=== PATIENT | male | born 1945 | race Caucasian/White ===

== ENCOUNTER → 2018-03-04 17:38 | Outpatient (REF) | payer MEDICARE, BC, SELFPAY ==
[2018-03-04 19:57] LABS: HCT 51.4 % (40.0-50.0); HGB 17.6 g/dL (13.5-17.5); Mean Corp. HGB Concentration 34.2 g/dL (32.0-36.0); Mean Corpuscular Hemoglobin 34.3 pg (27.0-33.0); Mean Corpuscular Volume 100.2 fL (80-95); Mean Platelet Volume 10.9 fL (8.0-11.0); Platelet Count 217 x1000/uL (130-400); RBC 5.13 m/cumm (4.50-6.00); RBC Distribution Width 12.8 % (11.8-14.1)
[2018-03-04 20:22] LABS: NT-proBNP 969 pg/mL
== END ==
LOC: NCHCN 17:38
PROVIDERS: PCP Family Medicine; Visit Provider Family Medicine
DX: R06.02 Shortness of breath (principal)
CPT/HCPCS: 85027; 83880

== ENCOUNTER → 2018-03-10 13:59 | Outpatient (CLI) | payer MEDICARE, BC, SELFPAY ==
--- NOTE | 2018-03-10 14:02 | DI.REPORT_ITS ---
SYMPTOMS/DIAGNOSIS: SHORTNESS OF BREATH, R06.02 PA AND LATERAL CHEST: Comparison is made with 2Jan14. The heart size is normal. There is minimal linear scarring posteriorly, unchanged. The lungs are otherwise clear. No infiltrate, effusion or pulmonary edema is seen. Degenerative changes and scoliosis are noted in the spine. IMPRESSION: No acute abnormality.
== END ==
PROVIDERS: PCP Family Medicine; Visit Provider Family Medicine
DX: R06.02 Shortness of breath (principal)
CPT/HCPCS: 71046

== ENCOUNTER → 2018-03-16 02:36 | Outpatient (CLI) | payer MEDICARE, BC, SELFPAY ==
--- NOTE | 2018-03-16 15:27 | MERGE_ITS ---
*[facility]* *[facility]* [address] [place] [address] Date of study: 03/16/2018 Transthoracic Echocardiography M-mode, complete 2D, complete spectral Doppler, and color Doppler *STUDY CONCLUSIONS* Summary: 1. Left ventricle: The cavity size was normal. Systolic function was normal. The estimated ejection fraction was 60-65%. Diastolic parameters were normal for age. There was no evidence of elevated ventricular filling pressure by Doppler parameters. 2. Aortic valve: There was moderate regurgitation. 3. Right ventricle: The cavity size was normal. Wall thickness was normal. Systolic function was normal. 4. Atrial septum: No defect or patent foramen ovale was identified. 5. Pulmonary arteries: Pulmonary systolic pressure was in the range of 25mm Hg to 35mm Hg. 6. Inferior vena cava: The vessel was normal in size. The respirophasic diameter changes were in the normal range (greater than or equal to 50%), consistent with normal central venous pressure. *PATIENT PRESENTATION* Height: 157.5cm ((62in) ) S/D Pressure: 135 / 82 Weight: 90.7kg ((199.6lb) ) BSA: 2.04m^2 Test start time: 02:20 PM. Test stop time: 03:20 PM. PERFORMING Unknown PERFORMING [facility] MANAGER BANK RT Annie (Tessy)([place]), [facility] ORDERING Christian Benavides REFERRING Christian Benavides *PROCEDURE DATA* Procedure information: The patient was identified by two identifiers. This study was interpreted by [facility]. Pertinent images and digital data are archived for permanent storage and are available for subsequent review. No prior study was available for comparison. Study status: Routine. Transthoracic echocardiography. M-mode, complete 2D, complete spectral Doppler, and color Doppler. A Transthoracic Echocardiogram was performed. Scanning was performed from the parasternal, apical, subcostal, and suprasternal notch acoustic windows. Images were obtained using an [id number] cardiac ultrasound machine. Image quality was adequate. Study completion: The patient tolerated the procedure well. History: PMH: SOB. RBBB, elevated recent BNP, negative CXR. *CARDIAC ANATOMY* Left ventricle: The cavity size was normal. Systolic function was normal. The estimated ejection fraction was 60-65%. The tissue Doppler parameters were abnormal. Diastolic parameters were normal for age. There was no evidence of elevated ventricular filling pressure by Doppler parameters. Aortic valve: Trileaflet. Doppler: There was no stenosis. There was moderate regurgitation. VTI ratio of LVOT to aortic valve: 0.74. Valve area (VTI): 2.6cm^2. Indexed valve area (VTI): 1.3cm^2/m^2. Peak velocity ratio of LVOT to aortic valve: 0.69. Valve area (Vmax): 2.4cm^2. Indexed valve area (Vmax): 1.2cm^2/m^2. Mean velocity ratio of LVOT to aortic valve: 0.6. Valve area (Vmean): 2.1cm^2. Indexed valve area (Vmean): 1cm^2/m^2. Mean gradient (S): 5mm Hg. Peak gradient (S): 9.7mm Hg. Aorta: Aortic root: The aortic root was normal in size. Mitral valve: Doppler: Valve area by pressure half-time: 3.5cm^2. Indexed valve area by pressure half-time: 1.7cm^2/m^2. Left atrium: The atrium was normal in size. Atrial septum: No defect or patent foramen ovale was identified. Right ventricle: The cavity size was normal. Wall thickness was normal. Systolic function was normal. Pulmonic valve: Doppler: There was no evidence for stenosis. There was mild regurgitation. Peak gradient (S): 4.8mm Hg. Tricuspid valve: Doppler: There was mild regurgitation. Pulmonary artery: Poorly visualized. Pulmonary systolic pressure was in the range of 25mm Hg to 35mm Hg. Right atrium: The atrium was normal in size. Pericardium: There was no pericardial effusion. Systemic veins: Inferior vena cava: Not well visualized. The vessel was normal in size. The respirophasic diameter changes were in the normal range (greater than or equal to 50%), consistent with normal central venous pressure. Baseline ECG: Normal sinus rhythm. Measurements Left ventricle Value Reference LV ID, ED, PLAX 4.3 cm 3.5 - 6.0 LV ID, ES, PLAX 3.2 cm 2.1 - 4.0 LV PW thickness, ED, PLAX 1.0 cm LV end-diastolic volume, 1-p A2C 70 ml LV ejection fraction, 1-p A2C 56 % LV end-diastolic volume, 1-p A4C 73 ml LV ejection fraction, 1-p A4C 55 % LV e', lateral 0.091 m/sec LV E/e', lateral 7 LV e', medial 0.056 m/sec LV E/e', medial 12 LV e', average 0.074 m/sec LV E/e', average 9 Ventricular septum Value Reference IVS thickness, ED, PLAX 1.0 cm LVOT Value Reference LVOT ID, A-P 2.1 cm LVOT area 3.5 cm^2 LVOT peak velocity, S 1.07 m/sec LVOT mean velocity, S 0.64 m/sec LVOT VTI, S 24.6 cm LVOT peak gradient, S 4.6 mm Hg LVOT mean gradient, S 2 mm Hg Stroke volume (SV), LVOT DP 85 ml Stroke index (SV/bsa), LVOT DP 42 ml/m^2 Aortic valve Value Reference Aortic valve peak velocity, S 1.6 m/sec Aortic valve mean velocity, S 1.06 m/sec Aortic valve VTI, S 33.4 cm Aortic mean gradient, S 5 mm Hg Aortic peak gradient, S 9.7 mm Hg VTI ratio, LVOT/AV 0.74 Aortic valve area, VTI 2.6 cm^2 Velocity ratio, peak, LVOT/AV 0.69 Aortic valve area, peak velocity 2.4 cm^2 Velocity ratio, mean, LVOT/AV 0.6 Aortic valve area, mean velocity 2.1 cm^2 Aortic valve area/bsa, mean velocity 1 cm^2/m^2 Aortic regurg deceleration 243 cm/s^2 Aortic regurg pressure half-time 593 ms Aorta Value Reference Aortic root ID, ED 3.2 cm Ascending aorta ID, A-P, S 2.7 cm RVOT Value Reference RVOT VTI, S 13.1 cm Left atrium Value Reference LA ID, A-P, ES 3.9 cm LA ID/bsa, A-P 1.9 cm/m^2 <=2.2 LA area, ES, A4C 22.8 cm^2 8.8 - 23.4 LA area, ES, A2C 20 cm^2 LA volume/bsa, ES, 1-p A4C 38 ml/m^2 LA volume, ES, 2-p 67 ml LA volume/bsa, ES, 2-p 33 ml/m^2 LA/aortic root ratio 1.22 Mitral valve Value Reference Mitral E-wave peak velocity 0.65 m/sec Mitral A-wave peak velocity 0.74 m/sec Mitral deceleration time 218 ms 150 - 230 Mitral pressure half-time 63 ms Mitral E/A ratio, peak 0.88 Mitral valve area, PHT, DP 3.5 cm^2 Pulmonary veins Value Reference Pulmonary vein peak velocity, S 0.74 m/sec Pulmonary vein peak velocity, D 0.44 m/sec Pulmonary vein velocity ratio, peak, 1.66 S/D Pulmonary vein A-wave reversal peak 0.5 m/sec velocity Pulmonary vein A-wave reversal 153 ms duration Tricuspid valve Value Reference Tricuspid regurg peak velocity 2.7 m/sec Tricuspid peak RV-RA gradient 28.7 mm Hg Right atrium Value Reference RA area, ES, A4C 19.1 cm^2 8.3 - 19.5 Pulmonic valve Value Reference Pulmonic peak gradient, S 4.8 mm Hg Legend: (L) and (H) maikel values outside specified reference range. I have personally reviewed the images and have reviewed and edited the reported findings. Electronically signed by Charles Dennison MD 03/16/2018 16:44
== END ==
PROVIDERS: PCP Family Medicine; Visit Provider Family Medicine
DX: R06.02 Shortness of breath (principal); I45.10 Unspecified right bundle-branch block; I35.1 Nonrheumatic aortic (valve) insufficiency; R79.89 Other specified abnormal findings of blood chemistry
CPT/HCPCS: 93306

== ENCOUNTER → 2018-03-16 03:51 | Outpatient (CLI) | payer MEDICARE, BC, SELFPAY ==
--- NOTE | 2018-03-16 15:30 | PFT_ITS ---
PULMONARY FUNCTION TEST REPORT DATE OF SERVICE - March 16, 2018 REQUESTING PROVIDER - Christian Benavides M.D. INTERPRETATION OF STUDY Spirometry shows no evidence of obstructive airways disease. No bronchodilator response testing was carried out. LUNG VOLUMES - Lung volumes show no evidence of restriction. DIFFUSION CAPACITY- Normal. AIRWAY RESISTANCE - Normal. IMPRESSION Overall normal pulmonary function study. Clinical correlation recommended. Sabrina Liang M.D. ABIGAIL/max T - 03/17/2018 HAND SIGNED COPY OF THIS NOTE IS SCANNED INTO THE EMR
== END ==
PROVIDERS: PCP Family Medicine; Visit Provider Family Medicine
DX: I35.1 Nonrheumatic aortic (valve) insufficiency (principal); R06.02 Shortness of breath; I45.10 Unspecified right bundle-branch block
CPT/HCPCS: 93306; 94010; 94060; 94150; 94726; 94729

== ENCOUNTER 2018-08-17 14:49 | Outpatient (REF) | payer MEDICARE, BC, SELFPAY ==
[2018-08-17 19:23] LABS: Absolute Basophil Count 0.06 k/cumm (0.0-0.2); Absolute Eosinophil Count 0.16 k/cumm (0.0-0.7); Absolute Lymphocyte Count 1.17 k/cumm (1.2-3.4); Absolute Monocyte Count 0.51 k/cumm (0.11-0.7); Absolute Neutrophil Count 3.03 k/cumm (1.2-6.7); Basophils % 1.2; Eosinophils % 3.2; HCT 47.3 % (40.0-50.0); Lymphocytes % 23.7; Mean Corp. HGB Concentration 33.8 g/dL (32.0-36.0); Mean Corpuscular Hemoglobin 33.8 pg (27.0-33.0); Mean Corpuscular Volume 99.8 fL (80-95); Mean Platelet Volume 11.1 fL (8.0-11.0); Monocytes % 10.3; Neutrophils % 61.6; Platelet Count 214 x1000/uL (130-400); RBC 4.74 m/cumm (4.50-6.00); RBC Distribution Width 12.5 % (11.8-14.1); White Blood Cell Count 4.93 k/cumm (4.4-10.8)
[2018-08-17 19:53] LABS: TSH (W/Ref FT4) 1.48 uIU/mL (0.358-3.74)
[2018-08-17 20:39] LABS: Vitamin B12 930 pg/mL (193-986)
== END 2018-08-17 15:09 ==
LOC: NCHCN 14:49
PROVIDERS: PCP Family Medicine; Visit Provider Family Medicine
DX: D75.1 Secondary polycythemia (principal); E89.0 Postprocedural hypothyroidism
CPT/HCPCS: 82607; 84443; 85025

== ENCOUNTER → 2018-08-18 09:39 | Outpatient (BNVA) | payer MEDICARE, BC, SELFPAY | PROVIDERS: PCP Family Medicine; Visit Provider Orthopaedic Surgery | DX: M17.11 Unilateral primary osteoarthritis, right knee (principal); M17.12 Unilateral primary osteoarthritis, left knee; M75.82 Other shoulder lesions, left shoulder | CPT/HCPCS: 20610; 99211; 99213; J1040; J7325 ==

== ENCOUNTER 2018-10-06 14:38 | Outpatient (REF) | payer MEDICARE, BC, SELFPAY ==
[2018-10-06 18:59] LABS: CREATININE 0.95 mg/dL (0.70-1.30)
== END 2018-10-06 14:58 ==
LOC: NCHCN 14:38
PROVIDERS: PCP Family Medicine; Visit Provider Family Medicine
DX: R31.0 Gross hematuria (principal)
CPT/HCPCS: 82565

== ENCOUNTER 2018-10-20 01:31 | Outpatient (CLI) | payer MEDICARE, BC, SELFPAY ==
[2018-10-20] MEDS: Omnipaque 350 MG/ML 100 ML BTL IJ (09:58)
--- NOTE | 2018-10-20 10:03 | DI.CT_ITS ---
SYMPTOM/DIAGNOSIS: GROSS HEMATURIA, , R31.[address]: The noncontrast enhanced examination reveals bilateral non obstructing renal calculi. Bilateral renal cysts are demonstrated. There is no evidence of hydronephrosis. There is no evidence of ureterolithiasis or ureterectasis. The bladder is minimally distended. There is bladder wall thickening which could be on the basis of cystitis or incomplete distension. Numerous calcifications are identified in an enlarged prostate. The visualized portions of the liver are unremarkable. The gallbladder is unremarkable. The pancreas and spleen are intact. The adrenals are unremarkable. There is no evidence of bowel obstruction. The appendix is normal. Note is made of a small fat containing umbilical hernia. There are atherosclerotic changes in the aorta without evidence of an aneurysm. Diffuse degenerative changes involving the lumbar spine are noted with narrowed vacuum discs at all levels. There is discogenic sclerosis and hypertrophic spurring throughout. SUMMARY: Bilateral non obstructing nephrolithiasis. There are multiple right renal cysts with no evidence of hydronephrosis. There is no evidence of ureterectasis or ureterolithiasis. Bladder wall thickening could be on the basis of non distension. Cystitis could not be excluded.
== END 2018-10-20 01:51 ==
PROVIDERS: PCP Family Medicine; Visit Provider Family Medicine
DX: R31.0 Gross hematuria (principal); N20.0 Calculus of kidney; N28.1 Cyst of kidney, acquired
CPT/HCPCS: 74178; 82565; J3490

== ENCOUNTER → 2018-10-22 13:52 | Outpatient (BNVA) | payer MEDICARE, BC, SELFPAY | PROVIDERS: PCP Family Medicine; Referring Provider Family Medicine; Visit Provider Nurse Practitioner Gerontology | DX: N40.1 Benign prostatic hyperplasia with lower urinary tract symptoms (principal); R31.0 Gross hematuria; R35.0 Frequency of micturition | CPT/HCPCS: 81003; 99204; 99215 ==

== ENCOUNTER → 2018-12-03 13:09 | Outpatient (BNVA) | payer MEDICARE, BC, SELFPAY | PROVIDERS: PCP Family Medicine; Visit Provider Nurse Practitioner Gerontology | DX: N40.1 Benign prostatic hyperplasia with lower urinary tract symptoms (principal); R35.0 Frequency of micturition | CPT/HCPCS: 51798; 99213 ==

== ENCOUNTER 2019-01-11 15:05 | Outpatient (REF) | payer MEDICARE, BC, SELFPAY ==
[2019-01-11 20:03] LABS: Bilirubin Negative (Negative); Blood Negative (Negative); Clarity Clear (Clear); Glucose Negative (Negative); Ketones Negative (Negative); Leukocyte Esterase Negative (Negative); Nitrite Negative (Negative); Specific Gravity 1.015 (1.005-1.025); Urobilinogen 0.2 EU/dL (Up TO 0.2)
== END 2019-01-11 15:25 ==
LOC: NCHCN 15:05
PROVIDERS: PCP Family Medicine; Visit Provider Family Medicine
DX: R31.0 Gross hematuria (principal); R30.9 Painful micturition, unspecified
CPT/HCPCS: 81003

== ENCOUNTER 2019-03-02 12:15 | Outpatient (REF) | payer MEDICARE, BC, SELFPAY ==
[2019-03-02 13:36] LABS: Ferritin 79 ng/mL (8-388); TSH (W/Ref FT4) 1.89 uIU/mL (0.36-3.74)
[2019-03-02 13:43] LABS: ESR 6 mm/hr (1-20)
== END 2019-03-02 12:35 ==
LOC: NCHCN 12:15
PROVIDERS: PCP Family Medicine; Visit Provider Family Medicine
DX: G25.81 Restless legs syndrome (principal); R42 Dizziness and giddiness; E89.0 Postprocedural hypothyroidism; R71.8 Other abnormality of red blood cells
CPT/HCPCS: 85652; 82728; 84443

== ENCOUNTER → 2019-03-04 14:03 | Outpatient (BNVA) | payer MEDICARE, BC, SELFPAY | PROVIDERS: PCP Family Medicine; Referring Provider Family Medicine; Visit Provider Orthopaedic Surgery | DX: M17.11 Unilateral primary osteoarthritis, right knee (principal); M17.12 Unilateral primary osteoarthritis, left knee; M75.82 Other shoulder lesions, left shoulder; G25.81 Restless legs syndrome | CPT/HCPCS: 20610; 99211; 99213; J1040; J7325 ==

== ENCOUNTER 2019-08-06 11:55 | Outpatient (CLI) | payer MEDICARE, BC, SELFPAY ==
--- NOTE | 2019-08-06 11:59 | DI.RAD_ITS ---
EXAM: XR CHEST 2V PA LATERAL INDICATION: COUGH, PALPITATIONS, R05, R00.2. COMPARISON: CHEST 2 VIEWS PA,LAT from 03/10/2018 TECHNIQUE: 2D digital imaging was performed. FINDINGS: The cardiac and mediastinal contours have a normal appearance. The lungs are suboptimally inflated but clear. No infiltrate or effusion is seen. Degenerative changes are noted in the spine. IMPRESSION: No acute abnormality.
== END 2019-08-06 12:15 ==
PROVIDERS: PCP Family Medicine; Visit Provider Nurse Practitioner Family
DX: R05 Cough (principal); R00.2 Palpitations
CPT/HCPCS: 71046

== ENCOUNTER 2019-08-06 12:05 | Outpatient (REF) | payer MEDICARE, BC, SELFPAY ==
[2019-08-06 18:54] LABS: HGB 15.9 g/dL (13.5-17.5); Mean Corp. HGB Concentration 33.1 g/dL (32.0-36.0); Mean Corpuscular Hemoglobin 33.1 pg (27.0-33.0); Mean Platelet Volume 10.8 fL (8.0-11.0); Platelet Count 270 x1000/uL (130-400); RBC Distribution Width 12.5 % (11.8-14.1); White Blood Cell Count 8.84 k/cumm (4.4-10.8)
[2019-08-06 19:19] LABS: NT-proBNP 160 pg/mL (<300)
== END 2019-08-06 12:25 ==
LOC: NCHCN 12:05
PROVIDERS: PCP Family Medicine; Visit Provider Nurse Practitioner Family
DX: R06.9 Unspecified abnormalities of breathing (principal); R05 Cough
CPT/HCPCS: 85027; 83880

== ENCOUNTER 2019-08-10 02:41 | Outpatient (CLI) | payer MEDICARE, BC, SELFPAY | END 2019-08-10 03:01 | PROVIDERS: PCP Family Medicine; Visit Provider Family Medicine | DX: R00.2 Palpitations (principal); I48.91 Unspecified atrial fibrillation | CPT/HCPCS: 93225 ==

== ENCOUNTER 2019-08-12 11:10 | Outpatient (CLI) | payer MEDICARE, BC, SELFPAY ==
--- NOTE | 2019-08-12 11:58 | W.HOLTRPT ---
Date of service: 08/12/19 Time of Service: 11:58 Holter Monitor Report Holter Monitor Note: There is a 48-hour Holter monitor ordered for indication of palpitations. ?The patient had one long episode of atrial fibrillation lasting 1 day 6 hours. Maximal heart rate was 229. ?The patient was in normal sinus rhythm for the remainder of the recording. ?The patient one episode of supraventricular tachycardia lasted 4 beats. ?The patient had 0 episodes of ventricular tachycardia and rare (less than 1%) single ventricular ectopic beats. ?Patient had no pauses greater than 3 seconds and no evidence of high degree heart block. ?Patient diary events were associated with both normal sinus rhythm as well as atrial fibrillation.
== END 2019-08-12 11:30 ==
PROVIDERS: PCP Family Medicine; Visit Provider Family Medicine
DX: R00.2 Palpitations (principal); I48.91 Unspecified atrial fibrillation
CPT/HCPCS: 93227; 93226

== ENCOUNTER 2019-08-16 16:30 | Outpatient (REF) | payer MEDICARE, BC, SELFPAY ==
[2019-08-16 19:27] LABS: Magnesium 2.1 mg/dL (1.8-2.4); TSH (W/Ref FT4) 1.99 uIU/mL (0.36-3.74)
== END 2019-08-16 16:50 ==
LOC: NCHCN 16:30
PROVIDERS: PCP Family Medicine; Visit Provider Family Medicine
DX: I48.0 Paroxysmal atrial fibrillation (principal); E89.0 Postprocedural hypothyroidism
CPT/HCPCS: 83735; 84443

== ENCOUNTER 2019-09-07 11:18 | Outpatient (REF) | payer MEDICARE, BC, SELFPAY ==
[2019-09-07 18:48] LABS: Anion Gap 6.6 mmol/L (3-11); BUN 14 mg/dL (7-18); CO2 30.4 mmol/L (21.0-32.0); CREATININE 0.96 mg/dL (0.70-1.30); Calcium 9.3 mg/dL (8.5-10.1); Chloride 105 mmol/L (98-107); Glucose 111 mg/dL (74-106); Potassium 4.6 mmol/L (3.5-5.1); Sodium 142 mmol/L (136-145)
== END 2019-09-07 11:38 ==
LOC: NCHCN 11:18
PROVIDERS: PCP Family Medicine; Visit Provider Family Medicine
DX: R06.02 Shortness of breath (principal); I48.0 Paroxysmal atrial fibrillation
CPT/HCPCS: 80048

== ENCOUNTER 2019-09-23 03:02 | Outpatient (CLI) | payer MEDICARE, BC, SELFPAY ==
--- NOTE | 2019-09-23 12:40 | PFT_ITS ---
PULMONARY FUNCTION TEST REPORT DATE OF SERVICE: September 23, 2019 REQUESTING PROVIDER: Christian Benavides M.D. Spirometry shows borderline mild obstructive airways disease; may represent normal variant; no significant bronchodilator response. Lung volumes show no evidence of restriction. Diffusion capacity normal. Airways resistance normal. IMPRESSION: Overall normal pulmonary function study; possible borderline mild obstruction, likely represents a normal variant. When this study was compared to previous one from 03/16/18, the patient has a total of 790 cc's decline in FVC. FEV1 has declined by 670 cc's. VJ/katyl D/
[2019-09-23] MEDS: Inhaler, Assist Device 1 EACH MC (15:52)
[2019-09-23] MEDS: Albuterol HFA 18 GM 200 PUFF INH IH (15:52)
== END 2019-09-23 03:22 ==
PROVIDERS: PCP Family Medicine; Visit Provider Family Medicine
DX: R06.2 Wheezing (principal); R05 Cough; J98.4 Other disorders of lung
CPT/HCPCS: 94060; 94726; 94729

== ENCOUNTER 2019-09-24 09:28 | Outpatient (CLI) | payer MEDICARE, BC, SELFPAY ==
--- NOTE | 2019-09-24 09:15 | DI.RAD_ITS ---
EXAM: XR SHOULDER RT COMPLETE 2+V INDICATION: right shoulder pain. COMPARISON: No exams were available for comparison TECHNIQUE: 2D digital imaging was performed. FINDINGS: There is mild spurring of the AC joint and tip of the acromion. There is spurring of the glenoid, gr eater and lesser tuberosities. Glenohumeral joint space is well maintained. The humeral head is nor anish position. IMPRESSION: Moderate degenerative changes of the glenohumeral joint. DATA REPOSITORY: RADIATION DOSE DELIVERED:
--- NOTE | 2019-09-24 09:25 | DI.RAD_ITS ---
EXAM: XR SHOULDER LT COMPLETE 2+V INDICATION: left shoulder pain. COMPARISON: XR SHOULDER RT COMPLETE 2+V from 09/24/2019 TECHNIQUE: 2D digital imaging was performed. FINDINGS: There is mild spurring at the AC joint and undersurface of the acromion. The humeral head is positio kavon beneath the acromion, consistent with a chronic rotator cuff tear. There are degenerative change s of the glenohumeral joint. There is some irregularity of the glenoid. There is also apparent flat tening of the humeral head which could be secondary to previous fracture. IMPRESSION: Degenerative changes and chronic rotator cuff tear. DATA REPOSITORY: RADIATION DOSE DELIVERED:
== END 2019-09-24 09:48 ==
PROVIDERS: PCP Family Medicine; Referring Provider Family Medicine; Visit Provider Student in an Organized Health Care Education/Training Program
DX: M25.511 Pain in right shoulder (principal); M25.512 Pain in left shoulder; M75.102 Unspecified rotator cuff tear or rupture of left shoulder, not specified as traumatic; M75.82 Other shoulder lesions, left shoulder; M12.812 Other specific arthropathies, not elsewhere classified, left shoulder; M75.81 Other shoulder lesions, right shoulder
CPT/HCPCS: 20610; 99213; 73030; J1040

== ENCOUNTER 2019-09-29 02:07 | Outpatient (CLI) | payer MEDICARE, BC, SELFPAY ==
--- NOTE | 2019-09-29 | DI.CT_ITS ---
EXAM: CT CHEST W CLINICAL HISTORY: SOB, R06.02, SUBACUTE DEVELOPING COUGH, WHEEZING TECHNIQUE: Imaging Protocol: Axial computed tomography images with coronal and sagittal reformatted images were created and reviewed CONTRAST MATERIAL: Intravenous: Omnipaque 350 Contrast volume:70 cc contrast route:IV - COMPARISON: No exams were available for comparison FINDINGS: Tracheobronchial tree: Patent where visualized. No bronchiectasis Mediastinum and Nely: No dominant adenopathy or fluid collection. Pulmonary parenchyma: No consolidation or dominant measurable mass. There is mild linear atelectasis or scarring at the lung bases. No interstitial changes or emphysematous changes are seen. Pleura: No effusion or pneumothorax. Heart: The heart is not dilated. Auop-ir-stujqcix coronary artery calcifications are seen. Aorta: Thoracic aorta non-dilated. Upper abdomen: Unremarkable. Lymph nodes: Within normal limits. Bones: Severe degenerative changes and scoliosis are seen in the thoracic spine. IMPRESSION: No acute abnormality. Mild basilar atelectasis versus scarring. DATA REPOSITORY: All CT scans at this facility are submitted to the National Radiology Data Registry (NRDR) Dose Index Registry (DIR) with the [employer] (ACR). RADIATION OPTIMIZATION: All CT scans at this facility use at least one of these dose optimization te chniques: automated exposure control; mA and/or kV adjustment per patient size (includes targeted exa ms where dose is matched to clinical indication); or iterative reconstruction.
[2019-09-29] MEDS: Normal Saline - Diluent 50 ML VIAL IV (08:33)
[2019-09-29] MEDS: Omnipaque 350 MG/ML 100 ML BTL IJ (08:33)
== END 2019-09-29 02:27 ==
PROVIDERS: PCP Family Medicine; Visit Provider Family Medicine
DX: R06.02 Shortness of breath (principal); R05 Cough; R06.2 Wheezing; J98.4 Other disorders of lung
CPT/HCPCS: 71260; J3490

== ENCOUNTER → 2019-11-24 11:43 | Outpatient (BNVA) | payer MEDICARE, BC, SELFPAY | PROVIDERS: PCP Family Medicine; Referring Provider Family Medicine; Visit Provider Student in an Organized Health Care Education/Training Program | DX: M25.511 Pain in right shoulder (principal); M25.512 Pain in left shoulder; M75.82 Other shoulder lesions, left shoulder; S46.011A Strain of muscle(s) and tendon(s) of the rotator cuff of right shoulder, initial encounter; W19.XXXA Unspecified fall, initial encounter | CPT/HCPCS: 99214 ==

== ENCOUNTER 2019-11-29 01:39 | Outpatient (CLI) | payer MEDICARE, BC, SELFPAY ==
--- NOTE | 2019-11-29 07:45 | DI.MRI_ITS ---
EXAM: MR UPPER JOINT RT WO CLINICAL HISTORY: R RTC TEAR, RT SHOULDER PAIN, M25.511. TECHNIQUE: Multiplanar multisequence MRI was performed. MRI examination of the right shoulder was p erformed according to the usual protocol. COMPARISON: No exams were available for comparison FINDINGS: Bones: There are prominent hypertrophic degenerative changes at the acromioclavicular joint with flui d in the joint space and mild signal changes in the adjoining bones. There is marked undersurface pr ominence of the hypertrophied bones at the AC joint, particularly the distal aspect of the clavicle. There is subchondral cyst formation of the greater tuberosity of the humerus. There is widening and flattening of the glenoid. The humerus is markedly subluxed superiorly with a massive rotator cuff tear. Labrum and articular cartilage: Labrum appears effaced particularly posteriorly and inferiorly. Lilliam cular cartilage of the glenoid appears thinned. Biceps tendon: Biceps tendon is very difficult to visualize and appears attenuated, probable partial- thickness tear. Tendon is displaced medially from the bicipital groove. Rotator cuff: There is a massive rotator cuff tear with full-thickness supraspinatus and infraspinatu s tendon tears retracted by at least 5 cm. Teres minor appears intact. Subscapularis tendon appears divided with a portion of the tendon subluxing under the inferior labrum. This appears to constitut e a full-thickness non-retracted ?window tear? of the subscapularis. There is little if any fatty replacement of the muscle bellies of the rotator cuff; however, I would note that muscle belly of the supraspinatus appears to be of decreased volume compared to its expecte d normal volume. IMPRESSION: Massive rotator cuff tear as described above. Associated degenerative changes with subluxation of hu meral head superiorly. Decreased volume of muscle belly of the supraspinatus. DATA REPOSITORY:
== END 2019-11-29 01:59 ==
PROVIDERS: PCP Family Medicine; Visit Provider Student in an Organized Health Care Education/Training Program
DX: M25.511 Pain in right shoulder (principal); S46.011A Strain of muscle(s) and tendon(s) of the rotator cuff of right shoulder, initial encounter; M25.411 Effusion, right shoulder; M19.011 Primary osteoarthritis, right shoulder; S43.391A Subluxation of other parts of right shoulder girdle, initial encounter
CPT/HCPCS: 73221

== ENCOUNTER 2019-12-15 15:53 | Outpatient (CLI) | payer MEDICARE, BC, SELFPAY ==
--- NOTE | 2019-12-15 14:15 | DI.RAD_ITS ---
EXAM: XR SHOULDER RT 1V CLINICAL HISTORY: right rotator cuff tear. TECHNIQUE: 2D digital imaging was performed. COMPARISON: CR XR SHOULDER LT COMPLETE 2+V from 09/24/2019 CR XR SHOULDER RT COMPLETE 2+V from 09/24/2019 FINDINGS: BONES: No acute fracture is present. No bony destructive lesion is seen. JOINTS: No dislocation present. The humeral head is high riding, consistent with a chronic rotator cu ff tear. There is spurring at the undersurface of the acromion. There is also spurring at the andrew n of the glenoid. There is calcification above the AC joint. SOFT TISSUE: Normal. IMPRESSION: Degenerative changes and chronic rotator cuff tear. DATA REPOSITORY: RADIATION DOSE DELIVERED:
== END 2019-12-15 16:13 ==
PROVIDERS: PCP Family Medicine; Referring Provider Family Medicine; Visit Provider Student in an Organized Health Care Education/Training Program
DX: M25.511 Pain in right shoulder (principal); M19.011 Primary osteoarthritis, right shoulder; S46.011D Strain of muscle(s) and tendon(s) of the rotator cuff of right shoulder, subsequent encounter; W19.XXXD Unspecified fall, subsequent encounter
CPT/HCPCS: 99214; 73020

== ENCOUNTER → 2019-12-22 12:46 | Outpatient (BNVA) | payer MEDICARE, BC, SELFPAY | PROVIDERS: PCP Family Medicine; Visit Provider Nurse Practitioner Gerontology | DX: N40.1 Benign prostatic hyperplasia with lower urinary tract symptoms (principal) | CPT/HCPCS: 81003; 99213 ==

== ENCOUNTER 2020-01-27 09:30 | Emergency (ER) | payer MEDICARE, BC, SELFPAY ==
[2020-01-27 09:38] VITALS: BP 153/88; PULSE 90; TEMP 36.4; O2SAT 97
--- NOTE | 2020-01-27 10:03 | W.ED.GENAD ---
Discharge Plan Disposition Patient Disposition: HOME Condition: Stable Discharge Details Chief Complaint: RashLesion Clinical Impression: Shingles Primary Care Provider: Christian Benavides ED Provider: Matthieu Jay Home Meds and New Rx's Prescriptions: New valacyclovir 1 gram tablet 1,000 mg PO DAILY Qty: 7 RF: 0 Continued levothyroxine 50 mcg capsule 50 mcg PO DAILY RF: 0 trazodone 100 mg tablet 100 mg PO QHS PRNRF: 0 pramipexole 0.125 mg tablet 0.125 mg PO QHS RF: 0 ibuprofen [Motrin IB] 200 mg tablet 200 mg PO TID RF: 0 tamsulosin [Flomax] 0.4 mg capsule 0.4 mg PO DAILY Qty: 90 RF: 3 pantoprazole 40 MG tablet,delayed release (DR/EC) 40 mg PO DAILY RF: 0 qgacnceprfi-ucqjqqdhk-dry C-Mn 1 EACH tablet 1 tab PO DAILY RF: 0 lorazepam 1 MG tablet 1 mg PO PRN PRN (Reason: Anxiety) RF: 0 acetaminophen 500 mg Tablet 500 mg PO QID PRNRF: 0 Discharge Instructions Instructions: Shingles (ED) Additional Instructions: Valacyclovir as directed. Please watch for new or worsening symptoms and return to the ER for any concerns. I do recommend reaching out to your primary care provider later today or tomorrow for prompt outpatient reevaluation. Medical Decision Making 74-year-old gentleman presents concerned for shingles. Developed a sharp intermittent discomfort to his back that felt rather superficial over the past week, developed a rash over the past 24 hours. Otherwise has no complaints. Patient reports history of shingles that feels similar. Examination is certainly consistent with a shingles-like rash in a dermatome fashion. No signs of cellulitis. I do believe that initiating antiviral therapy is reasonable. Patient is comfortable with this plan. Encouraged to return to the ER for new or worsening symptoms otherwise will reach out to his primary care provider tomorrow for prompt outpatient reevaluation Medical Records Medical records reviewed: Yes I reviewed the patient's medical records. HPI General Mode of arrival: ambulatory. Date/Time Provider Initiated Documentation: 01/27/20 09:32. Limitations to Documentation: no limitations. Information obtained by: patient. HPI Narrative: This is a 74-year-old gentleman with history of intermittent atrial fibrillation, GERD, hyperlipidemia, anxiety, chronic shortness of breath. He presents today reporting a sharp pain in the right side of his back that has been intermittent for approximately 1 week. Yesterday noticed a rash develop in the same spot. He does tell me he had shingles 1 time in the past and that this feels very similar. At this time he has no other concerns or complaints. He does report chronic shortness of breath that is at his baseline. Denies recent illness or trauma. Denies fever, headache, neck pain, chest pain, productive cough, abdominal pain, numbness, tingling, weakness. Related Data Home Medications Medication Instructions Recorded Confirmed [id number]-ikprtyfgk-bga C-Mn 1 tab PO DAILY 04/12/13 01/27/20 pantoprazole 40 mg PO DAILY 04/12/13 01/27/20 lorazepam 1 mg PO PRN PRN 02/14/14 01/27/20 levothyroxine 50 mcg capsule 50 mcg PO DAILY 10/22/18 01/27/20 pramipexole 0.125 mg tablet 0.125 mg PO QHS 10/22/18 01/27/20 trazodone 100 mg tablet 100 mg PO QHS PRN 10/22/18 01/27/20 tamsulosin 0.4 mg capsule 0.4 mg PO DAILY #90 cap 10/26/19 01/27/20 ibuprofen 200 mg tablet 200 mg PO TID tab 12/15/19 01/27/20 acetaminophen 500 mg PO QID PRN 01/27/20 01/27/20 valacyclovir 1,000 mg PO DAILY #7 tab 01/27/20 Previous Rx's Medication Instructions Recorded tamsulosin 0.4 mg capsule 0.4 mg PO DAILY #90 cap 10/26/19 valacyclovir 1,000 mg PO DAILY #7 tab 01/27/20 Allergies Allergy/AdvReac Type Severity Reaction Status Date / Time No Known Allergies Allergy Unverified 12/15/19 13:55 General Stated Complaint: RashLesion FLORA: 4 Review of Systems Constitutional Constitutional: Denies fever(s) and Denies headache(s) ENT Ears, Nose, Mouth, and Throat: Denies headache(s) Cardiovascular Cardiovascular: Denies chest pain and Reports dyspnea (Chronic) Respiratory Respiratory: Reports dyspnea (Chronic) Gastrointestinal Gastrointestinal: Denies abdominal pain, Denies nausea and Denies vomiting Musculoskeletal Musculoskeletal: Reports back pain, Denies numbness and Denies tingling Integumentary/Breasts Skin/Breast: Reports rash Neurologic Neurologic: Denies headache(s), Denies numbness and Denies tingling [facility] Medical History Allergic rhinitis (Acute) Atrial fibrillation (Chronic) BPH loc w urin obs/LUTS (Acute) Erectile dysfunction (Acute) GERD (gastroesophageal reflux disease) (Chronic) Hyperlipidemia (Acute) Left rotator cuff tear arthropathy (Chronic) Most recent injection: 09/24/2019 CRYSTAL (obstructive sleep apnea) (Chronic) Prediabetes (Acute) Right bundle branch block (Acute) Right rotator cuff tendonitis (Acute) Most recent injection: 09/24/2019 Social History Smoking/Tobacco Use Status: Former Tobacco Use Alcohol Intake: never Drug use: Never Current gender identity: male Do you feel safe at home: Yes Do you feel safe in your relationship?: Yes Exam Const General: cooperative, healthy appearing, comfortable and no acute distress Orientation: alert, awake and oriented x3 HENMT Head: normal to inspection, normocephalic and atraumatic Face and sinus: normal facial exam Mouth: moist mucous membranes Eyes Conjunctivae: conjunctivae normal Sclera: sclerae normal Neck Neck: normal visual inspection, full ROM, trachea midline, supple and nontender Chest Chest: normal inspection of the chest Resp Effort & Inspection: normal respiratory effort and able to speak in complete sentences Auscultation: diminished lung sounds bilaterally (Minimally, otherwise unremarkable) Cardio Rate: regular rate Rhythm: regular rhythm GI Inspection: normal to inspection Palpation: soft and nontender Back/Spine/Pelvis Back: no CVA tenderness and No back tenderness Other: In the T4 right thoracic posterior-lateral region there is a rash with a macular erythematous base with multiple intact vesicles. There is no spreading erythema or lymphangitic streaking. Minimally tender to palpation. Without warmth or active drainage. Certainly consistent with shingles Skin Lesions: no lesions Neuro General: patient alert, patient awake, patient oriented x3, moves all extremities and no focal motor deficits Gait: normal gait Sensory Exam: no sensory deficits noted Extrem General: normal to inspection, full ROM, capillary refill normal, no pedal edema and no calf tenderness Psych Appearance: grossly normal Mental Status: mental status grossly normal Course Vital Signs Vital signs: Vital Signs Temperature 36.4 C L 01/27/20 09:38 Pulse 90 01/27/20 09:38 Blood Pressure 153/88 H 01/27/20 09:38 Pulse Oximetry 97 01/27/20 09:38 Temperature 36.4 C L 01/27/20 09:38 Temperature Source Skin 01/27/20 09:38 Pulse 90 01/27/20 09:38 Respiratory Effort Non-Labored 01/27/20 09:43 Blood Pressure 153/88 H 01/27/20 09:38 Blood Pressure Position Sitting 01/27/20 09:38 Pulse Oximetry 97 01/27/20 09:38 Oxygen Delivery Method Room Air 01/27/20 09:38 Oxygen Flow Rate 0 01/27/20 09:38 Pain Level 0 01/27/20 09:38
== END 2020-01-27 10:17 | disposition home or self-care (01) ==
PROVIDERS: Emergency Provider Physician Assistant; PCP Family Medicine
DX: B02.9 Zoster without complications (principal)
CPT/HCPCS: 99283

== ENCOUNTER 2020-02-16 18:45 | Emergency (ER) | payer MEDICARE, BC, SELFPAY ==
--- NOTE | 2020-02-16 18:45 | RT.EKG_ITS ---
APPROVED REPORT Exam: Resting ECG Patient Location: E HR:85 bpm ECG Measurements Heart Rate 85 AXIS NJ 145 P 48 QRSd 149 QRS 68 QT 395 T 10 QTc 472 <Conclusion> Sinus rhythm...normal P axis, V-rate 60- 99 Right bundle branch block...QRSd>120, terminal axis(90,270) No WPW, No long QT, no brugada, HOCM, no STEMI. Non-diagnostic EKG
--- NOTE | 2020-02-16 18:49 | W.ED.GENAD ---
Discharge Plan Disposition Patient Disposition: HOME Condition: Fair Discharge Details Chief Complaint: Laceration Clinical Impression: Dehydration, Light headedness, Laceration of scalp, Creatinine elevation Primary Care Provider: Christian Benavides ED Provider: Padmini Basurto Home Meds and New Rx's Prescriptions: Continued levothyroxine 50 mcg capsule 50 mcg PO DAILY RF: 0 trazodone 100 mg tablet 25 mg PO QHS PRNRF: 0 pramipexole 0.125 mg tablet 0.125 mg PO QHS RF: 0 ibuprofen [Motrin IB] 200 mg tablet 200 mg PO TID RF: 0 tamsulosin [Flomax] 0.4 mg capsule 0.4 mg PO DAILY Qty: 90 RF: 3 pantoprazole 40 MG tablet,delayed release (DR/EC) 40 mg PO DAILY RF: 0 pfuapepwzli-[id number]-lln C-Mn 1 EACH tablet 1 tab PO DAILY RF: 0 lorazepam 1 MG tablet 1 mg PO DAILY PRN (Reason: Anxiety) RF: 0 acetaminophen 500 mg Tablet 500 mg PO QID PRNRF: 0 albuterol sulfate 90 mcg/actuation Hfa Aerosol Inhaler 2 puff INHALATION Q6H PRNRF: 0 Incruse Ellipta 62.5 mcg/actuation Blister With Device 1 inh INHALATION DAILY RF: 0 furosemide [Lasix] 20 mg Tablet 20 mg PO DAILY RF: 0 Discharge Instructions Instructions: Dehydration (ED), Contusion in Adults (ED) Additional Instructions: Encourage hydration. Tylenol as needed for your head contusion. Your sutures may come out in 1 week, please return emergency department to have these removed. Please monitor wounds for signs infection including redness, warmth, drainage, increased pain, fever/chills. If you develop these or other new/worsening symptoms please seek care urgently once again. In regard to your lightheadedness, this is likely associated with your dehydration. You were given a small amount of fluids here. You will need to have your kidney function rechecked. Please call Dr. segura tomorrow to schedule follow-up appointment in the next few days. If you develop chest pain, shortness of breath, difficulty breathing, headaches, visual change, weakness, sensation changes or other new/worsening symptom please seek care urgently once again. Referrals: Christian Benavides [Primary Care Provider] - Discharge Data Discharge Date/Time-TO BE ENTERED AT DEPARTURE: 02/16/20 22:45 Medical Decision Making Patient pleasant 74-year-old gentleman presenting today with chief complaint of head injury. He reports that he had been sitting in the living room, stood to go into the kitchen and became lightheaded. He reports he has been having episodes of lightheadedness for over a year now. He reports that he has discussed this previously with his primary care provider. Also reports that today he was not ambulating with his cane which he typically does which likely increases risk of fall. States he fell striking the right side of his scalp, just posterior to the ear, against a chair. Denies any LOC. Denies any syncopal episode. However, he does describe his dizziness as lightheadedness. Not have any vertiginous symptoms. Denies any visual change. No neck pain, back pain. Denies any chest pain. Patient reports that he does have chronic shortness of breath for which he uses inhaler. States that if he was not home at this point he would use his inhaler. Denies any cough, cold, fever/chills. Past medical history significant for hypothyroidism, anxiety, disequilibrium, chronic shortness of breath, atrial fibrillation, GERD, hyperlipidemia, CRYSTAL, right bundle branch block. Patient reports that his episodes of lightheadedness have been going on for at least a year with no acute change in this. States that this is primarily when going from a sitting to standing position. He has discussed this with his primary care. On exam, patient is resting comfortably. He does have a 3 cm linear laceration posterior to the right ear. Small amount of active bleeding. Remaining head exam normal. Neurologic exam is intact. No pain with palpation about the spine, paraspinal muscles. No pain with AP or lateral chest wall compression. Abdomen is benign. No lower extremity edema. Patient does have wheezing noted on exam but otherwise no abnormality on auscultation. As the patient did strike his head, I do feel that imaging would be appropriate at this point. Will obtain a head CT. EKG was reviewed by physician. Please see their note. No acute ischemic changes noted. At this point, patient's history is not consistent with ACS, PE. Patient does describe more of a orthostatic hypotension particular this is been happening for quite some time. Came on after going from a sitting to standing position fairly quickly. Patient patient's age, plan for CTA although his exam quite reassuring and I have a low suspicion for intracranial hemorrhage. FINDINGS: Brain: There is mild age related parenchymal atrophy with prominence of the cortical sulci. Periventricular and deep white matter hypodensities are consistent with sequela of chronic microvascular ischemic disease. Rutherford-white matter differentiation is preserved. No acute intracranial hemorrhage. Ventricles: Mild ex vacuo dilation of the ventricles, likely secondary to age related volume loss. Bones/joints: Unremarkable. No acute fracture. Sinuses: Mild asymmetric mucosal thickening of the right maxillary sinus as well as of the ethmoid air cells. No air-fluid level. Mastoid air cells: No mastoid effusion. Orbits: Unremarkable. Vasculature: Note is made of accessory vein within the posterolateral right suboccipital region medial to the right mastoid air cells. Soft tissues: There is focal inflammatory changes of the subcutaneous soft tissues overlying the inferior, lateral right parietal bone posterior and superior to the ear with multiple foci of subcutaneous emphysema. IMPRESSION: 1. No acute intracranial finding. Chronic/senescent findings as discussed. 2. Focal inflammatory changes within the superficial soft tissues posterior and superior to the right ear with multiple foci of soft tissue air. Correlate with physical exam for laceration/penetrating trauma to explain etiology of soft tissue air. Labs reviewed. No leukocytosis. H&H is. Coags are normal. Labs concerning for creatinine of 1.58, this is elevated from patient's baseline 0.9. I did discuss this finding with patient. He is receiving hydration here. I did advise that this may be exacerbating his orthostatic hypotension that he should try to increase fluid intake. Initial troponin is less than 0.05. Patient continues to be asymptomatic. Wound was closed using standard sterile technique, please see note as above. Patient tolerated this well. Wound explored to base in bloodless field no foreign body or debris noted. Wound care and care of procedures were discussed in detail. He will return in 1 week for suture removal. Repeat troponin remains less than 0.05. EKG without abnormality per overreading physician.. Patient I discussed inpatient versus outpatient management. I am concerned regarding his recurrent lightheadedness. However, his labs do suggest dehydration with a bump in his creatinine to 1.58. I would like for him to be followed up quite closely with his primary care and have this reassessed in a few days. Patient does prefer outpatient management. He is hydrating orally here. I do feel that this is an appropriate option for the patient. He does seem quite reliable, lives with family and is able to return if he develops any new or worsening symptoms. I did advise moving slowly to help prevent the lightheadedness. I did encourage water intake. At this point, do not feel that he should have any medication changed but rather should discuss this further with his primary care particularly after having his creatinine reassessed. Patient was given strict return precautions. All his questions and concerns were addressed and he is in agreement with this plan. HPI General Mode of arrival: wheelchair. Date/Time Provider Initiated Documentation: 02/16/20 18:49. Limitations to Documentation: no limitations. Information obtained by: patient and RN notes reviewed. History of Present Illness 74 year old M presents to the emergency department with the chief complaint of lightheaded, head injury, described as mild and similar to prior episodes, Quality is described as aching (rates ALLEN at area of laceration at 1/10), and is localized to the head. Patient reports no radiation. Patient started experiencing this minute(s) and it has been constant. No relieving factors improve symptom(s), No exacerbating factors reported . Patient notes headaches and shortness of breath (chronic, states he uses inhaler); denies confusion, chest pain, diaphoresis, fever/chills, loss of appetite, nausea/vomiting, rash (laceration behind right ear), seizure, syncope and weakness. Patient did receive the following treatments prior to arrival, none Related Data Home Medications Medication Instructions Recorded Confirmed wyaayovhdoo-lohkapgwj-vzy C-Mn 1 tab PO DAILY 04/12/13 02/16/20 pantoprazole 40 mg PO DAILY 04/12/13 02/16/20 lorazepam 1 mg PO DAILY PRN 02/14/14 02/16/20 levothyroxine 50 mcg capsule 50 mcg PO DAILY 10/22/18 02/16/20 pramipexole 0.125 mg tablet 0.125 mg PO QHS 10/22/18 02/16/20 trazodone 100 mg tablet 25 mg PO QHS PRN 10/22/18 02/16/20 tamsulosin 0.4 mg capsule 0.4 mg PO DAILY #90 cap 10/26/19 02/16/20 ibuprofen 200 mg tablet 200 mg PO TID tab 12/15/19 02/16/20 acetaminophen 500 mg PO QID PRN 01/27/20 02/16/20 Incruse Ellipta 1 inh INHALATION DAILY 02/16/20 02/16/20 albuterol sulfate 2 puff INHALATION Q6H PRN 02/16/20 02/16/20 furosemide [Lasix] 20 mg PO DAILY 02/16/20 02/16/20 Previous Rx's Medication Instructions Recorded tamsulosin 0.4 mg capsule 0.4 mg PO DAILY #90 cap 10/26/19 Allergies Allergy/AdvReac Type Severity Reaction Status Date / Time No Known Allergies Allergy Unverified 12/15/19 13:55 General FLORA: 4 Review of Systems Constitutional Constitutional: Reports as per HPI, Denies chills, Denies fever(s), Reports headache(s) (mild, pain around laceration), Denies lethargy and Denies poor appetite Eyes Eyes: Denies change in vision ENT Ears, Nose, Mouth, and Throat: Reports dizziness (describes as lightheaded), Reports headache(s) (mild, pain around laceration) and Reports disequilibrium Cardiovascular Cardiovascular: Reports as per HPI, Denies dyspnea and Denies dyspnea on exertion Respiratory Respiratory: Reports as per HPI, Denies chest congestion, Denies cough, Denies pain on inspiration, Denies pain with cough, Denies dyspnea, Denies dyspnea on exertion and Denies wheezing Gastrointestinal Gastrointestinal: Reports as per HPI, Denies abdominal pain, Denies diarrhea, Denies nausea and Denies vomiting Genitourinary Genitourinary: Denies system reviewed and no additional complaints, except as documented (denies change in urinary habits) Musculoskeletal Musculoskeletal: Reports as per HPI and Denies back pain Integumentary/Breasts Skin/Breast: Reports as per HPI and Denies rash Neurologic Neurologic: Reports as per HPI, Reports dizziness (describes as lightheaded), Reports headache(s) (mild, pain around laceration) and Reports disequilibrium Allergic/Immunologic Allergic/Immunologic: Denies wheezing [facility] Medical History (Updated 02/16/20 @ 22:31 by EDILIA Rosa) Allergic rhinitis (Acute) Atrial fibrillation (Chronic) BPH loc w urin obs/LUTS (Acute) Erectile dysfunction (Acute) GERD (gastroesophageal reflux disease) (Chronic) Hyperlipidemia (Acute) Left rotator cuff tear arthropathy (Chronic) Most recent injection: 09/24/2019 CRYSTAL (obstructive sleep apnea) (Chronic) Prediabetes (Acute) Right bundle branch block (Acute) Right rotator cuff tendonitis (Acute) Most recent injection: 09/24/2019 Social History Smoking/Tobacco Use Status: Former Tobacco Use Alcohol Intake: never Drug use: Never Current gender identity: male Do you feel safe at home: Yes Do you feel safe in your relationship?: Yes Exam Const General: cooperative, healthy appearing, comfortable, no acute distress and well developed Nutritional Appearance: average body habitus and well nourished Orientation: alert, awake and oriented x3 HENMT Head: normal to inspection, no palpable skull fracture, signs of trauma, no Mann's sign, no hematomas, laceration, no occipital foramen tenderness, no palpable skull fracture, no scalp tenderness, no temporal artery tenderness and No periorbital ecchymosis Head images: 1. area of laceration. Deep structures intact. Small amount of bleeding. Small amount of soft tissue swelling. No palpable fracture, no hemotympanum. Exam otherwise normal. Ears: hearing grossly normal bilaterally, external ears normal and TM's normal bilaterally Face and sinus: normal facial exam, sinuses nontender and face symmetric Mouth: oral mucosae normal and moist mucous membranes Throat: posterior oropharynx normal Eyes General: appearance normal, both eyes and all related structures Pupils: PERRL and normal by confrontation EOM: EOM intact bilaterally Neck Neck: normal visual inspection, full ROM, no lymphadenopathy, no meningeal signs and trachea midline Chest Chest: normal inspection of the chest, normal palpation of entire chest wall and no crepitus Resp Effort & Inspection: normal respiratory effort, able to speak in complete sentences and no respiratory distress Auscultation: no rales, no rhonchi and wheezes scattered wheezes Cardio Rate: regular rate Rhythm: regular rhythm Heart Sounds: S1 normal and S2 normal GI Inspection: normal to inspection, no edema and non-distended Palpation: soft, no hepatosplenomegaly, not firm, no guarding, not rigid and nontender Auscultation: normal bowel sounds Back/Spine/Pelvis Back: no CVA tenderness Thoracic/Lumbar Spine: thoracic and lumbar spine normal to inspection Skin General skin exam: no rashes or lesions noted Trauma: no lacerations or abrasions Neuro General: patient alert, patient awake and patient oriented x3 Cranial Nerves: CN's II-XI intact bilaterally Cognition: normal cognition Speech: speech normal Gait: normal gait Motor: muscle tone normal throughout, strength 5/5 throughout, no pronator drift, no movement abnormalities noted and no fasciculations Sensory Exam: no sensory deficits noted Coordination: [id number] test normal, [id number] test normal and Does not sway with eyes open Extrem General: normal to inspection, capillary refill normal, no pedal edema, no calf tenderness and normal gait Psych Appearance: grossly normal and well kempt Mental Status: mental status grossly normal Speech and Movement: speech and movement normal Procedures Laceration Laceration 1: Site: scalp Side (If applicable): right Size (cm): 2.5 Description: linear Depth: simple, single layer Local Anesthetic: Lidocaine 1% Amount of anesthesia used (mL): 5 Pre-repair: wound explored, irrigated extensively and deep structures intact Skin layer closed with: other (prolene) Size (cm): 5-0 Number of sutures: 2 Technique: simple, interrupted
[2020-02-16 18:54] VITALS: BP 147/85; PULSE 85; RESP 16; TEMP 36.4; O2SAT 95
[2020-02-16 19:32] LABS: Abs Immature Grans 0.01 10^3/uL (0.0-0.06); Absolute Basophil Count 0.09 10^3/uL (0.0-0.2); Absolute Eosinophil Count 0.53 10^3/uL (0.0-0.7); Absolute Lymphocyte Count 1.36 10^3/uL (1.2-3.4); Absolute Monocyte Count 0.51 10^3/uL (0.1-0.8); Absolute Neutrophil Count 4.11 10^3/uL (1.2-6.7); Basophils % 1.4; HCT 48.5 % (40.0-50.0); HGB 16.6 g/dL (13.5-17.5); Immature Grans % 0.2; Lymphocytes % 20.6; MCH 34.3 pg (27.0-33.0); MCHC 34.2 % (32.0-36.0); MCV 100.2 fL (80-95); MPV 10.2 fL (8.0-11.0); Monocytes % 7.7; Neutrophils % 62.1; Platelet Count 255 10^3/uL (130-400); RBC 4.84 10^6/uL (4.36-5.78); RDW 11.7 % (11.8-14.1); RDW-SD 43.4 fL; WBC 6.61 10^3/uL (4.4-10.8)
--- NOTE | 2020-02-16 19:32 | DI.CT_ITS ---
EXAM: CT HEAD WO CLINICAL HISTORY: fall, struck behind right ear, no LOC. TECHNIQUE: Imaging Protocol: Axial computed tomography images with coronal and sagittal reformatted images were created and reviewed COMPARISON: No exams were available for comparison FINDINGS: Ventricles and Extra axial spaces: Normal in size and morphology for the patient's age. Hemorrhage: None. Cerebral parenchyma: Atrophy. White matter changes consistent with small vessel disease. Midline shift: None. Brainstem/Cerebellum: Normal. Calvarium: Normal. Visualized Paranasal sinuses/Mastoids: Clear. There is soft tissue swelling posterior to the right ear and a small amount of air in the soft tissue s. IMPRESSION: Soft tissue trauma to the scalp posterior to the right ear. No acute intracranial abnormality. RADIATION DOSE DELIVERED: 997.61mGy.cm Total DLP 997.61mGy.cm Total DLP DATA REPOSITORY: All CT scans at this facility are submitted to the National Radiology Data Registry (NRDR) Dose Index Registry (DIR) with the [employer] ([employer]). RADIATION OPTIMIZATION: All CT scans at this facility use at least one of these dose optimization te chniques: automated exposure control; mA and/or kV adjustment per patient size (includes targeted exa ms where dose is matched to clinical indication); or iterative reconstruction.
[2020-02-16 19:47] LABS: PTT Activated 26.5 sec (21.0-31.4); Prothrombin Time 10.5 sec (9.3-11.0)
--- NOTE | 2020-02-16 19:47 | DI.VRAD_ITS ---
PROCEDURE INFORMATION: Exam: CT Head Without Contrast Exam date and time: 02/16/2020 6:57 PM Age: 74 years old Clinical indication: Injury or trauma; Fall; Initial encounter; Blunt trauma (contusions or hematomas); Without loss of consciousness; Injury date: 02/16/2020; Injury details: Patient fell today, pain and bleeding behind right ear. TECHNIQUE: Imaging protocol: Computed tomography of the head without contrast. Radiation optimization: All CT scans at this facility use at least one of these dose optimization techniques: automated exposure control; mA and/or kV adjustment per patient size (includes targeted exams where dose is matched to clinical indication); or iterative reconstruction. COMPARISON: No relevant prior studies available. FINDINGS: Brain: There is mild age related parenchymal atrophy with prominence of the cortical sulci. Periventricular and deep white matter hypodensities are consistent with sequela of chronic microvascular ischemic disease. Rutherford-white matter differentiation is preserved. No acute intracranial hemorrhage. Ventricles: Mild ex vacuo dilation of the ventricles, likely secondary to age related volume loss. Bones/joints: Unremarkable. No acute fracture. Sinuses: Mild asymmetric mucosal thickening of the right maxillary sinus as well as of the ethmoid air cells. No air-fluid level. Mastoid air cells: No mastoid effusion. Orbits: Unremarkable. Vasculature: Note is made of accessory vein within the posterolateral right suboccipital region medial to the right mastoid air cells. Soft tissues: There is focal inflammatory changes of the subcutaneous soft tissues overlying the inferior, lateral right parietal bone posterior and superior to the ear with multiple foci of subcutaneous emphysema. IMPRESSION: 1. No acute intracranial finding. Chronic/senescent findings as discussed. 2. Focal inflammatory changes within the superficial soft tissues posterior and superior to the right ear with multiple foci of soft tissue air. Correlate with physical exam for laceration/penetrating trauma to explain etiology of soft tissue air. Dictated and Authenticated by: Rufus Moore MD. Ordering:CARLYLE Washington MD
[2020-02-16 19:50] LABS: ALT 21 U/L (16-63); AST 16 U/L (15-37); Albumin 3.9 g/dL (3.4-5.0); Alkaline Phosphatase 79 U/L (46-116); Anion Gap 8.8 mmol/L (3-11); BUN 16 mg/dL (7-18); Bilirubin, Total 0.7 mg/dL (0.2-1.0); CO2 27.2 mmol/L (21.0-32.0); CREATININE 1.58 mg/dL (0.70-1.30); Calcium 8.8 mg/dL (8.5-10.1); Chloride 104 mmol/L (98-107); Estimated GFR 43.21 (mL/min/1.73m2); Glucose 125 mg/dL (74-106); Potassium 3.7 mmol/L (3.5-5.1); Sodium 140 mmol/L (136-145)
[2020-02-16 19:51] LABS: Troponin I < 0.05 ng/mL (<0.06)
[2020-02-16 20:01] LABS: Magnesium 2.1 mg/dL (1.8-2.4); TSH 1.46 uIU/mL (0.36-3.74)
[2020-02-16] MEDS: Lactated Ringers 500 ML IV (20:30)
[2020-02-16] MEDS: Albuterol/Ipratropium 3 ML UPD VIAL UPD (21:06)
--- NOTE | 2020-02-16 21:09 | NUR.NOTE ---
Updated Ella, aware of plan for redraw at 2200. everardo [phone], Lraa [phone]
--- NOTE | 2020-02-16 21:45 | RT.EKG_ITS ---
APPROVED REPORT Exam: Resting ECG Patient Location: E HR:75 bpm ECG Measurements Heart Rate 75 AXIS NM 163 P 59 QRSd 144 QRS 69 QT 415 T 9 QTc 463 <Conclusion> Sinus rhythm...normal P axis, V-rate 60- 99 Right bundle branch block...QRSd>120, terminal axis(90,270)
[2020-02-16 22:16] LABS: Bilirubin Negative (Negative); Blood Negative (Negative); Clarity Clear (Clear); Glucose Negative (Negative); Ketones Negative (Negative); Leukocyte Esterase Negative (Negative); Nitrite Negative (Negative); Specific Gravity >= 1.030 (1.005-1.025); Urobilinogen 0.2 EU/dL (Up TO 0.2)
--- NOTE | 2020-02-16 22:21 | NUR.NOTE ---
Ambulated in core with steady gait.
[2020-02-16 22:22] LABS: Troponin I < 0.05 ng/mL (<0.06)
[2020-02-16 22:26] VITALS: BP 159/81; PULSE 79; RESP 20; TEMP 36.5; O2SAT 94
== END 2020-02-16 22:45 | disposition home or self-care (01) ==
PROVIDERS: Emergency Provider Physician Assistant; PCP Family Medicine
DX: S01.01XA Laceration without foreign body of scalp, initial encounter (principal); W01.190A Fall on same level from slipping, tripping and stumbling with subsequent striking against furniture, initial encounter; R42 Dizziness and giddiness; E86.0 Dehydration; R94.4 Abnormal results of kidney function studies
CPT/HCPCS: 12001; 36415; 80053; 93005; 94640; 96360; 99284; 70450; 81003; 83735; 84443; 84484; 85025; 85610; 85730; 93010; J7620

== ENCOUNTER 2020-02-19 18:57 | Emergency (ER) | payer MEDICARE, BC, SELFPAY ==
[2020-02-19 18:58] VITALS: BP 187/90; PULSE 83; RESP 22; TEMP 36.9; O2SAT 95
--- NOTE | 2020-02-19 19:00 | RT.EKG_ITS ---
APPROVED REPORT Exam: Resting ECG Patient Location: E HR:83 bpm ECG Measurements Heart Rate 83 AXIS MD 147 P 36 QRSd 149 QRS 60 QT 407 T 8 QTc 472 <Conclusion> Sinus rhythm...normal P axis, V-rate 60- 99 Ventricular premature complex...V complex w/ short R-R interval Right bundle branch block...QRSd>120, terminal axis(90,270)
--- NOTE | 2020-02-19 19:15 | DI.RAD_ITS ---
EXAM: XR CHEST 2V PA LATERAL CLINICAL HISTORY: sob x 1 year TECHNIQUE: 2D digital imaging was performed. COMPARISON: CR XR CHEST 2V PA LATERAL from 08/06/2019 FINDINGS: The heart is not enlarged. The lungs are clear and well expanded. No pleural effusion seen. Mediastin al contours appear intact. IMPRESSION: Normal chest
--- NOTE | 2020-02-19 19:21 | NUR.NOTE ---
Nursing Note: Pt unable to confirm medication. Unable to access [facility] at this time. Provider aware. Medication list agrees with local pharmacy fill.
[2020-02-19 19:29] VITALS: PULSE 81; RESP 20; RESP 4; RESP 7; O2SAT 94
[2020-02-19] MEDS: Levalbuterol 1.25 MG/3 ML UPD VIAL UPD (19:29)
[2020-02-19 19:33] LABS: Abs Immature Grans 0.01 10^3/uL (0.0-0.06); Absolute Basophil Count 0.09 10^3/uL (0.0-0.2); Absolute Eosinophil Count 0.75 10^3/uL (0.0-0.7); Absolute Lymphocyte Count 1.33 10^3/uL (1.2-3.4); Absolute Monocyte Count 0.59 10^3/uL (0.1-0.8); Absolute Neutrophil Count 3.77 10^3/uL (1.2-6.7); Basophils % 1.4; Eosinophils % 11.5; HCT 47.1 % (40.0-50.0); HGB 15.9 g/dL (13.5-17.5); Immature Grans % 0.2; Lymphocytes % 20.3; MCH 33.7 pg (27.0-33.0); MCHC 33.8 % (32.0-36.0); MCV 99.8 fL (80-95); MPV 10.1 fL (8.0-11.0); Neutrophils % 57.6; Platelet Count 237 10^3/uL (130-400); RBC 4.72 10^6/uL (4.36-5.78); RDW 11.6 % (11.8-14.1); RDW-SD 42.9 fL; WBC 6.54 10^3/uL (4.4-10.8)
[2020-02-19 19:48] LABS: INR 1.1 (0.9-1.1); PTT Activated 26.7 sec (21.0-31.4); Prothrombin Time 11.1 sec (9.3-11.0)
--- NOTE | 2020-02-19 19:48 | W.ED.GENAD ---
Discharge Plan Disposition Patient Disposition: HOME Condition: Stable Discharge Details Chief Complaint: SOB Clinical Impression: COPD exacerbation Primary Care Provider: Christian Benavides ED Provider: Matthieu Jay Home Meds and New Rx's Prescriptions: New prednisone 20 mg tablet 60 mg PO DAILY 5 Days Qty: 15 RF: 0 Continued levothyroxine 50 mcg capsule 50 mcg PO DAILY RF: 0 trazodone 100 mg tablet 25 mg PO QHS PRNRF: 0 pramipexole 0.125 mg tablet 0.125 mg PO QHS RF: 0 ibuprofen [Motrin IB] 200 mg tablet 200 mg PO TID RF: 0 tamsulosin [Flomax] 0.4 mg capsule 0.4 mg PO DAILY Qty: 90 RF: 3 pantoprazole 40 MG tablet,delayed release (DR/EC) 40 mg PO DAILY RF: 0 [id number] C-Mn 1 EACH tablet 1 tab PO DAILY RF: 0 lorazepam 1 MG tablet 1 mg PO DAILY PRN (Reason: Anxiety) RF: 0 acetaminophen 500 mg Tablet 500 mg PO QID PRNRF: 0 albuterol sulfate 90 mcg/actuation Hfa Aerosol Inhaler 2 puff INHALATION Q6H PRNRF: 0 Incruse Ellipta 62.5 mcg/actuation Blister With Device 1 inh INHALATION DAILY RF: 0 furosemide [Lasix] 20 mg Tablet 20 mg PO DAILY RF: 0 Discharge Instructions Instructions: COPD (Chronic Obstructive Pulmonary Disease) (ED) Additional Instructions: Work-up in the ER does not reveal any obvious emergent process. You did respond nicely to the Xopenex treatment. I am going to place you on a steroid burst dose for the next 5 days, your first dose was given here in the ER. I spoke with your daughter, we have placed you on the care management list to help expedite outpatient resources at home. I cannot stress the importance of contacting your primary care provider on Friday for prompt outpatient reevaluation. I discussed with your daughter the potential need for referral to outpatient pulmonology team, pulmonary function test, etc. for your ongoing worsening shortness of breath. In the meantime please watch for new or worsening symptoms and return to the ER for any concerns Discharge Data Discharge Date/Time-TO BE ENTERED AT DEPARTURE: 02/19/20 20:55 Medical Decision Making 74-year-old gentleman who reports year-long history of worsening shortness of breath, recently on oral steroids for shortness of breath, presents after his inhaler at home did not take away his symptoms. He is a former smoker. Clinically he appears well, nontoxic. Pulse in the 80s, O2 sats 95% on room air. He does report mildly hypertensive but denies headache or chest pain. Given his clinical presentation and the concern of his daughter, will initiate a chest pain work-up including BNP. He does feel jittery from his typical breathing treatments, will try a Xopenex here. Denies any chest pain whatsoever, will not initiate aspirin therapy. Initial laboratory values reveal a white count of 6.54 hemoglobin 15.9 hematocrit 47.1 platelet count 237. INR 1.1. D-dimer is 645 however negative when age-adjusted. Electrolytes are unremarkable. Creatinine 1.01 with a GFR greater than 60. This is improved when compared to his previous visit. LFTs unremarkable. BNP of 68. Chest x-ray read by radiology as no acute cardiopulmonary abnormality. Upon reevaluation after the Xopenex treatment, patient is resting comfortably and subjectively reports improvement. He does continue to have some scattered wheezing but is significantly improved when compared to his initial presentation. O2 sats are now 96% on room air. Troponin is less than 0.05. No evidence of infection, PE, CHF. I discussed findings with patient's daughter. I am highly suspicious of COPD exacerbation. I do believe that he will benefit from steroids, will give 125 IV Solu-Medrol now and a 5-day burst dose. We discussed the importance of continuing his current medications, contacting his primary care provider on Friday to discuss his ongoing dyspnea as well as possibly a pulmonology consultation. I have also placed him on the care management list but specifically asked them to contact his daughter because she may know his abilities and need for resources better than he does. Both patient and his daughter are comfortable with this plan and have no additional questions or concerns upon discharge. Medical Records Medical records reviewed: Yes I reviewed the patient's medical records. Lab Data Lab results reviewed: Yes I reviewed the patient's lab results. Lab results narrative: Laboratory Tests Range/Units 02/19/20 02/19/20 02/19/20 19:25 19:25 19:25 WBC (4.4-10.8) 10^3/uL 6.54 RBC (4.36-5.78) 10^6/uL 4.72 Hgb (13.5-17.5) g/dL 15.9 Hct (40.0-50.0) % 47.1 MCV (80-95) fL 99.8 H MCH (27.0-33.0) pg 33.7 H MCHC (32.0-36.0) % 33.8 RDW (11.8-14.1) % 11.6 L Plt Count (130-400) 10^3/uL 237 MPV (8.0-11.0) fL 10.1 Immature Gran % 0.2 Neutrophils % 57.6 Lymphocytes % 20.3 Monocytes % 9.0 Eosinophils % 11.5 Basophils % 1.4 Absolute Neutrophils (1.2-6.7) 10^3/uL 3.77 Absolute Lymphocytes (1.2-3.4) 10^3/uL 1.33 Absolute Monocytes (0.1-0.8) 10^3/uL 0.59 Absolute Eosinophils (0.0-0.7) 10^3/uL 0.75 H Absolute Basophils (0.0-0.2) 10^3/uL 0.09 PT (9.3-11.0) sec 11.1 H INR (0.9-1.1) 1.1 APTT (21.0-31.4) sec 26.7 D-Dimer (<500) ng/mlFEU 645 H Sodium (136-145) mmol/L 141 Potassium (3.5-5.1) mmol/L 3.8 Chloride (98-107) mmol/L 104 Carbon Dioxide (21.0-32.0) mmol/L 28.4 Anion Gap (3-11) mmol/L 8.6 BUN (7-18) mg/dL 12 Creatinine (0.70-1.30) mg/dL 1.01 Estimated GFR/1.73 m2 (mL/min/1.73m2) >= 60.00 Glucose (74-106) mg/dL 113 H Calcium (8.5-10.1) mg/dL 8.5 Magnesium (1.8-2.4) mg/dL 2.2 Total Bilirubin (0.2-1.0) mg/dL 0.9 AST (15-37) U/L 18 ALT (16-63) U/L 23 Alkaline Phosphatase (46-116) U/L 67 Troponin I (<0.06) ng/mL < 0.05 NT-Pro-B Natriuret Pep (<300) pg/mL 68 Total Protein (6.4-8.2) g/dL 6.8 Albumin (3.4-5.0) g/dL 3.7 ECG Data Attestation: I personally reviewed and interpreted this ECG (s) as follows: Interpretation: EKG reviewed and interpreted with Dr. Horn. Please see his official report. Sinus rhythm, ventricular of 83. Right bundle branch block. No STEMI. HPI General Mode of arrival: EMS. Date/Time Provider Initiated Documentation: 02/19/20 19:00. Limitations to Documentation: no limitations. Information obtained by: patient, family and EMS. HPI Narrative: This is a 74-year-old gentleman with history of atrial fibrillation, GERD, hyperlipidemia, sleep apnea, known right bundle branch block, per patient COPD which has resulted in chronic shortness of breath for at least 1 year. Also reports a history of chronic anxiety. He was seen in the ER just a couple of days ago for feeling lightheaded, was noted to have elevated creatinine at that time. Subsequently reports worsening shortness of breath since then although present for 1 year. He used his inhaler at home initially with some relief but then used it again later without relief. Afraid to use it any sooner than directed. He tells me that his primary care provider recently changed 1 of his inhalers and added on a steroid inhaler however it makes him jittery and he is not really like it. He denies any new cough or chest pain whatsoever. Denies headache, neck pain, recent illness or trauma, abdominal pain, nausea, vomiting, numbness, tingling, weakness. I was able to speak with the patient's daughter, Gena. She does tell me specifically she is concerned about CHF, no known diagnosis of that. Also wonders about additional home resources that may be helpful for her parents. Related Data Home Medications Medication Instructions Recorded Confirmed [id number] C-Mn 1 tab PO DAILY 04/12/13 02/19/20 pantoprazole 40 mg PO DAILY 04/12/13 02/19/20 lorazepam 1 mg PO DAILY PRN 02/14/14 02/19/20 levothyroxine 50 mcg capsule 50 mcg PO DAILY 10/22/18 02/19/20 pramipexole 0.125 mg tablet 0.125 mg PO QHS 10/22/18 02/19/20 trazodone 100 mg tablet 25 mg PO QHS PRN 10/22/18 02/19/20 tamsulosin 0.4 mg capsule 0.4 mg PO DAILY #90 cap 10/26/19 02/19/20 ibuprofen 200 mg tablet 200 mg PO TID tab 12/15/19 02/19/20 acetaminophen 500 mg PO QID PRN 01/27/20 02/19/20 Incruse Ellipta 1 inh INHALATION DAILY 02/16/20 02/19/20 albuterol sulfate 2 puff INHALATION Q6H PRN 02/16/20 02/19/20 furosemide [Lasix] 20 mg PO DAILY 02/16/20 02/19/20 prednisone 60 mg PO DAILY 5 Days #15 tab 02/19/20 Previous Rx's Medication Instructions Recorded tamsulosin 0.4 mg capsule 0.4 mg PO DAILY #90 cap 10/26/19 prednisone 60 mg PO DAILY 5 Days #15 tab 02/19/20 Allergies Allergy/AdvReac Type Severity Reaction Status Date / Time No Known Allergies Allergy Unverified 02/19/20 19:21 General Stated Complaint: SOB FLORA: 3 Review of Systems All systems reviewed & are unremarkable except as noted in HPI and below Constitutional Constitutional: Denies fatigue, Denies fever(s) and Denies weakness ENT Ears, Nose, Mouth, and Throat: Denies neck pain and Denies sore throat Cardiovascular Cardiovascular: Denies chest pain and Reports dyspnea Respiratory Respiratory: Denies cough, Reports dyspnea and Reports wheezing Gastrointestinal Gastrointestinal: Denies abdominal pain, Denies nausea and Denies vomiting Musculoskeletal Musculoskeletal: Denies back pain, Denies neck pain, Denies numbness and Denies tingling Integumentary/Breasts Skin/Breast: Denies rash Neurologic Neurologic: Denies numbness, Denies tingling and Denies weakness Endocrine Endocrine: Denies fatigue Allergic/Immunologic Allergic/Immunologic: Reports wheezing [facility] Medical History Allergic rhinitis (Acute) Atrial fibrillation (Chronic) BPH loc w urin obs/LUTS (Acute) Erectile dysfunction (Acute) GERD (gastroesophageal reflux disease) (Chronic) Hyperlipidemia (Acute) Left rotator cuff tear arthropathy (Chronic) Most recent injection: 09/24/2019 CRYSTAL (obstructive sleep apnea) (Chronic) Prediabetes (Acute) Right bundle branch block (Acute) Right rotator cuff tendonitis (Acute) Most recent injection: 09/24/2019 Social History Smoking/Tobacco Use Status: Former Tobacco Use Alcohol Intake: never Drug use: Never Current gender identity: male Do you feel safe at home: Yes Do you feel safe in your relationship?: Yes Exam Const General: cooperative, healthy appearing, comfortable and no acute distress Orientation: alert, awake and oriented x3 HENMT Head: normal to inspection, normocephalic and atraumatic Mouth: moist mucous membranes Throat: posterior oropharynx normal Eyes Conjunctivae: conjunctivae normal Sclera: sclerae normal Neck Neck: normal visual inspection, full ROM, trachea midline, supple and nontender Resp Effort & Inspection: normal respiratory effort and able to speak in complete sentences Auscultation: wheezes expiratory wheezes and scattered wheezes (Throughout) Cardio Rate: regular rate Rhythm: regular rhythm GI Palpation: soft and nontender Back/Spine/Pelvis Back: No back tenderness Skin General skin exam: no rashes or lesions noted Neuro General: patient alert, patient awake, moves all extremities and no focal motor deficits Cranial Nerves: CN's II-XI intact bilaterally Cognition: normal cognition Speech: speech normal Gait: normal gait Motor: muscle tone normal throughout and strength 5/5 throughout Sensory Exam: no sensory deficits noted Extrem General: normal to inspection, full ROM, capillary refill normal, no pedal edema and no calf tenderness Psych Appearance: grossly normal Mental Status: mental status grossly normal Course Vital Signs Vital signs: Vital Signs Temperature 36.9 C 02/19/20 18:58 Pulse 83 02/19/20 18:58 Respiratory Rate 22 02/19/20 18:58 Blood Pressure 187/90 H 02/19/20 18:58 Pulse Oximetry 95 02/19/20 18:58 Temperature 36.9 C 02/19/20 18:58 Temperature Source Skin 02/19/20 18:58 Pulse 81 02/19/20 19:29 Respiratory Rate 20 02/19/20 19:29 Respiratory Effort Incrsd Work of Breathing 02/19/20 19:16 Blood Pressure 187/90 H 02/19/20 18:58 Blood Pressure Position Sitting 02/19/20 18:58 Pulse Oximetry 94 L 02/19/20 19:29 Oxygen Delivery Method Room Air 02/19/20 19:29 Oxygen Flow Rate 0 02/19/20 19:29 Lab/Test Results Lab/Test Results: Laboratory Tests Range/Units 02/19/20 19:25 WBC (4.4-10.8) 10^3/uL 6.54 RBC (4.36-5.78) 10^6/uL 4.72 Hgb (13.5-17.5) g/dL 15.9 Hct (40.0-50.0) % 47.1 MCV (80-95) fL 99.8 H MCH (27.0-33.0) pg 33.7 H MCHC (32.0-36.0) % 33.8 RDW (11.8-14.1) % 11.6 L Plt Count (130-400) 10^3/uL 237 MPV (8.0-11.0) fL 10.1 Immature Gran % 0.2 Neutrophils % 57.6 Lymphocytes % 20.3 Monocytes % 9.0 Eosinophils % 11.5 Basophils % 1.4 Absolute Neutrophils (1.2-6.7) 10^3/uL 3.77 Absolute Lymphocytes (1.2-3.4) 10^3/uL 1.33 Absolute Monocytes (0.1-0.8) 10^3/uL 0.59 Absolute Eosinophils (0.0-0.7) 10^3/uL 0.75 H Absolute Basophils (0.0-0.2) 10^3/uL 0.09
[2020-02-19 19:53] LABS: ALT 23 U/L (16-63); AST 18 U/L (15-37); Albumin 3.7 g/dL (3.4-5.0); Alkaline Phosphatase 67 U/L (46-116); Anion Gap 8.6 mmol/L (3-11); BUN 12 mg/dL (7-18); Bilirubin, Total 0.9 mg/dL (0.2-1.0); CO2 28.4 mmol/L (21.0-32.0); CREATININE 1.01 mg/dL (0.70-1.30); Calcium 8.5 mg/dL (8.5-10.1); Chloride 104 mmol/L (98-107); Glucose 113 mg/dL (74-106); Magnesium 2.2 mg/dL (1.8-2.4); NT-proBNP 68 pg/mL (<300); Potassium 3.8 mmol/L (3.5-5.1); Sodium 141 mmol/L (136-145); Total Protein 6.8 g/dL (6.4-8.2); Troponin I < 0.05 ng/mL (<0.06)
--- NOTE | 2020-02-19 19:58 | DI.VRAD_ITS ---
PROCEDURE INFORMATION: Exam: XR Chest, 2 Views Exam date and time: 02/19/2020 19:37 Age: 74 years old Clinical indication: Other: SOB + 1 year TECHNIQUE: Imaging protocol: XR of the chest Views: 2 views. COMPARISON: CT CHEST W 09/29/2019 08:21 FINDINGS: Lungs: No airspace consolidation. No significant interstitial disease for the degree of inflation. Pleural space: No pleural effusion. No pneumothorax. Heart/Mediastinum: No cardiomegaly. Bones/joints: No acute fracture. IMPRESSION: No acute cardiopulmonary pathology. Dictated and Authenticated by: Evelyn Howe MD. Ordering:MILAGRO Sommers MD
[2020-02-19 20:03] LABS: D-Dimer 645 ng/mlFEU (<500)
[2020-02-19 20:22] VITALS: RESP 20
[2020-02-19] MEDS: methylPREDNISolone SUCC 125 MG VIAL IVP (20:23)
--- NOTE | 2020-02-19 20:31 | NUR.NOTE ---
Nursing Note:referal to zhao 02/19/20
[2020-02-19 21:13] VITALS: BP 161/70; PULSE 70; RESP 18; TEMP 36.9; O2SAT 96
--- NOTE | 2020-02-21 11:19 | PDOC.ERCMPRO ---
- If Service Date Differs Date of service: 02/21/20 Time of Service: 11:19 Care Management Progress Note At the request of ED provider, JUDY telephones [facility] to help facilitate an outpatient follow up visit. After speaking with Jorge's daughter, Yi, JUDY also coordinates a referral to [facility].
== END 2020-02-19 20:55 | disposition home or self-care (01) ==
PROVIDERS: Emergency Provider Physician Assistant; PCP Family Medicine
DX: J44.1 Chronic obstructive pulmonary disease with (acute) exacerbation (principal); Z87.891 Personal history of nicotine dependence
CPT/HCPCS: 36415; 80053; 93005; 94640; 96374; 99285; 71046; 83735; 83880; 84484; 85025; 85379; 85610; 85730; 93010; J2930; J7614

== ENCOUNTER 2020-03-01 02:08 | Outpatient (CLI) | payer MEDICARE, BC, SELFPAY ==
--- NOTE | 2020-03-01 11:17 | DI.US_ITS ---
APPROVED REPORT EXAM: Comprehensive 2D, Doppler, and color-flow Echocardiogram Patient Location: Out-Patient Front Desk Administrator: Beverley Srinivasan RDCS (AE) Indications: Aortic Regurgitation, SOB, A Fib Other Information Study Quality: Adequate Conclusion Left Ventricle : The left ventricle is normal size. The left ventricular systolic function is normal. The left ventricular ejection fraction is within the normal range. There is normal left ventricular wall thickness. There is normal LV segmental wall motion. Diastolic function is indeterminate. LVEF i s 58%. Right Ventricle : The right ventricle is normal size. The right ventricular systolic function is norm al. The RVSP is 24.8mmHg. Atria : The left atrium size is normal. The right atrium size is normal. Aortic Valve : The Aortic valve is sclerotic. Aortic valve is trileaflet. There is no aortic valvular stenosis. Moderate aortic regurgitation. Great Vessels : The aortic root is normal in size. The ascending aorta is normal in size. Aortic arch is normal in caliber. IVC is normal in size and collapses >50% with inspiration. Compared to study from 03/16/2018, there is no significant change. Wall motion Left Ventricle The left ventricle is normal size. The left ventricular systolic function is normal. The left ventric ular ejection fraction is within the normal range. There is normal left ventricular wall thickness. T here is normal LV segmental wall motion. Diastolic function is indeterminate. There is no ventricular septal defect visualized. LVEF is 58%. Right Ventricle The right ventricle is normal size. The right ventricular systolic function is normal. The RVSP is 24 .8mmHg. Atria The left atrium size is normal. The right atrium size is normal. The interatrial septum is intact wit h no evidence for an atrial septal defect. Aortic Valve The Aortic valve is sclerotic. Aortic valve is trileaflet. There is no aortic valvular stenosis. Mode rate aortic regurgitation. Mitral Valve The mitral valve is normal in structure. No evidence of mitral valve stenosis. Trace mitral regurgita tion. Tricuspid Valve The tricuspid valve is normal in structure. There is no tricuspid valve stenosis. Trace to mild tricu spid regurgitation. Pulmonic Valve The pulmonary valve is normal in structure. There is no pulmonic valvular stenosis. Trace pulmonic re gurgitation. Great Vessels The aortic root is normal in size. The ascending aorta is normal in size. Aortic arch is normal in ca liber. IVC is normal in size and collapses >50% with inspiration. Pericardium There is no pericardial effusion. 2D Dimensions IVSD d PLAX 0.91 cm M: 0.6-1.2 LV Vol A2C d MOD 86.5 mL LVPW d PLAX 0.91 cm M: 0.6 - 1.2 LV Vol A4C d MOD 105.4 mL LVID d PLAX 4.49 cm M: 4.2 - 5.8 LA vol/ BSA A2C s A-L 29.3 mL/m2 LVDs 3.25 cm M: 2.5 - 4.0 LA vol/ BSA A4C s A-L 30.6 mL/m2 Ao Root d 3.37 cm M: 3.1 - 3.7 LA Vol/ BSA Biplane s A-L 31.5 mL/m2 RA Area A4C 16.76 cm2 LA Area A4C s MOD 20.33 cm2 RA Vol/ BSA A4C s A-L 22.7 mL/m2 LA Area A2C s MOD 18.91 cm2 Ao Asc Diam d 3.18 cm M: 2.6 - 3.4 LV EF A4C MOD 55.7 % LV EF Teichholz 53.7 % LV EF A2C MOD 57.8 % LVEF (Salazar's) 57.13 % M: 52 - 72 LV EF Biplane MOD 57.1 % LV Volume 73.76 mL M: 62 - 150 SV 55.56 mL LV Volume Index 38.21 mL/m2 M: 34 - 74 SV Index 28.73 mL/m2 LV Vol Biplane MOD 97.2 mL FS 27.55 % M-Mode TAPSE 2.41 cm (M/F) >1.7 LV Diastology MV E' medial 0.060 (>0.07 m/s) E/A Ratio 1.0 LV E/e MED 12.60 (<14) MV E Vmax 0.76 (0.4-1.3 m/s) MV E' lateral 0.095 (>0.1 m/s) MV A Vmax 0.75 (0.4-1.3 m/s) LV E/e LAT 7.90 (<14) MV E/A Ratio 0.98 MV E/E' medial 12.62 MV E/E' lateral 7.93 Aortic Valve LVOT Area 3.60 cm2 AoV Area Vmax 2.79 cm2 LVOT Vmax 1.01 m/s AoV Area/ BSA (Vmax) 1.44 cm2/m2 LVOT Mean Jorge. 0.61 m/s JEROMY Mean Jorge. 2.48 cm2 LVOT Peak Grad 4.1 mmHg JEROMY Mean Jorge. Index 1.28 cm2/m2 LVOT Mean Grad 1.8 mmHg AR DT 2365 msec LVOT VTI 0.243 m AR PHT 686 msec LVOT Diam s 2.10 cm AoV Vmax 1.30 m/s Velocity Ratio 0.77 AoV Mean Jorge. 0.88 m/s AoV Peak Grad 6.8 mmHg LVOT SV 87.61 mL AoV Mean Grad 3.6 mmHg AoV VTI 0.289 m AoV Area VTI 3.03 cm2 AoV Area/ BSA (VTI) 1.57 cm/m2 Mitral Valve MV DT 193 (160-240 msec) MV PHT 56 msec MV Area PHT 3.92 cm2 Pulmonary Valve PV Vmax 1.15 (0.5-1.5 m/s) RVOT Peak Gr. 2.07 mmHg PV Peak Grad 5.3 mmHg RVOT Mean Gr. 1.00 mmHg PV Mean Grad 2.4 mmHg RVOT VTI 0.148 m PV VTI 0.242 m RVOT Vmax 0.72 m/s Tricuspid Valve TR Peak Grad 21.8 mmHg TR Vmax 2.34 m/s RA Pressure 3.00 mmHg RVSP (TR) 24.8 mmHg
== END 2020-03-01 02:28 ==
PROVIDERS: PCP Family Medicine; Visit Provider Family Medicine
DX: R06.02 Shortness of breath (principal); I35.1 Nonrheumatic aortic (valve) insufficiency; I48.0 Paroxysmal atrial fibrillation
CPT/HCPCS: 93225; 93306

== ENCOUNTER 2020-03-01 04:32 | Outpatient (CLI) | payer MEDICARE, BC, SELFPAY | END 2020-03-01 04:52 | PROVIDERS: PCP Family Medicine; Visit Provider Family Medicine | DX: I35.1 Nonrheumatic aortic (valve) insufficiency (principal); R06.02 Shortness of breath; I48.0 Paroxysmal atrial fibrillation | CPT/HCPCS: 93225 ==

== ENCOUNTER 2020-03-08 12:34 | Outpatient (CLI) | payer MEDICARE, BC, SELFPAY ==
--- NOTE | 2020-03-09 08:44 | W.HOLTRPT ---
Date of service: 03/09/20 Time of Service: 08:44 Holter Monitor Report Referring Provider:: Mert Indications:: SOB Holter Monitor Note: This is a 48-hour Holter monitor ordered for indication of shortness of breath. ?Patient was in normal sinus rhythm for the majority of the recording with an average heart rate of 73 bpm. ?There was one episode of supraventricular tachycardia which lasted 4 beats and rare PACs. ?There were 0 episodes of ventricular tachycardia and rare (0.2%) single ventricular ectopic beats. ?There were no episodes of atrial fibrillation, no pauses grade 3 seconds and no evidence of high-grade heart block. ?Patient triggered events were associated with normal sinus rhythm and one singular PAC.
== END 2020-03-08 12:54 ==
PROVIDERS: PCP Family Medicine; Visit Provider Family Medicine
DX: R06.02 Shortness of breath (principal); I47.1 Supraventricular tachycardia; I49.1 Atrial premature depolarization
CPT/HCPCS: 93226

== ENCOUNTER 2020-03-09 00:10 | Outpatient (CLI) | payer MEDICARE, BC, SELFPAY | END 2020-03-09 00:30 | PROVIDERS: PCP Family Medicine; Referring Provider Family Medicine; Visit Provider Internal Medicine Cardiovascular Disease | DX: R06.02 Shortness of breath (principal); I47.1 Supraventricular tachycardia; I49.1 Atrial premature depolarization | CPT/HCPCS: 93227 ==

== ENCOUNTER → 2020-03-23 13:53 | Outpatient (BNVA) | payer MEDICARE, BC, SELFPAY | PROVIDERS: PCP Family Medicine; Referring Provider Family Medicine; Visit Provider Internal Medicine Cardiovascular Disease | DX: I35.1 Nonrheumatic aortic (valve) insufficiency (principal); R06.02 Shortness of breath; I48.0 Paroxysmal atrial fibrillation; R41.89 Other symptoms and signs involving cognitive functions and awareness | CPT/HCPCS: 99204; 99215 ==

== ENCOUNTER 2020-06-30 09:14 | Outpatient (CLI) | payer MEDICARE, BC, SELFPAY ==
--- NOTE | 2020-06-30 09:00 | DI.RAD_ITS ---
EXAM: XR WRIST LT COMP NAVICULAR CLINICAL HISTORY: left hand injury. TECHNIQUE: 2D digital imaging was performed. COMPARISON: CR XR KNEE RT 3V AP,LAT,SAMANTHA from 06/30/2020 FINDINGS: BONES: No acute fracture is present. No bony destructive lesion is seen. JOINTS: The carpal bones are normally aligned. There are mild to moderate degenerative changes of the carpal region. SOFT TISSUE: Normal. IMPRESSION: Degenerative changes, no acute abnormality. DATA REPOSITORY: RADIATION DOSE DELIVERED:
--- NOTE | 2020-06-30 09:00 | DI.RAD_ITS ---
EXAM: XR HAND LT COMPLETE CLINICAL HISTORY: left hand injury. TECHNIQUE: 2D digital imaging was performed. COMPARISON: CR XR WRIST LT COMP NAVICULAR from 06/30/2020 FINDINGS: BONES: No acute fracture is present. No bony destructive lesion is seen. JOINTS: No dislocation present. Degenerative changes are seen in the interphalangeal joints and first metacarpal phalangeal joint. SOFT TISSUE: Normal. IMPRESSION: Degenerative changes, no acute abnormality. DATA REPOSITORY: RADIATION DOSE DELIVERED:
--- NOTE | 2020-06-30 09:00 | DI.RAD_ITS ---
EXAM: XR KNEE LT 3V AP,LAT,SAMANTHA CLINICAL HISTORY: left knee pain. TECHNIQUE: 2D digital imaging was performed. COMPARISON: CR,XR XR CHEST 2V PA LATERAL from 02/19/2020 FINDINGS: BONES: No acute fracture is present. No bony destructive lesion is seen. JOINTS: No joint effusion is seen. There is moderate to severe narrowing of the medial femoral tibial joint with moderate periarticular spurring. There is mild spurring laterally. The tibia is mildly subluxed laterally with respect to the distal femur. There is spurring from the femoral intercondyla r notch and tibial spines. There is severe narrowing of the patellofemoral joint with prominent han articular spurring. SOFT TISSUE: Normal. IMPRESSION: Advanced degenerative changes, greatest of the patellofemoral joint. DATA REPOSITORY: RADIATION DOSE DELIVERED:
--- NOTE | 2020-06-30 09:00 | DI.RAD_ITS ---
EXAM: XR KNEE RT 3V AP,LAT,SAMANTHA CLINICAL HISTORY: right knee pain. TECHNIQUE: 2D digital imaging was performed. COMPARISON: CR XR KNEE LT 3V AP,LAT,SAMANTHA from 06/30/2020 FINDINGS: BONES: No acute fracture is present. No bony destructive lesion is seen. JOINTS: The knee is normally aligned. No joint effusion is seen. There is mild narrowing of the media l femoral tibial joint, there is spurring from the femoral condyles and tibial plateau, greater media lly. There is severe narrowing of the patellofemoral joint which shows mild periarticular spurring. SOFT TISSUE: Normal. IMPRESSION: Degenerative changes, greatest of the patellofemoral joint. DATA REPOSITORY: RADIATION DOSE DELIVERED:
== END 2020-06-30 09:34 ==
PROVIDERS: PCP Family Medicine; Referring Provider Family Medicine; Visit Provider Student in an Organized Health Care Education/Training Program
DX: M19.041 Primary osteoarthritis, right hand (principal); S69.82XA Other specified injuries of left wrist, hand and finger(s), initial encounter; M17.0 Bilateral primary osteoarthritis of knee; M19.042 Primary osteoarthritis, left hand; M79.642 Pain in left hand; R29.6 Repeated falls; M17.11 Unilateral primary osteoarthritis, right knee; M17.12 Unilateral primary osteoarthritis, left knee
CPT/HCPCS: 20610; 73562; 99214; 73110; 73130; J7325

== ENCOUNTER → 2021-01-01 10:32 | Outpatient (BNVA) | payer MEDICARE, BC, SELFPAY | PROVIDERS: PCP Family Medicine; Visit Provider Student in an Organized Health Care Education/Training Program | DX: M17.11 Unilateral primary osteoarthritis, right knee (principal); M17.12 Unilateral primary osteoarthritis, left knee; M19.031 Primary osteoarthritis, right wrist | CPT/HCPCS: 20610; 99213; J7325 ==

== ENCOUNTER → 2021-01-17 15:12 | Outpatient (BNVA) | payer MEDICARE, BC, SELFPAY | PROVIDERS: PCP Family Medicine; Visit Provider Nurse Practitioner Gerontology | DX: N40.1 Benign prostatic hyperplasia with lower urinary tract symptoms (principal) | CPT/HCPCS: 99213 ==

== ENCOUNTER 2021-02-07 16:04 | Outpatient (REF) | payer MEDICARE, BC, SELFPAY ==
[2021-02-07 18:53] LABS: TSH (W/Ref FT4) 4.64 uIU/mL (0.36-3.74); Vitamin B12 628 pg/mL (193-986)
[2021-02-07 19:18] LABS: FREE T4 1.14 ng/dL (0.76-1.46)
== END 2021-02-07 16:05 | disposition home or self-care (01) ==
LOC: NCHCN 16:04
PROVIDERS: PCP Family Medicine; Visit Provider Family Medicine
DX: E03.9 Hypothyroidism, unspecified (principal); D75.89 Other specified diseases of blood and blood-forming organs
CPT/HCPCS: 82607; 84439; 84443

== ENCOUNTER 2021-05-25 16:21 | Outpatient (REF) | payer MEDICARE, BC, SELFPAY ==
[2021-05-25 19:31] LABS: Anion Gap 8.1 mmol/L (3-11); BUN 20 mg/dL (7-18); CO2 28.9 mmol/L (21.0-32.0); Calcium 9.3 mg/dL (8.5-10.1); Chloride 107 mmol/L (98-107); Glucose 117 mg/dL (74-106); Potassium 4.4 mmol/L (3.5-5.1); Sodium 144 mmol/L (136-145)
== END 2021-05-25 16:22 | disposition home or self-care (01) ==
LOC: NCHCN 16:21
PROVIDERS: PCP Family Medicine; Visit Provider Family Medicine
DX: R73.03 Prediabetes (principal); E89.0 Postprocedural hypothyroidism; R60.0 Localized edema
CPT/HCPCS: 80048; 83036; 84443

== ENCOUNTER → 2021-07-09 13:03 | Outpatient (BNVA) | payer MEDICARE, BC, SELFPAY | PROVIDERS: PCP Family Medicine; Visit Provider Student in an Organized Health Care Education/Training Program | DX: M17.11 Unilateral primary osteoarthritis, right knee (principal); M17.12 Unilateral primary osteoarthritis, left knee | CPT/HCPCS: 20610; J1040 ==

== ENCOUNTER → 2021-08-23 08:52 | Outpatient (BNVA) | payer MEDICARE, BC, SELFPAY | PROVIDERS: PCP Family Medicine; Referring Provider Family Medicine; Visit Provider Nurse Practitioner Gerontology | DX: N40.1 Benign prostatic hyperplasia with lower urinary tract symptoms (principal) | CPT/HCPCS: 99214 ==

== ENCOUNTER 2021-12-13 09:47 | Outpatient (CLI) | payer MEDICARE, BC, SELFPAY ==
[2021-12-13 10:02] VITALS: BP 152/99; PULSE 67; RESP 20; TEMP 35.9; O2SAT 96
--- NOTE | 2021-12-13 10:57 | DI.RAD_ITS ---
Exam(s) XR PAIN CLINIC FLUORO JOINT IN EXAM: XR PAIN CLINIC FLUORO JOINT IN CLINICAL HISTORY: Dx: Osteoarthritis of the knee TECHNIQUE: 2D and realtime digital imaging was performed. CONTRAST MATERIAL: Refer to procedure report. COMPARISON: No exams were available for comparison FINDINGS: Fluoroscopy was provided for Dr. Martinez during the performance of a bilateral genicular nerve block. Please refer to the procedure report for complete details. Ka,r=6.72 mGy IMPRESSION:
[2021-12-13] MEDS: Bupivacaine 0.5% Pres-Free 10 ML VIAL IJ (11:12)
[2021-12-13] MEDS: Omnipaque 240 MG/ML 50 ML BTL IJ (11:13)
[2021-12-13 11:17] VITALS: PULSE 75; O2SAT 99
--- NOTE | 2021-12-13 12:39 | PDOC.PAIN_ITS ---
Pain Clinic Procedure Note Procedure Note Procedure Note: GENICULAR NERVE BLOCK Date of Service: December 13, 2021 Patient: Jorge Kim Provider: Bo Martinez DO, MPH Pre-operative diagnosis: Knee pain Post-operative diagnosis: Same Pre-procedure pain: VAS= 7/10 COMMENTS: He was previously evaluated in the office. Jorge Kim has been referred to the [facility] for bilateral genicular nerve block. Jorge was interviewed and the medical record reviewed. There were no medical, pharmacologic, radiographic or other structural contraindications to attempting fluoroscopically guided bilateral genicular nerve block. Risks and potential side effects as well as potential benefit of the procedure were reviewed with Jorge , and he voiced concerns were addressed. After I believed that the patient was completely informed, the printed consent form was signed. Standard time-out procedure was performed. Jorge was placed in the supine position on the fluoroscopy table and automated blood pressure cuff and pulse oximeter applied. The skin entry points for approaching bilateral superolateral genicular nerve, the superomedial genicular nerve, the terminal branch of the nerve vastus intermedius and the inferomedial genicular was identified under the most advantageous fluoroscopic view and marked. Following thorough Chlorhexadine preparation of the skin and draping, 1% lidocaine infiltration of the skin entry point and subcutaneous tissues was accomplished using a 1.5 25G needle. Next, the 3.5 25G spinal needle was advanced to os at the location of the specific nerve root using fluoroscopic guidance. Next, 1 ml of 1% Lidocaine was injected at each site. The needles were removed without difficulty. Jorge's vital signs were stable throughout the procedure and were as recorded in the docflowsheet by the nursing staff. If given, dosages of intravenous drugs for anxiolysis and analgesia were documented in MAR. Follow up plans and appointments were discussed with the Jorge . Post procedure instruction was given as documented in nursing documentation and having met discharge criteria, Jorge was discharged from the [facility]. COMMENTS: No apparent complications. Post-procedure pain: VAS = 0/10. The patient will keep track of his bilateral knee pain over the next four hours. If Jorge has sufficient pain relief, Jorge will be a candidate for radiofrequency ablation at the same nerves. Borja WJ1, Abdoul SJ, Clifford JG, Jaxon RandG, Placido CAMARGO, Park PH, Gamboa JW. Radiofrequency treatment relieves chronic knee osteoarthritis pain: a double-blind randomized controlled trial. Pain. 2011 Mar;152(3):481-7. doi: 10.1016/j.pain.2010.09.029. Oliva S1, Ambrosio ON2, Susanne Y3, ?zl?jez P2, Tyrell U1, Cecil ?m?rl? I. Which one is more effective for the clinical treatment of chronic pain in knee osteoarthritis: radiofrequency neurotomy of the genicular nerves or intra- articular injection? Int J Rheum Dis. 2016 Mar 01. F/U with our office by phone with the 1-4 hour post-procedure pain VAS levels. I personally performed this entire procedure. Bo Martinez DO, MPH Attending Physician Pain Management
== END 2021-12-13 09:48 | disposition home or self-care (01) ==
LOC: PC 09:48
PROVIDERS: PCP Family Medicine; Visit Provider Preventive Medicine Occupational Medicine
DX: M25.561 Pain in right knee (principal); M25.562 Pain in left knee
CPT/HCPCS: 64454; 77002; Q9967

== ENCOUNTER 2022-01-28 21:19 | Inpatient (IN) | payer MEDICARE, BC, SELFPAY ==
[2022-01-28] VITALS (59 sets, daily range): BP systolic 114–157; BP diastolic 63–100; PULSE 67–139; RESP 11–34; TEMP 36.8; O2SAT 92–96
--- NOTE | 2022-01-28 21:15 | RT.EKG_ITS ---
APPROVED REPORT Exam: Resting ECG Reason for Exam: AMS Patient Location: E HR:76 bpm ECG Measurements Heart Rate 76 AXIS IN [id number] P [id number] QRSd 151 QRS 39 QT 410 T 5 QTc 461 Conclusion Atrial flutter with predominant 3:1 AV block...A-rate 224, multiple Ps Right bundle branch block...QRSd>120, terminal axis(90,270)
--- NOTE | 2022-01-28 21:51 | W.ED.GENAD ---
Discharge Plan Disposition Patient Disposition: [facility] INPATIENT Condition: Stable Discharge Details Chief Complaint: AMS/LOC Clinical Impression: Atrial fibrillation with rapid ventricular response Primary Care Provider: Christian Benavides ED Provider: Scotty Harrison Home Meds and New Rx's Prescriptions: No Action levothyroxine 50 mcg capsule 50 mcg PO DAILY trazodone 100 mg tablet 25 mg PO QHS PRN pramipexole 0.125 mg tablet 0.5 mg PO QHS ibuprofen [Motrin IB] 200 mg tablet 200 mg PO TID aspirin [Adult Aspirin Regimen] 81 mg tablet,delayed release (DR/EC) 81 mg PO DAILY fluticasone propionate [Flonase Allergy Relief] 50 mcg/actuation spray,suspension 2 spray ROC DAILY Rx Instructions: administer into each nostril mecobalamin (vitamin B12) 1,000 mcg tablet,disintegrating 1,000 mcg SL DAILY Rx Instructions: place tablet under tongue and allow to dissolve for at least30 secs before swallowing cholecalciferol (vitamin D3) [Vitamin D3] 10 mcg (400 unit) capsule 10 mcg PO DAILY sertraline 25 mg tablet 50 mg PO DAILY Label Comments: Took for two weeks and stopped. albuterol 90 mcg/actuation aerosol inhalation levalbuterol HCl [Xopenex] 0.63 mg/3 mL solution for nebulization 0.63 mg inhalation ONCE lorazepam 1 mg tablet 0.5 mg PO DAILY PRN tamsulosin [Flomax] 0.4 mg capsule 0.4 mg PO DAILY Qty: 90 3RF lorazepam 1 mg tablet 1 mg PO DAILY PRN (Reason: Anxiety) Incruse Ellipta 62.5 mcg/actuation blister with device 1 inh inhalation DAILY pantoprazole 40 MG tablet,delayed release (DR/EC) 40 mg PO DAILY [id number] C-Mn 1 EACH tablet 1 tab PO DAILY acetaminophen 500 mg Tablet 500 mg PO QID PRN albuterol sulfate 90 mcg/actuation Hfa Aerosol Inhaler 2 puff INHALATION Q6H PRN furosemide [Lasix] 20 mg Tablet 20 mg PO DAILY carbidopa-levodopa 25-100 mg tablet 1 tab TID Label Comments: TAKE 1/2 TABLET ORALLY DAILY FOR 1 WEEK, TWICE DAILY FOR 1 WEEK, 3 TIMES A DAY FOR 1 WEEK THEN 1 TABLET TWICE DAILY Rx Instructions: 0.5 tab TID, tapering to 1 tab TID. Medical Decision Making 2153 -- 76-year-old male with history of Parkinson's disease, here with lightheadedness and near syncope. Patient tachycardic and regular. Hypertensive. Saturating well in no respiratory distress. EKG on arrival was reviewed and interpreted by me: A flutter with predominant 3-1 AV block, 76 bpm, left bundle branch block present. While assessing the patient I interpreted environmental monitoring specialist as narrow complex tachycardia in the 120s to 140s, irregular consistent with atrial fibrillation. Patient does have history of atrial fibrillation but does not appear to be on any chronotropic medications. Plan to give diltiazem had 15 mg IV push for emergent rate control and reassess. --Patient responded well to diltiazem push. Plan to start infusion. 2321-- Patient was reassessed and heart rate improved to 100s on diltiazem drip which has been titrated up. Labs reviewed and D-dimer is elevated. Plan to proceed to CT of the chest to assess for acute pulmonary embolism. I spoke with Dr. Concepcion, on-call hospitalist, discussed ED presentation course including pending diagnostics, he has assessed the patient and will admit. Lab Data Lab results reviewed: Yes I reviewed the patient's lab results. Labs: Laboratory Tests Range/Units 01/28/22 01/28/22 01/28/22 21:55 21:55 21:55 WBC (4.4-10.8) 10^3/uL 4.99 RBC (4.36-5.78) 10^6/uL 4.92 Hgb (13.5-17.5) g/dL 16.3 Hct (40.0-50.0) % 47.5 MCV (80-95) fL 97 H MCH (27.0-33.0) pg 33.1 H MCHC (32.0-36.0) % 34.3 RDW (11.8-14.1) % 12.3 Plt Count (130-400) 10^3/uL 255 MPV (8.0-11.0) fL 10.4 Immature Gran % 0.2 Neutrophils % 62.4 Lymphocytes % 23.2 Monocytes % 8.6 Eosinophils % 4.4 Basophils % 1.2 Nucleated RBC % (0.0-0.3) % 0.0 Absolute Neutrophils (1.2-6.7) 10^3/uL 3.11 Absolute Lymphocytes (1.2-3.4) 10^3/uL 1.16 L Absolute Monocytes (0.1-0.8) 10^3/uL 0.43 Absolute Eosinophils (0.0-0.7) 10^3/uL 0.22 Absolute Basophils (0.0-0.2) 10^3/uL 0.06 D-Dimer (<500) ng/mlFEU 1000 H Sodium (136-145) mmol/L 140 Potassium (3.5-5.1) mmol/L 4.1 Chloride (98-107) mmol/L 104 Carbon Dioxide (21.0-32.0) mmol/L 28.8 Anion Gap (3-11) mmol/L 7.2 BUN (7-18) mg/dL 15 Creatinine (0.70-1.30) mg/dL 1.0 Estimated GFR/1.73 m2 (mL/min/1.73m2) >= 60.00 Glucose (74-106) mg/dL 106 Calcium (8.5-10.1) mg/dL 9.1 Magnesium (1.8-2.4) mg/dL 2.2 Total Bilirubin (0.2-1.0) mg/dL 1.0 AST (15-37) U/L 15 ALT (16-63) U/L 15 L Alkaline Phosphatase (46-116) U/L 88 Troponin I (<or=60) ng/L < 50 Total Protein (6.4-8.2) g/dL 7.3 Albumin (3.4-5.0) g/dL 3.9 TSH (0.36-3.74) uIU/mL 5.79 H Free T4 (0.76-1.46) ng/dL 1.20 Urine Color (Yellow) Urine Clarity (Clear) Urine pH (5-8) Ur Specific Alexander (1.005-1.025) Urine Protein (Negative) mg/dL Urine Ketones (Negative) mg/dL Urine Blood (Negative) Urine Nitrite (Negative) Urine Bilirubin (Negative) Urine Urobilinogen (Up TO 0.2) EU/dL Ur Leukocyte Esterase (Negative) Urine Glucose (Negative) mg/dL COVID-19 Source Range/Units 01/28/22 01/28/22 22:00 22:00 WBC (4.4-10.8) 10^3/uL RBC (4.36-5.78) 10^6/uL Hgb (13.5-17.5) g/dL Hct (40.0-50.0) % MCV (80-95) fL MCH (27.0-33.0) pg MCHC (32.0-36.0) % RDW (11.8-14.1) % Plt Count (130-400) 10^3/uL MPV (8.0-11.0) fL Immature Gran % Neutrophils % Lymphocytes % Monocytes % Eosinophils % Basophils % Nucleated RBC % (0.0-0.3) % Absolute Neutrophils (1.2-6.7) 10^3/uL Absolute Lymphocytes (1.2-3.4) 10^3/uL Absolute Monocytes (0.1-0.8) 10^3/uL Absolute Eosinophils (0.0-0.7) 10^3/uL Absolute Basophils (0.0-0.2) 10^3/uL D-Dimer (<500) ng/mlFEU Sodium (136-145) mmol/L Potassium (3.5-5.1) mmol/L Chloride (98-107) mmol/L Carbon Dioxide (21.0-32.0) mmol/L Anion Gap (3-11) mmol/L BUN (7-18) mg/dL Creatinine (0.70-1.30) mg/dL Estimated GFR/1.73 m2 (mL/min/1.73m2) Glucose (74-106) mg/dL Calcium (8.5-10.1) mg/dL Magnesium (1.8-2.4) mg/dL Total Bilirubin (0.2-1.0) mg/dL AST (15-37) U/L ALT (16-63) U/L Alkaline Phosphatase (46-116) U/L Troponin I (<or=60) ng/L Total Protein (6.4-8.2) g/dL Albumin (3.4-5.0) g/dL TSH (0.36-3.74) uIU/mL Free T4 (0.76-1.46) ng/dL Urine Color (Yellow) Yellow Urine Clarity (Clear) Clear Urine pH (5-8) 7.5 Ur Specific Alexander (1.005-1.025) 1.020 Urine Protein (Negative) mg/dL Negative Urine Ketones (Negative) mg/dL Negative Urine Blood (Negative) Negative Urine Nitrite (Negative) Negative Urine Bilirubin (Negative) Negative Urine Urobilinogen (Up TO 0.2) EU/dL 0.2 Ur Leukocyte Esterase (Negative) Negative Urine Glucose (Negative) mg/dL Negative COVID-19 Source Nasal/Nares HPI General Mode of arrival: ambulatory. Date/Time Provider Initiated Documentation: 01/28/22 21:36. Limitations to Documentation: no limitations. Information obtained by: patient. HPI Narrative: 76-year-old male with history of Parkinson's, paroxysmal atrial fibrillation, hypothyroidism, and multiple medical problems, presents with chief complaint of presyncope. Patient notes he was feeling dizzy ambulating to bathroom and fell into his bed. He did not lose consciousness. No traumatic injury sustained. Symptoms were severe. No modifiers. No associated palpitations. No chest pain or shortness of breath. No abdominal pain. No headache. No numbness or tingling. He is feeling better at this time. Related Data Home Medications Medication Instructions Recorded Confirmed [id number]-[id number] C-Mn 750 1 tab PO DAILY 04/12/13 01/28/22 mg-600 mg-55 mg-5 mg tablet pantoprazole 40 mg tablet,delayed 40 mg PO DAILY 04/12/13 01/28/22 release levothyroxine 50 mcg capsule 50 mcg PO DAILY 10/22/18 01/28/22 trazodone 100 mg tablet 25 mg PO QHS PRN 10/22/18 01/28/22 ibuprofen 200 mg tablet (Motrin IB) 200 mg PO TID 12/15/19 01/28/22 acetaminophen 500 mg tablet 500 mg PO QID PRN 01/27/20 01/28/22 albuterol sulfate 90 mcg/actuation 2 puff inhalation Q6H PRN 02/16/20 01/28/22 aerosol inhaler furosemide 20 mg tablet (Lasix) 20 mg PO DAILY 02/16/20 01/28/22 aspirin 81 mg tablet,delayed 81 mg PO DAILY 03/23/20 01/28/22 release (Adult Aspirin Regimen) cholecalciferol (vitamin D3) 10 10 mcg PO DAILY 03/23/20 01/28/22 mcg (400 unit) capsule (Vitamin D3) fluticasone propionate 50 2 spray intranasal DAILY 03/23/20 12/13/21 mcg/actuation nasal spray,suspension (Flonase Allergy Relief) mecobalamin (vitamin B12) 1,000 1,000 mcg sublingual DAILY 03/23/20 01/28/22 mcg disintegrating tablet,sublingual albuterol 90 mcg/actuation aerosol mcg inhalation 06/30/20 09/19/21 inhaler levalbuterol HCl 0.63 mg/3 mL 0.63 mg inhalation ONCE 06/30/20 01/28/22 solution for nebulization (Xopenex) pramipexole 0.125 mg tablet 0.5 mg PO QHS 06/30/20 01/28/22 sertraline 25 mg tablet 50 mg PO DAILY 06/30/20 09/19/21 tamsulosin 0.4 mg capsule (Flomax) 0.4 mg PO DAILY #90 caps 12/05/20 01/28/22 lorazepam 1 mg tablet 1 mg PO DAILY PRN Anxiety 03/09/21 12/13/21 umeclidinium 62.5 mcg/actuation 1 inh inhalation DAILY 03/09/21 01/28/22 blister powder for inhalation (Incruse Ellipta) lorazepam 1 mg tablet 0.5 mg PO DAILY PRN 09/07/21 09/19/21 carbidopa 25 mg-levodopa 100 mg 1 tab TID 01/28/22 01/28/22 tablet Previous Rx's Medication Instructions Recorded tamsulosin 0.4 mg capsule (Flomax) 0.4 mg PO DAILY #90 caps 12/05/20 Allergies Allergy/AdvReac Type Severity Reaction Status Date / Time chlorpheniramine Allergy Verified 01/28/22 21:32 [From Histussin HC] dexbrompheniramine Allergy Verified 01/28/22 21:32 [From Histussin HC] hydrocodone Allergy Verified 01/28/22 21:32 [From Histussin HC] phenylephrine Allergy Verified 01/28/22 21:32 [From Histussin HC] General Stated Complaint: AMS/LOC FLORA: 3 Review of Systems All systems reviewed & are unremarkable except as noted in HPI and below Constitutional Constitutional: Denies fever(s) Cardiovascular Cardiovascular: Denies dyspnea Respiratory Respiratory: Denies cough and Denies dyspnea PFSH All Active Problems (Updated 01/28/22 @ 23:23 by Scotty Harrison MD) Atrial fibrillation with rapid ventricular response (Acute) Imbalance (Acute) Pre-syncope (Acute) Dizziness (Acute) Sensorineural hearing loss, bilateral (Acute) Hx of herpes zoster (Acute) Vesicocolic fistula (Acute) Macrocytosis (Acute) Hearing loss (Acute) Arthritis of right wrist (Acute) Cognitive decline (Acute) Paroxysmal atrial fibrillation (Acute) Aortic regurgitation (Acute) Vitamin D deficiency (Acute) Hypothyroidism (Chronic) Chronic anxiety (Acute) Dysequilibrium (Acute) Restless legs (Acute) Vesicocolonic fistula (Acute) Chronic shortness of breath (Acute) per pcp Complete tear of right rotator cuff (Acute ~11/2019) BPH loc w urin obs/LUTS (Acute) Right rotator cuff tendonitis (Acute) Most recent injection: 09/24/2019 Left rotator cuff tear arthropathy (Chronic) Most recent injection: 09/24/2019 Left shoulder tendinitis (Chronic) Primary osteoarthritis of both knees (Chronic) Bilateral Synvisc injections most recently: 01/01/2021; 06/30/2020 Adhesive capsulitis of shoulder (Acute 08/05/13) Medical History Actinic keratosis Allergic rhinitis At risk for falling Atrial fibrillation Bilateral lower extremity edema COPD (chronic obstructive pulmonary disease) Erectile dysfunction Foot deformity, acquired GERD (gastroesophageal reflux disease) History of degenerative joint disease History of prediabetes Hyperlipidemia Lower urinary tract symptoms Mild memory disturbance Moderate aortic regurgitation CRYSTAL (obstructive sleep apnea) Prediabetes Right bundle branch block Rotator cuff tear Surgical History History of bladder repair surgery History of hernia repair History of partial surgical removal of colon Family History Father Lung cancer Mother Colon cancer Daughter Lymphoma Social History Smoking/Tobacco Use Status: Former Tobacco Use Smoking risk assessment performed?: Yes Alcohol Intake: never Drug use: Never Substance use type: does not use Household members: spouse Pets and animals: Yes (1) Pets and animals: cat(s) Current gender identity: male Do you feel safe at home: Yes Do you feel safe in your relationship?: Yes Exam Const General: cooperative and no acute distress HENMT Head: normocephalic and atraumatic Mouth: moist mucous membranes Eyes Conjunctivae: normal conjunctivae Sclera: normal sclerae Resp Auscultation: clear to auscultation bilaterally, no rales, no rhonchi and no wheezes Cardio Rate: regular rate and not tachycardic Rhythm: regular rhythm GI Palpation: soft, not firm, no guarding, no masses, not rigid and nontender Skin General skin exam: no rashes or lesions noted Neuro General: patient alert, patient awake, patient oriented x3 and tone normal Speech: speech normal Extrem General: no calf tenderness and no edema Psych Appearance: grossly normal Mental Status: mental status grossly normal Affect: blunted Course Vital Signs Vital signs: Vital Signs Temperature 36.8 C 01/28/22 21:20 Pulse 78 01/28/22 21:20 Respiratory Rate 18 01/28/22 21:20 Blood Pressure 144/77 H 01/28/22 21:20 Pulse Oximetry 95 01/28/22 21:20 Temperature 36.8 C 01/28/22 21:20 Pulse 78 01/28/22 21:20 Respiratory Rate 16 01/28/22 21:25 Respiratory Effort Non-Labored 01/28/22 21:25 Respiratory Depth Normal 01/28/22 21:25 Respiratory Pattern Normal 01/28/22 21:25 Blood Pressure 144/77 H 01/28/22 21:20 Blood Pressure Position Supine 01/28/22 21:20 Pulse Oximetry 95 01/28/22 21:20 Oxygen Delivery Method Room Air 01/28/22 21:20 Oxygen Flow Rate 0 01/28/22 21:20 Pain Level 0 01/28/22 21:20 Critical Care Time Critical Care Time Critical Care Time: Yes Total Critical Care Time: 40 Attestation: I spent greater than 40 minutes addressing this patient's immediate life threats. Please see MDM section of note. This time was spent engaged in work directly related to the patient's care, exclusive of separate procedures, and failure to initiate these interventions would have likely resulted in clinically significant or life threatening deterioration in the patient's condition.
[2022-01-28 22:07] LABS: Source Nasal/Nares
[2022-01-28 22:08] LABS: Abs Immature Grans 0.01 10^3/uL (0.0-0.06); Absolute Basophil Count 0.06 10^3/uL (0.0-0.2); Absolute Eosinophil Count 0.22 10^3/uL (0.0-0.7); Absolute Lymphocyte Count 1.16 10^3/uL (1.2-3.4); Absolute Monocyte Count 0.43 10^3/uL (0.1-0.8); Absolute Neutrophil Count 3.11 10^3/uL (1.2-6.7); Basophils % 1.2; Eosinophils % 4.4; HCT 47.5 % (40.0-50.0); HGB 16.3 g/dL (13.5-17.5); Immature Grans % 0.2; Lymphocytes % 23.2; MCH 33.1 pg (27.0-33.0); MCHC 34.3 % (32.0-36.0); MCV 97 fL (80-95); MPV 10.4 fL (8.0-11.0); Monocytes % 8.6; Neutrophils % 62.4; Platelet Count 255 10^3/uL (130-400); RBC 4.92 10^6/uL (4.36-5.78); RDW 12.3 % (11.8-14.1); RDW-SD 43.6 fL; WBC 4.99 10^3/uL (4.4-10.8)
[2022-01-28 22:14] LABS: Bilirubin Negative (Negative); Blood Negative (Negative); Clarity Clear (Clear); Glucose Negative (Negative); Ketones Negative (Negative); Leukocyte Esterase Negative (Negative); Nitrite Negative (Negative); Urobilinogen 0.2 EU/dL (Up TO 0.2); pH 7.5 (5-8)
[2022-01-28] MEDS: dilTIAZem 25 MG/5 ML VIAL 15 MG IVP (22:22)
[2022-01-28] MEDS: dilTIAZem 125 MG in Normal Saline 100 ML IV (22:23)
[2022-01-28 22:34] LABS: ALT 15 U/L (16-63); AST 15 U/L (15-37); Albumin 3.9 g/dL (3.4-5.0); Alkaline Phosphatase 88 U/L (46-116); Anion Gap 7.2 mmol/L (3-11); BUN 15 mg/dL (7-18); CO2 28.8 mmol/L (21.0-32.0); Calcium 9.1 mg/dL (8.5-10.1); Chloride 104 mmol/L (98-107); Glucose 106 mg/dL (74-106); Magnesium 2.2 mg/dL (1.8-2.4); Potassium 4.1 mmol/L (3.5-5.1); Sodium 140 mmol/L (136-145); TSH (W/Ref FT4) 5.79 uIU/mL (0.36-3.74); Total Protein 7.3 g/dL (6.4-8.2); Troponin I < 50 ng/L (<or=60)
[2022-01-28 22:50] LABS: D-Dimer 1000 ng/mlFEU (<500)
--- NOTE | 2022-01-28 23:00 | DI.CT_ITS ---
Exam(s) CT CHEST PE CTA EXAM: CT CHEST PE CTA CLINICAL HISTORY: afib rvr, elevated ddimer, presyncope. TECHNIQUE: Imaging Protocol: Axial CT angiography was performed with multi-slice acquisition and mu lti-planar and/or 3D reconstructions. CONTRAST MATERIAL: Intravenous: Omnipaque 350 contrast volume:100 mL COMPARISON: CT CT CHEST W from 09/29/2019 FINDINGS: The examination is limited due to patient motion artifact. Tracheobronchial tree: There is a 0.8 cm ovoid density in the dependent trachea at the level of the b ifurcation. This was not present on the prior examination. Pulmonary parenchyma: No focal consolidation is seen. Linear atelectasis or scarring is seen in the lung bases. No architectural distortion. Pulmonary Arteries: The examination is inadequate for evaluation of pulmonary emboli due to poor pulm onary artery enhancement. Within the limits of the examination, no large embolus is seen in the main or right and left pulmonary artery trunks. Mediastinum and Nely: No dominant adenopathy or fluid collection. The esophagus is unremarkable. Visualized thyroid gland: Unremarkable. Pleura: No effusion or pneumothorax. Heart: Mild cardiomegaly. Coronary artery calcifications are present. No pericardial effusion. Aorta: Thoracic aorta non-dilated. No evidence of dissection. Mild atherosclerosis. Upper abdomen: Simple left renal cyst. Soft tissues: Unremarkable. Bones: Within normal limits for the patient's age. IMPRESSION: 1. Examination is suboptimal for evaluation of pulmonary emboli particularly beyond the main pulmonar y trunk. Within the limits of the examination, no large embolus is seen in the main pulmonary artery or right left pulmonary trunks. 2. No evidence of thoracic aortic dissection or aneurysm. 3. No acute pulmonary process. RADIATION DOSE DELIVERED: 467.19mGy.cm Total DLP DATA REPOSITORY: All CT scans at this facility are submitted to the National Radiology Data Registry (NRDR) Dose Index Registry (DIR) with the [employer] (A[employer]). RADIATION OPTIMIZATION: All CT scans at this facility use at least one of these dose optimization te chniques: automated exposure control; mA and/or kV adjustment per patient size (includes targeted exa ms where dose is matched to clinical indication); or iterative reconstruction.
--- NOTE | 2022-01-28 23:10 | HPE_ITS ---
Date of service: 01/28/22 Time of Service: 23:10 Assessment and Plan Assessment and plan (1) Pre-syncope: Status: Acute Assessment and plan: Pre-syncope. Unclear if this was arrythmia related, or possibly micturition syncope. In any event he will benefit from rate control, will continue to titrate Cardizem for this evening, switch to PO in morning if effective, or consider also beta leda. Modest elevation d-Dimer noted, conceivable that the spell could have been presentation of PE, but low prob. ER has ordered CTA. Reviewed ADs, requests Full Code. History of Present Illness History of Present Illness Chief Complaint: pre-syncope Narrative: 76 male with h/o asymptomatic paroxysmal atrial fibrillation, detected on holter in 2019 -- here tonight with episode of feeling like he was going to pass out after returning from bathroom, lay down on bed and felt better. Did not check pulse. In ER initial pulse in 70s (reported as AF but by EKG appears to me to be NSR), but the noted to be in AF with rates 120-150. Asymptomatic as far as I can tell. Started in Diltiaze drip. I wass asked to evaluate for admission. W/u of note for normal electrolytes, TSH 5.4, negative troponin and d-Dimer 1000. Patient states he feels more or less his usual self at present. Note that he was previously demed not a candidate for anticoagulation due to fall risk from Parkinson's. Review of Systems Narrative: per HPI PFSH All Active Problems Imbalance (Acute) Pre-syncope (Acute) Dizziness (Acute) Sensorineural hearing loss, bilateral (Acute) Hx of herpes zoster (Acute) Vesicocolic fistula (Acute) Macrocytosis (Acute) Hearing loss (Acute) Arthritis of right wrist (Acute) Cognitive decline (Acute) Paroxysmal atrial fibrillation (Acute) Aortic regurgitation (Acute) Vitamin D deficiency (Acute) Hypothyroidism (Chronic) Chronic anxiety (Acute) Dysequilibrium (Acute) Restless legs (Acute) Vesicocolonic fistula (Acute) Chronic shortness of breath (Acute) per pcp Complete tear of right rotator cuff (Acute ~11/2019) BPH loc w urin obs/LUTS (Acute) Right rotator cuff tendonitis (Acute) Most recent injection: 09/24/2019 Left rotator cuff tear arthropathy (Chronic) Most recent injection: 09/24/2019 Left shoulder tendinitis (Chronic) Primary osteoarthritis of both knees (Chronic) Bilateral Synvisc injections most recently: 01/01/2021; 06/30/2020 Adhesive capsulitis of shoulder (Acute 08/05/13) Medical History Actinic keratosis Allergic rhinitis At risk for falling Atrial fibrillation Bilateral lower extremity edema COPD (chronic obstructive pulmonary disease) Erectile dysfunction Foot deformity, acquired GERD (gastroesophageal reflux disease) History of degenerative joint disease History of prediabetes Hyperlipidemia Lower urinary tract symptoms Mild memory disturbance Moderate aortic regurgitation CRYSTAL (obstructive sleep apnea) Prediabetes Right bundle branch block Rotator cuff tear Surgical History History of bladder repair surgery History of hernia repair History of partial surgical removal of colon Family History Father Lung cancer Mother Colon cancer Daughter Lymphoma Social History Smoking/Tobacco Use Status: Former Tobacco Use Smoking risk assessment performed?: Yes Alcohol Intake: never Drug use: Never Substance use type: does not use Household members: spouse Pets and animals: Yes (1) Pets and animals: cat(s) Current gender identity: male Do you feel safe at home: Yes Do you feel safe in your relationship?: Yes Meds Allergies and Home Medications Allergies Allergy/AdvReac Type Severity Reaction Status Date / Time chlorpheniramine Allergy Verified 01/28/22 21:32 [From Histussin HC] dexbrompheniramine Allergy Verified 01/28/22 21:32 [From Histussin HC] hydrocodone Allergy Verified 01/28/22 21:32 [From Histussin HC] phenylephrine Allergy Verified 01/28/22 21:32 [From Histussin HC] Home Medications Medication Instructions Recorded Confirmed Type [id number] C-Mn 750 1 tab PO DAILY 04/12/13 01/28/22 History mg-600 mg-55 mg-5 mg tablet pantoprazole 40 mg tablet,delayed 40 mg PO DAILY 04/12/13 01/28/22 History release levothyroxine 50 mcg capsule 50 mcg PO DAILY 10/22/18 01/28/22 History trazodone 100 mg tablet 25 mg PO QHS PRN 10/22/18 01/28/22 History ibuprofen 200 mg tablet (Motrin IB) 200 mg PO TID 12/15/19 01/28/22 History acetaminophen 500 mg tablet 500 mg PO QID PRN 01/27/20 01/28/22 History albuterol sulfate 90 mcg/actuation 2 puff inhalation Q6H PRN 02/16/20 01/28/22 History aerosol inhaler furosemide 20 mg tablet (Lasix) 20 mg PO DAILY 02/16/20 01/28/22 History aspirin 81 mg tablet,delayed 81 mg PO DAILY 03/23/20 01/28/22 History release (Adult Aspirin Regimen) cholecalciferol (vitamin D3) 10 10 mcg PO DAILY 03/23/20 01/28/22 History mcg (400 unit) capsule (Vitamin D3) fluticasone propionate 50 2 spray intranasal DAILY 03/23/20 12/13/21 History mcg/actuation nasal spray,suspension (Flonase Allergy Relief) mecobalamin (vitamin B12) 1,000 1,000 mcg sublingual DAILY 03/23/20 01/28/22 History mcg disintegrating tablet,sublingual albuterol 90 mcg/actuation aerosol mcg inhalation 06/30/20 09/19/21 History inhaler levalbuterol HCl 0.63 mg/3 mL 0.63 mg inhalation ONCE 06/30/20 01/28/22 History solution for nebulization (Xopenex) pramipexole 0.125 mg tablet 0.5 mg PO QHS 06/30/20 01/28/22 History sertraline 25 mg tablet 50 mg PO DAILY 06/30/20 09/19/21 History tamsulosin 0.4 mg capsule (Flomax) 0.4 mg PO DAILY #90 caps 12/05/20 01/28/22 Rx lorazepam 1 mg tablet 1 mg PO DAILY PRN Anxiety 03/09/21 12/13/21 History umeclidinium 62.5 mcg/actuation 1 inh inhalation DAILY 03/09/21 01/28/22 History blister powder for inhalation (Incruse Ellipta) lorazepam 1 mg tablet 0.5 mg PO DAILY PRN 09/07/21 09/19/21 History carbidopa 25 mg-levodopa 100 mg 1 tab TID 01/28/22 01/28/22 History tablet Exam Narrative Exam Narrative: 144/77, 78 (up to 110-130 intermittently on monitor during exam), 36.8, 16, 95% RA. HEENT atraumatic, neck supple; lungs clear; heart irr/irr; abdomen soft and NT; extremities 1+ pedal edema; neuro Ox3, moves all 4s Results Labs Result diagrams: 01/28/22 21:55 01/28/22 21:55 Labs: Laboratory Results - last 24 hr 01/28/22 01/28/22 01/28/22 21:55 21:55 21:55 WBC 4.99 RBC 4.92 Hgb 16.3 Hct 47.5 MCV 97 H MCH 33.1 H MCHC 34.3 RDW 12.3 Plt Count 255 MPV 10.4 Immature Gran % 0.2 Neutrophils % 62.4 Lymphocytes % 23.2 Monocytes % 8.6 Eosinophils % 4.4 Basophils % 1.2 Nucleated RBC % 0.0 Absolute Neutrophils 3.11 Absolute Lymphocytes 1.16 L Absolute Monocytes 0.43 Absolute Eosinophils 0.22 Absolute Basophils 0.06 D-Dimer 1000 H Sodium 140 Potassium 4.1 Chloride 104 Carbon Dioxide 28.8 Anion Gap 7.2 BUN 15 Creatinine 1.0 Estimated GFR/1.73 m2 >= 60.00 Glucose 106 Calcium 9.1 Magnesium 2.2 Total Bilirubin 1.0 AST 15 ALT 15 L Alkaline Phosphatase 88 Troponin I < 50 Total Protein 7.3 Albumin 3.9 TSH 5.79 H Free T4 1.20 Urine Color Urine Clarity Urine pH Ur Specific [place] Urine Protein Urine Ketones Urine Blood Urine Nitrite Urine Bilirubin Urine Urobilinogen Ur Leukocyte Esterase Urine Glucose COVID-19 Source 01/28/22 01/28/22 22:00 22:00 WBC RBC Hgb Hct MCV MCH MCHC RDW Plt Count MPV Immature Gran % Neutrophils % Lymphocytes % Monocytes % Eosinophils % Basophils % Nucleated RBC % Absolute Neutrophils Absolute Lymphocytes Absolute Monocytes Absolute Eosinophils Absolute Basophils D-Dimer Sodium Potassium Chloride Carbon Dioxide Anion Gap BUN Creatinine Estimated GFR/1.73 m2 Glucose Calcium Magnesium Total Bilirubin AST ALT Alkaline Phosphatase Troponin I Total Protein Albumin TSH Free T4 Urine Color Yellow Urine Clarity Clear Urine pH 7.5 Ur Specific [place] 1.020 Urine Protein Negative Urine Ketones Negative Urine Blood Negative Urine Nitrite Negative Urine Bilirubin Negative Urine Urobilinogen 0.2 Ur Leukocyte Esterase Negative Urine Glucose Negative COVID-19 Source Nasal/Nares Last Vital Signs Temp 36.8 C 01/28/22 21:20 Pulse 78 01/28/22 21:20 Resp 16 01/28/22 21:25 BP 144/77 H 01/28/22 21:20 Pulse Ox 95 01/28/22 21:20
[2022-01-28] MEDS: Omnipaque 350 MG/ML 100 ML BTL IJ (23:42)
[2022-01-29] VITALS (47 sets, daily range): BP systolic 86–170; BP diastolic 52–115; PULSE 64–124; RESP 12–33; TEMP 36.2–36.6; O2SAT 91–96
[2022-01-29] MEDS: Normal Saline Flush 10 ML SYR IVP (00:29)
[2022-01-29 01:10] LABS: COVID-19 PCR Negative (Negative)
[2022-01-29 01:23] LABS: Troponin I < 50 ng/L (<or=60)
--- NOTE | 2022-01-29 02:59 | DI.VRAD_ITS ---
PROCEDURE INFORMATION: Exam: CTA Chest With Contrast Exam date and time: 01/29/2022 12:17 AM Age: 76 years old Clinical indication: Abnormal findings; Abnormal diagnostic tests and other: Afib; Elevated d-dimer; Patient HX: Abd pain, constipation, vomitting TECHNIQUE: Imaging protocol: Computed tomographic angiography of the chest with contrast. 3D rendering (Not supervised by radiologist): MIP and/or 3D reconstructed images were created by the technologist. Radiation optimization: All CT scans at this facility use at least one of these dose optimization techniques: automated exposure control; mA and/or kV adjustment per patient size (includes targeted exams where dose is matched to clinical indication); or iterative reconstruction. Contrast material: OMNIPAQUE 350; Contrast volume: 100 ml; Contrast route: INTRAVENOUS (IV); COMPARISON: CT CHEST W 09/29/2019 8:21 AM FINDINGS: Pulmonary arteries: Limited pulmonary artery enhancement with a density of only 120 Hounsfield units obtained over the pulmonary trunk. Within the limits of the exam, no large central pulmonary embolism is seen in the pulmonary trunk or in the main pulmonary arteries. The segmental and distal pulmonary arteries are not adequately evaluated to diagnose or exclude pulmonary emboli. Aorta: No thoracic aortic aneurysm or dissection. Thyroid: Normal-appearing thyroid gland. Lungs: Lung mir somewhat obscured by artifact from motion. Streaky and platelike atelectasis. No pulmonary consolidation. Pleural spaces: No pleural effusion or pneumothorax. Heart: Normal-sized heart. Lymph nodes: No pathologically enlarged mediastinal or hilar lymph nodes. Liver: Probable fatty infiltration of the liver, difficult to confidently diagnose by CT imaging after administration of intravenous contrast. Gallbladder and bile ducts: Suggestion of gallbladder sludge versus incompletely calcified gallstones. No biliary dilatation. Kidneys and ureters: 3 cm left renal cyst. Kidneys only partially visualized. Suggestion of mild bilateral hydronephrosis, more prominent on the right. Bones/joints: Lower ribs partially excluded from view and incompletely evaluated. Otherwise, no acute fracture seen among the bones of the chest. Spinal degenerative change with discogenic degeneration, Schmorl's Schmorl's nodes, vacuum disc deformities, and anterior osteophytes at multiple levels. Fusion across the T10-T11 disc space. 1.0 cm x 1.2 cm well-defined lytic lesion redemonstrated in the left glenoid process, uncertain etiology but with margins suggesting a slow pattern of growth, not significantly changed since the comparison exam from 2019. Soft tissues: No gross soft tissue mass or fluid collection seen in the chest wall. IMPRESSION: 1. Limited pulmonary artery enhancement with a density of only 120 Hounsfield units obtained over the pulmonary trunk. Within the limits of the exam, no large central pulmonary embolism is seen in the pulmonary trunk or in the main pulmonary arteries. The segmental and distal pulmonary arteries are not adequately evaluated to diagnose or exclude pulmonary emboli. 2. Probable fatty infiltration of the liver, difficult to confidently diagnose by CT imaging after administration of intravenous contrast. 3. Kidneys only partially visualized. Suggestion of mild bilateral hydronephrosis, more prominent on the right. Dictated and Authenticated by: Jann Cannon MD. Ordering:VICKY Fajardo MD
[2022-01-29] MEDS: Levothyroxine 50 MCG TAB PO (05:12)
[2022-01-29] MEDS: Cyanocobalamin 500 MCG TAB 1000 MCG PO (07:47)
[2022-01-29] MEDS: Pantoprazole 40 MG TABCR PO (07:47)
[2022-01-29] MEDS: Tamsulosin 0.4 MG CAPCR PO (07:47)
[2022-01-29] MEDS: Furosemide 20 MG TAB PO (07:47)
[2022-01-29] MEDS: Acetaminophen 500 MG TAB PO (07:50)
[2022-01-29] MEDS: Umeclidinium 7 CAP INHALER 1 CAP IH (08:11)
[2022-01-29] MEDS: Carbidopa 25/Levodopa 100 TAB PO ×3 (09:21→20:12)
[2022-01-29] MEDS: dilTIAZem 60 MG TAB PO ×2 (09:21→14:09)
--- NOTE | 2022-01-29 09:45 | PDOC.CMIN ---
- If Service Date Differs Date of service: 01/29/22 Time of Service: 09:46 Care Management Initial Assess REASON FOR HOSPITALIZATION:: Pre-syncope PAST MEDICAL HISTORY/PAST SURGICAL HISTORY:: PFSH. All Active Problems . Imbalance (Acute). Pre-syncope (Acute). Dizziness (Acute). Sensorineural hearing loss, bilateral (Acute). Hx of herpes zoster (Acute). Vesicocolic fistula (Acute). Macrocytosis (Acute). Hearing loss (Acute). Arthritis of right wrist (Acute). Cognitive decline (Acute). Paroxysmal atrial fibrillation (Acute). Aortic regurgitation (Acute). Vitamin D deficiency (Acute). Hypothyroidism (Chronic). Chronic anxiety (Acute). Dysequilibrium (Acute). Restless legs (Acute). Vesicocolonic fistula (Acute). Chronic shortness of breath (Acute). per pcp. Complete tear of right rotator cuff (Acute ~11/2019). BPH loc w urin obs/LUTS (Acute). Right rotator cuff tendonitis (Acute). Most recent injection: 09/24/2019. Left rotator cuff tear arthropathy (Chronic). Most recent injection: 09/24/2019. Left shoulder tendinitis (Chronic). Primary osteoarthritis of both knees (Chronic). Bilateral Synvisc injections most recently: 01/01/2021; 06/30/2020. Adhesive capsulitis of shoulder (Acute 08/05/13). Medical History . Actinic keratosis. Allergic rhinitis. At risk for falling. Atrial fibrillation. Bilateral lower extremity edema. COPD (chronic obstructive pulmonary disease). Erectile dysfunction. Foot deformity, acquired. GERD (gastroesophageal reflux disease). History of degenerative joint disease. History of prediabetes. Hyperlipidemia. Lower urinary tract symptoms. Mild memory disturbance. Moderate aortic regurgitation. CRYSTAL (obstructive sleep apnea). Prediabetes. Right bundle branch block. Rotator cuff tear. Surgical History . History of bladder repair surgery. History of hernia repair. History of partial surgical removal of colon PREVIOUS FUNCTIONAL STATUS/SOCIAL/FAMILY SUPPORTS:: Jorge lives in a single family home in [place] with his Ella. She has 3 children and they have several grandchildren. 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 He uses a walker for ambulation and has private caregivers at home from [employer]. Tonio is independent with ADLs, however he no longer drives. CURRENT FUNCTIONAL STATUS:: Jorge was siting up in bed when CM met with him. He discussed his slow decline over the past few months and the issues he is having with weakness and balance. He shared that his had multiple myeloma 6 years ago and, 2 years ago, colon cancer. He informed CM that they are fortunate enough to have private caregivers from [employer] that come 3 times a week and do electronic lab technician and run errands for them. Jorge has a son in [place] who pays his bills for him and makes all of his doctors appointments and arranges for transportation. His 2 daughters accompany him and Ella to the appointments. The family is very close. ADVANCE DIRECTIVES:: none on file Has patient been provided with info about the portal/API?: Yes Did the patient sign up for the portal?: No CODE STATUS:: Full Code INSURANCE COVERAGE / FINANCIAL ISSUES:: Medicare. BC BS CURRENT HOME/COMMUNITY SERVICES/EQUIPMENT:: Private caregivers 3 times a week through [employer]. Jorge uses a walker. PRIMARY CARE PHYSICIAN:: Christian Benavides POTENTIAL DISCHARGE NEEDS:: follow up with PCP and plan of care PATIENT/FAMILY EDUCATION NEEDS:: Review of discharge instructions, limitations, medications, follow up plan, Ask me Three TRANSPORTATION:: via private vehicle with family PLAN:: Jorge will likely be discharged home with no new services. He will follow up with his community providers and plan of care as prescribed and transoport with family. CM will support Jorge and his discharge planning needs.
--- NOTE | 2022-01-29 15:57 | NUR.NOTE ---
Pt gives verbal permission for RN to update son Scotty. reviewed new cardizem use, son will cancel 01/30 pcp appointmentNursing Note:
--- NOTE | 2022-01-29 16:39 | UCONE_ITS ---
Date of service: 01/29/22 Time of Service: 16:00 Assessment and Plan Assessment and plan (1) BPH loc w urin obs/LUTS: Status: Acute Assessment and plan: This gentleman likely has urinary symptoms from a combination of improved symptoms. Given his age, and enlarged prostate would not be unusual. Urinary symptoms are also quite common in patients with autonomic dysfunction. We have medical and surgical treatments for the enlarged prostate, but no such treatments for the autonomic dysfunction. We would normally consider increasing his dose of tamsulosin from 0.4 up to 0.8 mg daily, but I am reluctant to do so because of the possibility of worsening his dizziness and instability. Starting him on a 5 alpha reductase inhibitor such as finasteride would seem reasonable and that it should not affect his blood pressure for stability. Unfortunately, this type of medication takes 6 to 12 months to show much effect. In the meantime, we can use clean intermittent catheterization if he is not able to void. We should optimize his mobility and bowel function as both of these can worsen his urinary symptoms. On an outpatient basis, physical therapy can sometimes be helpful. If we get to the stage where we want to consider surgical treatments, we would likely need a urodynamic study first. Given his neurologic issues, we would want to document a true obstructive process before considering a TURP. Historically, when we have performed TURP on patients with autonomic dysfunction, his urinary stream does not improve, he often become incontinent. (2) Atrial fibrillation with rapid ventricular response: Status: Acute History of Present Illness History of Present Illness Chief Complaint: Urinary retention Narrative: This is a 76-year-old gentleman who has here our care in the office. He is followed for lower urinary tract symptoms and incomplete bladder emptying. Over the years, his symptoms have been improved when he has been able to tolerate Flomax. There have been times when he has had orthostatic hypotension which may or may not have been caused by the alpha blockers. At some point in time, he was tried on Myrbetriq. He tells me that the medication caused significant mental status changes for him. He is now admitted with atrial fibrillation. I have been asked to see him for urinary retention. He describes worsening urinary symptoms over the past few months. He tells me he voids every 30 to 60 minutes during the day and at night. He is not having any dysuria or gross hematuria. His stream has been quite slow but he has never gone into complete retention. He has always been able to void at least small amounts of urine. He does have a history of tremors and disequilibrium. He has issues with his memory. He has been seen by a neurologist over in [place] and the concern is that the patient has autonomic dysfunction. A referral to neurology down in [place] has been recommended. Review of Systems Narrative: No fevers or chills Decreased hearing. No vision change Hx hypothyroidism. No diabetes. No shortness of breath, cough or hemoptysis No chest pain No nausea, vomiting, hepatitis, ulcers, jaundice Tremors. No seizures, strokes No bleeding disorders or anemia Arthralgia. PFSH All Active Problems (Updated 01/30/22 @ 15:42 by Angel Forbes MD) Discharge planning issues (Acute) Primary autonomic failure (Acute) Atrial fibrillation with rapid ventricular response (Acute) Imbalance (Acute) Pre-syncope (Acute) Dizziness (Acute) Sensorineural hearing loss, bilateral (Acute) Hx of herpes zoster (Acute) Vesicocolic fistula (Acute) Macrocytosis (Acute) Hearing loss (Acute) Arthritis of right wrist (Acute) Cognitive decline (Acute) Paroxysmal atrial fibrillation (Acute) Aortic regurgitation (Acute) Vitamin D deficiency (Acute) Hypothyroidism (Chronic) Chronic anxiety (Acute) Dysequilibrium (Acute) Restless legs (Acute) Vesicocolonic fistula (Acute) Chronic shortness of breath (Acute) per pcp Complete tear of right rotator cuff (Acute ~11/2019) BPH loc w urin obs/LUTS (Acute) Right rotator cuff tendonitis (Acute) Most recent injection: 09/24/2019 Left rotator cuff tear arthropathy (Chronic) Most recent injection: 09/24/2019 Left shoulder tendinitis (Chronic) Primary osteoarthritis of both knees (Chronic) Bilateral Synvisc injections most recently: 01/01/2021; 06/30/2020 Adhesive capsulitis of shoulder (Acute 08/05/13) Medical History Actinic keratosis Allergic rhinitis At risk for falling Atrial fibrillation Bilateral lower extremity edema COPD (chronic obstructive pulmonary disease) Erectile dysfunction Foot deformity, acquired GERD (gastroesophageal reflux disease) History of degenerative joint disease History of prediabetes Hyperlipidemia Lower urinary tract symptoms Mild memory disturbance Moderate aortic regurgitation CRYSTAL (obstructive sleep apnea) Prediabetes Right bundle branch block Rotator cuff tear Surgical History History of bladder repair surgery History of hernia repair History of partial surgical removal of colon Family History Father Lung cancer Mother Colon cancer Daughter Lymphoma Social History Smoking/Tobacco Use Status: Former Tobacco Use Smoking risk assessment performed?: Yes Alcohol Intake: never Drug use: Never Substance use type: does not use Household members: spouse Pets and animals: Yes (1) Pets and animals: cat(s) Current gender identity: male Do you feel safe at home: Yes Do you feel safe in your relationship?: Yes Exam Narrative Exam Narrative: He is a pleasant gentleman seen in his ICU bed. He does not appear septic or toxic His vital signs are documented elsewhere His abdomen is soft with no guarding or rebound tenderness He is awake and alert. He has difficulty with word selection and recalling some of his medical history. His urinalysis was normal on admission. His serum creatinine is normal as well. I do not see any sign of hydronephrosis on the lower cuts of his CT of the chest. Results Last Vital Signs Temp 36.4 C L 01/29/22 12:00 Pulse 83 01/29/22 13:08 Resp 21 01/29/22 13:08 BP 93/53 L 01/29/22 13:08 Pulse Ox 92 01/29/22 13:08 Labs Result diagrams: 01/28/22 21:55 01/28/22 21:55 Labs: Laboratory Results - last 24 hr 01/28/22 01/28/22 01/28/22 21:55 21:55 21:55 WBC 4.99 RBC 4.92 Hgb 16.3 Hct 47.5 MCV 97 H MCH 33.1 H MCHC 34.3 RDW 12.3 Plt Count 255 MPV 10.4 Immature Gran % 0.2 Neutrophils % 62.4 Lymphocytes % 23.2 Monocytes % 8.6 Eosinophils % 4.4 Basophils % 1.2 Nucleated RBC % 0.0 Absolute Neutrophils 3.11 Absolute Lymphocytes 1.16 L Absolute Monocytes 0.43 Absolute Eosinophils 0.22 Absolute Basophils 0.06 D-Dimer 1000 H Sodium 140 Potassium 4.1 Chloride 104 Carbon Dioxide 28.8 Anion Gap 7.2 BUN 15 Creatinine 1.0 Estimated GFR/1.73 m2 >= 60.00 Glucose 106 Calcium 9.1 Magnesium 2.2 Total Bilirubin 1.0 AST 15 ALT 15 L Alkaline Phosphatase 88 Troponin I < 50 Total Protein 7.3 Albumin 3.9 TSH 5.79 H Free T4 1.20 Urine Color Urine Clarity Urine pH Ur Specific [place] Urine Protein Urine Ketones Urine Blood Urine Nitrite Urine Bilirubin Urine Urobilinogen Ur Leukocyte Esterase Urine Glucose COVID-19 Source SARS-CoV-2 (PCR) 01/28/22 01/28/22 01/29/22 22:00 22:00 00:45 WBC RBC Hgb Hct MCV MCH MCHC RDW Plt Count MPV Immature Gran % Neutrophils % Lymphocytes % Monocytes % Eosinophils % Basophils % Nucleated RBC % Absolute Neutrophils Absolute Lymphocytes Absolute Monocytes Absolute Eosinophils Absolute Basophils D-Dimer Sodium Potassium Chloride Carbon Dioxide Anion Gap BUN Creatinine Estimated GFR/1.73 m2 Glucose Calcium Magnesium Total Bilirubin AST ALT Alkaline Phosphatase Troponin I < 50 Total Protein Albumin TSH Free T4 Urine Color Yellow Urine Clarity Clear Urine pH 7.5 Ur Specific [place] 1.020 Urine Protein Negative Urine Ketones Negative Urine Blood Negative Urine Nitrite Negative Urine Bilirubin Negative Urine Urobilinogen 0.2 Ur Leukocyte Esterase Negative Urine Glucose Negative COVID-19 Source Nasal/Nares SARS-CoV-2 (PCR) Negative 01/29/22 00:48 WBC RBC Hgb Hct MCV MCH MCHC RDW Plt Count MPV Immature Gran % Neutrophils % Lymphocytes % Monocytes % Eosinophils % Basophils % Nucleated RBC % Absolute Neutrophils Absolute Lymphocytes Absolute Monocytes Absolute Eosinophils Absolute Basophils D-Dimer Sodium Potassium Chloride Carbon Dioxide Anion Gap BUN Creatinine Estimated GFR/1.73 m2 Glucose Calcium Magnesium Total Bilirubin AST ALT Alkaline Phosphatase Troponin I Cancelled Total Protein Albumin TSH Free T4 Urine Color Urine Clarity Urine pH Ur Specific [place] Urine Protein Urine Ketones Urine Blood Urine Nitrite Urine Bilirubin Urine Urobilinogen Ur Leukocyte Esterase Urine Glucose COVID-19 Source SARS-CoV-2 (PCR)
--- NOTE | 2022-01-29 17:28 | W.PM.PROGNOT ---
Date of Service Date of service: 01/29/22 Time of Service: 17:28 Assessment and Plan Assessment and plan (1) Pre-syncope: Status: Acute Assessment and plan: Pre-syncope. Unclear if this was arrythmia related, possibly micturition syncope vs primary autonomic failure with orthostasis. Regardless of etiology, he requires rate control. Stablized overnight on cardizem drip. Gave oral diltiazem 60mg TID; 2 doses received. HR control. Change to long-acting diltiazem 180mg QHS Telemetry. + orthostatic vital signs. His symptoms are not new / are recurrent. Needs to be very cognizant of need to change positions slowly and equilibrate before ambulating. (2) Atrial fibrillation with rapid ventricular response: Status: Acute Assessment and plan: As above. (3) BPH loc w urin obs/LUTS: Status: Acute Assessment and plan: Mariee was placed. Traumatic placement with mild hematuria. Urology consulted. Mariee removed and will perform intermittent in-out catheterization. On flomax 0.4 mg daily. (4) COPD (chronic obstructive pulmonary disease): Assessment and plan: No acute exacerbation. PRN albuterol. Cont Incruse Elipta. (5) Primary autonomic failure: Status: Acute Assessment and plan: Resulting in orthostatic hypotension; documented during this admission. Subjective Subjective Patient reports: no new complaints, feels better and afebrile; denies nausea, vomiting or shortness of breath Exam Narrative Exam Narrative: Gen: pleasant and conversant. NAD HEENT: sclera clear, MMM Lungs: clear. No increased work of breathing. CV: irreg. irreg. Abd: mild distension. NT. +BS Exts: trace - 1+ edema. No calf tenderness Psych: Affect appropriate. Mental status grossly normal. 144/77, 78 (up to 110-130 intermittently on monitor during exam), 36.8, 16, 95% RA. HEENT atraumatic, neck supple; lungs clear; heart irr/irr; abdomen soft and NT; extremities 1+ pedal edema; neuro Ox3, moves all 4s Objective Last Vital Signs Temp 36.4 C L 01/29/22 12:00 Pulse 81 01/29/22 16:48 Resp 15 01/29/22 17:00 BP 109/68 01/29/22 16:48 Pulse Ox 95 01/29/22 16:48 Laboratory Results - last 24 hr 01/28/22 01/28/22 01/28/22 21:55 21:55 21:55 WBC 4.99 RBC 4.92 Hgb 16.3 Hct 47.5 MCV 97 H MCH 33.1 H MCHC 34.3 RDW 12.3 Plt Count 255 MPV 10.4 Immature Gran % 0.2 Neutrophils % 62.4 Lymphocytes % 23.2 Monocytes % 8.6 Eosinophils % 4.4 Basophils % 1.2 Nucleated RBC % 0.0 Absolute Neutrophils 3.11 Absolute Lymphocytes 1.16 L Absolute Monocytes 0.43 Absolute Eosinophils 0.22 Absolute Basophils 0.06 D-Dimer 1000 H Sodium 140 Potassium 4.1 Chloride 104 Carbon Dioxide 28.8 Anion Gap 7.2 BUN 15 Creatinine 1.0 Estimated GFR/1.73 m2 >= 60.00 Glucose 106 Calcium 9.1 Magnesium 2.2 Total Bilirubin 1.0 AST 15 ALT 15 L Alkaline Phosphatase 88 Troponin I < 50 Total Protein 7.3 Albumin 3.9 TSH 5.79 H Free T4 1.20 Urine Color Urine Clarity Urine pH Ur Specific [place] Urine Protein Urine Ketones Urine Blood Urine Nitrite Urine Bilirubin Urine Urobilinogen Ur Leukocyte Esterase Urine Glucose COVID-19 Source SARS-CoV-2 (PCR) 01/28/22 01/28/22 01/29/22 22:00 22:00 00:45 WBC RBC Hgb Hct MCV MCH MCHC RDW Plt Count MPV Immature Gran % Neutrophils % Lymphocytes % Monocytes % Eosinophils % Basophils % Nucleated RBC % Absolute Neutrophils Absolute Lymphocytes Absolute Monocytes Absolute Eosinophils Absolute Basophils D-Dimer Sodium Potassium Chloride Carbon Dioxide Anion Gap BUN Creatinine Estimated GFR/1.73 m2 Glucose Calcium Magnesium Total Bilirubin AST ALT Alkaline Phosphatase Troponin I < 50 Total Protein Albumin TSH Free T4 Urine Color Yellow Urine Clarity Clear Urine pH 7.5 Ur Specific [place] 1.020 Urine Protein Negative Urine Ketones Negative Urine Blood Negative Urine Nitrite Negative Urine Bilirubin Negative Urine Urobilinogen 0.2 Ur Leukocyte Esterase Negative Urine Glucose Negative COVID-19 Source Nasal/Nares SARS-CoV-2 (PCR) Negative 01/29/22 00:48 WBC RBC Hgb Hct MCV MCH MCHC RDW Plt Count MPV Immature Gran % Neutrophils % Lymphocytes % Monocytes % Eosinophils % Basophils % Nucleated RBC % Absolute Neutrophils Absolute Lymphocytes Absolute Monocytes Absolute Eosinophils Absolute Basophils D-Dimer Sodium Potassium Chloride Carbon Dioxide Anion Gap BUN Creatinine Estimated GFR/1.73 m2 Glucose Calcium Magnesium Total Bilirubin AST ALT Alkaline Phosphatase Troponin I Cancelled Total Protein Albumin TSH Free T4 Urine Color Urine Clarity Urine pH Ur Specific [place] Urine Protein Urine Ketones Urine Blood Urine Nitrite Urine Bilirubin Urine Urobilinogen Ur Leukocyte Esterase Urine Glucose COVID-19 Source SARS-CoV-2 (PCR) PAWSS Have you Been Recently Intoxicated or Drunk Within the Last 30 days?: No Have you Ever Experienced Previous Episodes of Alcohol Withdrawal?: No Have you ever Experienced Withdrawal Seizures?: No Have you ever Experienced Delirium Tremens(DT)s?: No Have you ever undergone Alcohol Rehabilitation Treatment (i.e, inpt ot outpatient treatment programs)?: No Have you ever Experienced Blackouts?: No Have you ever Combined Alcohol with other Downers within the last 90 days?: No Have you ever Combined Alcohol with any other Substance of Abuse during the last 90 days?: No Positive Blood Alcohol level on Presentation? [PCS.BAL]: No Evidence of Increased Autonomic Activity (i.e. HR>120, tremor, sweating, agitation, nausea)?: No Result: 0
[2022-01-29] MEDS: traZODone 50 MG TAB 25 MG PO (21:18)
[2022-01-29] MEDS: dilTIAZem CD 180 MG CAPCR PO (21:18)
[2022-01-29] MEDS: Pramipexole 0.5 MG TAB PO (21:18)
[2022-01-30] VITALS (9 sets, daily range): BP systolic 111–133; BP diastolic 62–82; PULSE 51–98; RESP 16–22; TEMP 36.1–36.9; O2SAT 94–100
[2022-01-30] MEDS: Levothyroxine 50 MCG TAB PO (05:51)
[2022-01-30] MEDS: Normal Saline Flush 10 ML SYR IVP ×2 (07:53→20:16)
[2022-01-30] MEDS: Acetaminophen 500 MG TAB PO (07:53)
[2022-01-30] MEDS: Polyethylene Glycol 3350 17 GM PACKET PO (07:53)
[2022-01-30] MEDS: Tamsulosin 0.4 MG CAPCR PO (07:54)
[2022-01-30] MEDS: Cyanocobalamin 500 MCG TAB 1000 MCG PO (07:54)
[2022-01-30] MEDS: Furosemide 20 MG TAB PO (07:54)
[2022-01-30] MEDS: Aspirin E.C. 81 MG TABEC PO (07:54)
[2022-01-30] MEDS: Finasteride 5 MG TAB PO (07:54)
[2022-01-30] MEDS: Carbidopa 25/Levodopa 100 TAB PO ×3 (07:54→20:16)
[2022-01-30] MEDS: Pantoprazole 40 MG TABCR PO (07:54)
[2022-01-30] MEDS: Umeclidinium 7 CAP INHALER 1 CAP IH (08:21)
--- NOTE | 2022-01-30 14:10 | PT.INIE ---
Date of service: 01/30/22 Time of Service: 14:10 PT Notes Visit Reasons: AF,Pre-Syncope Physical Therapy Inpatient Initial Evaluation Date: 01/30/2022 Referring Doctor: Angel Forbes MD PT Orders: PT CONSULT: Eval/Treat Precautions: Fall. Standard. Activity as tolerated. Patient Profile/Admitting Diagnosis: Jorge is a 76-year-old male patient who presented to the ED on 01/28/2022 due to lightheadedness and near syncope event. Patient is diagnosed with AF with RVR, COPD, primary autonomic failure, primary autonomic failure, and BPH loss of consciousness with urinary obstruction/LUTS. PMHX: All Active Problems? Imbalance (Acute) Pre-syncope (Acute) Dizziness (Acute) Sensorineural hearing loss, bilateral (Acute) Hx of herpes zoster (Acute) Vesicocolic fistula (Acute) Macrocytosis (Acute) Hearing loss (Acute) Arthritis of right wrist (Acute) Cognitive decline (Acute) Paroxysmal atrial fibrillation (Acute) Aortic regurgitation (Acute) Vitamin D deficiency (Acute) Hypothyroidism (Chronic) Chronic anxiety (Acute) Dysequilibrium (Acute) Restless legs (Acute) Vesicocolonic fistula (Acute) Chronic shortness of breath (Acute) per pcp Complete tear of right rotator cuff (Acute ~11/2019) BPH loc w urin obs/LUTS (Acute) Right rotator cuff tendonitis (Acute) Most recent injection: 09/24/2019 Left rotator cuff tear arthropathy (Chronic) Most recent injection: 09/24/2019 Left shoulder tendinitis (Chronic) Primary osteoarthritis of both knees (Chronic) Bilateral Synvisc injections most recently: 01/01/2021; 06/30/2020 Adhesive capsulitis of shoulder (Acute 08/05/13) Medical History? Actinic keratosis Allergic rhinitis At risk for falling Atrial fibrillation Bilateral lower extremity edema COPD (chronic obstructive pulmonary disease) Erectile dysfunction Foot deformity, acquired GERD (gastroesophageal reflux disease) History of degenerative joint disease History of prediabetes Hyperlipidemia Lower urinary tract symptoms Mild memory disturbance Moderate aortic regurgitation CRYSTAL (obstructive sleep apnea) Prediabetes Right bundle branch block Rotator cuff tear Surgical History? History of bladder repair surgery History of hernia repair History of partial surgical removal of colon Social History/Home Situation: Lives with in a private home. Independent with use of FWW for short distance ambualtion. Equipment Owned/DME: FWW, electric recliner. Subjective: Agreeable to PT consult. States that at home, he plans to sleep on his electric recliner so he does not have any difficulty sititng up and standing up fro it as he does from bed. Still reports mild dizziness with sitting and standing. Reports that he has had 6 falls in the past year. Mostly does the meal preparation and the laundry. States that his is pretty more mobility-dependent than he is. States that he may go home tonight. Agreeable to PT/OT. Does not like the chair as it is so uncomfortable for him, prefers to stay in bed. Objective: General Observation: Supine in bed. Telemetry monitoring in place. Mental Status: Alert and oriented as to person, place, time, and purpose. Able to pay attention, focus, and respond appropriately. Pain: Reports minimal discomfort in his gluteal area Vital Signs: WNL as closely monitored by nursing staff ROM: Right Upper Extremity: Shoulder Flexion allows about 90 degrees. Shoulder abduction allows about 90 degrees. Elbow flexion WFL. Wrist flexion WFL. Functional opening and closing of hand WFL. Left Upper Extremity: Shoulder Flexion allows about 90 degrees. Shoulder abduction allows about 90 degrees. Elbow flexion WFL. Wrist flexion WFL. Functional opening and closing of hand WFL. Right Lower Extremity: Hip flexion lacks the last 30 degrees. Hip abduction WFL. Knee flexion 30 to 90 degrees. Knee extension -30 degrees. Ankle dorsiflexion to neutral only. Ankle plantarflexion WFL. Left Lower Extremity: Hip flexion lacks the last 20 degrees. Hip abduction WFL. Knee flexion 30 to 90 degrees. Knee extension -30 degrees. Ankle dorsiflexion unable. Ankle plantarflexion WFL. Strength: Right Upper Extremity: Shoulder flexors 3-/5. Shoulder abductors 3-/5. Elbow flexors 4-/5. Elbow extensors 4-/5. Cosmetics Machine Operator weak but functional. Left Upper Extremity: Shoulder flexors 3-/5. Shoulder abductors 3-/5. Elbow flexors 4-/5. Elbow extensors 4-/5. Cosmetics Machine Operator weak but functional. Right Lower Extremity: Hip flexors 3-/5. Hip abductors 4-/5. Knee flexors 3-/5. Knee extensors 3-/5. Ankle dorsiflexors 3-/5. Ankle plantarflexors 3-/5. Left Lower Extremity: Hip flexors 3-/5. Hip abductors 4-/5. Knee flexors 3-/5. Knee extensors 3-/5. Ankle dorsiflexors 3-/5. Ankle plantarflexors 3-/5. Bed Mobility/Transfers: Supine to sit minimal assist Sit to stand minimal assist Stand to sit contact-guard assist Bed to toilet seat with contact-guard assist Toilet seat to bed contact-guard assist Gait: Instructed patient with level surface ambulation of 20 feet +20 feet feet requiring contact guard assist. Cassi decreased. Step height decreased. Step length decreased. Reported mild dizziness throughout activity. Balance: Static Sitting: Good Dynamic Sitting: Good Static Standing: Fair Dynamic Standing: Fair Special Tests: Mobility Limitations Standardized Measure [facility]-PAC 6 clicks Basic Mobility Inpatient Short Form: Raw Score: 16 [facility] Score: 54% deficit 4-stage Balance test: Unable due to balance issue and report of dizziness. Informed Consent/Education: Patient was instructed in purpose of PT consult and plan of care. Agreeable to proceed with established PT POC to achieve personal goals. Assessment: Per JUDY Olsen, patient has a brace that he uses but it has not been brought in here. Patient will need PT for continued strengthening and balance skilling as well as for home safety evaluation. Patient has difficulty sitting up and standing up from edge of bed. Patient states that he plans on sleeping on his electric recliner beside her who has been sleeping on the recliner for the past 2-3 years according to patient. That way he can be independent and will not need physical assistance from anybody every time he needs to get up. Patient presents with clinical signs and symptoms consistent with current/admitting diagnoses that have resulted to mobility limitations, gait instability, generalized weakness, and overall ADL decline as demonstrated by the following impairment level findings: 1. Decreased strength to B UE/LE major muscle groups 2. Impaired sitting/standing balance 3. Impaired activity tolerance 4. Limitation of joint range of motion in B shoulders, hips, knees, and ankles 5. Shortness of breath Impairments are contributing to the following functional limitations: 1. Decline in bed mobility skills 2. Decline in transfer skills 3. Difficulty with ambulation without assistive device 4. Increased completion time for mobility ADL performance 5. Increased risk for falls 6. Difficulty with managing steps alone safely Patient is assessed as a [id number] moderate complexity based on the following: History: 76-year-old male with past medical history as indicated above Examination: Demonstrable impairment in strength, balance, and mobility level with underlying impairments and functional limitations as exhibited above as well as deficit score of 54% utilizing the [facility] Mobility Inpatient Short Form Presentation: Evolving Decision Makin moderate complexity Goals: Goals X1 week 1. Supine-Sit independent 2. Sit-Supine independent 3. Sit-Stand independent 4. Stand-Sit independent with FWW 5. Bed-Chair independent with FWW 6. Chair-Bed independent with FWW 7. Independent gait on level surface with use of FWW 100 for at least [] feet without report of pain nor dyspnea 9. Good static and dynamic standing balance/tolerance Plan of Care/Treatment Plan: 1-2x/day, 7 days/week x 1 week. Plan of care has been reviewed with the NECKTIE TURNER providing the service under Physical Therapy direction. Initiate Physical Therapy intervention for pain management as needed, strengthening, bed mobility, transfers, gait, stairs, balance training, and use of assistive device. DISCHARGE RECOMMENDATIONS: [] Home with no services [] [X] Home with services. Home when medically cleared by hospitalist. Patient will benefit from home health PT services in order to progress mobility level using least restrictive assistive ambulatory device, assess home safety, identify additional equipment needs, and establish a functional maintenance program that will increase ability of patient to remain at home. [] Home with outpatient PT [] [] SNF for continued rehabilitation [] [] [facility] [] [] SNF versus LTC based on ability to participate and progress [] TREATMENT CODE/TIME: 40079 x 27 minutes beginning at 14:10 PM. Thank you for the opportunity to participate in the care of this patient. Kristen Valenzuela PT, DPT, CLT [facility] [place], [place]
--- NOTE | 2022-01-30 15:11 | CMPROGNOTE_ITS ---
- If Service Date Differs Date of service: 01/30/22 Time of Service: 15:11 Care Management Progress Note S/O: Jorge was sitting up in bed when CM met with him. He stated that he isn't feeling 100%, but he does feel better. His and daughter, Yi, were in the room visiting. Yi reported that they have caregivers coming into the home three times a week, but mostly for Jorge's , and to run errands/clean. Per MD, his rate is controlled, and will likely be ready for discharge soon. Jorge will be evaluated by PT to assess his mobility needs. Yi stated that her brother, Scotty, coordinates care at home, therefore if new services are indicated, he should be involved/informed. CM will continue to follow. A: Jorge is a 76 year old male admitted to [facility] on 01/29/22 with AFib, pre syncope. P: Jorge will return home with new orders for HH RN, PT, OT when medically cleared. His daughter will drive him home via private vehicle. He will follow up with his PCP and discharge plan of care. CM will continue to follow.
--- NOTE | 2022-01-30 15:35 | PGE_ITS ---
Date of Service Date of service: 01/30/22 Time of Service: 15:35 Assessment and Plan Assessment and plan (1) Pre-syncope: Status: Acute Assessment and plan: Pre-syncope. Unclear if this was arrythmia related, possibly micturition syncope vs primary autonomic failure with orthostasis. Regardless of etiology, he requires rate control. HR now controlled on oral long-acting cardizem. Telemetry. + orthostatic vital signs. His symptoms are not new / are recurrent. Needs to be very cognizant of need to change positions slowly and equilibrate before ambulating. (2) Atrial fibrillation with rapid ventricular response: Status: Acute Assessment and plan: As above. (3) BPH loc w urin obs/LUTS: Status: Acute Assessment and plan: Mariee was placed. Traumatic placement with mild hematuria. Urology consulted. Mariee removed and will perform intermittent in-out catheterization. On flomax 0.4 mg daily. Improving. (4) COPD (chronic obstructive pulmonary disease): Assessment and plan: No acute exacerbation. PRN albuterol. Cont Incruse Elipta. (5) Primary autonomic failure: Status: Acute Assessment and plan: Resulting in orthostatic hypotension; documented during this admission. (6) Discharge planning issues: Status: Acute Assessment and plan: Planning home tomorrow. PT has evaluated. Subjective Subjective Patient reports: no new complaints and afebrile; denies diarrhea, nausea, vomiting or shortness of breath Interval history since last seen: States he is tired but otherwise better. Exam Narrative Exam Narrative: Gen: Sitting in recliner, pleasant and conversant. NAD HEENT: sclera clear, MMM Lungs: clear. No increased work of breathing. CV: irreg. irreg. Abd: mild distension. NT. +BS Exts: trace edema. No calf tenderness Psych: Affect appropriate. Mental status grossly normal. Objective Last Vital Signs Temp 36.5 C 01/30/22 15:21 Pulse 63 01/30/22 15:21 Resp 18 01/30/22 15:21 BP 111/77 01/30/22 15:21 Pulse Ox 95 01/30/22 15:21 PAWSS Have you Been Recently Intoxicated or Drunk Within the Last 30 days?: No Have you Ever Experienced Previous Episodes of Alcohol Withdrawal?: No Have you ever Experienced Withdrawal Seizures?: No Have you ever Experienced Delirium Tremens(DT)s?: No Have you ever undergone Alcohol Rehabilitation Treatment (i.e, inpt ot outpatient treatment programs)?: No Have you ever Experienced Blackouts?: No Have you ever Combined Alcohol with other Downers within the last 90 days?: No Have you ever Combined Alcohol with any other Substance of Abuse during the last 90 days?: No Positive Blood Alcohol level on Presentation? [PCS.BAL]: No Evidence of Increased Autonomic Activity (i.e. HR>120, tremor, sweating, scotty tation, nausea)?: No Result: 0
[2022-01-30] MEDS: dilTIAZem CD 180 MG CAPCR PO (20:16)
[2022-01-30] MEDS: traZODone 50 MG TAB 25 MG PO (20:16)
[2022-01-30] MEDS: Pramipexole 0.5 MG TAB PO (20:16)
--- NOTE | 2022-01-30 21:52 | NUR.NOTE ---
Nursing Note: PVR 775mL noted on Bladder Scan. Per MD order, patient was then prepped for Straight Catheterization. Patients meatus was cleaned, Then following sterile technique. Patient was cleansed with three iodine swabs. A 14f straight catheter was lubricated with sterile lube and catheter was inserted. Patient had 900cc strawberry tinged, clear urine total in drainage bag. Patient tolerated care very well and stated he had relief once done.
[2022-01-31] VITALS (10 sets, daily range): BP systolic 107–123; BP diastolic 67–80; PULSE 75–100; RESP 16–18; TEMP 35.8–36.8; O2SAT 93–96
[2022-01-31] MEDS: Levothyroxine 50 MCG TAB PO (05:48)
[2022-01-31] MEDS: Umeclidinium 7 CAP INHALER 1 CAP IH (07:45)
[2022-01-31] MEDS: Aspirin E.C. 81 MG TABEC PO (08:12)
[2022-01-31] MEDS: Normal Saline Flush 10 ML SYR IVP (08:12)
[2022-01-31] MEDS: Carbidopa 25/Levodopa 100 TAB PO ×3 (08:12→19:42)
[2022-01-31] MEDS: Polyethylene Glycol 3350 17 GM PACKET PO (08:12)
[2022-01-31] MEDS: Pantoprazole 40 MG TABCR PO (08:13)
[2022-01-31] MEDS: Tamsulosin 0.4 MG CAPCR PO (08:13)
[2022-01-31] MEDS: Finasteride 5 MG TAB PO (08:13)
[2022-01-31] MEDS: Furosemide 20 MG TAB PO (08:13)
[2022-01-31] MEDS: Cyanocobalamin 500 MCG TAB 1000 MCG PO (08:13)
--- NOTE | 2022-01-31 09:43 | PT.INTREAT ---
Date of service: 01/31/22 Time of Service: 07:44 PT Notes Visit Reasons: AF,Pre-Syncope Inpatient Physical Therapy Treatment Note [facility] Date: 01/31/2022 PRECAUTIONS: Fall, activity as tolerated SUBJECTIVE: Jorge is pleasant and agreeable to participating in PT. He reports that his level of function has been declining recently. He reports that both him and his use 4WW in their home and that they both have medical conditions that prevent them from being completely independent. He indicates that they would like more help at home. OBJECTIVE: PAIN: No c/o pain BED MOBILITY/TRANSFERS Supine-sit: Min A Sit-supine: SBA, requiring extra time Sit-stand: Min A Stand-sit: SBA with cueing for safety Bed-Chair: CGA GAIT: Assistive Device: FWW Weight bearing: Full Assist: CGA Distance: 50' + 5' Deviation: Cueing for large amplitude movements, slow pacing THEREX: Patient was instructed in a LE strengthening program, completed in a supine position, to include: bridging, SKTC, SLR, and hip abduction x10 each, bilaterally. ASSESSMENT: Patient demonstrates global weakness, limiting his activity tolerance. He requires cueing for large amplitude movements with gait training and FWW support for stability. PLAN: Global strengthening, as tolerated for improved mobility and activity tolerance. TREATMENT CODE/TIME: Session 1: 23 minutes; [id number], [id number] (07:44) Session 2: Attempt x3, patient not availible in p.m.
--- NOTE | 2022-01-31 15:26 | PGE_ITS ---
Date of Service Date of service: 01/31/22 Time of Service: 15:26 Assessment and Plan Assessment and plan (1) BPH loc w urin obs/LUTS: Status: Acute Assessment and plan: It is left clear whether all of his inability to empty the bladder is related to bladder outlet obstruction or if his neurologic status is playing a role. He may have autonomic dysfunction in which case the bladder is not able to generate enough detrusor pressure to empty. Parkinson's is a well-known to be associated with hypomobility of the urethra and inability to empty her bladder. Our usual recommendation is clean intermittent catheterization in order to keep bladder volumes less than 500 cc. The patient is not able to do so on his own. Depending on his disposition, frequent catheterizations may or may not be possible. If CIC cannot be arranged, we would be left with an indwelling urethral catheter at least until his neurologic evaluation is completed and urodynamics can be done. The urodynamics will help us tell how much of his issue is related to obstruction and whether or not a surgical type treatment might help. If we can document bladder outlet obstruction (low urinary flow with high bladder pressures) we would more likely need an indwelling suprapubic tube as our long-term management. His indwelling catheters have a much higher risk of urosepsis compared to CIC. Subjective Subjective Interval history since last seen: He has required catheter cessation for inability to empty his bladder completely. The patient is not able to perform CIC on his own. The urine that is obtained and has been dark blood-tinged. The patient is not having fevers or chills. His urinalysis on admission was completely normal. In reviewing his [facility] records, he does not have an appointment to see neurology, but does have an order for an MRI of the brain to be done at [facility]. Exam Narrative Exam Narrative: He looks comfortable. Does not appear septic or toxic His vital signs are documented elsewhere He is awake and alert Objective Last Vital Signs Temp 36.6 C 01/31/22 15:20 Pulse 79 01/31/22 15:20 Resp 16 01/31/22 15:20 BP 109/76 01/31/22 15:20 Pulse Ox 96 01/31/22 15:20 PAWSS Have you Been Recently Intoxicated or Drunk Within the Last 30 days?: No Have you Ever Experienced Previous Episodes of Alcohol Withdrawal?: No Have you ever Experienced Withdrawal Seizures?: No Have you ever Experienced Delirium Tremens(DT)s?: No Have you ever undergone Alcohol Rehabilitation Treatment (i.e, inpt ot outpatient treatment programs)?: No Have you ever Experienced Blackouts?: No Have you ever Combined Alcohol with other Downers within the last 90 days?: No Have you ever Combined Alcohol with any other Substance of Abuse during the last 90 days?: No Positive Blood Alcohol level on Presentation? [PCS.BAL]: No Evidence of Increased Autonomic Activity (i.e. HR>120, tremor, sweating, agitation, nausea)?: No Result: 0
--- NOTE | 2022-01-31 16:02 | PGE_ITS ---
Date of Service Date of service: 01/31/22 Time of Service: 16:02 Assessment and Plan Assessment and plan (1) Atrial fibrillation with rapid ventricular response: Status: Chronic Assessment and plan: In rate-controlled Afib. Continue cardizem 180 mg PO QHS. On asa 81 mg daily and not considered a candidate for anticoagulation due to high risk to fall. Continue to monitor on tele. Would benefit from extended traffic monitor specialist on discharge to SNF. (2) BPH loc w urin obs/LUTS: Status: Acute Assessment and plan: Maravilla had to be removed yesterday (reportedly, traumatic). Unable to self-catheterize. Since he will be going to SNF from here, will continue PVRs/straight caths. Should his disposition change, maravilla catheter should be placed prior to d/c home. Continue flomax at 0.4 mg daily. I do not feel that there is a benefit to increasing the dose as it would worsen the dizziness and the patient is getting regularly catheterized. (3) Pre-syncope: Status: Acute Assessment and plan: In setting of rapid Afib as well as post-micturation and autonomic dysfunction. He is orthostatic. Rates are controlled on current regimen of diltiazem CD 180 mg PO HS. Echo: LVEF 65% with normal atrial sizes, no wall motion abnormalities, normal size of RV and preserved RV systolic function. I reinforced the need to change positions slowly. Add TEDS. (4) Primary autonomic failure: Status: Acute Assessment and plan: As above (5) Discharge planning issues: Status: Acute Assessment and plan: Will require SNF. (6) DVT prophylaxis: Status: Acute Assessment and plan: TEDS - might help both orthostasis and in DVT ppx. Subjective Subjective Interval history since last seen: Mr Kim retained urine x 2 last night, requiring straight caths. He has not been able to self-catheterize, and his is not going to be able to help him with it. He is agreeable to maravilla catheter if needed. Endorses dizziness on trying to change position. We discussed how he should permit himself time for his body to adjust to the position change. He denies CP, SOB, nausea. He does not think he can get up off of the toilet at home. He does require assistance to get up from the chair in the hospital (has recliners at home that assist with that). He is agreeable to going to rehab. Afib has been well controlled on tele. Exam Narrative Exam Narrative: General: Pleasant elderly male who looks tired and weak, A&Ox3 HEENT: EOMI, MMM Heart: RRR, no m/r/g Lungs: CTAB Abdomen: soft, nontender, nondistended Extremities: no edema BLEs. Objective Last Vital Signs Temp 36.6 C 01/31/22 15:20 Pulse 79 01/31/22 15:20 Resp 16 01/31/22 15:20 BP 109/76 01/31/22 15:20 Pulse Ox 96 01/31/22 15:20 PAWSS Have you Been Recently Intoxicated or Drunk Within the Last 30 days?: No Have you Ever Experienced Previous Episodes of Alcohol Withdrawal?: No Have you ever Experienced Withdrawal Seizures?: No Have you ever Experienced Delirium Tremens(DT)s?: No Have you ever undergone Alcohol Rehabilitation Treatment (i.e, inpt ot outpatient treatment programs)?: No Have you ever Experienced Blackouts?: No Have you ever Combined Alcohol with other Downers within the last 90 days?: No Have you ever Combined Alcohol with any other Substance of Abuse during the last 90 days?: No Positive Blood Alcohol level on Presentation? [PCS.BAL]: No Evidence of Increased Autonomic Activity (i.e. HR>120, tremor, sweating, agitation, nausea)?: No Result: 0
--- NOTE | 2022-01-31 16:45 | PDOC.CMPRO ---
- If Service Date Differs Date of service: 01/31/22 Time of Service: 16:45 Care Management Progress Note S/O: Jorge was sitting up in a chair when CM met with him. He was meeting with the provider, who was reviewing his plan of care. He was unable to self catheterize today, therefore Urology will meet with him to discuss options, including placing a maravilla catheter. Jorge reported that per PT, he continues to have difficulty getting up on his own, specifically out of bed and off the toilet. MD and CM discussed the option of short term rehab, which Jorge is agreeable to. CM called Jorge's son, Scotty, and discussed the plan with him, while in Jorge's room. Scotty is working on a plan to keep Jorge's safe while Jorge is at rehab, since Jorge is her primary caregiver. CM will continue to follow. A: Jorge is a 76 year old male admitted to [facility] on 01/29/22 with AFib, pre syncope. P: Jorge will return home with new orders for HH RN, PT, OT when medically cleared. His daughter will drive him home via private vehicle. He will follow up with his PCP and discharge plan of care. CM will continue to follow.
[2022-01-31] MEDS: dilTIAZem CD 180 MG CAPCR PO (21:38)
[2022-01-31] MEDS: Pramipexole 0.5 MG TAB PO (21:39)
[2022-02-01 03:30] VITALS: BP 130/86; PULSE 91; RESP 18; TEMP 36; O2SAT 93
[2022-02-01] MEDS: Levothyroxine 50 MCG TAB PO (05:37)
[2022-02-01 07:37] VITALS: BP 136/83; PULSE 82; RESP 18; TEMP 36.4; O2SAT 96
[2022-02-01] MEDS: Normal Saline Flush 10 ML SYR IVP (07:41)
[2022-02-01] MEDS: Polyethylene Glycol 3350 17 GM PACKET PO (07:41)
[2022-02-01] MEDS: Pantoprazole 40 MG TABCR PO (07:42)
[2022-02-01] MEDS: Carbidopa 25/Levodopa 100 TAB PO ×3 (07:42→21:26)
[2022-02-01] MEDS: Tamsulosin 0.4 MG CAPCR PO (07:42)
[2022-02-01] MEDS: Cyanocobalamin 500 MCG TAB 1000 MCG PO (07:42)
[2022-02-01] MEDS: Aspirin E.C. 81 MG TABEC PO (07:42)
[2022-02-01] MEDS: Furosemide 20 MG TAB PO (07:42)
[2022-02-01] MEDS: Finasteride 5 MG TAB PO (07:42)
[2022-02-01] MEDS: Umeclidinium 7 CAP INHALER 1 CAP IH (08:54)
[2022-02-01 09:07] VITALS: PULSE 72
--- NOTE | 2022-02-01 11:05 | PT.INTREAT ---
PT Notes Visit Reasons: AF,Pre-Syncope, urinary retention Inpatient Physical Therapy Treatment Note [facility] Date: 02/01/22 SUBJECTIVE: Jorge agreeable to PT. I have a hard time to get around. OBJECTIVE: [] BED MOBILITY/TRANSFERS Sit-stand: CGA Stand-sit: SBA GAIT Assistive Device: FWW Weight bearing: full Assist: CGA Distance: 250' in both am and pm sessions Deviation: Cues to take longer strides especially with right LE. Lists to the left. ASSESSMENT: cues for longer strides, large amplitude mvmt patterns. He also required cues for walker management as he tended to list to the left, bumping into objects in hallway on left. He is able to self correct with cues. He was able to stand unassisted to use urinal. PLAN: will continue to progress his overall strength and endurance following PT POC TREATMENT CODE/TIME: 17 min in am and 14 min in pm. [id number]
[2022-02-01 14:30] VITALS: BP 133/84; PULSE 83; RESP 20; TEMP 36.2; O2SAT 96
--- NOTE | 2022-02-01 16:39 | CMPROGNOTE_ITS ---
- If Service Date Differs Date of service: 02/01/22 Time of Service: 16:39 Care Management Progress Note S/O: Jorge was sitting up in a chair when CM met with him. He had recently been working with PT, and stated that he is doing well. CM informed Jorge that he was offered a bed at [facility] for short term rehab. CM also informed his son, Scotty, who is agreeable to this plan. CM provided resources to Scotty for him to contact facilities and care homes for respite for his mother, who cannot be left alone while Jorge is in rehab. CM will continue to follow. A : Jorge is a 76 year old male admitted to [facility] on 01/29/22 with AFib, pre syncope. P: Jorge will go to short term rehab at [facility], where he was offered a bed, when medically cleared. He will transport via facility w/c van vs private vehicle with family. He will follow up with his PCP and discharge plan of care. CM will continue to follow.
--- NOTE | 2022-02-01 16:45 | W.PM.PROGNOT ---
Date of Service Date of service: 02/01/22 Time of Service: 16:45 Assessment and Plan Assessment and plan (1) Pre-syncope: Status: Acute Assessment and plan: HR now controlled on oral long-acting cardizem. Telemetry. Not symptomatic of orthostasis today. Continue tele, cardizem. Should get up slowly, then pause and take his time ambulating. PT will help with this. (2) Atrial fibrillation with rapid ventricular response: Status: Chronic Assessment and plan: As above. HR 80's Not a candidate for anticoagulation due to falls. (3) BPH loc w urin obs/LUTS: Status: Acute Assessment and plan: Urology consultation completed. Intermittent in-out catheterization. Some difficulty with post cath residual, asked nursing to change his position; they did and they did get more urine out. ? bladder diverticulum. Continue to straight cath intermittently. On flomax 0.4 mg daily. Improving. . (4) Primary autonomic failure: Status: Resolved Assessment and plan: Resulting in orthostatic hypotension; documented during this admission. (5) Discharge planning issues: Status: Acute Assessment and plan: Difficulty rising from an elevated toilet, will need rehab; planning to go to [facility] on Friday02/04/2022. PT has evaluated. (6) DVT prophylaxis: Status: Acute Assessment and plan: TEDs. Avoiding chemical DVT ppx due to high risk to fall. Subjective Subjective Patient reports: no new complaints Exam Narrative Exam Narrative: Jorge has been eating and drinking well. Awaiting placement at the [facility] on Friday Const General: cooperative, healthy appearing, comfortable and no acute distress [facility] Head: normal to inspection Cardio Jugular venous pressure: no JVD Rate: regular rate Rhythm: abnormal rhythm (AFib) Heart Sounds: S1 normal and S2 normal GI Auscultation: normal bowel sounds Penis: normal penis Testes: normal Back/Spine/Pelvis Back: no CVA tenderness Skin General skin exam: no rashes or lesions noted Neuro General: patient alert, patient awake, patient oriented x3 and CN's II-XI intact bilaterally Extrem General: normal to inspection, full ROM and capillary refill normal Psych Appearance: grossly normal Mental Status: mental status grossly normal Speech and Movement: speech and movement normal Mood: congruent mood Affect: normal affect Attitude: cooperative Objective Last Vital Signs Temp 36.2 C L 02/01/22 14:30 Pulse 83 02/01/22 14:30 Resp 20 02/01/22 14:30 BP 133/84 02/01/22 14:30 Pulse Ox 96 02/01/22 14:30 Reviewed Pertinent PMH: Yes PAWSS Have you Been Recently Intoxicated or Drunk Within the Last 30 days?: No Have you Ever Experienced Previous Episodes of Alcohol Withdrawal?: No Have you ever Experienced Withdrawal Seizures?: No Have you ever Experienced Delirium Tremens(DT)s?: No Have you ever undergone Alcohol Rehabilitation Treatment (i.e, inpt ot outpatient treatment programs)?: No Have you ever Experienced Blackouts?: No Have you ever Combined Alcohol with other Downers within the last 90 days?: No Have you ever Combined Alcohol with any other Substance of Abuse during the last 90 days?: No Positive Blood Alcohol level on Presentation? [PCS.BAL]: No Evidence of Increased Autonomic Activity (i.e. HR>120, tremor, sweating, agitation, nausea)?: No Result: 0
[2022-02-01 16:52] VITALS: PULSE 79
[2022-02-01] MEDS: Pramipexole 0.5 MG TAB PO (21:26)
[2022-02-01] MEDS: dilTIAZem CD 180 MG CAPCR PO (21:26)
[2022-02-01 21:31] VITALS: BP 163/82; PULSE 82; RESP 18; O2SAT 95
[2022-02-02 03:00] VITALS: PULSE 78
[2022-02-02] MEDS: Levothyroxine 50 MCG TAB PO (05:08)
[2022-02-02 07:29] LABS: Abs Immature Grans 0.03 10^3/uL (0.0-0.06); Absolute Basophil Count 0.08 10^3/uL (0.0-0.2); Absolute Lymphocyte Count 1.29 10^3/uL (1.2-3.4); Absolute Monocyte Count 0.53 10^3/uL (0.1-0.8); Absolute Neutrophil Count 3.54 10^3/uL (1.2-6.7); Basophils % 1.4; Eosinophils % 6.8; HCT 43.2 % (40.0-50.0); HGB 14.3 g/dL (13.5-17.5); Immature Grans % 0.5; MCH 32.5 pg (27.0-33.0); MCHC 33.1 % (32.0-36.0); MCV 98 fL (80-95); MPV 10.2 fL (8.0-11.0); Neutrophils % 60.3; Platelet Count 246 10^3/uL (130-400); RDW 12.5 % (11.8-14.1); RDW-SD 45.1 fL; WBC 5.87 10^3/uL (4.4-10.8)
[2022-02-02 07:40] VITALS: BP 128/62; PULSE 62; RESP 18; TEMP 36.4; O2SAT 96
[2022-02-02 07:42] LABS: Anion Gap 7.4 mmol/L (3-11); BUN 20 mg/dL (7-18); CO2 27.6 mmol/L (21.0-32.0); CREATININE 0.9 mg/dL (0.70-1.30); Calcium 8.6 mg/dL (8.5-10.1); Chloride 105 mmol/L (98-107); Glucose 101 mg/dL (74-106); Magnesium 2.1 mg/dL (1.8-2.4); Potassium 3.7 mmol/L (3.5-5.1); Sodium 140 mmol/L (136-145)
[2022-02-02] MEDS: Umeclidinium 7 CAP INHALER 1 CAP IH (07:53)
[2022-02-02 08:03] VITALS: PULSE 72
[2022-02-02] MEDS: Furosemide 20 MG TAB PO (08:56)
[2022-02-02] MEDS: Tamsulosin 0.4 MG CAPCR PO (08:56)
[2022-02-02] MEDS: Aspirin E.C. 81 MG TABEC PO (08:56)
[2022-02-02] MEDS: Cyanocobalamin 500 MCG TAB 1000 MCG PO (08:56)
[2022-02-02] MEDS: Pantoprazole 40 MG TABCR PO (08:56)
[2022-02-02] MEDS: Carbidopa 25/Levodopa 100 TAB PO ×3 (08:56→19:42)
[2022-02-02] MEDS: Polyethylene Glycol 3350 17 GM PACKET PO (08:57)
[2022-02-02] MEDS: Finasteride 5 MG TAB PO (08:58)
--- NOTE | 2022-02-02 09:54 | PGE_ITS ---
Date of Service Date of service: 02/02/22 Time of Service: 09:54 Assessment and Plan Assessment and plan (1) Pre-syncope: Status: Resolved Assessment and plan: HR now controlled on oral long-acting cardizem. Converted today to NSR. EKG done for confirmation. Vital signs are stable - HR is in the 70's-80s. Telemetry. (2) Atrial fibrillation with rapid ventricular response: Status: Chronic Assessment and plan: Converted to NSR HR 70s-80's Continue cardizem. Anticoagulation contraindicated in setting of Parkinson's with this patient's increased risk of falls. (3) BPH loc w urin obs/LUTS: Status: Acute Assessment and plan: Urology consultation completed. Intermittent in-out catheterization. Some difficulty with post cath residual, asked nursing to change his position; they did and they did get more urine out. Continue to straight cath intermittently with frequent bladder scans. On flomax 0.4 mg daily. Improving. (4) Primary autonomic failure: Status: Resolved Assessment and plan: Resulting in orthostatic hypotension; documented during this admission. (5) Discharge planning issues: Status: Deleted Assessment and plan: Difficulty rising from an elevated toilet, will need rehab; planning to go to [facility] on Friday02/04/2022. PT has evaluated. (6) DVT prophylaxis: Status: Acute Assessment and plan: TEDS Avoiding chemical DVT ppx due to high risk to fall Subjective Subjective Patient reports: no new complaints, tolerating a regular diet and bowel movement; denies nausea Interval history since last seen: Hospital day 6. Jorge is waiting to go to the [facility] on Friday. He has no new complaints or concerns. His vital signs are normal. Continues to have in and out catheterization. Exam Narrative Exam Narrative: Jorge has been eating and drinking well. Awaiting placement at the [facility] on Friday; he is pleasant, awake in his room, conversant. He has converted to NSR. EKG done to confirm. Continued in and out catheterization. Const General: cooperative, comfortable, no acute distress and well developed [facility] Head: normal to inspection Eyes General: appearance normal, both eyes and all related structures Neck Neck: normal visual inspection Chest Chest: normal inspection of the chest Resp Effort & Inspection: normal respiratory effort and able to speak in complete sentences Auscultation: clear to auscultation bilaterally Cardio Jugular venous pressure: no JVD Rate: regular rate Rhythm: regular rhythm Heart Sounds: S1 normal and S2 normal Other: Has converted to NSR GI Auscultation: normal bowel sounds Penis: normal penis Testes: normal Other: continues to have in and out cath and bladder scan, no issues today related to not being able to drain the bladder Back/Spine/Pelvis Back: no CVA tenderness Skin General skin exam: no rashes or lesions noted Neuro General: patient alert, patient awake, patient oriented x3 and CN's II-XI intact bilaterally Extrem General: normal to inspection, full ROM and capillary refill normal Psych Appearance: grossly normal Mental Status: mental status grossly normal Speech and Movement: speech and movement normal Mood: congruent mood Affect: normal affect Attitude: cooperative Thought Process: normal Thought Content: normal Insight: insight good Judgment: judgment good Objective Last Vital Signs Temp 36.4 C L 02/02/22 07:40 Pulse 72 02/02/22 08:03 Resp 18 02/02/22 07:40 BP 128/62 02/02/22 07:40 Pulse Ox 96 02/02/22 07:40 Laboratory Results - last 24 hr 02/02/22 02/02/22 06:45 06:45 WBC 5.87 RBC 4.40 Hgb 14.3 Hct 43.2 MCV 98 H MCH 32.5 MCHC 33.1 RDW 12.5 Plt Count 246 MPV 10.2 Immature Gran % 0.5 Neutrophils % 60.3 Lymphocytes % 22.0 Monocytes % 9.0 Eosinophils % 6.8 Basophils % 1.4 Nucleated RBC % 0.0 Absolute Neutrophils 3.54 Absolute Lymphocytes 1.29 Absolute Monocytes 0.53 Absolute Eosinophils 0.40 Absolute Basophils 0.08 Sodium 140 Potassium 3.7 Chloride 105 Carbon Dioxide 27.6 Anion Gap 7.4 BUN 20 H Creatinine 0.9 Estimated GFR/1.73 m2 >= 60.00 Glucose 101 Calcium 8.6 Magnesium 2.1 Reviewed Pertinent PMH: Yes PAWSS Have you Been Recently Intoxicated or Drunk Within the Last 30 days?: No Have you Ever Experienced Previous Episodes of Alcohol Withdrawal?: No Have you ever Experienced Withdrawal Seizures?: No Have you ever Experienced Delirium Tremens(DT)s?: No Have you ever undergone Alcohol Rehabilitation Treatment (i.e, inpt ot outpatient treatment programs)?: No Have you ever Experienced Blackouts?: No Have you ever Combined Alcohol with other Downers within the last 90 days?: No Have you ever Combined Alcohol with any other Substance of Abuse during the last 90 days?: No Positive Blood Alcohol level on Presentation? [PCS.BAL]: No Evidence of Increased Autonomic Activity (i.e. HR>120, tremor, sweating, agitation, nausea)?: No Result: 0
--- NOTE | 2022-02-02 12:32 | PT.INTREAT ---
PT Notes Visit Reasons: AF,Pre-Syncope, urinary retention Inpatient Physical Therapy Treatment Note [facility] Date: 02/02/22 SUBJECTIVE:Jorge offers no complaints. OBJECTIVE: [] BED MOBILITY/TRANSFERS Supine-sit: min A of 1 Sit-stand:min A of 1 Stand-sit: SBA GAIT Assistive Device:FWW Weight bearing: full Assist: CGA Distance: 250' Deviation: short strides and vearing to left ASSESSMENT: tolerated session well. Cues for proper stride length and walker management. PLAN: will continue to work on his functional mobility, add in some sit to stand ex at next session. TREATMENT CODE/TIME: 25 min [id number]
[2022-02-02 15:41] VITALS: BP 106/69; PULSE 66; RESP 18; TEMP 36; O2SAT 95
--- NOTE | 2022-02-02 15:45 | RT.EKG_ITS ---
APPROVED REPORT Exam: Resting ECG Reason for Exam: Afib conv to NSR Patient Location: I HR:67 bpm ECG Measurements Heart Rate 67 AXIS ND 165 P 37 QRSd 155 QRS 46 QT 433 T 7 QTc 457 Conclusion Sinus rhythm...normal P axis, V-rate 50- 99 Ventricular premature complex...V complex w/ short R-R interval Right bundle branch block...QRSd>120, terminal axis(90,270)
[2022-02-02 19:40] VITALS: BP 146/90; PULSE 64; RESP 16; TEMP 36.5; O2SAT 94
[2022-02-02] MEDS: Pramipexole 0.5 MG TAB PO (21:58)
[2022-02-02] MEDS: dilTIAZem CD 180 MG CAPCR PO (21:59)
[2022-02-02 23:59] VITALS: PULSE 71
[2022-02-03] VITALS (8 sets, daily range): BP systolic 115–157; BP diastolic 70–90; PULSE 62–80; RESP 16–20; TEMP 36.1–36.6; O2SAT 95–96
--- NOTE | 2022-02-03 03:57 | NUR.NOTE ---
pt complaining of SOB, Repositioned to the chair. V/S stable. Peeing bright red urine with a big clot. market development analyst notified
[2022-02-03] MEDS: Levothyroxine 50 MCG TAB PO (05:13)
[2022-02-03] MEDS: Umeclidinium 7 CAP INHALER 1 CAP IH (08:17)
[2022-02-03] MEDS: Polyethylene Glycol 3350 17 GM PACKET PO (09:04)
[2022-02-03] MEDS: Finasteride 5 MG TAB PO (09:05)
[2022-02-03] MEDS: Furosemide 20 MG TAB PO (09:05)
[2022-02-03] MEDS: Cyanocobalamin 500 MCG TAB 1000 MCG PO (09:05)
[2022-02-03] MEDS: Pantoprazole 40 MG TABCR PO (09:05)
[2022-02-03] MEDS: Aspirin E.C. 81 MG TABEC PO (09:05)
[2022-02-03] MEDS: Carbidopa 25/Levodopa 100 TAB PO ×3 (09:05→20:56)
[2022-02-03] MEDS: Tamsulosin 0.4 MG CAPCR PO (09:05)
--- NOTE | 2022-02-03 12:28 | PT.INTREAT ---
PT Notes Visit Reasons: AF,Pre-Syncope, urinary retention Inpatient Physical Therapy Treatment Note [facility] Date: 02/03/22 SUBJECTIVE:Jorge states he did not have a good night due to anxiety about being here still. OBJECTIVE: [] BED MOBILITY/TRANSFERS Supine-sit: SBA Sit-supine: SBA Sit-stand:min A of 1 Stand-sit: SBA GAIT Assistive Device:FWW Weight bearing: full Assist: CGA Distance: 250' Deviation: short strides Ther Ex: performed mini squats x5, HR x10, seated LAQ and hip flex x 10 ea. ASSESSMENT: tolerated session well. Cues for proper stride length, better with walker management. PLAN: will continue to work on his functional mobility, add in some sit to stand ex at next session. TREATMENT CODE/TIME: 25 min [id number]
--- NOTE | 2022-02-03 15:26 | W.PM.PROGNOT ---
Date of Service Date of service: 02/03/22 Time of Service: 15:26 Assessment and Plan Assessment and plan (1) Pre-syncope: Status: Acute Assessment and plan: HR now controlled on oral long-acting cardizem. NSR. EKG done for confirmation. Vital signs are stable - HR is in the 70's. Telemetry. (2) Atrial fibrillation with rapid ventricular response: Status: Chronic Assessment and plan: Continues to be in NSR HR 80's (3) BPH loc w urin obs/LUTS: Status: Acute Assessment and plan: Urology consultation completed. Intermittent in-out catheterization. No reported concerns regarding his bladder not emptying when cathed. On flomax 0.4 mg daily. Improving. (4) Primary autonomic failure: Status: Resolved Assessment and plan: Resulting in orthostatic hypotension; documented during this admission. (5) Claustrophobia: Status: Acute Assessment and plan: Reports today he was feeling claustrophobic and anxious - lorazepam given (6) DVT prophylaxis: Status: Acute Assessment and plan: TEDS (7) Discharge planning issues: Status: Acute Assessment and plan: Difficulty rising from an elevated toilet, will need rehab; planning to go to [facility] on Friday02/04/2022. PT has evaluated. Subjective Subjective Patient reports: no new complaints Interval history since last seen: Jorge has been eating and drinking well. Awaiting placement at the [facility] on Friday; he is pleasant, awake in his room, conversant. He continues to bein NSR. Continued in and out catheterization. States today he has claustrophobia and asked for something for anxiety. 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 He denies NVD CP SOB ALLEN Exam Const General: cooperative, comfortable, no acute distress and well developed HENMT Head: normal to inspection Eyes General: appearance normal, both eyes and all related structures Neck Neck: normal visual inspection Chest Chest: normal inspection of the chest Resp Effort & Inspection: normal respiratory effort and able to speak in complete sentences Auscultation: clear to auscultation bilaterally Cardio Jugular venous pressure: no JVD Rate: regular rate Rhythm: regular rhythm Heart Sounds: S1 normal and S2 normal Other: Has converted to NSR GI Auscultation: normal bowel sounds Penis: normal penis Testes: normal Other: continues to have in and out cath and bladder scan, no issues today related to not being able to drain the bladder Back/Spine/Pelvis Back: no CVA tenderness Skin General skin exam: no rashes or lesions noted Neuro General: patient alert, patient awake, patient oriented x3 and CN's II-XI intact bilaterally Extrem General: normal to inspection, full ROM and capillary refill normal Psych Appearance: grossly normal Mental Status: mental status grossly normal Speech and Movement: speech and movement normal Mood: congruent mood Affect: normal affect Attitude: cooperative Thought Process: normal Thought Content: normal Insight: insight good Judgment: judgment good Objective Last Vital Signs Temp 36.1 C L 02/03/22 07:20 Pulse 62 02/03/22 08:55 Resp 16 02/03/22 07:20 BP 135/80 02/03/22 07:20 Pulse Ox 95 02/03/22 07:20 Reviewed Pertinent PMH: Yes PAWSS Have you Been Recently Intoxicated or Drunk Within the Last 30 days?: No Have you Ever Experienced Previous Episodes of Alcohol Withdrawal?: No Have you ever Experienced Withdrawal Seizures?: No Have you ever Experienced Delirium Tremens(DT)s?: No Have you ever undergone Alcohol Rehabilitation Treatment (i.e, inpt ot outpatient treatment programs)?: No Have you ever Experienced Blackouts?: No Have you ever Combined Alcohol with other Downers within the last 90 days?: No Have you ever Combined Alcohol with any other Substance of Abuse during the last 90 days?: No Positive Blood Alcohol level on Presentation? [PCS.BAL]: No Evidence of Increased Autonomic Activity (i.e. HR>120, tremor, sweating, agitation, nausea)?: No Result: 0
[2022-02-03] MEDS: dilTIAZem CD 180 MG CAPCR PO (20:56)
[2022-02-03] MEDS: Pramipexole 0.5 MG TAB PO (20:56)
[2022-02-04] MEDS: Levothyroxine 50 MCG TAB PO (05:00)
[2022-02-04] MEDS: Acetaminophen 500 MG TAB PO (05:00)
[2022-02-04 07:45] VITALS: BP 139/85; PULSE 64; RESP 18; TEMP 36.3; O2SAT 96
[2022-02-04] MEDS: Umeclidinium 7 CAP INHALER 1 CAP IH (07:50)
[2022-02-04 08:18] VITALS: PULSE 62
[2022-02-04 09:23] LABS: Source Nasal/Nares
[2022-02-04] MEDS: Furosemide 20 MG TAB PO (09:23)
[2022-02-04] MEDS: Polyethylene Glycol 3350 17 GM PACKET PO (09:23)
[2022-02-04] MEDS: Pantoprazole 40 MG TABCR PO (09:23)
[2022-02-04] MEDS: Tamsulosin 0.4 MG CAPCR PO (09:23)
[2022-02-04] MEDS: Finasteride 5 MG TAB PO (09:23)
[2022-02-04] MEDS: Aspirin E.C. 81 MG TABEC PO (09:23)
[2022-02-04] MEDS: Cyanocobalamin 500 MCG TAB 1000 MCG PO (09:23)
[2022-02-04] MEDS: Carbidopa 25/Levodopa 100 TAB PO ×3 (09:24→20:13)
[2022-02-04 10:17] LABS: COVID-19 PCR Negative (Negative)
[2022-02-04 12:00] VITALS: BP 130/80; PULSE 81; RESP 18; TEMP 36.2; O2SAT 95
--- NOTE | 2022-02-04 12:35 | CMPROGNOTE_ITS ---
- If Service Date Differs Date of service: 02/04/22 Time of Service: 12:35 Care Management Progress Note S/O: Jorge was lying in bed when CM met with him. He reported that he is feeling ok today, although he was told that there may not be a good resolution to his urinary retention, and he may have to have an indwelling catheter vs learn to straight cath regularly. CM reviewed his discharge plan, which is to transition to short term rehab at [facility], but there was no bed today at the facility. Jorge will transport via facility w/c van when a bed becomes available. CM will continue to follow. A : Jorge is a 76 year old male admitted to [facility] on 01/29/22 with AFib, pre syncope. P: Jorge will go to short term rehab at [facility], where he was offered a bed, when medically cleared. He will transport via facility w/c van vs private vehicle with family. He will follow up with his PCP and discharge plan of care. CM will continue to follow.
--- NOTE | 2022-02-04 14:03 | PT.INTREAT ---
Date of service: 02/04/22 Time of Service: 13:24 PT Notes Visit Reasons: AF,Pre-Syncope, urinary retention Inpatient Physical Therapy Treatment Note [facility] Date: 02/04/2022 PRECAUTIONS: Fall, activity as tolerated SUBJECTIVE: Jorge is pleasant and agreeable to participating in PT. He reports that his level of function has been declining recently. He states that he has days that he moves better than others, and that today he is moving pretty well. He also reports that he has not been sleeping well and is feeling quite tired today. OBJECTIVE: PAIN: No c/o pain BED MOBILITY/TRANSFERS Supine-sit: S with HOB flat Sit-supine: S with HOB flat Sit-stand: SBA Stand-sit: SBA GAIT: Assistive Device: FWW Weight bearing: Full Assist: SBA Distance: 200' Deviation: Cueing for large amplitude movements, slow pacing THEREX: Patient was instructed in bridging, alternating SKTC, SLR, and ankle pumps x10 each, bilaterally. ASSESSMENT: Patient demonstrates improved global strength and activity tolerance compared to last week. He continues to require cueing for large amplitude movements with gait training for safety. PLAN: Global strengthening and general conditioning, as tolerated for improved mobility and activity tolerance. TREATMENT CODE/TIME: 20 minutes; [id number] (13:24)
[2022-02-04 15:00] VITALS: PULSE 80
[2022-02-04 15:59] VITALS: BP 121/75; PULSE 66; RESP 18; TEMP 36.5; O2SAT 95
--- NOTE | 2022-02-04 17:19 | PGE_ITS ---
Date of Service Date of service: 02/04/22 Time of Service: 17:20 Assessment and Plan Assessment and plan (1) Pre-syncope: Status: Acute Assessment and plan: HR now controlled on oral long-acting cardizem. NSR Vital signs are stable - HR is in the 60'-70's. Telemetry continued Will go to [facility] when a bed is available with a 30 day event monitor. Discussed with Dr Joe (2) Atrial fibrillation with rapid ventricular response: Status: Chronic Assessment and plan: Continues to be in NSR HR 60-70's (3) BPH loc w urin obs/LUTS: Status: Acute Assessment and plan: Urology consultation completed. Intermittent in-out catheterization. No reported concerns regarding his bladder not emptying when cathed today - he is feeling more comfortable - concerned ab out learning how to do this himself - he is considering a suprapubic catheteter. On flomax 0.4 mg daily. Improving. (4) Primary autonomic failure: Status: Resolved Assessment and plan: Resulting in orthostatic hypotension; documented during this admission and resolved. (5) Claustrophobia: Status: Acute Assessment and plan: He reports feeling less claustrophobic today (6) DVT prophylaxis: Status: Acute Assessment and plan: TEDS (7) Discharge planning issues: Status: Acute Assessment and plan: Difficulty rising from an elevated toilet, will need rehab; planning to go to [facility] on 02/05/2022. PT has evaluated. Awaiting placement @ [facility], delayed on their end. Subjective Subjective Patient reports: no new complaints Interval history since last seen: Jorge has been up in a chair today. He is eaing well. He is eager to go to [facility] to begin the rehab process. He continues to be in NSR. He has had no CP, no shortness of breath. Exam Const General: cooperative, comfortable, no acute distress and well developed HENWA Head: normal to inspection Eyes General: appearance normal, both eyes and all related structures Neck Neck: normal visual inspection Chest Chest: normal inspection of the chest Resp Effort & Inspection: normal respiratory effort and able to speak in complete sentences Auscultation: clear to auscultation bilaterally Cardio Jugular venous pressure: no JVD Rate: regular rate Rhythm: regular rhythm Heart Sounds: S1 normal and S2 normal Other: Has converted to NSR GI Auscultation: normal bowel sounds Penis: normal penis Testes: normal Other: continues to have in and out cath and bladder scan, no issues today related to not being able to drain the bladder Back/Spine/Pelvis Back: no CVA tenderness Skin General skin exam: no rashes or lesions noted Neuro General: patient alert, patient awake, patient oriented x3 and CN's II-XI intact bilaterally Extrem General: normal to inspection, full ROM and capillary refill normal Psych Appearance: grossly normal Mental Status: mental status grossly normal Speech and Movement: speech and movement normal Mood: congruent mood Affect: normal affect Attitude: cooperative Thought Process: normal Thought Content: normal Insight: insight good Judgment: judgment good Objective Last Vital Signs Temp 36.5 C 02/04/22 15:59 Pulse 66 02/04/22 15:59 Resp 18 02/04/22 15:59 BP 121/75 02/04/22 15:59 Pulse Ox 95 02/04/22 15:59 Laboratory Results - last 24 hr 02/04/22 09:15 COVID-19 Source Nasal/Nares SARS-CoV-2 (PCR) Negative Reviewed Pertinent PMH: Yes PAWSS Have you Been Recently Intoxicated or Drunk Within the Last 30 days?: No Have you Ever Experienced Previous Episodes of Alcohol Withdrawal?: No Have you ever Experienced Withdrawal Seizures?: No Have you ever Experienced Delirium Tremens(DT)s?: No Have you ever undergone Alcohol Rehabilitation Treatment (i.e, inpt ot outpatient treatment programs)?: No Have you ever Experienced Blackouts?: No Have you ever Combined Alcohol with other Downers within the last 90 days?: No Have you ever Combined Alcohol with any other Substance of Abuse during the last 90 days?: No Positive Blood Alcohol level on Presentation? [PCS.BAL]: No Evidence of Increased Autonomic Activity (i.e. HR>120, tremor, sweating, agitation, nausea)?: No Result: 0
--- NOTE | 2022-02-04 18:40 | PT.INDS ---
Date of service: 02/04/22 PT Notes Visit Reasons: AF,Pre-Syncope, urinary retention ? Physical Therapy Inpatient Discharge Summary Date: 02/04/2022 Dates of service: 01/30/2022 through 02/04/2022 This is a clinical summary of care provided for the duration of dates listed above. No charge was made in the completion of this documentation. Referring Doctor: Angel Forbes MD PT Orders: PT CONSULT: Eval/Treat Precautions: Fall. Standard. Activity as tolerated. Patient Profile/Admitting Diagnosis:? Jorge is a 76-year-old male patient who presented to the ED on 01/28/2022 due to lightheadedness and near syncope event.? Patient is diagnosed with AF with RVR, COPD, primary autonomic failure, primary autonomic failure, and BPH loss of consciousness with urinary obstruction/LUTS. PMHX: All Active Problems? Imbalance (Acute) Pre-syncope (Acute) Dizziness (Acute) Sensorineural hearing loss, bilateral (Acute) Hx of herpes zoster (Acute) Vesicocolic fistula (Acute) Macrocytosis (Acute) Hearing loss (Acute) Arthritis of right wrist (Acute) Cognitive decline (Acute) Paroxysmal atrial fibrillation (Acute) Aortic regurgitation (Acute) Vitamin D deficiency (Acute) Hypothyroidism (Chronic) Chronic anxiety (Acute) Dysequilibrium (Acute) Restless legs (Acute) Vesicocolonic fistula (Acute) Chronic shortness of breath (Acute) per pcp Complete tear of right rotator cuff (Acute ~11/2019) BPH loc w urin obs/LUTS (Acute) Right rotator cuff tendonitis (Acute) Most recent injection: 09/24/2019 Left rotator cuff tear arthropathy (Chronic) Most recent injection: 09/24/2019 Left shoulder tendinitis (Chronic) Primary osteoarthritis of both knees (Chronic) Bilateral Synvisc injections most recently: 01/01/2021; 06/30/2020 Adhesive capsulitis of shoulder (Acute 08/05/13) Medical History? Actinic keratosis Allergic rhinitis At risk for falling Atrial fibrillation Bilateral lower extremity edema COPD (chronic obstructive pulmonary disease) Erectile dysfunction Foot deformity, acquired GERD (gastroesophageal reflux disease) History of degenerative joint disease History of prediabetes Hyperlipidemia Lower urinary tract symptoms Mild memory disturbance Moderate aortic regurgitation CRYSTAL (obstructive sleep apnea) Prediabetes Right bundle branch block Rotator cuff tear Surgical History? History of bladder repair surgery History of hernia repair History of partial surgical removal of colon Social History/Home Situation: Lives with in a private home.? Independent with use of FWW for short distance ambualtion. Equipment Owned/DME: FWW,? electric recliner. Subjective: NT. See most recent MEDICAL STENOGRAPHER notes. Objective: General Observation: NT. See most recent MEDICAL STENOGRAPHER notes. Mental Status: NT. See most recent MEDICAL STENOGRAPHER notes. Pain: NT. See most recent MEDICAL STENOGRAPHER notes. Vital Signs: NT. See most recent MEDICAL STENOGRAPHER notes. ROM: Right Upper Extremity: ? Shoulder Flexion allows about 90 degrees. Shoulder abduction allows about 90 degrees. Elbow flexion WFL. Wrist flexion WFL. Functional opening and closing of hand WFL. Left Upper Extremity:? Shoulder Flexion allows about 90 degrees. Shoulder abduction allows about 90 degrees. Elbow flexion WFL. Wrist flexion WFL. Functional opening and closing of hand WFL. Right Lower Extremity: Hip flexion lacks the last 30 degrees. Hip abduction WFL. Knee flexion 30 to 90 degrees.? Knee extension -30 degrees.? Ankle dorsiflexion to neutral only. Ankle plantarflexion WFL. Left Lower Extremity: Hip flexion lacks the last 20 degrees. Hip abduction WFL. Knee flexion 30 to 90 degrees.? Knee extension -30 degrees.? Ankle dorsiflexion unable. Ankle plantarflexion WFL. Strength: Right Upper Extremity: Shoulder flexors 3-/5. Shoulder abductors 3-/5. Elbow flexors 4-/5. Elbow extensors 4-/5. Rim Fire Charger Operator weak but functional. Left Upper Extremity: Shoulder flexors 3-/5. Shoulder abductors 3-/5. Elbow flexors 4-/5. Elbow extensors 4-/5. Rim Fire Charger Operator weak but functional. Right Lower Extremity: Hip flexors 3-/5. Hip abductors 4-/5. Knee flexors 3-/5. Knee extensors 3-/5. Ankle dorsiflexors 3-/5. Ankle plantarflexors 3-/5. Left Lower Extremity: Hip flexors 3-/5. Hip abductors 4-/5. Knee flexors 3-/5. Knee extensors 3-/5. Ankle dorsiflexors 3-/5. Ankle plantarflexors 3-/5. BED MOBILITY/TRANSFERS? Supine-sit: S with HOB flat? Sit-supine: S with HOB flat ? Sit-stand: SBA ? Stand-sit: SBA ? GAIT:? Assistive Device: FWW ? Weight bearing: Full Assist: SBA ? Distance:? 200'? Deviation: Cueing for large amplitude movements, slow pacing ? Balance: Static Sitting: Good Dynamic Sitting: Good Static Standing: Fair Dynamic Standing: Fair Assessment: Per CM Pretty,? patient has a brace that he uses but it has not been brought in here.? Patient will need PT for continued strengthening and balance skilling as well as for home safety evaluation.? Patient has difficulty sitting up and standing up from edge of bed.? Patient states that he plans on sleeping on his electric recliner beside her who has been sleeping on the recliner for the past 2-3 years according to patient.? That way he can be independent and will not need physical assistance from anybody every time he needs to get up.? Patient presents with clinical signs and symptoms consistent with current/admitting diagnoses that have resulted to mobility limitations, gait instability, generalized weakness, and overall ADL decline as demonstrated by the following impairment level findings: 1.? Decreased strength to B UE/LE major muscle groups 2.? Impaired sitting/standing balance 3.? Impaired activity tolerance 4.? Limitation of joint range of motion in B shoulders, hips, knees, and ankles 5.? Shortness of breath Impairments are contributing to the following functional limitations: 1.? Decline in bed mobility skills 2.? Decline in transfer skills 3.? Difficulty with ambulation without assistive device 4.? Increased completion time for mobility ADL performance 5.? Increased risk for falls 6.? Difficulty with managing steps alone safely Patient is assessed as a [id number] moderate complexity based on the following: History: 76-year-old male with past medical history as indicated above Examination: Demonstrable impairment in strength, balance, and mobility level with underlying impairments and functional limitations as exhibited above as well as deficit score of 54% utilizing the [facility] Mobility Inpatient Short Form Presentation: Evolving Decision Makin moderate complexity Goals: Goals X1 week 1. Supine-Sit independent NOT MET 2. Sit-Supine independent NOT MET 3. Sit-Stand independent NOT MET 4. Stand-Sit independent with FWW NOT MET 5. Bed-Chair independent with FWW NOT MET 6. Chair-Bed independent with FWW NOT MET 7. Independent gait on level surface with use of FWW 100 for at least [] feet without report of pain nor dyspnea NOT MET 9. Good static and dynamic standing balance/tolerance NOT MET DISCHARGE RECOMMENDATIONS: [] ? Home with no services [] [X] ? Home with services.? Home when medically cleared by hospitalist.? Patient will benefit from home health PT services in order to progress mobility level using least restrictive assistive ambulatory device, assess home safety, identify additional equipment needs, and establish a functional maintenance program that will increase ability of patient to remain at home.? [] ? Home with outpatient PT [] [] ? SNF for continued rehabilitation [] [] ? [facility] Specialist Care [] [] ? SNF versus LTC based on ability to participate and progress [] TREATMENT CODE/TIME: IA Thank you for the opportunity to participate in the care of this patient. Kristen Valenzuela PT, DPT, CLT [facility] [place], [place] ?
[2022-02-04] MEDS: dilTIAZem CD 180 MG CAPCR PO (21:57)
[2022-02-04] MEDS: Pramipexole 0.5 MG TAB PO (21:57)
[2022-02-04 23:47] VITALS: BP 135/75; PULSE 66; RESP 16; TEMP 36.4; O2SAT 94
[2022-02-05] VITALS: PULSE 67
[2022-02-05] MEDS: Levothyroxine 50 MCG TAB PO (05:32)
[2022-02-05 07:00] VITALS: PULSE 75
[2022-02-05] MEDS: Aspirin E.C. 81 MG TABEC PO (07:45)
[2022-02-05] MEDS: Tamsulosin 0.4 MG CAPCR PO (07:46)
[2022-02-05] MEDS: Furosemide 20 MG TAB PO (07:46)
[2022-02-05] MEDS: Polyethylene Glycol 3350 17 GM PACKET PO (07:46)
[2022-02-05] MEDS: Pantoprazole 40 MG TABCR PO (07:46)
[2022-02-05] MEDS: Cyanocobalamin 500 MCG TAB 1000 MCG PO (07:46)
[2022-02-05] MEDS: Finasteride 5 MG TAB PO (07:46)
[2022-02-05] MEDS: Normal Saline Flush 10 ML SYR IVP (07:47)
[2022-02-05] MEDS: Carbidopa 25/Levodopa 100 TAB PO (07:47)
[2022-02-05 08:36] VITALS: BP 120/71; PULSE 69; RESP 24; TEMP 37.1; O2SAT 94
--- NOTE | 2022-02-05 09:31 | DSE_ITS ---
Date of service: 02/05/22 Time of Service: 09:32 DS: Diagnosis Discharge Diagnosis (1) Pre-syncope: Status: Acute (2) Atrial fibrillation with rapid ventricular response: Status: Chronic (3) BPH loc w urin obs/LUTS: Status: Acute (4) Primary autonomic failure: Status: Resolved (5) Claustrophobia: Status: Acute (6) DVT prophylaxis: Status: Acute (7) Discharge planning issues: Status: Acute Discharge Plan Disposition Patient Disposition: SNF (LEVEL 1) [facility] Condition: Stable Discharge Details Reason For Visit: AF,Pre-Syncope, urinary retention Admit Date/Time: 01/31/22 14:40 Admit Provider: Bo Concepcion Attending Provider: Angel Forbes Primary Care Provider: Christian Benavides [facility] Hospital Course: Jorge is a 76-year-old male patient past medical history of atrial fibrillation, bilateral lower extremity edema, COPD, GERD, DJD, Type 2? Diabetes and? Hyperli pidemia.? Lower urinary tract symptoms, memory disturbance, moderate aortic regurgitation, came to the [facility] emergency department on 01/28/22 for complaint of feeling like he is going to pass out after returning from the bathroom; he did lay down in bed and felt better. ?It is unclear if this was an arrhythmia or possibly micturition syncope versus primary autonomic failure with orthostasis.? In the emergency department his initial pulse was in the 70?s and appeared to be normal sinus rhythm.? Noted however on the monitor later was A. fib with rates 120 and 150, he was asymptomatic.? He was started on a diltiazem drip.? Initial electrolytes were normal.? His TSH 5.4.? Negative troponin and D-dimer was 2000.? Jorge states that he felt his usual self at that time.? He is not a candidate for anticoagulation due to fall risk from Parkinson's. ?He was admitted to the hospital to the medical surgical unit. ?He was stabilized overnight on the Cardizem drip. The next day the diltiazem was changed to oral.? Converted to normal sinus rhythm on his.? He was seen by urology for his urinary complaints.? He does have an enlarged prostate and urinary symptoms are quite common with autonomic dysfunction.? His dose of Tamsulosin was not increased possibly worsening his dizziness and instability.? He was started on finasteride however it takes several months to show effect.? In the interim we are doing intermittent catheterization when he is not able to void on his own.? He states he and his are unable to do the intermittant catheterization and are declining educaiton. He has been mobile and seen by physical therapy.? Urology is reluctant to consider surgical treatment secondary to experience with patients with autonomic dysfunction not improving and often becoming totally incontinent. ?Signs are stable he denies chest pain shortness of breath nausea.? He is having difficulty getting up off of the toilet on his own and requires assistance to get from the chair to the hospital bed.? He is agreeable for a stay at rehab. ?We recommend that he has a cardiac event monitor secondary to his A. fib and to see if there is any arrhythmias that would cause his presyncopal episodes. Home Meds and New Rx's Prescriptions: New polyethylene glycol 3350 17 gram Powder In Packet 17 g PO DAILY Qty: 0 0RF diltiazem HCl 180 mg Capsule,Extended Release 24hr 180 mg PO HS Qty: 0 0RF finasteride 5 mg Tablet 5 mg PO DAILY Qty: 0 0RF Inhaler, Assist Devices [Pocket Chamber] 1 ea miscellaneous DIRECTED Qty: 0 0RF Continued levothyroxine 50 mcg capsule 50 mcg PO DAILY trazodone 100 mg tablet 25 mg PO QHS PRN pramipexole 0.125 mg tablet 0.5 mg PO QHS ibuprofen [Motrin IB] 200 mg tablet 200 mg PO TID PRN PRN Rx Instructions: PT TAKES PRN aspirin [Adult Aspirin Regimen] 81 mg tablet,delayed release (DR/EC) 81 mg PO DAILY fluticasone propionate [Flonase Allergy Relief] 50 mcg/actuation spray,suspension 2 spray ROC DAILY Rx Instructions: administer into each nostril mecobalamin (vitamin B12) 1,000 mcg tablet,disintegrating 1,000 mcg SL DAILY Rx Instructions: place tablet under tongue and allow to dissolve for at least30 secs before swallowing cholecalciferol (vitamin D3) [Vitamin D3] 10 mcg (400 unit) capsule 10 mcg PO DAILY sertraline 25 mg tablet 50 mg PO DAILY Label Comments: Took for two weeks and stopped. albuterol 90 mcg/actuation aerosol inhalation levalbuterol HCl [Xopenex] 0.63 mg/3 mL solution for nebulization 0.63 mg inhalation ONCE tamsulosin [Flomax] 0.4 mg capsule 0.4 mg PO DAILY Qty: 90 3RF lorazepam 1 mg tablet 1 mg PO DAILY PRN (Reason: Anxiety) Incruse Ellipta 62.5 mcg/actuation blister with device 1 inh inhalation DAILY pantoprazole 40 MG tablet,delayed release (DR/EC) 40 mg PO DAILY [id number]-[id number]-[id number] C-Mn 1 EACH tablet 1 tab PO DAILY acetaminophen 500 mg Tablet 500 mg PO QID PRN albuterol sulfate 90 mcg/actuation Hfa Aerosol Inhaler 2 puff INHALATION Q6H PRN furosemide [Lasix] 20 mg Tablet 20 mg PO DAILY carbidopa-levodopa 25-100 mg tablet 1 tab TID Label Comments: TAKE 1/2 TABLET ORALLY DAILY FOR 1 WEEK, TWICE DAILY FOR 1 WEEK, 3 TIMES A DAY FOR 1 WEEK THEN 1 TABLET TWICE DAILY Rx Instructions: 0.5 tab TID, tapering to 1 tab TID. Discontinued lorazepam 1 mg tablet 0.5 mg PO DAILY PRN Discharge Instructions Instructions: A-fib (Atrial Fibrillation) (DC), How to Catheterize Yourself (Man) (GEN) Stand Alone Forms: Nursing Discharge Form Activity:: Activity as Tolerated Equipment/Supplies:: Walker Diet:: Low Sodium Discharge Orders Discharge Orders: Discharge Order (Routine); Ordered 02/05/22 Ordered By: Ioana Terrazas Other Ambulatory Orders: Cardiac Event Recorder (Routine) Timeframe: [id number] Facility: [facility] - Location: Respiratory Therapy Ordered By: Lina Joe DS: Summary Time Spent with Patient providing and/or coordinating discharge services: Less than 30 minutes Status at Discharge Functional status at discharge: uses cane/walker Overall status at discharge: patient is progressing back to baseline Mental Status: mental status grossly normal Speech and Movement: speech and movement normal Mood: congruent mood Affect: normal affect Exam Psych Mental Status: mental status grossly normal Speech and Movement: speech and movement normal Mood: congruent mood Affect: normal affect DS: Data Vitals/I&O Vitals and I&O: Vital Signs Temperature 37.1 C 02/05/22 08:36 Temperature Source Temporal Artery Scan 02/05/22 08:36 Pulse 69 02/05/22 08:36 Pulse Rhythm Irregular 02/05/22 04:36 Pulse 105 H 01/29/22 17:00 Respiratory Rate 24 02/05/22 08:36 Respiratory Effort 02/05/22 04:36 Respiratory Depth Normal 02/05/22 04:36 Respiratory Pattern Normal 02/05/22 04:36 Blood Pressure 120/71 02/05/22 08:36 Blood Pressure Mean 76 01/29/22 16:48 Blood Pressure Position Supine 01/29/22 12:00 Pulse Oximetry 94 02/05/22 08:36 Oxygen Delivery Method Room Air 02/05/22 08:36 Oxygen Flow Rate 0 02/05/22 08:36 Pain Level 2 02/05/22 08:36 Comment 02/01/22 07:37 Intake & Output 02/04/22 02/04/22 02/05/22 11:59 23:59 11:59 Intake Total 1060 / 1060 400 / 400 Output Total 1000 / 2550 1550 / 2550 1125 / 1125 Balance -1000 / -1490 -490 / -1490 -725 / -725 Weight 93.7 kg 93.1 kg Intake: Oral 1060 / 1060 400 / 400 Output: Urine 1000 / 2550 1550 / 2550 1125 / 1125 Other: Urine Color Yellow Yellow Pale Yellow Urine Appearance Clear Clear Urine Odor None None Comment pt unable to void I&O void 200 ml and bladder scan post void Stool Size Large Small Stool Characteristics Soft Soft Formed Voiding Methods Self-Catheterization Urinal Data Completed and Pending Labs on day of discharge: Labs from last 24 hours 02/04/22 09:15 SARS-CoV-2 (PCR) Negative PFSH All Active Problems Claustrophobia (Acute) DVT prophylaxis (Acute) Discharge planning issues (Acute) Atrial fibrillation with rapid ventricular response (Chronic) Imbalance (Acute) Pre-syncope (Acute) Dizziness (Acute) Sensorineural hearing loss, bilateral (Acute) Hx of herpes zoster (Acute) Vesicocolic fistula (Acute) Macrocytosis (Acute) Hearing loss (Acute) Arthritis of right wrist (Acute) Cognitive decline (Acute) Paroxysmal atrial fibrillation (Acute) Aortic regurgitation (Acute) Vitamin D deficiency (Acute) Hypothyroidism (Chronic) Chronic anxiety (Acute) Dysequilibrium (Acute) Restless legs (Acute) Vesicocolonic fistula (Acute) Chronic shortness of breath (Acute) per pcp Complete tear of right rotator cuff (Acute ~11/2019) BPH loc w urin obs/LUTS (Acute) Right rotator cuff tendonitis (Acute) Most recent injection: 09/24/2019 Left rotator cuff tear arthropathy (Chronic) Most recent injection: 09/24/2019 Left shoulder tendinitis (Chronic) Primary osteoarthritis of both knees (Chronic) Bilateral Synvisc injections most recently: 01/01/2021; 06/30/2020 Adhesive capsulitis of shoulder (Acute 08/05/13) Medical History Actinic keratosis Allergic rhinitis At risk for falling Atrial fibrillation Bilateral lower extremity edema COPD (chronic obstructive pulmonary disease) Erectile dysfunction Foot deformity, acquired GERD (gastroesophageal reflux disease) History of degenerative joint disease History of prediabetes Hyperlipidemia Lower urinary tract symptoms Mild memory disturbance Moderate aortic regurgitation CRYSTAL (obstructive sleep apnea) Prediabetes Right bundle branch block Rotator cuff tear Surgical History History of bladder repair surgery History of hernia repair History of partial surgical removal of colon Family History Father Lung cancer Mother Colon cancer Daughter Lymphoma Social History Smoking/Tobacco Use Status: Former Tobacco Use Smoking risk assessment performed?: Yes Alcohol Intake: never Drug use: Never Substance use type: does not use Household members: spouse Pets and animals: Yes (1) Pets and animals: cat(s) Current gender identity: male Do you feel safe at home: Yes Do you feel safe in your relationship?: Yes
--- NOTE | 2022-02-05 11:15 | CMDISCH_ITS ---
- If Service Date Differs Date of service: 02/05/22 Time of Service: 11:15 LACE Index Scoring Tool - Questions: Length of Stay (in days): 4 - 6 Acuity (Admit via E.D.?): Yes Comorbidities: Chronic Pulmonary Disease E.D. Visits: 1 - Answers: Total Score: 10 Risk of Readmission: High Risk Care Management Discharge Reason for Hospitalization: Pre-syncope Discharge Plan: Jorge transitioned to [facility] today via facility w/c van, coordinated by JUDY. He will follow up with his PCP and discharge plan of care. He is happy to be going to rehab. CM called and reviewed this plan with Jorge's son, Scotty, who is agreeable with the plan. Patient/Family Education Needs: Review discharge instructions and limitations, discussion of self care needs including ask me three and goals of care. Services Needed at Discharge: Jail Facility ([facility]), Transportation (w/c van)
== END 2022-02-05 10:40 | disposition skilled nursing facility (03) | DRG 309 ==
LOC: ER 23:56 → ICU 01-29 01:54 → MS 01-31 14:43
PROVIDERS: Nurse Practitioner Family; Admitting Provider General Practice; Emergency Provider Student in an Organized Health Care Education/Training Program; PCP Family Medicine; Visit Provider Family Medicine
DX: I48.0 Paroxysmal atrial fibrillation (principal); G90.3 Multi-system degeneration of the autonomic nervous system; I48.92 Unspecified atrial flutter; G20 Parkinson's disease; I10 Essential (primary) hypertension; R26.89 Other abnormalities of gait and mobility; H90.3 Sensorineural hearing loss, bilateral; D75.89 Other specified diseases of blood and blood-forming organs; M15.9 Polyosteoarthritis, unspecified; I35.0 Nonrheumatic aortic (valve) stenosis; E55.9 Vitamin D deficiency, unspecified; E03.9 Hypothyroidism, unspecified; F41.9 Anxiety disorder, unspecified; G25.81 Restless legs syndrome; N40.1 Benign prostatic hyperplasia with lower urinary tract symptoms; J44.9 Chronic obstructive pulmonary disease, unspecified; R73.03 Prediabetes; E78.5 Hyperlipidemia, unspecified; G47.33 Obstructive sleep apnea (adult) (pediatric); I45.10 Unspecified right bundle-branch block; R33.9 Retention of urine, unspecified; R31.0 Gross hematuria; F40.240 Claustrophobia
CPT/HCPCS: 36415; 71275; 80048; 80053; 87635; 93005; 94640; 96365; 96366; 96376; 97110; 97162; 97530; 99220; 99232; 99291; 81003; 83735; 84439; 84443; 84484; 85025; 85379; 93010; 93306; 94664; 94760; 99219; 99225; 99238; G0378; J3490

== ENCOUNTER → 2022-02-21 10:23 | Outpatient (BNVA) | payer MEDICARE, BC, SELFPAY | PROVIDERS: PCP Family Medicine; Referring Provider Family Medicine; Visit Provider Nurse Practitioner Gerontology | DX: R39.89 Other symptoms and signs involving the genitourinary system (principal); N40.1 Benign prostatic hyperplasia with lower urinary tract symptoms; N13.8 Other obstructive and reflux uropathy | CPT/HCPCS: 51798; 99214 ==

== ENCOUNTER 2022-03-19 12:21 | Outpatient (CLI) | payer MEDICARE, BC, SELFPAY | END 2022-03-19 12:22 | LOC: CARDO 03-22 13:13 | PROVIDERS: PCP Family Medicine; Referring Provider Internal Medicine; Visit Provider Internal Medicine Cardiovascular Disease | DX: I48.91 Unspecified atrial fibrillation (principal); I47.2 Ventricular tachycardia | CPT/HCPCS: 93272 ==

== ENCOUNTER 2022-03-30 00:22 | Emergency (ER) | payer MEDICARE, BC, SELFPAY ==
[2022-03-30] VITALS (27 sets, daily range): BP systolic 100–130; BP diastolic 62–97; PULSE 79–163; RESP 11–28; TEMP 37.3; O2SAT 81–95
--- NOTE | 2022-03-30 00:30 | RT.EKG_ITS ---
APPROVED REPORT Exam: Resting ECG Reason for Exam: confused Patient Location: E HR:113 bpm ECG Measurements Heart Rate 113 AXIS VA [id number] P [id number] QRSd 140 QRS 79 QT 346 T -8 QTc 475 Conclusion Atrial fibrillation...V-rate 77-158, irreg A-activity Ventricular premature complex...V complex w/ short R-R interval Right bundle branch block...QRSd>120, terminal axis(90,270) Physician: no stemi, stable, unchanged from prior ekg
--- NOTE | 2022-03-30 00:30 | DI.RAD_ITS ---
Exam(s) XR PORTABLE CHEST AP EXAM: XR PORTABLE CHEST AP CLINICAL HISTORY: cough, confused, r/o pneumonia. TECHNIQUE: 2D digital imaging was performed. COMPARISON: CR,XR XR CHEST 2V PA LATERAL from 02/19/2020 FINDINGS: Single AP portable view. Heart size is upper normal. The mediastinum is not widened. Lungs are clear. No infiltrates nor obvious pleural effusions. Both shoulders exhibit evidence of chronic full-thickness rotator cuff tears. IMPRESSION: No acute pulmonary findings on this single AP portable view of the chest. Suspected bilateral chronic rotator cuff tears of both shoulders. DATA REPOSITORY: RADIATION DOSE DELIVERED: All CT scans at this facility use at least one of these dose optimization techniques: automated exposure control; mA and/or kV adjustment per patient size (includes targeted e xams where dose is matched to clinical indication); or iterative reconstruction.
--- NOTE | 2022-03-30 00:59 | W.ED.GENAD ---
Discharge Plan Disposition Patient Disposition: [facility] (LEVEL 2) [facility] Condition: Stable Discharge Details Clinical Impression: COVID-19, Urinary tract infection, Weakness Primary Care Provider: Christian Benavides ED Provider: Virgil King Home Meds and New Rx's Prescriptions: New cephalexin 500 mg capsule 500 mg PO QID 7 Days Qty: 28 0RF No Action levothyroxine 50 mcg capsule 50 mcg PO DAILY trazodone 100 mg tablet 25 mg PO QHS PRN pramipexole 0.125 mg tablet 0.5 mg PO QHS ibuprofen [Motrin IB] 200 mg tablet 200 mg PO TID PRN PRN Rx Instructions: PT TAKES PRN fluticasone propionate [Flonase Allergy Relief] 50 mcg/actuation spray,suspension 2 spray ROC DAILY Rx Instructions: administer into each nostril mecobalamin (vitamin B12) 1,000 mcg tablet,disintegrating 1,000 mcg SL DAILY Rx Instructions: place tablet under tongue and allow to dissolve for at least30 secs before swallowing cholecalciferol (vitamin D3) [Vitamin D3] 10 mcg (400 unit) capsule 10 mcg PO DAILY levalbuterol HCl [Xopenex] 0.63 mg/3 mL solution for nebulization 0.63 mg inhalation ONCE tamsulosin [Flomax] 0.4 mg capsule 0.4 mg PO DAILY Qty: 90 3RF lorazepam 1 mg tablet 1 mg PO DAILY PRN (Reason: Anxiety) Incruse Ellipta 62.5 mcg/actuation blister with device 1 inh inhalation DAILY pantoprazole 40 MG tablet,delayed release (DR/EC) 40 mg PO DAILY bisacodyl [Dulcolax (bisacodyl)] 10 mg Suppository [address] 1XD PRN (Reason: Constipation) magnesium hydroxide 400 mg/5 mL Suspension 30 ml PO 1XD PRN (Reason: Constipation) alum-mag hydroxide-simeth [Mylanta] 200-200-20 mg/5 mL Suspension 30 ml PO Q6H PRN PRN (Reason: Abdominal Discomfort) albuterol sulfate 90 mcg/actuation Hfa Aerosol Inhaler 2 puff INHALATION Q6H PRN furosemide [Lasix] 20 mg Tablet 20 mg PO DAILY polyethylene glycol 3350 17 gram Powder In Packet 17 g PO DAILY Qty: 0 0RF diltiazem HCl 180 mg Capsule,Extended Release 24hr 180 mg PO HS Qty: 0 0RF finasteride 5 mg Tablet 5 mg PO DAILY Qty: 0 0RF Inhaler, Assist Devices [Pocket Chamber] 1 ea miscellaneous DIRECTED Qty: 0 0RF Discharge Instructions Instructions: Urinary Tract Infection in Men (ED), COVID-19 (Coronavirus Disease 2019) (ED) Additional Instructions: At this time you have COVID-19 and a urinary tract infection. In regards to the COVID-19 you have been treated with the monoclonal antibody therapy. Thankfully your chest x-ray shows no evidence of severe COVID or any COVID-pneumonia for that matter. Please continue to monitor your oxygen closely and evaluate for any signs of your O2 dipping below 91%. Please take the prescription for Keflex as directed for treatment of your urinary tract infection. Drink plenty of fluids and stay well-hydrated. If you notice any worsening of your symptoms, or any new symptoms such as vomiting, diarrhea, fever, chills, shortness of breath, chest pain, numbness, weakness, or fainting , please return immediately to the emergency department for reevaluation. Please follow up with your primary care provider as soon as possible for reassessment and reevaluation. As always, it was a pleasure participating in your medical care today. Referrals: Iam Sanchez [ [facility] STAFF PHYSICIAN] - Christian Benavides [Primary Care Provider] - Medical Decision Making This is a 76-year-old male with a past medical history of atrial fibrillation, not on anticoagulants secondary to his Parkinson's and risk for fall, bilateral lower extremity edema chronically, COPD, GERD, DJD, type 2 diabetes, high cholesterol, LUTS, memory disturbance, moderate aortic regurgitation, who [facility] who presents today for medical evaluation via EMS. Per [facility] he was lying in his bed and went to reach for something and fell off the bed. He did not hit his head, he had no loss of consciousness. No trauma. However more importantly he was noted to be a bit weaker than normal, and so he was brought to the ER for further assessment. He does share a room with his who is COVID-positive and was tested this afternoon. Patient denies any complaints otherwise. He denies any headache, chest pain, extremity pain. No other modifying factors. Physical exam demonstrates well-appearing male although he does appear slightly clammy. No evidence of trauma. No nuchal rigidity. No chest pain. Differential is highest for mild dehydration, COVID-19, or infection. We will evaluate for these etiologies, monitor closely and reassess. 2:09 AM Laboratory work-up has returned, patient has no white count or bandemia. He does have mild lymphopenia VBG is stable. Lactate is slightly elevated at 1.7. He was given a fluid bolus. Electrolytes are stable. Troponin is normal, thyroid function normal. EKG is stable. Chest x-ray is negative for acute process. COVID-19 test is positive. Urinalysis shows positive nitrites elevated WBCs, and moderate leuk esterase. Diagnosis is that he has a urinary tract infection and COVID-19 which is likely led to his weakness. He has no focal neurologic deficits to suggest stroke. No evidence of trauma to the head requiring emergent imaging. He is not on blood thinners. At this time patient's vitals remained notably stable. He shows no signs of sepsis. Patient is stable for discharge. I did contact the scheduling administrator on-call Dr. Sanchez, and we did discuss the patient's COVID status. I offered monoclonal antibodies for suspected COVID, and at this time through shared decision-making process we will treat the patient with monoclonal antibody therapy here. We will give the patient ceftriaxone for treatment of his urinary tract infection with a prescription for Keflex at home. I have extensively reviewed the treatment plan and discharge instructions with the patient. I have addressed all patient concerns at this time. The patient was made aware of what symptoms to monitor for that would warrant a return to the emergency department. Discussed the plan with the patient, they demonstrate verbal understanding and agreement with our assessment and plan at this time. The documentation in this chart was dictated using [employer] dictation software. Please excuse any dictation errors. FINDINGS: Lungs: Unremarkable. No consolidation. Pleural spaces: Unremarkable. No pleural effusion. No pneumothorax. Heart/Mediastinum: Unremarkable. No cardiomegaly. Bones/joints: Bilateral degenerative shoulder joint features consistent with chronic rotator cuff tears.. IMPRESSION: 1. No acute findings. 2. Clear lungs and pleural space. No acute infiltrates or edema. 3. Bilateral chronic rotator cuff tears are suggested. Thank you for allowing us to participate in the care of your patient. Dictated and Authenticated by: Tariq Simons MD 03/30/2022 1:56 AM Eastern Time ([place] & [place]) HPI General Date/Time Provider Initiated Documentation: 03/30/22 00:28. HPI Narrative: This is a 76-year-old male with a past medical history of atrial fibrillation, not on anticoagulants secondary to his Parkinson's and risk for fall, bilateral lower extremity edema chronically, COPD, GERD, DJD, type 2 diabetes, high cholesterol, LUTS, memory disturbance, moderate aortic regurgitation, who is currently residing at [facility] who presents today for medical evaluation via EMS. Per [facility] he was lying in his bed and went to reach for something and fell off the bed. He did not hit his head, he had no loss of consciousness. No trauma. However more importantly he was noted to be a bit weaker than normal, and so he was brought to the ER for further assessment. He does share a room with his who is COVID-positive and was tested this afternoon. Patient denies any complaints otherwise. He denies any headache, chest pain, extremity pain. No other modifying factors. Related Data Home Medications Medication Instructions Recorded Confirmed pantoprazole 40 mg tablet,delayed 40 mg PO DAILY 04/12/13 03/30/22 release levothyroxine 50 mcg capsule 50 mcg PO DAILY 10/22/18 03/30/22 trazodone 100 mg tablet 25 mg PO QHS PRN 10/22/18 03/30/22 ibuprofen 200 mg tablet (Motrin IB) 200 mg PO TID PRN PRN 12/15/19 03/30/22 albuterol sulfate 90 mcg/actuation 2 puff inhalation Q6H PRN 02/16/20 03/30/22 aerosol inhaler furosemide 20 mg tablet (Lasix) 20 mg PO DAILY 02/16/20 03/30/22 cholecalciferol (vitamin D3) 10 10 mcg PO DAILY 03/23/20 03/30/22 mcg (400 unit) capsule (Vitamin D3) fluticasone propionate 50 2 spray intranasal DAILY 03/23/20 03/30/22 mcg/actuation nasal spray,suspension (Flonase Allergy Relief) mecobalamin (vitamin B12) 1,000 1,000 mcg sublingual DAILY 03/23/20 03/30/22 mcg disintegrating tablet,sublingual levalbuterol HCl 0.63 mg/3 mL 0.63 mg inhalation ONCE 06/30/20 03/30/22 solution for nebulization (Xopenex) pramipexole 0.125 mg tablet 0.5 mg PO QHS 06/30/20 03/30/22 tamsulosin 0.4 mg capsule (Flomax) 0.4 mg PO DAILY #90 caps 12/05/20 03/30/22 lorazepam 1 mg tablet 1 mg PO DAILY PRN Anxiety 03/09/21 03/30/22 umeclidinium 62.5 mcg/actuation 1 inh inhalation DAILY 03/09/21 03/30/22 blister powder for inhalation (Incruse Ellipta) Inhaler, Assist Devices [Pocket 1 ea miscellaneous DIRECTED ##0 02/05/22 Chamber] diltiazem HCl 180 mg 180 mg PO HS #0 caps 02/05/22 03/30/22 capsule,extended release 24 hr finasteride 5 mg tablet 5 mg PO DAILY #0 tabs 02/05/22 03/30/22 polyethylene glycol 3350 17 gram 17 g PO DAILY #0 ea 02/05/22 03/30/22 oral powder packet aluminum-mag hydroxide-simethicone 30 ml PO Q6H PRN PRN Abdominal 03/30/22 03/30/22 200 mg-200 mg-20 mg/5 mL oral susp Discomfort bisacodyl 10 mg rectal suppository [address] 1XD PRN Constipation 03/30/22 03/30/22 (Dulcolax (bisacodyl)) cephalexin 500 mg capsule 500 mg PO QID 7 days #28 caps 03/30/22 magnesium hydroxide 400 mg/5 mL 30 ml PO 1XD PRN Constipation 03/30/22 03/30/22 oral suspension Previous Rx's Medication Instructions Recorded tamsulosin 0.4 mg capsule (Flomax) 0.4 mg PO DAILY #90 caps 12/05/20 Inhaler, Assist Devices [Pocket 1 ea miscellaneous DIRECTED ##0 02/05/22 Chamber] diltiazem HCl 180 mg 180 mg PO HS #0 caps 02/05/22 capsule,extended release 24 hr finasteride 5 mg tablet 5 mg PO DAILY #0 tabs 07/19/22 polyethylene glycol 3350 17 gram 17 g PO DAILY #0 ea 02/05/22 oral powder packet cephalexin 500 mg capsule 500 mg PO QID 7 days #28 caps 03/30/22 Allergies Allergy/AdvReac Type Severity Reaction Status Date / Time chlorpheniramine Allergy Verified 03/30/22 01:02 [From Histussin HC] dexbrompheniramine Allergy Verified 03/30/22 01:02 [From Histussin HC] hydrocodone Allergy Verified 03/30/22 01:02 [From Histussin HC] phenylephrine Allergy Verified 03/30/22 01:02 [From Histussin HC] General Stated Complaint: [facility] FLORA: 3 Review of Systems All systems reviewed & are unremarkable except as noted in HPI and below PFSH All Active Problems (Updated 03/30/22 @ 02:13 by Virgil King DO) COVID-19 (Acute) Urinary tract infection (Acute) Weakness (Acute) DVT prophylaxis (Acute) Claustrophobia (Acute) Atrial fibrillation with rapid ventricular response (Chronic) Imbalance (Acute) Dizziness (Acute) Sensorineural hearing loss, bilateral (Acute) Hx of herpes zoster (Acute) Vesicocolic fistula (Acute) Macrocytosis (Acute) Hearing loss (Acute) Arthritis of right wrist (Acute) Cognitive decline (Acute) Paroxysmal atrial fibrillation (Acute) Aortic regurgitation (Acute) Vitamin D deficiency (Acute) Hypothyroidism (Chronic) Chronic anxiety (Acute) Dysequilibrium (Acute) Restless legs (Acute) Vesicocolonic fistula (Acute) Chronic shortness of breath (Acute) per pcp Complete tear of right rotator cuff (Acute ~11/2019) BPH loc w urin obs/LUTS (Acute) Right rotator cuff tendonitis (Acute) Most recent injection: 09/24/2019 Left rotator cuff tear arthropathy (Chronic) Most recent injection: 09/24/2019 Left shoulder tendinitis (Chronic) Primary osteoarthritis of both knees (Chronic) Bilateral Synvisc injections most recently: 01/01/2021; 06/30/2020 Adhesive capsulitis of shoulder (Acute 08/05/13) Medical History Actinic keratosis Allergic rhinitis At risk for falling Atrial fibrillation Bilateral lower extremity edema COPD (chronic obstructive pulmonary disease) Erectile dysfunction Foot deformity, acquired GERD (gastroesophageal reflux disease) History of degenerative joint disease History of prediabetes Hyperlipidemia Lower urinary tract symptoms Mild memory disturbance Moderate aortic regurgitation CRYSTAL (obstructive sleep apnea) Prediabetes Right bundle branch block Rotator cuff tear Surgical History History of bladder repair surgery History of hernia repair History of partial surgical removal of colon Family History Father Lung cancer Mother Colon cancer Daughter Lymphoma Social History Smoking/Tobacco Use Status: Former Tobacco Use Smoking risk assessment performed?: Yes Alcohol Intake: never Drug use: Never Substance use type: does not use Household members: spouse Pets and animals: Yes (1) Pets and animals: cat(s) Current gender identity: male Do you feel safe at home: Yes Do you feel safe in your relationship?: Yes Exam Narrative Exam Narrative: 1.Const: Well-nourished, Well-developed, appearing stated age 2.Eyes: PERRL, no conjunctival injection, and symmetrical lids. 3.ENT: Atraumatic external nose and ears. Moist MM. Neck: Symmetric, trachea midline, No thyromegaly. No evidence of trauma. Patient demonstrates intact dentition with no signs of tooth avulsion or fracture, no signs of jaw deformity, no evidence of a LeFort's fracture, with an intact palate, nose and orbital region. There is no evidence of a nasal septal hematoma. No proptosis. Jaw closes symmetrically. Airway is clear. There is no evidence of raccoon eyes, biggs sign, CSF rhinorrhea, mastoid tenderness, cranial crepitus, exophthalmos, or hyphema. 4.CVS: +S1/S2, No murmurs or gallops. Peripheral pulses 2+ and equal in all extremities. Brisk capillary refill in all extremities. 5.RESP: Unlabored respiratory effort. Clear to auscultation bilaterally. No wheezes rales or rhonchi 6.GI: Soft, Nontender/Nondistended, No hepatosplenomegaly. No guarding or rebound. 7.MSK: Normocephalic/Atraumatic, Extremities w/o deformity or ttp No cyanosis or clubbing, Normal movement of all extremities 8.Skin: Warm, Dry. No rashes or lesions. 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 Sensation grossly intact, no focal neurologic deficits. 10.Psych: (AAO) x2, he thinks it is 2019. Appropriate mood and affect Course Vital Signs Vital signs: Vital Signs Temperature 37.3 C 03/30/22 00:22 Pulse 79 03/30/22 00:22 Respiratory Rate 20 03/30/22 00:22 Blood Pressure 100/62 03/30/22 00:22 Pulse Oximetry 94 03/30/22 00:22 Temperature 37.3 C 03/30/22 00:22 Temperature Source Skin 03/30/22 00:22 Pulse 79 03/30/22 00:22 Respiratory Rate 27 H 03/30/22 00:35 Respiratory Effort 03/30/22 00:35 Respiratory Depth Normal 03/30/22 00:35 Respiratory Pattern Normal 03/30/22 00:35 Blood Pressure 100/62 03/30/22 00:22 Blood Pressure Position Supine 03/30/22 00:22 Pulse Oximetry 94 03/30/22 00:22 Oxygen Delivery Method Room Air 03/30/22 00:22 Oxygen Flow Rate 0 03/30/22 00:22 Pain Level 0 03/30/22 00:22 Lab/Test Results Lab/Test Results: 03/30/22 00:35 Blood Blood Culture - Pending 03/30/22 00:35 Blood Blood Culture - Pending
[2022-03-30 01:03] LABS: Abs Immature Grans 0.03 10^3/uL (0.0-0.06); Absolute Basophil Count 0.05 10^3/uL (0.0-0.2); Absolute Eosinophil Count 0.08 10^3/uL (0.0-0.7); Absolute Lymphocyte Count 0.47 10^3/uL (1.2-3.4); Absolute Monocyte Count 0.72 10^3/uL (0.1-0.8); Absolute Neutrophil Count 6.01 10^3/uL (1.2-6.7); BE (Venous) 3 mmol/L (-2-3); Basophils % 0.7; Eosinophils % 1.1; HCO3 (Venous) 28 mmol/L (23-28); HCT 41.2 % (40.0-50.0); HGB 13.9 g/dL (13.5-17.5); Immature Grans % 0.4; Lymphocytes % 6.4; MCH 32.6 pg (27.0-33.0); MCHC 33.7 % (32.0-36.0); MCV 97 fL (80-95); MPV 9.5 fL (8.0-11.0); Monocytes % 9.8; Neutrophils % 81.6; O2 Sat (Venous) 70 %; Platelet Count 230 10^3/uL (130-400); RBC 4.26 10^6/uL (4.36-5.78); RDW 13.4 % (11.8-14.1); RDW-SD 48.1 fL; TCO2 (Venous) 25 mmol/L (24-29); WBC 7.36 10^3/uL (4.4-10.8); pCO2 (Venous) 43 mmHg (41-51); pH (Venous) 7.42 (7.31-7.41); pO2 (Venous) 38 mmHg
[2022-03-30 01:05] LABS: Lactate 1.7 mmol/L (0.6-1.4)
[2022-03-30] MEDS: Normal Saline 1,000 ML 1000 ML IV (01:05)
[2022-03-30 01:29] LABS: ALT 8 U/L (16-63); AST 12 U/L (15-37); Albumin 3.3 g/dL (3.4-5.0); Alkaline Phosphatase 103 U/L (46-116); Anion Gap 7.2 mmol/L (3-11); BUN 21 mg/dL (7-18); Bilirubin, Total 0.7 mg/dL (0.2-1.0); CO2 28.8 mmol/L (21.0-32.0); CREATININE 1.2 mg/dL (0.70-1.30); Calcium 8.6 mg/dL (8.5-10.1); Chloride 101 mmol/L (98-107); Estimated GFR 63.07 (mL/min/1.73m2); Glucose 134 mg/dL (74-106); Potassium 3.6 mmol/L (3.5-5.1); Sodium 137 mmol/L (136-145); TSH (W/Ref FT4) 1.28 uIU/mL (0.36-3.74); Total Protein 7.2 g/dL (6.4-8.2); Troponin I < 50 ng/L (<or=60)
[2022-03-30 01:42] LABS: Influenza A PCR Negative (Negative); Influenza B PCR Negative (Negative); RSV PCR Negative (Negative)
[2022-03-30 01:49] LABS: COVID-19 PCR Positive (Negative); Source Nasopharynx
--- NOTE | 2022-03-30 01:57 | DI.VRAD_ITS ---
PROCEDURE INFORMATION: Exam: XR Chest Exam date and time: 03/30/2022 1:07 AM Age: 76 years old Clinical indication: Patient HX: Cough, confused, R/O pneumonia TECHNIQUE: Imaging protocol: Radiologic exam of the chest. Views: 1 view. COMPARISON: CT CHEST PE CTA 01/29/2022 12:17 AM FINDINGS: Lungs: Unremarkable. No consolidation. Pleural spaces: Unremarkable. No pleural effusion. No pneumothorax. Heart/Mediastinum: Unremarkable. No cardiomegaly. Bones/joints: Bilateral degenerative shoulder joint features consistent with chronic rotator cuff tears.. IMPRESSION: 1. No acute findings. 2. Clear lungs and pleural space. No acute infiltrates or edema. 3. Bilateral chronic rotator cuff tears are suggested. Dictated and Authenticated by: Tariq Simons MD. Ordering:SUZIE Herman MD
[2022-03-30 02:03] LABS: Bilirubin Negative (Negative); Blood Trace-intact (Negative); Clarity Cloudy (Clear); Glucose Negative (Negative); Ketones Negative (Negative); Leukocyte Esterase Moderate (Negative); Nitrite Positive (Negative); Specific Gravity 1.025 (1.005-1.025); Urobilinogen 0.2 EU/dL (Up TO 0.2)
[2022-03-30 02:07] LABS: Bacteria Moderate HPF (Negative); C & S Indicated? Yes; Casts Negative LPF (Negative); Crystals Negative HPF (Negative); Epithelial Cells Few HPF (Negative); Mucus Negative (Negative)
[2022-03-30] MEDS: cefTRIAXone 2 GM/50 ML BAG IVPB (02:38)
== END 2022-03-30 03:38 | disposition intermediate care facility (04) ==
PROVIDERS: Emergency Provider Student in an Organized Health Care Education/Training Program; PCP Family Medicine
DX: U07.1 COVID-19 (principal); N39.0 Urinary tract infection, site not specified; R53.1 Weakness; I48.91 Unspecified atrial fibrillation; G20 Parkinson's disease; E11.9 Type 2 diabetes mellitus without complications; J44.9 Chronic obstructive pulmonary disease, unspecified; Z79.51 Long term (current) use of inhaled steroids; Z87.891 Personal history of nicotine dependence
CPT/HCPCS: 80053; 82805; 87040; 87077; 87637; 93005; 96361; 96365; 96372; 96375; 99285; Q0222; 71045; 81003; 81015; 83605; 84443; 84484; 85025; 87086; 87186; 93010

== ENCOUNTER 2022-05-02 11:46 | Outpatient (CLI) | payer MEDICARE, BC, SELFPAY ==
[2022-05-02 11:55] VITALS: BP 146/81; PULSE 61; RESP 20; TEMP 36.6; O2SAT 96
[2022-05-02] MEDS: fentaNYL 100 MCG/2 ML VIAL IVP (12:41)
[2022-05-02 13:05] VITALS: BP 130/78; PULSE 73; RESP 17; O2SAT 96
--- NOTE | 2022-05-02 13:10 | DI.RAD_ITS ---
Exam(s) XR PAIN CLINIC FLUORO JOINT IN EXAM: XR PAIN CLINIC FLUORO JOINT IN CLINICAL HISTORY: Dx:Osteoarthritis of the knee TECHNIQUE: 2D and realtime digital imaging was performed. CONTRAST MATERIAL: Refer to procedure report. COMPARISON: No exams were available for comparison FINDINGS: Fluoroscopy was provided for Dr. Martinez during the performance of a radiofrequency ablation. Please r efer to the procedure report for complete details. Ka,r=4.12 mGy IMPRESSION:
[2022-05-02] MEDS: Lactated Ringers 500 ML 80 ML IV (13:35)
[2022-05-02] MEDS: Bupivacaine 0.5% Pres-Free 10 ML VIAL IJ (13:39)
[2022-05-02] MEDS: Lidocaine 2% Pres-Free 5 ML VIAL IJ (13:39)
[2022-05-02] MEDS: methylPREDNISolone ACETATE 40 MG/ML VIAL IJ (13:39)
--- NOTE | 2022-05-03 13:39 | PDOC.PAIN_ITS ---
Date of service: 05/02/22 Time of Service: 12:00 Pain Clinic Procedure Note Procedure Note Procedure Note: LEFT GENICULAR NERVE RADIOFREQUENCY ABLATION WITH THE COOLIEF MACHINE Date of Service: May 02, 2022 Patient: Jorge Kim Provider: Bo Martinez DO, MPH Pre-operative diagnosis: Left knee pain Post-operative diagnosis: Same Pre-procedure pain VAS was 6/10 COMMENTS: Previous Genicular nerve block to the LEFT knee. Jorge Kim has been referred to the [facility] for LEFT genicular nerve radiofrequency ablation. Jorge was interviewed and the medical record reviewed. There were no medical, pharmacologic, radiographic or other structural contraindications to attempting fluoroscopically guided LEFT genicular nerve radiofrequency ablation. Risks and potential side effects as well as potential benefit of the procedure were reviewed with Jorge Kim , and HIS voiced concerns were addressed. After I believed that the patient was completely informed, the printed consent form was signed. Standard time-out procedure was performed. Jorge was placed in the supine position on the fluoroscopy table and automated blood pressure cuff and pulse oximeter applied. The skin entry points for appr oaching LEFT superolateral genicular nerve, the superomedial genicular nerve and the inferomedial genicular was identified under the most advantageous fluoroscopic view and marked. Following thorough Chlorhexadine preparation of the skin and draping, 1% lidocaine infiltration of the skin entry point and subcutaneous tissues was accomplished using a 1.5 25G needle. Next, the 10 cm 18G RF Cannula with a 10 mm active tip was advanced to os at the location of the specific nerve roots (3) using fluoroscopic guidance. Next, sensory and motor testing was performed and no abnormal findings were found. Next, 1 cc of 2% Lidocaine was injected at each site. The lesion was then created with 80 degrees C for 90 seconds. Each needle was advance 1 cm and the lesion was completed again. Each cannula was advanced until the tip reached the posterior aspect of the bone shaft. 1/3 cc of Depomedrol (40 mg/cc) was then injected at each site followed by 2 cc of 0.5% Bupivacaine as the needle was withdrawn. The needles were removed without difficulty. Jorge's vital signs were stable throughout the procedure and were as recorded in the docflowsheet by the nursing staff. If given, dosages of intravenous drugs for anxiolysis and analgesia were documented in MAR. Follow up plans and appointments were discussed with the Jorge Self Tajennifer . Post procedure instruction was given as documented in nursing documentation and having met discharge criteria, Jorge was discharged from the [facility]. COMMENTS: No complications. Post-procedure pain VAS was 0/10. Jonh WJ1, Abdoul SJ, Clifford JG, Jaxon JG, Placido CAMARGO, Janette PH, Cooper JW. Radiofrequency treatment relieves chronic knee osteoarthritis pain: a double-blind randomized controlled trial. Pain. 2011 Sep;152(3):481-7. doi: 10.1016/j.pain.2010.09.029. Oliva S1, Ambrosio ON2, Susanne Y3, ?zl?lerden P2, Tyrell U1, Cecil ?m?rl? I. Which one is more effective for the clinical treatment of chronic pain in knee osteoarthritis: radiofrequency neurotomy of the genicular nerves or intra- articular injection? Int J Rheum Dis. 2016 Mar 01. F/U with our office as needed Bo Martinez DO, MPH [facility]
== END 2022-05-02 11:47 | disposition home or self-care (01) ==
LOC: PC 11:46
PROVIDERS: PCP Family Medicine; Visit Provider Preventive Medicine Occupational Medicine
DX: M25.562 Pain in left knee (principal)
CPT/HCPCS: 64624; 77002; J1030; J3010

== ENCOUNTER → 2022-06-03 12:56 | Outpatient (BNVA) | payer MEDICARE, BC, SELFPAY | PROVIDERS: PCP Family Medicine; Referring Provider Family Medicine; Visit Provider Nurse Practitioner Gerontology | DX: N40.1 Benign prostatic hyperplasia with lower urinary tract symptoms (principal); N13.8 Other obstructive and reflux uropathy | CPT/HCPCS: 51798; 99214 ==

== ENCOUNTER 2022-08-07 13:27 | Outpatient (CLI) | payer MEDICARE, BC, SELFPAY ==
--- NOTE | 2022-08-07 06:00 | DI.RAD_ITS ---
Exam(s) XR PAIN CLINIC FLUORO JOINT IN EXAM: XR PAIN CLINIC FLUORO JOINT IN CLINICAL HISTORY: Dx: Right knee pain TECHNIQUE: 2D and realtime digital imaging was performed. Radiologist not present. CONTRAST MATERIAL: None. COMPARISON: No exams were available for comparison FINDINGS: Fluoroscopy was provided for pain management therapy. Please refer to procedure report or details. Radiation Exposure Index: Kar=2.51 mGy IMPRESSION: As above. RADIATION DOSE DELIVERED:
[2022-08-07 13:43] VITALS: BP 137/81; PULSE 61; RESP 20; TEMP 36.8; O2SAT 95
[2022-08-07] MEDS: fentaNYL 100 MCG/2 ML VIAL IVP (14:35)
[2022-08-07] MEDS: Lactated Ringers 500 ML 80 ML IV (14:38)
[2022-08-07 14:57] VITALS: BP 136/78; PULSE 68; RESP 18; O2SAT 98
--- NOTE | 2022-08-07 14:59 | PDOC.PAIN ---
Date of service: 08/07/22 Time of Service: 15:25 Pain Clinic Procedure Note Procedure Note Procedure Note: RIGHT GENICULAR NERVE RADIOFREQUENCY ABLATION WITH THE COOLIEF MACHINE Date of Service: August 07, 2022 Patient: Jorge Kim Provider: Bo Martinez DO, MPH Pre-operative diagnosis: Right knee pain Post-operative diagnosis: Same COMMENTS: Previous Genicular nerve block to the RIGHT knee. Jorge Kim has been referred to the [facility] for RIGHT genicular nerve radiofrequency ablation. Jorge was interviewed and the medical record reviewed. There were no medical, pharmacologic, radiographic or other structural contraindications to attempting fluoroscopically guided RIGHT genicular nerve radiofrequency ablation. Risks and potential side effects as well as potential benefit of the procedure were reviewed with Jorge Self Thanhpatti , and his voiced concerns were addressed. After I believed that the patient was completely informed, the printed consent form was signed. Standard time-out procedure was performed. Jorge was placed in the supine position on the fluoroscopy table and automated blood pressure cuff and pulse oximeter applied. The skin entry points for approaching RIGHT superolateral genicular nerve, the superomedial genicular nerve and the inferomedial genicular was identified under the most advantageous fluoroscopic view and marked. Following thorough Chlorhexadine preparation of the skin and draping, 1% lidocaine infiltration of the skin entry point and subcutaneous tissues was accomplished using a 1.5 25G needle. Next, the 10 cm 18G RF Cannula with a 10 mm active tip was advanced to os at the location of the specific nerve roots (3) using fluoroscopic guidance. Next, sensory and motor testing was performed and no abnormal findings were found. Next, 1 cc of 2% Lidocaine was injected at each site. The lesion was then created with 80 degrees C for 90 seconds. Each needle was advance 1 cm and the lesion was completed again. Each cannula was advanced until the tip reached the posterior aspect of the bone shaft. 1/3 cc of Depomedrol (40 mg/cc) was then injected at each site followed by 2 cc of 0.5% Bupivacaine as the needle was withdrawn. The needles were removed without difficulty. Jorge's vital signs were stable throughout the procedure and were as recorded in the docflowsheet by the nursing staff. If given, dosages of intravenous drugs for anxiolysis and analgesia were documented in MAR. Follow up plans and appointments were discussed with the Jorge L Dussault . Post procedure instruction was given as documented in nursing documentation and having met discharge criteria, Jorge was discharged from the [facility]. COMMENTS: No complications. Post-procedure pain VAS was 0/10. This procedure can be repeated if he receives at least 6 months of pain relief. Jonh WJ1, Abdoul SJ, Clifford JG, Jaxon JG, Placido CAMARGO, Janette PH, Cooper JW. Radiofrequency treatment relieves chronic knee osteoarthritis pain: a double-blind randomized controlled trial. Pain. 2011 Sep;152(3):481-7. doi: 10.1016/j.pain.2010.09.029. Oliva S1, Ambrosio ON2, Susanne Y3, ?zl?lerden P2, Tyrell U1, Cecil ?m?rl? I. Which one is more effective for the clinical treatment of chronic pain in knee osteoarthritis: radiofrequency neurotomy of the genicular nerves or intra-articular injection? Int J Rheum Dis. 2016 Mar 01. F/U with our office as needed Bo Martinez DO, MPH [facility]BP[facility]-Pain Management [facility]
[2022-08-07] MEDS: methylPREDNISolone ACETATE 40 MG/ML VIAL IJ (15:07)
[2022-08-07] MEDS: Lidocaine 2% Pres-Free 5 ML VIAL IJ (15:07)
[2022-08-07] MEDS: Bupivacaine 0.5% Pres-Free 10 ML VIAL IJ (15:07)
== END 2022-08-07 13:28 | disposition home or self-care (01) ==
LOC: PC 13:27
PROVIDERS: PCP Family Medicine; Visit Provider Preventive Medicine Occupational Medicine
DX: M25.561 Pain in right knee (principal)
CPT/HCPCS: 64624; 77002; J1030; J3010

== ENCOUNTER 2022-10-16 13:45 | Outpatient (REF) | payer MEDICARE, BC, SELFPAY ==
[2022-10-16 15:38] LABS: COVID-19 PCR Negative (Negative); Influenza A PCR Negative (Negative); Influenza B PCR Negative (Negative); RSV PCR Negative (Negative)
[2022-10-16 15:39] LABS: Source Nasopharynx
== END 2022-10-16 13:46 | disposition home or self-care (01) ==
LOC: LBN 13:45
PROVIDERS: PCP Family Medicine; Visit Provider Family Medicine
DX: I48.0 Paroxysmal atrial fibrillation (principal); Z20.822 Contact with and (suspected) exposure to COVID-19; R06.02 Shortness of breath; R06.2 Wheezing
CPT/HCPCS: 87637

== ENCOUNTER 2022-10-17 13:00 | Outpatient (CLI) | payer MEDICARE, BC, SELFPAY ==
--- NOTE | 2022-10-17 | DI.RAD_ITS ---
Exam(s) XR CHEST 2V PA LATERAL EXAM: XR CHEST 2V PA LATERAL CLINICAL HISTORY: SOB, WHEEZING X 2 DAYS TECHNIQUE: 2D digital imaging was performed. COMPARISON: CR,XR XR PORTABLE CHEST AP from 03/30/2022 FINDINGS: Exam was limited by poor pulmonary inflation. HEART: Normal size. Aorta: Not dilated. PULMONARY VASCULATURE: Normal. LUNGS: Clear. PLEURAL SPACE: No pleural effusion or pneumothorax. BONE:Unremarkable for age. IMPRESSION: No acute abnormality. DATA REPOSITORY: RADIATION DOSE DELIVERED:
== END 2022-10-17 13:20 ==
LOC: DI 13:01
PROVIDERS: PCP Family Medicine; Visit Provider Physician Assistant
DX: R06.02 Shortness of breath (principal); R06.2 Wheezing
CPT/HCPCS: 71046

== ENCOUNTER 2022-10-30 15:45 | Outpatient (REF) | payer MEDICARE, BC, SELFPAY ==
[2022-10-30 16:02] LABS: Abs Immature Grans 0.03 10^3/uL (0.0-0.06); Absolute Basophil Count 0.06 10^3/uL (0.0-0.2); Absolute Eosinophil Count 0.49 10^3/uL (0.0-0.7); Absolute Monocyte Count 0.58 10^3/uL (0.1-0.8); Absolute Neutrophil Count 4.65 10^3/uL (1.2-6.7); Basophils % 0.9; Eosinophils % 7.3; HCT 44.8 % (40.0-50.0); Immature Grans % 0.4; Lymphocytes % 13.4; MCH 34.2 pg (27.0-33.0); MCHC 33.5 % (32.0-36.0); MCV 102 fL (80-95); MPV 10.1 fL (8.0-11.0); Monocytes % 8.6; Neutrophils % 69.4; Platelet Count 245 10^3/uL (130-400); RBC 4.39 10^6/uL (4.36-5.78); RDW 12.6 % (11.8-14.1); RDW-SD 47.8 fL; WBC 6.71 10^3/uL (4.4-10.8)
[2022-10-30 16:38] LABS: ALT 11 U/L (16-63); AST 10 U/L (15-37); Albumin 3.5 g/dL (3.4-5.0); Alkaline Phosphatase 85 U/L (46-116); Anion Gap 3.8 mmol/L (3-11); BUN 14 mg/dL (7-18); Bilirubin, Total 0.6 mg/dL (0.2-1.0); CO2 32.2 mmol/L (21.0-32.0); Calcium 8.5 mg/dL (8.5-10.1); Chloride 105 mmol/L (98-107); Glucose 129 mg/dL (74-106); Potassium 4.2 mmol/L (3.5-5.1); Sodium 141 mmol/L (136-145); Total Protein 6.2 g/dL (6.4-8.2)
== END 2022-10-30 15:46 | disposition home or self-care (01) ==
LOC: LBN 15:45
PROVIDERS: PCP Family Medicine; Visit Provider Physician Assistant
DX: R06.02 Shortness of breath (principal); J44.9 Chronic obstructive pulmonary disease, unspecified
CPT/HCPCS: 80053; 85025

== ENCOUNTER 2022-11-27 14:17 | Outpatient (REF) | payer MEDICARE, BC, SELFPAY ==
[2022-11-27 12:03] LABS: Abs Immature Grans 0.04 10^3/uL (0.0-0.06); Absolute Basophil Count 0.04 10^3/uL (0.0-0.2); Absolute Eosinophil Count 0.16 10^3/uL (0.0-0.7); Absolute Lymphocyte Count 0.89 10^3/uL (1.2-3.4); Absolute Monocyte Count 0.56 10^3/uL (0.1-0.8); Basophils % 0.7; Eosinophils % 2.9; HCT 44.6 % (40.0-50.0); HGB 15.2 g/dL (13.5-17.5); Immature Grans % 0.7; Lymphocytes % 15.9; MCH 33.8 pg (27.0-33.0); MCHC 34.1 % (32.0-36.0); MCV 99 fL (80-95); MPV 9.9 fL (8.0-11.0); Neutrophils % 69.8; Platelet Count 246 10^3/uL (130-400); RDW 12.8 % (11.8-14.1); RDW-SD 46.7 fL; WBC 5.59 10^3/uL (4.4-10.8)
[2022-11-27 12:29] LABS: Anion Gap 6.3 mmol/L (3-11); BUN 14 mg/dL (7-18); CO2 26.7 mmol/L (21.0-32.0); CREATININE 0.8 mg/dL (0.70-1.30); Chloride 104 mmol/L (98-107); Estimated GFR 91.72 (mL/min/1.73m2); Glucose 115 mg/dL (74-106); Potassium 3.9 mmol/L (3.5-5.1); Sodium 137 mmol/L (136-145); TSH 1.88 uIU/mL (0.36-3.74)
[2022-11-27 12:41] LABS: Vitamin D 25 Total 72.8 ng/mL (30-100)
[2022-11-27 13:30] LABS: Vitamin B12 1121 pg/mL (193-986)
[2022-11-29 08:13] LABS: IgE 35 IU/mL (<158)
== END 2022-11-27 14:18 | disposition home or self-care (01) ==
LOC: LBN 14:17
PROVIDERS: PCP Family Medicine; Visit Provider Physician Assistant Surgical
DX: U09.9 Post COVID-19 condition, unspecified (principal); R06.02 Shortness of breath; R53.83 Other fatigue; E55.9 Vitamin D deficiency, unspecified; R26.89 Other abnormalities of gait and mobility; F41.8 Other specified anxiety disorders
CPT/HCPCS: 80048; 82306; 82533; 82607; 82785; 84443; 85025

== ENCOUNTER → 2022-12-02 12:57 | Outpatient (BNVA) | payer MEDICARE, BC, SELFPAY | PROVIDERS: PCP Family Medicine; Visit Provider Nurse Practitioner Gerontology | DX: N40.1 Benign prostatic hyperplasia with lower urinary tract symptoms (principal); N13.8 Other obstructive and reflux uropathy | CPT/HCPCS: 51798; 99213 ==

== ENCOUNTER 2022-12-17 13:12 | Outpatient (REF) | payer MEDICARE, BC, SELFPAY ==
[2022-12-17 13:31] LABS: Hemoglobin A1C 6.1 % (<5.7)
== END 2022-12-17 13:13 | disposition home or self-care (01) ==
LOC: LBN 13:12
PROVIDERS: PCP Family Medicine; Visit Provider Physician Assistant
DX: E11.9 Type 2 diabetes mellitus without complications (principal)
CPT/HCPCS: 83036

== ENCOUNTER 2022-12-24 03:44 | Outpatient (CLI) | payer MEDICARE, BC, SELFPAY ==
[2022-12-24] MEDS: Inhaler, Assist Device 1 EACH MC (15:18)
[2022-12-24] MEDS: Methacholine 100 MG VIAL IH (15:18)
[2022-12-24] MEDS: Albuterol HFA 18 GM 200 PUFF INH IH (15:18)
--- NOTE | 2022-12-24 16:12 | PFT_ITS ---
Date of service: 12/24/22 Time of Service: 13:12 Pulmonary Function Test Result Indications: Dyspnea on exertion Interpretation Spirometry: There is no airflow limitation. There was a 11% decreased in FEV1% with a dministration of 16mg/mL methacholine Lung Volumes: Normal lung volumes Diffusion Capacity: Normal diffusion Airway Pressure: Normal airways resistance Impression Normal pulmonary function testing with a negative methacholine challenge test Clinical Correlation therefore is recommended.
--- NOTE | 2023-01-03 12:30 | W.NOCTURNAL ---
Date of service: 12/24/22 Time of Service: 22:55 Nocturnal Oximetry Note: Overnight Oximetry Amount of time analyzed: 9 hours 24 min Number of minutes under 88%: 2.5min CRYSTAL: 4.1 Appearance of oxygen saturation pattern:Some sharp decreases that may represent CRYSTAL. Recommendation: No nocturnal O2 required. Can consider polysomnography if clinically appropriate. Vanda Mendez MD Pulmonary & Critical Care Medicine
== END 2022-12-24 03:45 | disposition home or self-care (01) ==
LOC: RT 03:44
PROVIDERS: PCP Family Medicine; Visit Provider Physician Assistant Surgical
DX: R06.02 Shortness of breath (principal)
CPT/HCPCS: 94060; 94070; 94726; 94729; 94010; 94762; J7674

== ENCOUNTER 2023-01-30 03:22 | Outpatient (CLI) | payer MEDICARE, BC, SELFPAY ==
--- NOTE | 2023-01-31 10:32 | W.6MWT ---
Date of service: 01/30/23 Time of Service: 14:40 6 Minute Walk Test Note: 6 Minute Walk Test Distance walked: 100 feet Desaturations: No desaturations Heart rate changes: 68 bpm to 90 bpm Recommendation: No supplemental O2 needed. Very diminished distance. Vanda Mendez MD Pulmonary & Critical Care Medicine
== END 2023-01-30 03:23 | disposition home or self-care (01) ==
LOC: RT 03:22
PROVIDERS: PCP Family Medicine; Visit Provider Student in an Organized Health Care Education/Training Program
DX: M62.81 Muscle weakness (generalized) (principal); U09.9 Post COVID-19 condition, unspecified
CPT/HCPCS: 94618

== ENCOUNTER 2023-03-06 15:07 | Outpatient (REF) | payer MEDICARE, BC, SELFPAY ==
[2023-03-06 13:00] LABS: Bilirubin Negative (Negative); Blood Negative (Negative); Clarity Clear (Clear); Glucose Negative (Negative); Ketones Negative (Negative); Leukocyte Esterase Negative (Negative); Nitrite Negative (Negative); Specific Gravity 1.015 (1.005-1.025); Urobilinogen 0.2 mg/dL (Up to 0.2)
== END 2023-03-06 15:08 | disposition home or self-care (01) ==
LOC: LBN 15:07
PROVIDERS: PCP Family Medicine; Visit Provider Physician Assistant
DX: N40.1 Benign prostatic hyperplasia with lower urinary tract symptoms (principal)
CPT/HCPCS: 81003

== ENCOUNTER → 2023-03-17 14:48 | Outpatient (BNVA) | payer MEDICARE, BC, SELFPAY | PROVIDERS: PCP Family Medicine; Visit Provider Nurse Practitioner Gerontology | DX: N40.1 Benign prostatic hyperplasia with lower urinary tract symptoms (principal); N13.8 Other obstructive and reflux uropathy; E11.9 Type 2 diabetes mellitus without complications | CPT/HCPCS: 99214 ==

== ENCOUNTER 2023-05-02 17:06 | Outpatient (REF) | payer MEDICARE, BC, SELFPAY ==
[2023-05-02 13:17] LABS: Hemoglobin A1C 6.1 % (<5.7)
[2023-05-02 13:29] LABS: BUN 8 mg/dL (7-18); CREATININE 0.9 mg/dL (0.70-1.30); Calcium 8.7 mg/dL (8.5-10.1); Calculated LDL 60 mg/dL (<100); Chloride 106 mmol/L (98-107); Cholesterol 113 mg/dL (<200); Estimated GFR 88.51 (mL/min/1.73m2); Glucose 92 mg/dL (74-106); HDL Cholesterol 41 mg/dL (40-60); Potassium 3.4 mmol/L (3.5-5.1); Sodium 142 mmol/L (136-145); TSH 1.15 uIU/mL (0.36-3.74); Triglyceride 61 mg/dL (<150)
== END 2023-05-02 17:07 | disposition home or self-care (01) ==
LOC: LBN 17:06
PROVIDERS: PCP Family Medicine; Visit Provider Family Medicine
DX: E11.9 Type 2 diabetes mellitus without complications (principal); E03.9 Hypothyroidism, unspecified; E78.5 Hyperlipidemia, unspecified; R82.89 Other abnormal findings on cytological and histological examination of urine
CPT/HCPCS: 80048; 80061; 83036; 84443

== ENCOUNTER 2023-05-21 21:26 | Outpatient (REF) | payer MEDICARE, BC, SELFPAY ==
[2023-05-21 17:03] LABS: Anion Gap 7.2 mmol/L (3-11); BUN 15 mg/dL (7-18); CO2 29.8 mmol/L (21.0-32.0); Calcium 8.9 mg/dL (8.5-10.1); Chloride 102 mmol/L (98-107); Glucose 134 mg/dL (74-106); Potassium 4.2 mmol/L (3.5-5.1); Sodium 139 mmol/L (136-145)
== END 2023-05-21 21:27 | disposition home or self-care (01) ==
LOC: LBN 21:26
PROVIDERS: PCP Family Medicine; Visit Provider Nurse Practitioner Adult Health
DX: E03.9 Hypothyroidism, unspecified (principal); E11.9 Type 2 diabetes mellitus without complications; J44.9 Chronic obstructive pulmonary disease, unspecified
CPT/HCPCS: 80048; 84443

== ENCOUNTER → 2023-06-19 12:39 | Outpatient (BNVA) | payer MEDICARE, BC, SELFPAY | PROVIDERS: PCP Family Medicine; Referring Provider Family Medicine; Visit Provider Physician Assistant Surgical | DX: R06.02 Shortness of breath (principal); U09.9 Post COVID-19 condition, unspecified; M62.81 Muscle weakness (generalized); G20.A1 Parkinson's disease without dyskinesia, without mention of fluctuations; E11.9 Type 2 diabetes mellitus without complications | CPT/HCPCS: 99214 ==

== ENCOUNTER 2023-06-19 19:42 | Outpatient (REF) | payer MEDICARE, BC, SELFPAY ==
[2023-06-19 19:19] LABS: Folate 12.2 ng/mL (8.6-20.0); TSH 2.87 uIU/mL (0.36-3.74); Vitamin B12 879 pg/mL (193-986)
== END 2023-06-19 19:43 | disposition home or self-care (01) ==
LOC: LBN 19:42
PROVIDERS: Family Medicine; PCP Family Medicine; Visit Provider Nurse Practitioner Adult Health
DX: I48.0 Paroxysmal atrial fibrillation (principal); J44.9 Chronic obstructive pulmonary disease, unspecified; E11.9 Type 2 diabetes mellitus without complications; M62.81 Muscle weakness (generalized)
CPT/HCPCS: 82607; 82746; 84443

== ENCOUNTER 2023-07-21 17:26 | Outpatient (REF) | payer MEDICARE, BC, SELFPAY ==
[2023-07-21 17:25] LABS: Abs Immature Grans 0.02 10^3/uL (0.0-0.06); Absolute Basophil Count 0.07 10^3/uL (0.0-0.2); Absolute Eosinophil Count 0.17 10^3/uL (0.0-0.7); Absolute Lymphocyte Count 0.36 10^3/uL (1.2-3.4); Absolute Monocyte Count 0.77 10^3/uL (0.1-0.8); Basophils % 0.9; Eosinophils % 2.2; HCT 49.3 % (40.0-50.0); HGB 16.6 g/dL (13.5-17.5); Immature Grans % 0.3; Lymphocytes % 4.7; MCH 33.9 pg (27.0-33.0); MCHC 33.7 % (32.0-36.0); MCV 101 fL (80-95); MPV 10.3 fL (8.0-11.0); Neutrophils % 81.9; Platelet Count 208 10^3/uL (130-400); RBC 4.89 10^6/uL (4.36-5.78); RDW 12.5 % (11.8-14.1); RDW-SD 46.8 fL; WBC 7.69 10^3/uL (4.4-10.8)
[2023-07-21 17:39] LABS: ALT 12 U/L (16-63); AST 14 U/L (15-37); Albumin 3.8 g/dL (3.4-5.0); Alkaline Phosphatase 104 U/L (46-116); Anion Gap 9.5 mmol/L (3-11); BUN 12 mg/dL (7-18); CO2 29.5 mmol/L (21.0-32.0); CREATININE 0.9 mg/dL (0.70-1.30); Chloride 101 mmol/L (98-107); Estimated GFR 87.96 (mL/min/1.73m2); Glucose 109 mg/dL (74-106); Sodium 140 mmol/L (136-145); Total Protein 6.9 g/dL (6.4-8.2)
[2023-07-21 18:02] LABS: COVID-19 PCR Negative (Negative); Influenza A PCR Positive (Negative); Influenza B PCR Negative (Negative); RSV PCR Negative (Negative)
[2023-07-21 18:13] LABS: Source Nasopharynx
== END 2023-07-21 17:27 | disposition home or self-care (01) ==
LOC: LBN 17:26
PROVIDERS: PCP Family Medicine; Visit Provider Family Medicine
DX: R53.83 Other fatigue (principal); Z20.828 Contact with and (suspected) exposure to other viral communicable diseases
CPT/HCPCS: 80053; 87637; 85025

== ENCOUNTER 2023-08-07 09:28 | Outpatient (CLI) | payer MEDICARE, BC, SELFPAY ==
[2023-08-07 09:42] VITALS: BP 116/75; PULSE 80; RESP 20; TEMP 36.6; O2SAT 94
[2023-08-07 10:14] VITALS: PULSE 79; O2SAT 97
[2023-08-07] MEDS: Lidocaine 2% Pres-Free 5 ML VIAL IJ (10:16)
[2023-08-07] MEDS: methylPREDNISolone ACETATE 40 MG/ML VIAL IJ (10:16)
[2023-08-07] MEDS: Nerve Block Tray 1 EACH MC (10:17)
--- NOTE | 2023-08-07 13:22 | PDOC.PAIN_ITS ---
Date of service: 08/07/23 Time of Service: 11:11 Pain Managment Procedure Note Procedure Note Procedure Note: PROCEDURE NOTE BILATERAL INTRA-ARTICULAR KNEE JOINT STEROID INJECTION Date of Service: August 07, 2023 Patient:? Jorge Kim? Provider:? Bo Mora DO, MPH Jorge Kim has been referred to the [facility] for BILATERAL intra-articular knee joint injection. Pre-operative diagnosis: Knee Osteoarthritis Post-operative diagnosis: Same Pre-procedure pain: VAS=8/10 COMMENTS: I previously evaluated him in the office. He could not get on the procedure table, so I did these procedures using the anterior approach with him seated. Jorge?was interviewed and the medical record was reviewed.? There were no medical, pharmacologic, radiographic or other structural contraindications to attempting bilateral intra-articular knee joint injection.? Risks and expected side effects as well as potential benefit of the procedure were reviewed with Jorge, and the patient's voiced concerns were addressed.? The printed consent form was signed.? Standard time-out procedure was performed. Jorge stayed in his wheelchair and the pulse oximeter was applied. The skin entry point for approaching anterior aspect of the knee was identified under the most advantageous fluoroscopic view and marked. Following thorough Chlorhexadine preparation of the skin and draping, 1% lidocaine infiltration of the skin entry point and subcutaneous tissues was accomplished using a 1.5 25G needle. Next, the 1.5 25G needle was advanced posteriorly into the LEFT knee joint. Next, 40 mg Depo-Medrol mixed with 3 mls of 1% Lidocaine was injected into the joint. This was followed with one ml of 1% lidocaine to clear the needle of any steroid. Next the right side was complete in the same exact fashion. There was no unusual discomfort expressed by Jorge. The needle was withdrawn without difficulty. Jorge was observed and was without hemodynamic, neurologic, or allergic reactions.? Jorge's vital signs were stable throughout the procedure and were as recorded in the docflowsheet by the nursing staff. If given, dosages of intravenous drugs for anxiolysis and analgesia were documented in MAR. Follow up plans and appointments were discussed with Jorge.? Post procedure instruction was given as documented in nursing documentation and having met discharge criteria, Jorge [facility]. COMMENTS: No apparent complications. Post-procedure pain: VAS= 3/10. Jorge to contact [facility] as needed. If at least 50% improvement in pain and/or function for at least 3 months is achieved, this procedure can be repeated. I personally completed the entire procedure. BO MORA DO, MPH ABPM&R - Subspecialty board certification in Pain Medicine [facility] [facility]
== END 2023-08-07 09:29 | disposition home or self-care (01) ==
LOC: PC 09:29
PROVIDERS: PCP Family Medicine; Visit Provider Preventive Medicine Occupational Medicine
DX: M17.11 Unilateral primary osteoarthritis, right knee (principal); M17.12 Unilateral primary osteoarthritis, left knee
CPT/HCPCS: 123; 20610; 00123; J1030

== ENCOUNTER → 2023-09-25 14:44 | Outpatient (BNVA) | payer MEDICARE, BC, SELFPAY | PROVIDERS: PCP Family Medicine; Visit Provider Nurse Practitioner Gerontology | DX: N40.1 Benign prostatic hyperplasia with lower urinary tract symptoms (principal); N13.8 Other obstructive and reflux uropathy | CPT/HCPCS: 51798; 99214 ==

== ENCOUNTER 2024-01-19 18:15 | Outpatient (REF) | payer MEDICARE, BC, SELFPAY ==
[2024-01-19 13:40] LABS: Vitamin B12 438 pg/mL (193-986)
== END 2024-01-19 18:16 | disposition home or self-care (01) ==
LOC: LBN 18:15
PROVIDERS: PCP Family Medicine; Visit Provider Nurse Practitioner Family
DX: R27.8 Other lack of coordination (principal); I48.0 Paroxysmal atrial fibrillation
CPT/HCPCS: 82607

== ENCOUNTER 2024-01-27 18:28 | Outpatient (REF) | payer MEDICARE, BC, SELFPAY ==
[2024-01-27 17:13] LABS: Anion Gap 7.1 mmol/L (3-11); BUN 11 mg/dL (7-18); CO2 29.9 mmol/L (21.0-32.0); CREATININE 0.9 mg/dL (0.70-1.30); Calcium 8.5 mg/dL (8.5-10.1); Chloride 105 mmol/L (98-107); Estimated GFR 87.96 (mL/min/1.73m2); Glucose 139 mg/dL (74-106); Potassium 3.9 mmol/L (3.5-5.1); Sodium 142 mmol/L (136-145)
[2024-01-27 18:28] LABS: TSH 1.51 uIU/Ml (0.36-3.74); Vitamin B12 483 pg/mL (193-986)
== END 2024-01-27 18:29 | disposition home or self-care (01) ==
LOC: LBN 18:28
PROVIDERS: PCP Family Medicine; Visit Provider Family Medicine
DX: E03.9 Hypothyroidism, unspecified (principal)
CPT/HCPCS: 80048; 82607; 83036; 84443

== ENCOUNTER → 2024-03-25 14:57 | Outpatient (BNVA) | payer MEDICARE, BC, SELFPAY | PROVIDERS: PCP Family Medicine; Visit Provider Nurse Practitioner Gerontology | DX: N40.1 Benign prostatic hyperplasia with lower urinary tract symptoms (principal); N13.8 Other obstructive and reflux uropathy | CPT/HCPCS: 51798; 99214 ==

== ENCOUNTER 2024-07-23 14:53 | Outpatient (REF) | payer MEDICARE, BC, SELFPAY ==
[2024-07-21 16:04] LABS: HCT 47.2 % (40.0-50.0); MCH 34.9 pg (27.0-33.0); MCHC 33.9 % (32.0-36.0); MCV 103 fL (80-95); MPV 10.3 fL (8.0-11.0); Platelet Count 222 10^3/uL (130-400); RBC 4.59 10^6/uL (4.36-5.78); RDW 11.9 % (11.8-14.1); RDW-SD 45.6 fL; WBC 5.74 10^3/uL (4.4-10.8)
[2024-07-21 16:16] LABS: Hemoglobin A1C 5.8 % (<5.7)
[2024-07-21 16:21] LABS: Anion Gap 5.4 mmol/L (3-11); BUN 10 mg/dL (7-18); CO2 32.6 mmol/L (21.0-32.0); Calcium 8.5 mg/dL (8.5-10.1); Chloride 104 mmol/L (98-107); Estimated GFR 77.04 (mL/min/1.73m2); Glucose 147 mg/dL (74-106); Potassium 3.9 mmol/L (3.5-5.1); Sodium 142 mmol/L (136-145)
== END 2024-07-23 14:54 | disposition home or self-care (01) ==
LOC: LBN 14:53
PROVIDERS: PCP Family Medicine; Visit Provider Family Medicine Geriatric Medicine
DX: E11.9 Type 2 diabetes mellitus without complications (principal); I48.0 Paroxysmal atrial fibrillation
CPT/HCPCS: 80048; 85027; 83036

== ENCOUNTER 2024-08-02 15:41 | Outpatient (REF) | payer MEDICARE, BC, SELFPAY ==
[2024-08-02 16:01] LABS: Abs Immature Grans 0.03 10^3/uL (0.0-0.06); Absolute Basophil Count 0.08 10^3/uL (0.0-0.2); Absolute Eosinophil Count 0.28 10^3/uL (0.0-0.7); Absolute Lymphocyte Count 0.91 10^3/uL (1.2-3.4); Absolute Monocyte Count 0.43 10^3/uL (0.1-0.8); Absolute Neutrophil Count 3.99 10^3/uL (1.2-6.7); Basophils % 1.4 %; Eosinophils % 4.9 %; HCT 47.6 % (40.0-50.0); Immature Grans % 0.5 %; Lymphocytes % 15.9 %; MCH 34.8 pg (27.0-33.0); MCHC 33.6 % (32.0-36.0); MCV 104 fL (80-95); MPV 10.9 fL (8.0-11.0); Monocytes % 7.5 %; Neutrophils % 69.8 %; Platelet Count 239 10^3/uL (130-400); RDW-SD 46.1 fL; WBC 5.72 10^3/uL (4.4-10.8)
[2024-08-02 16:21] LABS: Anion Gap 5.2 mmol/L (3-11); BUN 11 mg/dL (7-18); CO2 32.8 mmol/L (21.0-32.0); CREATININE 0.9 mg/dL (0.70-1.30); Calcium 8.3 mg/dL (8.5-10.1); Chloride 103 mmol/L (98-107); Estimated GFR 87.42 (mL/min/1.73m2); Glucose 133 mg/dL (74-106); NT-proBNP 172 pg/mL (<300); Sodium 141 mmol/L (136-145)
== END 2024-08-02 15:42 | disposition home or self-care (01) ==
LOC: LBN 15:41
PROVIDERS: PCP Family Medicine; Visit Provider Family Medicine Geriatric Medicine
DX: E03.9 Hypothyroidism, unspecified (principal); I48.0 Paroxysmal atrial fibrillation; E11.9 Type 2 diabetes mellitus without complications
CPT/HCPCS: 80048; 83880; 84443; 85025

== ENCOUNTER 2024-09-14 15:43 | Outpatient (REF) | payer MEDICARE, BC, SELFPAY ==
[2024-09-14 16:36] LABS: Bilirubin Negative (Negative); Blood Negative (Negative); Clarity Sl Cloudy (Clear); Glucose Negative (Negative); Ketones Trace mg/dL (Negative); Leukocyte Esterase Negative (Negative); Nitrite Negative (Negative); Urobilinogen 0.2 mg/dL (Up to 0.2)
== END 2024-09-14 15:44 | disposition home or self-care (01) ==
LOC: LBN 15:43
PROVIDERS: PCP Family Medicine; Visit Provider Family Medicine Geriatric Medicine
DX: N40.1 Benign prostatic hyperplasia with lower urinary tract symptoms (principal)
CPT/HCPCS: 81003

== ENCOUNTER → 2025-01-17 12:55 | Outpatient (BNVA) | payer MEDICARE, BC, SELFPAY | PROVIDERS: PCP Family Medicine; Referring Provider Family Medicine; Visit Provider Podiatrist | DX: B35.1 Tinea unguium (principal); L60.3 Nail dystrophy; B35.3 Tinea pedis; G20.C Parkinsonism, unspecified; E11.9 Type 2 diabetes mellitus without complications; R09.89 Other specified symptoms and signs involving the circulatory and respiratory systems; L65.9 Nonscarring hair loss, unspecified; R20.8 Other disturbances of skin sensation; L60.8 Other nail disorders; L60.2 Onychogryphosis; R23.8 Other skin changes; M79.674 Pain in right toe(s); M79.675 Pain in left toe(s) | CPT/HCPCS: 11721 ==

== ENCOUNTER 2025-01-18 22:13 | Emergency (ER) | payer MEDICARE, BC, SELFPAY ==
[2025-01-18] VITALS (15 sets, daily range): BP systolic 162–170; BP diastolic 105–134; PULSE 76–134; RESP 20; TEMP 36.8; O2SAT 92–98
--- NOTE | 2025-01-18 22:15 | DI.CT_ITS ---
Exam(s) CT ABDOMEN PELVIS W EXAM: CT ABDOMEN PELVIS W CLINICAL HISTORY: abdominal pain/distension. TECHNIQUE: Imaging Protocol: Axial computed tomography images with coronal and sagittal reformatted images were created and reviewed CONTRAST MATERIAL: Intravenous: Omnipaque 350 Contrast volume:100 ml Oral: no COMPARISON: CT CT CHEST PE CTA from 01/29/2022 FINDINGS: ABDOMEN and PELVIS: Lung Bases: No acute findings. Basilar atelectasis. Liver: Normal density. No suspicious mass. Gallbladder and biliary tract: There are few tiny stones visible in the dependent portion of the gallbladder.. No wall thickening or pericholecystic fluid. No biliary dilation. Pancreas: Normal density. No abnormal calcifications or inflammatory process. No evidence of mass. Spleen: Normal. Kidneys: Normal size, contour and axis. No radiodense stones. No obstructive uropathy. Simple cyst noted at the upper pole of the left kidney. No suspicious masses seen. Adrenal glands: No masses seen. Vasculature: Abdominal aorta non-dilated. Soft tissues: Dehiscence of the anterior abdominal wall with fat containing hernia is seen above the level of the umbilicus. No cysts abnormal stranding or herniating bowel. Bladder: No gross wall thickening. No calculi.No focal mass. Bowel: Sigmoid anastomosis is unremarkable. Mild sigmoid diverticulosis. No obstruction. No bowel wall thickening. Appendix normal. Moderate to increased quantity of stool. Peritoneal cavity: No ascites. No focal collection. No mesenteric inflammatory response. No free air. Bones: Severe degenerative changes are noted in the lumbar spine. Mild degenerative scoliosis. Reproductive organs: Mildly enlarged prostate. Lymph nodes: No pathologically enlarged lymph nodes. IMPRESSION:: No acute abnormality in the abdomen or pelvis. The preliminary [facility] report was reviewed. RADIATION DOSE DELIVERED: 885.36mGy.cm Total DLP DATA REPOSITORY: All CT scans at this facility are submitted to the National Radiology Data Registry (NRDR) Dose Index Registry (DIR) with the [employer] ([employer]). RADIATION OPTIMIZATION: All CT scans at this facility use at least one of these dose optimization techniques: automated exposure control; mA and/or kV adjustment per patient size (includes targeted exams where dose is matched to clinical indication); or iterative reconstruction.
--- NOTE | 2025-01-18 22:15 | RT.EKG_ITS ---
APPROVED REPORT Exam: Resting ECG Reason for Exam: abd pain Patient Location: E HR:112 bpm ECG Measurements Heart Rate 112 AXIS ID 135 P 0 QRSd 139 QRS 69 QT 356 T -15 QTc 486 Conclusion Sinus tachycardia with irregular rate...V-rate 87-160, variation>10% Right bundle branch block...QRSd>120, terminal axis(90,270) Afib with RVR RBBB unchanged No acute ST changes
--- NOTE | 2025-01-18 22:16 | W.ED.GENAD ---
Discharge Plan Disposition Patient Disposition: Detention Facility(SNF) Condition: Good Discharge Details Clinical Impression: Abdominal pain Primary Care Provider: Iam Sanchez ED Provider: Deon Escobedo Tavernier Meds and New Rx's Prescriptions: Continued melatonin 3 mg tablet 3 mg PO HS PRN budesonide-formoterol [Symbicort] 160-4.5 mcg/actuation HFA aerosol inhaler 2 puff inhalation BID diclofenac sodium 1 % gel 2 g topical DAILY Rx Instructions: apply to single elbow, wrist or hand; for hand includes palm/fingers/back of hand lactase 3,000 unit tablet 3,000 unit PO ONCE Rx Instructions: administer with meals and/or snacks escitalopram oxalate [Lexapro] 20 mg tablet 20 mg PO DAILY diltiazem HCl [Cardizem CD] 180 mg capsule,extended release 24hr 180 mg PO HS escitalopram oxalate [Lexapro] 20 mg tablet 20 mg PO DAILY cholecalciferol (vitamin D3) 1,250 mcg (50,000 unit) capsule 1,250 mcg PO QMONTH diclofenac sodium 1 % gel 4 g topical QID Rx Instructions: apply to single knee, ankle, foot; for foot includes sole/toes/top of foot ketoconazole 2 % cream 1 applic topical DAILY Qty: 120 6RF Rx Instructions: Apply to 1g to skin and toenails once daily pramipexole 0.125 mg tablet 0.5 mg PO QHS levothyroxine 50 mcg capsule 50 mcg PO DAILY Rx Instructions: 50mcg daily, except on day 7 take 2 tabs for a total of 100mcg trazodone 100 mg tablet 50 mg PO QHS PRN ibuprofen [Motrin IB] 200 mg tablet 200 mg PO TID PRN PRN Rx Instructions: PT TAKES PRN mecobalamin (vitamin B12) 1,000 mcg tablet,disintegrating 1,000 mcg SL DAILY Rx Instructions: place tablet under tongue and allow to dissolve for at least30 secs before swallowing levalbuterol HCl [Xopenex] 0.63 mg/3 mL solution for nebulization 0.63 mg inhalation ONCE entacapone [Comtan] 200 mg tablet 200 mg PO TID Rx Instructions: administer at the same time as l-dopa/carbidopa dose tamsulosin [Flomax] 0.4 mg capsule 0.4 mg PO DAILY Qty: 90 3RF acetaminophen 500 mg Tablet 500 mg PO PRN PRN cyanocobalamin (vitamin B-12) 500 mcg Tablet 1,000 mcg PO DAILY aspirin 81 mg Tablet,Chewable 81 mg PO DAILY carbidopa-levodopa 25-100 mg tablet 2 tab PO TID fluticasone propionate 50 mcg/actuation [employer],Suspension 1 spray INTRANASAL DAILY Rx Instructions: administer into each nostril Biofreeze (menthol) 5 % Gel 1 applic TOPICAL PRN PRN Fleet Enema 19-7 gram/118 mL enema 118 ml VA ONCE Rx Instructions: Insert 1 application rectally every 24 hours as needed for constipation. After MOM and Suppository have been administered without results Glucagon Emergency Kit (human) 1 mg recon soln 1 mg subcut Q20M PRN Rx Instructions: until target blood sugar attained dextrose 40 % gel 10 g PO Q15M PRN Rx Instructions: until symptoms of low blood sugar are controlled ipratropium-albuterol 0.5 mg-3 mg(2.5 mg base)/3 mL solution for nebulization 3 ml inhalation Q4H PRN dextromethorphan HBr 15 mg/5 mL syrup 15 mg PO Q4H Rx Instructions: give 15mL by mouth every 4 hours as needed for cough pantoprazole 40 MG tablet,delayed release (DR/EC) 40 mg PO DAILY bisacodyl [Dulcolax (bisacodyl)] 10 mg Suppository 10 mg VA 1XD PRN (Reason: Constipation) magnesium hydroxide 400 mg/5 mL Suspension 30 ml PO 1XD PRN (Reason: Constipation) alum-mag hydroxide-simeth 200-200-20 mg/5 mL Suspension 30 ml PO Q6H PRN PRN (Reason: Abdominal Discomfort) albuterol sulfate 90 mcg/actuation Hfa Aerosol Inhaler 2 puff INHALATION Q6H PRN furosemide [Lasix] 20 mg tablet 20 mg PO DAILY PRN polyethylene glycol 3350 17 gram Powder In Packet 17 g PO DAILY Qty: 0 0RF finasteride 5 mg Tablet 5 mg PO DAILY Qty: 0 0RF Inhaler, Assist Devices [Pocket Chamber] 1 ea miscellaneous DIRECTED Qty: 0 0RF Discharge Instructions Instructions: Abdominal Pain, Adult ED Additional Instructions: You were seen in the ED for abdominal pain. Overall your workup is reassuring. Initially your heart rate was elevated due to your A-fib but has come down to a normal level. Laboratory studies are reassuring and there is no evidence of urinary tract infection. CT scan of your abdomen shows no acute process to explain your abdominal pain. You are improved with some pain medication and IV fluids. Consider follow-up with urology for some urinary retention. Otherwise resume previous medications and care plan as before. Return to ED for fever, chest pain, worsening or new abdominal pain, vomiting, other concerns. HPI General Mode of arrival: EMS. Date/Time Provider Initiated Documentation: 01/18/25 22:16. Limitations to Documentation: no limitations. Information obtained by: patient, RN notes reviewed and old records reviewed. HPI Narrative: Patient presents to ED by ambulance from [facility] with complaint of abdominal pain and distention. Patient has some intermittent nausea but no vomiting. He is passing gas but has been constipated lately. He is status post partial colon resection in the distant past. Pain is generalized and not localized to any one area. Pain does not seem to radiate to the back but does seem to radiate into the chest a little. He has had no fever that he is aware of. He has no urinary symptoms. He was given Tylenol around 9 PM with no change in pain. Sent to ED for evaluation. Related Data Home Medications ?Medication ?Instructions ?Recorded ?Confirmed pantoprazole 40 mg tablet,delayed 40 mg PO DAILY 04/12/13 01/18/25 release ibuprofen 200 mg tablet (Motrin IB) 200 mg PO TID PRN PRN 12/15/19 01/18/25 albuterol sulfate 90 mcg/actuation 2 puff inhalation Q6H PRN 02/16/20 01/18/25 aerosol inhaler mecobalamin (vitamin B12) 1,000 1,000 mcg sublingual DAILY 03/23/20 01/18/25 mcg disintegrating tablet,sublingual levalbuterol HCl 0.63 mg/3 mL 0.63 mg inhalation ONCE 06/30/20 01/18/25 solution for nebulization (Xopenex) pramipexole 0.125 mg tablet 0.5 mg PO QHS 06/30/20 01/18/25 tamsulosin 0.4 mg capsule (Flomax) 0.4 mg PO DAILY #90 caps 12/05/20 01/18/25 Inhaler, Assist Devices [Pocket 1 ea miscellaneous DIRECTED ##0 02/05/22 01/18/25 Chamber] finasteride 5 mg tablet 5 mg PO DAILY #0 tabs 02/05/22 01/18/25 polyethylene glycol 3350 17 gram 17 g PO DAILY #0 ea 02/05/22 01/18/25 oral powder packet aluminum-mag hydroxide-simethicone 30 ml PO Q6H PRN PRN Abdominal 03/30/22 01/18/25 200 mg-200 mg-20 mg/5 mL oral susp Discomfort bisacodyl 10 mg rectal suppository 10 mg VA 1XD PRN Constipation 03/30/22 01/18/25 (Dulcolax (bisacodyl)) magnesium hydroxide 400 mg/5 mL 30 ml PO 1XD PRN Constipation 03/30/22 01/18/25 oral suspension acetaminophen 500 mg tablet 500 mg PO PRN PRN 05/01/22 01/18/25 aspirin 81 mg chewable tablet 81 mg PO DAILY Prophylaxis 05/01/22 01/18/25 carbidopa 25 mg-levodopa 100 mg 2 tab PO TID 05/01/22 01/18/25 tablet cyanocobalamin (vitamin B-12) 500 1,000 mcg PO DAILY 05/01/22 01/18/25 mcg tablet fluticasone propionate 50 1 spray intranasal DAILY 05/01/22 01/18/25 mcg/actuation nasal spray,suspension menthol 5 % topical gel (Biofreeze 1 applic topical PRN PRN 05/01/22 01/18/25 (menthol)) furosemide 20 mg tablet (Lasix) 20 mg PO DAILY PRN 08/13/22 01/18/25 levothyroxine 50 mcg capsule 50 mcg PO DAILY 08/13/22 01/18/25 melatonin 3 mg tablet 3 mg PO HS PRN 08/13/22 01/18/25 trazodone 100 mg tablet 50 mg PO QHS PRN 08/13/22 01/18/25 dextromethorphan HBr 15 mg/5 mL 15 mg PO Q4H 11/14/22 01/18/25 oral syrup dextrose 40 % oral gel 10 g PO Q15M PRN 11/14/22 01/18/25 glucagon 1 mg solution for 1 mg subcut Q20M PRN 11/14/22 01/18/25 injection (Glucagon Emergency Kit) ipratropium 0.5 mg-albuterol 3 mg 3 ml inhalation Q4H PRN 11/14/22 01/18/25 (2.5 mg base)/3 mL nebulization soln sodium phosphates 19 gram-7 118 ml VA ONCE 11/14/22 01/18/25 gram/118 mL enema (Fleet Enema) budesonide-formoterol HFA 160 2 puff inhalation BID 11/27/22 01/18/25 mcg-4.5 mcg/actuation aerosol inhaler (Symbicort) diclofenac sodium 1 % topical gel 2 g topical DAILY 11/27/22 01/18/25 escitalopram oxalate 20 mg tablet 20 mg PO DAILY 03/17/23 01/18/25 (Lexapro) lactase 3,000 unit tablet 3,000 unit PO ONCE 03/17/23 01/18/25 diltiazem HCl 180 mg 180 mg PO HS 04/17/23 01/18/25 capsule,extended release 24 hr (Cardizem CD) escitalopram oxalate 20 mg tablet 20 mg PO DAILY 04/17/23 01/18/25 (Lexapro) entacapone 200 mg tablet (Comtan) 200 mg PO TID 09/25/23 01/18/25 cholecalciferol (vitamin D3) 1,250 1,250 mcg PO QMONTH 01/14/25 01/18/25 mcg (50,000 unit) capsule diclofenac sodium 1 % topical gel 4 g topical QID 01/14/25 01/18/25 ketoconazole 2 % topical cream 1 applic topical DAILY #120 grams 01/17/25 01/18/25 Previous Rx's ?Medication ?Instructions ?Recorded tamsulosin 0.4 mg capsule (Flomax) 0.4 mg PO DAILY #90 caps 12/05/20 Inhaler, Assist Devices [Pocket 1 ea miscellaneous DIRECTED ##0 02/05/22 Chamber] finasteride 5 mg tablet 5 mg PO DAILY #0 tabs 02/05/22 polyethylene glycol 3350 17 gram 17 g PO DAILY #0 ea 02/05/22 oral powder packet ketoconazole 2 % topical cream 1 applic topical DAILY #120 grams 01/17/25 Allergies Allergy/AdvReac Type Severity Reaction Status Date / Time chlorpheniramine (From Allergy Verified 08/07/23 09:32 Histussin HC) dexbrompheniramine (From Allergy Verified 08/07/23 09:32 Histussin HC) hydrocodone (From Histussin Allergy Verified 08/07/23 09:32 HC) phenylephrine (From Allergy Verified 08/07/23 09:32 Histussin HC) General FLORA: 3 Exam Narrative Exam Narrative: Const: Obese elderly male in NAD. VS per triage. HEENT: NC/AT. Normal facial exam. Neck: Supple. Trachea midline. Lungs: Normal respiratory effort. Lungs are clear. Cor: Irr and tachycardic. Good radial pulses. GI: Soft/NT. Distended. Reducible ventral hernia. Neuro: A+O x 3. Normal speech, mentation. Cranial nerves II - XII grossly intact. No gross motor or sensory deficit. Medical Decision Making Patient presenting to ED from [facility] with abdominal pain and distention. Abdomen does seem distended but is nontender to palpation. There is a ventral hernia which is reducible but returns immediately after reducing. He has had previous abdominal surgeries. He has nausea but no vomiting. He reports still passing flatus. Differential includes bowel obstruction, pancreatitis; less likely cholecystitis, appendicitis given lack of tenderness. Does report some radiation of pain to the abdomen but this seems primarily abdominal in nature. Will obtain an EKG and troponin are more important will be abdominal labs and CT of the abdomen pelvis. IV is in place. Fluids started. Morphine given for pain. 00:20 - Patient's EKG shows atrial fibrillation with RVR, right bundle branch block which is old. Patient does have history of A-fib and is on diltiazem but I do not see any anticoagulant. Laboratory studies significant for a normal white count. He appears somewhat hemoconcentrated with a hemoglobin of 17.8 and hematocrit of 57.1. Platelets are normal. Lactic acid is normal at 1.9. VBG normal with pH 7.40 and pCO2 of 51. Chemistries and kidney function are normal. Liver function unremarkable. Lipase normal. Initial troponin normal. Will give another fluid bolus pending CT results and urinalysis. 02:00 - Patient's CT scan per preliminary radiology read with no acute process identified. Patient unable to provide urine sample. Bladder scan shows 400 cc in the bladder. Straight cath was performed. There is no evidence of UTI. Patient reports feeling improved with no pain. His A-fib is rate controlled between 80 and 100 at this time. Will plan discharge back to ECF. Consider referral to urology for workup of urinary retention, though he does have known BPH with LUTS. Return precautions provided. Medical Records Medical records reviewed: Yes I reviewed the patient's medical records. Lab Data Lab results reviewed: Yes I reviewed the patient's lab results. 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) Polyarthritis, unspecified (Acute) Unspecified lack of coordination (Acute) Muscle weakness (generalized) (Acute) Other disorders of peripheral nervous system (Acute) Other disorders of arteries, arterioles and capillaries in diseases classified elsewhere (Acute) Nail dystrophy (Acute) Claustrophobia (Acute) Imbalance (Acute) Dizziness (Acute) Sensorineural hearing loss, bilateral (Acute) Hx of herpes zoster (Acute) Macrocytosis (Acute) Hearing loss (Acute) Arthritis of right wrist (Acute) Cognitive decline (Acute) Vitamin D deficiency (Acute) Chronic anxiety (Acute) Dysequilibrium (Acute) Restless legs (Acute) Vesicocolonic fistula (Acute) Chronic shortness of breath (Acute) per pcp Complete tear of right rotator cuff (Acute ~11/2019) BPH loc w urin obs/LUTS (Acute) Right rotator cuff tendonitis (Acute) Most recent injection: 09/24/2019 Left rotator cuff tear arthropathy (Chronic) Most recent injection: 09/24/2019 Left shoulder tendinitis (Chronic) Primary osteoarthritis of both knees (Chronic) Bilateral Synvisc injections most recently: 01/01/2021; 06/30/2020 Adhesive capsulitis of shoulder (Acute 01/16/14) Medical History Hypothyroidism Aortic regurgitation Paroxysmal atrial fibrillation Parkinson's disease Type 2 diabetes mellitus without complications Personal history of other infectious and parasitic diseases Dysarthria and anarthria Dysphagia, oral phase Rheumatic aortic insufficiency Benign prostatic hyperplasia with lower urinary tract symptoms Generalized anxiety disorder Primary osteoarthritis, right wrist Degenerative joint disease Foot deformity, acquired History of degenerative joint disease Rotator cuff tear Moderate aortic regurgitation Mild memory disturbance Actinic keratosis Erectile dysfunction GERD (gastroesophageal reflux disease) CRYSTAL (obstructive sleep apnea) Allergic rhinitis Right bundle branch block Surgical History History of partial surgical removal of colon History of bladder repair surgery History of hernia repair Family History Father Lung cancer Mother Colon cancer Daughter Lymphoma Social History Smoking/Tobacco Use Status: Former Tobacco Use Smoking risk assessment performed?: Yes Alcohol Intake: never Drug use: Never Substance use type: does not use Household members: spouse Pets and animals: Yes (1) Pets and animals: cat(s) Current gender identity: male Do you feel safe at home: Yes Do you feel safe in your relationship?: Yes
[2025-01-18 22:35] LABS: BE (Venous) 6 mmol/L (-2-3); HCO3 (Venous) 31 mmol/L (23-28); O2 Sat (Venous) 70 %; TCO2 (Venous) 26 mmol/L (24-29); pCO2 (Venous) 51 mmHg (41-51); pO2 (Venous) 37 mmHg
[2025-01-18 22:37] LABS: Abs Immature Grans 0.03 10^3/uL (0.0-0.06); HGB 17.8 g/dL (13.5-17.5); Immature Grans % 0.5 %; MCH 35.6 pg (27.0-33.0); MCHC 31.2 % (32.0-36.0); MCV 114 fL (80-95); MPV 11.1 fL (8.0-11.0); Platelet Count 261 10^3/uL (130-400); RBC 5.00 10^6/uL (4.36-5.78); RDW 11.4 % (11.8-14.1); RDW-SD 48.9 fL; WBC 6.35 10^3/uL (4.4-10.8)
[2025-01-18] MEDS: MORPHine 4 MG/ML SYR IVP (22:37)
[2025-01-18] MEDS: Normal Saline 500 ML IV (22:37)
[2025-01-18 22:46] LABS: HCT 57.1 % (40.0-50.0)
[2025-01-18 22:59] LABS: ALT 13 U/L (16-63); AST 12 U/L (15-37); Albumin 3.7 g/dL (3.4-5.0); Alkaline Phosphatase 113 U/L (46-116); Anion Gap 6.9 mmol/L (3-11); BUN 13 mg/dL (7-18); Bilirubin, Total 0.8 mg/dL (0.2-1.0); CO2 31.1 mmol/L (21.0-32.0); Calcium 8.8 mg/dL (8.5-10.1); Chloride 104 mmol/L (98-107); Estimated GFR 90.58 (mL/min/1.73m2); Glucose 120 mg/dL (74-106); Lipase 28 U/L (<78); Magnesium 2.2 mg/dL (1.8-2.4); Potassium 3.8 mmol/L (3.5-5.1); Sodium 142 mmol/L (136-145); Total Protein 7.3 g/dL (6.4-8.2); Troponin I 5 ng/L (<or=76)
[2025-01-18] MEDS: Omnipaque 350 MG/ML 100 ML BTL IJ (23:10)
[2025-01-18] MEDS: Normal Saline Flush 10 ML SYR IVP (23:11)
[2025-01-18] MEDS: Normal Saline - Diluent 50 ML VIAL IJ (23:12)
[2025-01-19] VITALS (17 sets, daily range): BP systolic 124–194; BP diastolic 79–160; PULSE 78–119; RESP 16–19; TEMP 36.2; O2SAT 92–95
[2025-01-19 00:09] LABS: Troponin I 5 ng/L (<or=76)
--- NOTE | 2025-01-19 00:26 | DI.VRAD_ITS ---
PROCEDURE INFORMATION: Exam: CT Abdomen And Pelvis With Contrast Exam date and time: 01/18/2025 11:18 PM Age: 79 years old Clinical indication: Abdominal pain; Generalized; Prior surgery; Surgery date: 6+ months; Surgery type: Hernia repair, bladder repair; Abd pain, distention TECHNIQUE: Imaging protocol: Computed tomography of the abdomen and pelvis with contrast. Radiation optimization: All CT scans at this facility use at least one of these dose optimization techniques: automated exposure control; mA and/or kV adjustment per patient size (includes targeted exams where dose is matched to clinical indication); or iterative reconstruction. Contrast material: OMNIPAQUE 350; Contrast volume: 100 ml; Contrast route: INTRAVENOUS (IV); COMPARISON: CT ABDOMEN PELVIS W 10/20/2018 9:46 AM FINDINGS: Lungs: Subsegmental atelectasis at the lung bases. Coronary arteries: Coronary artery calcifications. Diaphragm: Mild elevation of the left hemidiaphragm. Liver: Normal. No mass. Gallbladder and biliary ducts: Cholelithiasis. No ductal dilatation. Pancreas: Normal. No ductal dilation. Spleen: Normal. No splenomegaly. Adrenal glands: Normal. No mass. Kidneys and ureters: Kidneys enhance symmetrically. Two left renal cysts, largest measuring 3 cm in the upper pole. No stones or hydronephrosis. Stomach and bowel: Stomach is unremarkable. Small bowel is normal in caliber. Prior sigmoidectomy. Colonic diverticula without diverticulitis. Appendix: Normal appendix. Intraperitoneal space: Unremarkable. No free air. No significant fluid collection. Vasculature: Atherosclerotic aorta without aneurysm. Lymph nodes: Unremarkable. No enlarged lymph nodes. Urinary bladder: Unremarkable as visualized. Reproductive: Calcifications in parenchyma of the normal size prostate. Bones/joints: Degenerative changes throughout the spine and mild S shaped scoliosis.. No acute fracture. Soft tissues: At least 3 small fat containing supraumbilical hernias without evidence of incarceration. IMPRESSION: No acute findings. Cholelithiasis. Colonic diverticulosis. Dictated and Authenticated by: Judith Herman MD. Orderin Gregg Chavarria MD
[2025-01-19 01:49] LABS: Glucose Negative (Negative)
[2025-01-19 01:55] LABS: C & S Indicated? No; WBC 0-2 HPF (0-5)
[2025-01-19] MEDS: Normal Saline 500 ML IV (02:36)
--- NOTE | 2025-01-19 05:38 | NUR.NOTE ---
Pt called and requested to use urinal, Brief was already partially soaked in urine that appeared to have blood in it. Do urinate 50ml in urinal as well that was bloody and had clots. Pt was straight cathed earlier and there was blood in urine at that time.
== END 2025-01-19 09:46 | disposition skilled nursing facility (03) ==
PROVIDERS: Emergency Provider Emergency Medicine; PCP Family Medicine
DX: R10.30 Lower abdominal pain, unspecified (principal); R11.0 Nausea; R14.0 Abdominal distension (gaseous); R60.0 Localized edema; Z91.81 History of falling
CPT/HCPCS: 99284; 99285; 96374; 51701; 36415; 80053; 82805; 83690; 93005; 96361; 74177; 81003; 81015; 83605; 83735; 84484; 85025; 93010; J2270; J3490

== ENCOUNTER 2025-01-19 21:35 | Outpatient (REF) | payer MEDICARE, BC, SELFPAY ==
[2025-01-19 19:19] LABS: Glucose 100 mg/dL (Negative)
[2025-01-19 19:23] LABS: RBC >50 HPF (0-2)
== END 2025-01-19 21:36 | disposition home or self-care (01) ==
LOC: LBN 21:35
PROVIDERS: PCP Family Medicine; Visit Provider Family Medicine
DX: N40.1 Benign prostatic hyperplasia with lower urinary tract symptoms (principal)
CPT/HCPCS: 81003; 81015; 87086

== ENCOUNTER 2025-01-22 09:10 | Inpatient (IN) | payer MEDICARE, BC, SELFPAY ==
[2025-01-22] VITALS (23 sets, daily range): BP systolic 93–175; BP diastolic 47–147; PULSE 88–116; RESP 20–32; TEMP 36.5–36.9; O2SAT 89–98
--- NOTE | 2025-01-22 08:30 | RT.EKG_ITS ---
APPROVED REPORT Exam: Resting ECG Reason for Exam: Chest tightness Patient Location: E HR:94 bpm ECG Measurements Heart Rate 94 AXIS NJ [id number] P [id number] QRSd 147 QRS 15 QT 384 T -27 QTc 482 Conclusion Atrial fibrillation, rate 94 RBBB Otherwise no significant interval abnormalities No STEMI Compared to priors, rate has decreased
--- NOTE | 2025-01-22 09:15 | DI.RAD_ITS ---
Exam(s) XR CHEST 2V PA LATERAL EXAM: XR CHEST 2V PA LATERAL CLINICAL HISTORY: SOB, cough, hx RAD. TECHNIQUE: 2D digital imaging was performed. COMPARISON: CR XR CHEST 2V PA LATERAL from 10/17/[address] ABDOMEN PELVIS W from 01/18/2025 FINDINGS: 2 views: Heart size is normal. The mediastinum is not widened. There is atelectasis in both lung bases. Cannot exclude mild infiltrates in addition to the atelectasis. There are no obvious pleural effusions. IMPRESSION: Bibasilar platelike atelectasis and possible mild infiltrate in the lung bases. No pleural effusions. No pulmonary edema DATA REPOSITORY: RADIATION DOSE DELIVERED:
--- NOTE | 2025-01-22 09:19 | W.ED.GENAD ---
Discharge Plan Disposition Patient Disposition: Admit to [facility] Condition: Stable Discharge Details Clinical Impression: Exacerbation of RAD (reactive airway disease) Primary Care Provider: Iam Sanchez ED Provider: Loida Ruano Home Meds and New Rx's Prescriptions: No Action melatonin 3 mg tablet 3 mg PO HS PRN budesonide-formoterol [Symbicort] 160-4.5 mcg/actuation HFA aerosol inhaler 2 puff inhalation BID diclofenac sodium 1 % gel 2 g topical DAILY Rx Instructions: apply to single elbow, wrist or hand; for hand includes palm/fingers/back of hand lactase 3,000 unit tablet 3,000 unit PO ONCE Rx Instructions: administer with meals and/or snacks escitalopram oxalate [Lexapro] 20 mg tablet 20 mg PO DAILY diltiazem HCl [Cardizem CD] 180 mg capsule,extended release 24hr 180 mg PO HS escitalopram oxalate [Lexapro] 20 mg tablet 20 mg PO DAILY cholecalciferol (vitamin D3) 1,250 mcg (50,000 unit) capsule 50,000 unit PO DAILY diclofenac sodium 1 % gel 4 g topical QID Rx Instructions: apply to single knee, ankle, foot; for foot includes sole/toes/top of foot ketoconazole 2 % cream 1 applic topical DAILY Qty: 120 6RF Rx Instructions: Apply to 1g to skin and toenails once daily pramipexole 0.125 mg tablet 0.5 mg PO QHS levothyroxine 50 mcg capsule 50 mcg PO DAILY Rx Instructions: 50mcg daily, except on day 7 take 2 tabs for a total of 100mcg trazodone 100 mg tablet 50 mg PO QHS PRN ibuprofen [Motrin IB] 200 mg tablet 200 mg PO TID PRN PRN Rx Instructions: PT TAKES PRN mecobalamin (vitamin B12) 1,000 mcg tablet,disintegrating 1,000 mcg SL DAILY Rx Instructions: place tablet under tongue and allow to dissolve for at least30 secs before swallowing levalbuterol HCl [Xopenex] 0.63 mg/3 mL solution for nebulization 0.63 mg inhalation ONCE entacapone [Comtan] 200 mg tablet 200 mg PO TID Rx Instructions: administer at the same time as l-dopa/carbidopa dose tamsulosin [Flomax] 0.4 mg capsule 0.4 mg PO DAILY Qty: 90 3RF acetaminophen 500 mg Tablet 500 mg PO PRN PRN cyanocobalamin (vitamin B-12) 500 mcg Tablet 1,000 mcg PO DAILY aspirin 81 mg Tablet,Chewable 81 mg PO DAILY carbidopa-levodopa 25-100 mg tablet 2 tab PO TID fluticasone propionate 50 mcg/actuation [place],Suspension 1 spray INTRANASAL DAILY Rx Instructions: administer into each nostril Biofreeze (menthol) 5 % Gel 1 applic TOPICAL PRN PRN Fleet Enema 19-7 gram/118 mL enema 118 ml [place] ONCE Rx Instructions: Insert 1 application rectally every 24 hours as needed for constipation. After MOM and Suppository have been administered without results Glucagon Emergency Kit (human) 1 mg recon soln 1 mg subcut Q20M PRN Rx Instructions: until target blood sugar attained dextrose 40 % gel 10 g PO Q15M PRN Rx Instructions: until symptoms of low blood sugar are controlled ipratropium-albuterol 0.5 mg-3 mg(2.5 mg base)/3 mL solution for nebulization 3 ml inhalation Q4H PRN dextromethorphan HBr 15 mg/5 mL syrup 15 mg PO Q4H Rx Instructions: give 15mL by mouth every 4 hours as needed for cough pantoprazole 40 MG tablet,delayed release (DR/EC) 40 mg PO DAILY bisacodyl [Dulcolax (bisacodyl)] 10 mg Suppository 10 mg [place] 1XD PRN (Reason: Constipation) magnesium hydroxide 400 mg/5 mL Suspension 30 ml PO 1XD PRN (Reason: Constipation) alum-mag hydroxide-simeth 200-200-20 mg/5 mL Suspension 30 ml PO Q6H PRN PRN (Reason: Abdominal Discomfort) albuterol sulfate 90 mcg/actuation Hfa Aerosol Inhaler 2 puff INHALATION Q6H PRN furosemide [Lasix] 20 mg tablet 20 mg PO DAILY PRN polyethylene glycol 3350 17 gram Powder In Packet 17 g PO DAILY Qty: 0 0RF finasteride 5 mg Tablet 5 mg PO DAILY Qty: 0 0RF Inhaler, Assist Devices [Pocket Chamber] 1 ea miscellaneous DIRECTED Qty: 0 0RF carbidopa-levodopa 50-200 mg tablet extended release 1 tab PO HS entacapone 200 mg tablet 200 mg PO TID Rx Instructions: administer at the same time as l-dopa/carbidopa dose carbidopa-levodopa 25-250 mg tablet 1 tab PO TID levothyroxine 75 mcg tablet 75 mcg PO DAILY sulfamethoxazole-trimethoprim [Bactrim DS] 800-160 mg tablet 1 tab PO BID Patient Comments: UTI; 1 tablet BID for 14 days. Last dose 02/02/2025 diclofenac sodium [Arthritis Pain (diclofenac)] 1 % gel 4 g topical QID Rx Instructions: apply to single knee, ankle, foot; for foot includes sole/toes/top of foot pantoprazole [Protonix] [address] for susp in packet 40 mg PO DAILY polyethylene glycol 3350 [ClearLax] 17 gram/dose powder 17 g PO DAILY venlafaxine 150 mg capsule,extended release 24hr 150 mg PO DAILY albuterol sulfate [Ventolin HFA] 90 mcg/actuation HFA aerosol inhaler 2 inh inhalation Q6H PRN HPI General Mode of arrival: EMS. Date/Time Provider Initiated Documentation: 01/22/25 09:17. Limitations to Documentation: no limitations. Information obtained by: patient, EMS and old records reviewed. 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 The patient reports that last night his work of breathing increased significantly, he has had a cough that intermittently produces white to yellow sputum. States that he has not noted any chest pain, fever, hemoptysis. He is currently taking Bactrim for UTI, states that he is still producing urine but has had some hematuria, his rehab facility reports that on he had some slight altered mental status but that has now resolved and he is currently at his baseline. EMS arrived and found the patient to be 89% on room air, he does not typically wear oxygen. He was noted to have diffuse expiratory wheezes and was given a duo nebulizer treatment, an albuterol nebulizer, and 125 mg of Solu-Medrol. The patient reports that these did not improve his symptoms. He states that he has not had any of his inhalers for the last few years, states that he has never required BiPAP or intubation, and is a DNR/DNI. He reports that he has a history of atrial fibrillation, does not take anticoagulation. Related Data Home Medications ?Medication ?Instructions ?Recorded ?Confirmed pantoprazole 40 mg tablet,delayed 40 mg PO DAILY 04/12/13 01/22/25 release ibuprofen 200 mg tablet (Motrin IB) 200 mg PO TID PRN PRN 12/15/19 01/18/25 albuterol sulfate 90 mcg/actuation 2 puff inhalation Q6H PRN 02/16/20 01/18/25 aerosol inhaler mecobalamin (vitamin B12) 1,000 1,000 mcg sublingual DAILY 03/23/20 01/18/25 mcg disintegrating tablet,sublingual levalbuterol HCl 0.63 mg/3 mL 0.63 mg inhalation ONCE 06/30/20 01/18/25 solution for nebulization (Xopenex) pramipexole 0.125 mg tablet 0.5 mg PO QHS 06/30/20 01/18/25 tamsulosin 0.4 mg capsule (Flomax) 0.4 mg PO DAILY #90 caps 12/05/20 01/22/25 Inhaler, Assist Devices [Pocket 1 ea miscellaneous DIRECTED ##0 02/05/22 01/18/25 Chamber] finasteride 5 mg tablet 5 mg PO DAILY #0 tabs 02/05/22 01/22/25 polyethylene glycol 3350 17 gram 17 g PO DAILY #0 ea 02/05/22 01/18/25 oral powder packet aluminum-mag hydroxide-simethicone 30 ml PO Q6H PRN PRN Abdominal 03/30/22 01/18/25 200 mg-200 mg-20 mg/5 mL oral susp Discomfort bisacodyl 10 mg rectal suppository 10 mg [place] 1XD PRN Constipation 03/30/22 01/22/25 (Dulcolax (bisacodyl)) magnesium hydroxide 400 mg/5 mL 30 ml PO 1XD PRN Constipation 03/30/22 01/22/25 oral suspension acetaminophen 500 mg tablet 500 mg PO PRN PRN 05/01/22 01/22/25 aspirin 81 mg chewable tablet 81 mg PO DAILY Prophylaxis 05/01/22 01/22/25 carbidopa 25 mg-levodopa 100 mg 2 tab PO TID 05/01/22 01/18/25 tablet cyanocobalamin (vitamin B-12) 500 1,000 mcg PO DAILY 05/01/22 01/18/25 mcg tablet fluticasone propionate 50 1 spray intranasal DAILY 05/01/22 01/18/25 mcg/actuation nasal spray,suspension menthol 5 % topical gel (Biofreeze 1 applic topical PRN PRN 05/01/22 01/18/25 (menthol)) furosemide 20 mg tablet (Lasix) 20 mg PO DAILY PRN 08/13/22 01/22/25 levothyroxine 50 mcg capsule 50 mcg PO DAILY 08/13/22 01/18/25 melatonin 3 mg tablet 3 mg PO HS PRN 08/13/22 01/22/25 trazodone 100 mg tablet 50 mg PO QHS PRN 08/13/22 01/22/25 dextromethorphan HBr 15 mg/5 mL 15 mg PO Q4H 11/14/22 01/18/25 oral syrup dextrose 40 % oral gel 10 g PO Q15M PRN 11/14/22 01/18/25 glucagon 1 mg solution for 1 mg subcut Q20M PRN 11/14/22 01/22/25 injection (Glucagon Emergency Kit) ipratropium 0.5 mg-albuterol 3 mg 3 ml inhalation Q4H PRN 11/14/22 01/18/25 (2.5 mg base)/3 mL nebulization soln sodium phosphates 19 gram-7 118 ml [place] ONCE 11/14/22 01/18/25 gram/118 mL enema (Fleet Enema) budesonide-formoterol HFA 160 2 puff inhalation BID 11/27/22 01/22/25 mcg-4.5 mcg/actuation aerosol inhaler (Symbicort) diclofenac sodium 1 % topical gel 2 g topical DAILY 11/27/22 01/18/25 escitalopram oxalate 20 mg tablet 20 mg PO DAILY 03/17/23 01/22/25 (Lexapro) lactase 3,000 unit tablet 3,000 unit PO ONCE 03/17/23 01/22/25 diltiazem HCl 180 mg 180 mg PO HS 04/17/23 01/22/25 capsule,extended release 24 hr (Cardizem CD) escitalopram oxalate 20 mg tablet 20 mg PO DAILY 04/17/23 01/18/25 (Lexapro) entacapone 200 mg tablet (Comtan) 200 mg PO TID 09/25/23 01/18/25 cholecalciferol (vitamin D3) 1,250 50,000 unit PO DAILY 01/14/25 01/22/25 mcg (50,000 unit) capsule diclofenac sodium 1 % topical gel 4 g topical QID 01/14/25 01/18/25 ketoconazole 2 % topical cream 1 applic topical DAILY #120 grams 01/17/25 01/22/25 albuterol sulfate 90 mcg/actuation 2 inh inhalation Q6H PRN 01/22/25 01/22/25 aerosol inhaler (Ventolin HFA) carbidopa 25 mg-levodopa 250 mg 1 tab PO TID 01/22/25 01/22/25 tablet carbidopa ER 50 mg-levodopa 200 mg 1 tab PO HS 01/22/25 01/22/25 tablet,extended release diclofenac sodium 1 % topical gel 4 g topical QID 01/22/25 01/22/25 (Arthritis Pain (diclofenac)) entacapone 200 mg tablet 200 mg PO TID 01/22/25 01/22/25 levothyroxine 75 mcg tablet 75 mcg PO DAILY 01/22/25 01/22/25 pantoprazole 40 mg granules 40 mg PO DAILY 01/22/25 delayed-release for susp in packet (Protonix) polyethylene glycol 3350 17 17 g PO DAILY 01/22/25 01/22/25 gram/dose oral powder (ClearLax) sulfamethoxazole 800 1 tab PO BID 01/22/25 01/22/25 mg-trimethoprim 160 mg tablet (Bactrim DS) venlafaxine 150 mg 150 mg PO DAILY 01/22/25 01/22/25 capsule,extended release 24 hr Previous Rx's ?Medication ?Instructions ?Recorded tamsulosin 0.4 mg capsule (Flomax) 0.4 mg PO DAILY #90 caps 12/05/20 Inhaler, Assist Devices [Pocket 1 ea miscellaneous DIRECTED ##0 02/05/22 Chamber] finasteride 5 mg tablet 5 mg PO DAILY #0 tabs 02/05/22 polyethylene glycol 3350 17 gram 17 g PO DAILY #0 ea 02/05/22 oral powder packet ketoconazole 2 % topical cream 1 applic topical DAILY #120 grams 01/17/25 Allergies Allergy/AdvReac Type Severity Reaction Status Date / Time chlorpheniramine (From Allergy Verified 08/07/23 09:32 Histussin HC) dexbrompheniramine (From Allergy Verified 08/07/23 09:32 Histussin HC) hydrocodone (From Histussin Allergy Verified 08/07/23 09:32 HC) phenylephrine (From Allergy Verified 08/07/23 09:32 Histussin HC) General Stated Complaint: SOB FLORA: 3 Exam Narrative Exam Narrative: Gen: Awake and alert, in no apparent distress HEENT: Non-icteric sclera Neck: Supple Lungs: The patient appears to be in moderate respiratory distress with tachypnea, diffuse wheezing appreciated throughout all lung mir, heart with irregularly irregular CV: Appears well perfused rhythm, borderline tachycardic rate in the 90s to 100s, strong distal pulses Abdomen: Non-distended, soft, nontender, umbilical hernia present and easily reducible MSK: Moves 4 extremities without apparent limitation in ROM. The patient has trace bilateral peripheral edema to the lower extremities Skin: Visualized skin without rashes, cyanosis. Neuro: No obvious focal deficits or facial asymmetry. Speaks in full, clear sentences. Psych: Appropriate for situation. Course Vital Signs Vital signs: Vital Signs Pulse 116 H 01/22/25 09:11 Respiratory Rate 30 H 01/22/25 09:11 Blood Pressure 111/69 01/22/25 09:11 Pulse Oximetry 98 01/22/25 09:11 Pulse 116 H 01/22/25 09:11 Respiratory Rate 30 H 01/22/25 09:11 Blood Pressure 111/69 01/22/25 09:11 Pulse Oximetry 98 01/22/25 09:11 Oxygen Delivery Method Aerosol Mask 01/22/25 09:11 Oxygen Flow Rate 5 01/22/25 09:11 Medical Decision Making This is a 79-year-old male patient presenting for evaluation of shortness of breath. My differential includes but is not limited to reactive airway disease exacerbation, certainly considered infectious pathology including URI, bronchitis, pneumonia. Considered CHF and fluid overload pathologies including pulmonary edema, pleural effusion. Exam less consistent with pneumothorax, I considered pulmonary embolism though the patient's diffuse wheezing makes this a less likely diagnosis. I certainly considered hypoventilation due to the patient's neuromuscular weakness, anemia, metabolic and electrolyte derangements, kidney injury. We will provide the patient with a duo nebulizer treatment, magnesium 2 g for bronchoconstriction, and will obtain an EKG. I will obtain a chest x-ray as well as laboratory studies to include CBC, CMP, magnesium, troponin, and BNP. - I reviewed the patient's EKG, which shows an atrial fibrillation with a controlled ventricular rate, a right bundle branch block that is unchanged from priors, and no evidence of acute ischemia. - I reviewed the patient's laboratory studies, which show a leukocytosis to 14 but no anemia or thrombocytopenia. The patient has no significant electrolyte derangements other than a slightly low calcium to 8.2, no evidence of kidney dysfunction, bilirubin slightly elevated 1.4 but otherwise no liver enzyme abnormalities. Troponin is negative, BNP is very modestly elevated to 500. Chest x-ray reviewed by myself, showing bibasilar atelectasis which per radiology cannot exclude pneumonia. In the setting of his shortness of breath and exacerbation of reactive airway disease, as well as his leukocytosis and sputum change I feel it is reasonable to treat him for infection and provided him with a dose of ceftriaxone and azithromycin. His oxygenation has improved but his tachypnea remains quite concerning, and for this reason I reached out to our hospitalist who is graciously accepted him for admission. The patient remained hemodynamically improved while under my care was transferred to the hospital service without incident. Loida Ruano MD [facility] All Active Problems (Updated 01/22/25 @ 11:06 by Loida Ruano MD) Exacerbation of RAD (reactive airway disease) (Acute) Abdominal pain (Acute) At risk for falling (Acute) Insomnia, unspecified (Acute) Other symbolic dysfunctions (Acute) Localized edema (Acute) Tinea pedis (Acute) Dystrophia unguium (Acute) Onychomycosis (Acute) Knee osteoarthritis (Acute) Reactive airway disease (Acute) 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) Polyarthritis, unspecified (Acute) Unspecified lack of coordination (Acute) Muscle weakness (generalized) (Acute) Other disorders of peripheral nervous system (Acute) Other disorders of arteries, arterioles and capillaries in diseases classified elsewhere (Acute) Nail dystrophy (Acute) Claustrophobia (Acute) Imbalance (Acute) Dizziness (Acute) Sensorineural hearing loss, bilateral (Acute) Hx of herpes zoster (Acute) Macrocytosis (Acute) Hearing loss (Acute) Arthritis of right wrist (Acute) Cognitive decline (Acute) Vitamin D deficiency (Acute) Chronic anxiety (Acute) Dysequilibrium (Acute) Restless legs (Acute) Vesicocolonic fistula (Acute) Chronic shortness of breath (Acute) per pcp Complete tear of right rotator cuff (Acute ~11/2019) BPH loc w urin obs/LUTS (Acute) Right rotator cuff tendonitis (Acute) Most recent injection: 09/24/2019 Left rotator cuff tear arthropathy (Chronic) Most recent injection: 09/24/2019 Left shoulder tendinitis (Chronic) Primary osteoarthritis of both knees (Chronic) Bilateral Synvisc injections most recently: 01/01/2021; 06/30/2020 Adhesive capsulitis of shoulder (Acute 08/05/13) Medical History Hypothyroidism Aortic regurgitation Paroxysmal atrial fibrillation Parkinson's disease Type 2 diabetes mellitus without complications Personal history of other infectious and parasitic diseases Dysarthria and anarthria Dysphagia, oral phase Rheumatic aortic insufficiency Benign prostatic hyperplasia with lower urinary tract symptoms Generalized anxiety disorder Primary osteoarthritis, right wrist Degenerative joint disease Foot deformity, acquired History of degenerative joint disease Rotator cuff tear Moderate aortic regurgitation Mild memory disturbance Actinic keratosis Erectile dysfunction GERD (gastroesophageal reflux disease) CRYSTAL (obstructive sleep apnea) Allergic rhinitis Right bundle branch block Surgical History History of partial surgical removal of colon History of bladder repair surgery History of hernia repair Family History Father Lung cancer Mother Colon cancer Daughter Lymphoma Social History Smoking/Tobacco Use Status: Former Tobacco Use Smoking risk assessment performed?: Yes Alcohol Intake: never Drug use: Never Substance use type: does not use Household members: spouse Pets and animals: Yes (1) Pets and animals: cat(s) Current gender identity: male Do you feel safe at home: Yes Do you feel safe in your relationship?: Yes
[2025-01-22 09:27] LABS: Abs Immature Grans 0.08 10^3/uL (0.0-0.06); HCT 44.0 % (40.0-50.0); HGB 14.9 g/dL (13.5-17.5); Immature Grans % 0.6 %; MCH 34.7 pg (27.0-33.0); MCHC 33.9 % (32.0-36.0); MCV 103 fL (80-95); MPV 10.0 fL (8.0-11.0); Platelet Count 230 10^3/uL (130-400); RBC 4.29 10^6/uL (4.36-5.78); RDW 12.5 % (11.8-14.1); RDW-SD 47.1 fL; WBC 14.48 10^3/uL (4.4-10.8)
[2025-01-22] MEDS: MAGNESIUM SULFATE 2 GM/50 ML BAG IV_INF (09:27)
[2025-01-22] MEDS: Albuterol/Ipratropium 3 ML UPD VIAL UPD (09:28)
[2025-01-22 09:50] LABS: ALT 8 U/L (16-63); AST 14 U/L (15-37); Albumin 2.9 g/dL (3.4-5.0); Alkaline Phosphatase 84 U/L (46-116); Anion Gap 8.4 mmol/L (3-11); BUN 14 mg/dL (7-18); Bilirubin, Total 1.4 mg/dL (0.2-1.0); CO2 28.6 mmol/L (21.0-32.0); Calcium 8.2 mg/dL (8.5-10.1); Chloride 101 mmol/L (98-107); Estimated GFR 90.58 (mL/min/1.73m2); Glucose 162 mg/dL (74-106); Magnesium 1.9 mg/dL (1.8-2.4); NT-proBNP 553 pg/mL (<300); Potassium 3.7 mmol/L (3.5-5.1); Sodium 138 mmol/L (136-145); Total Protein 6.5 g/dL (6.4-8.2); Troponin I 4 ng/L (<or=76)
--- NOTE | 2025-01-22 10:27 | DI.VRAD_ITS ---
PROCEDURE INFORMATION: Exam: XR Chest Exam date and time: 01/22/2025 10:15 AM Age: 79 years old Clinical indication: Other: SOB, cough, HX rad TECHNIQUE: Imaging protocol: Radiologic exam of the chest. Views: 2 views. COMPARISON: CR XR CHEST 2V PA LATERAL 10/17/2022 12:07 PM FINDINGS: Lungs: Low lung volumes. Bibasilar opacities. Pleural spaces: No large pleural effusion seen. Heart/Mediastinum: No cardiomegaly. Bones/joints: No acute abnormality. IMPRESSION: Bibasilar opacities, likely atelectasis. Pneumonia considered less likely but not excluded. Follow-up if clinically warranted. Dictated and Authenticated by: Gretchen Winston MD. Orderin St. Isaak Mariscal MD
[2025-01-22 11:20] LABS: Troponin I 4 ng/L (<or=76)
--- NOTE | 2025-01-22 11:35 | W.PM.HP.N ---
Date of service: 01/22/25 Time of Service: 11:36 Assessment and Plan Assessment and plan (1) Sepsis: Status: Acute Assessment and plan: Meets criteria with elevated RR, HR, WBC. Lungs are apparent source Send cultures, lactate, procal, give a liter of LR to start, and start cefepime/vanco while cultures pending. If is is not improving consider repeat CT A/P (2) Pneumonia: Status: Acute Assessment and plan: Likely source, though CXR not totally clear. New hypoxia and symptoms are c/w respiratory source. Abx as above. (3) Hypothyroidism: Assessment and plan: Unclear home dose (two on med list) try to clarify. recent TSH at goal (4) Type 2 diabetes mellitus without complications: Assessment and plan: Has been in remission with pre-DM levels without medication. Monitor on steroids, use insulin if needed. (5) BPH loc w urin obs/LUTS: Status: Acute Assessment and plan: continue tamsulosin. Suggestion of retention on recent CT, get post-void (6) Parkinson's disease: Assessment and plan: With associated autonomic dysfunction, now wheelchair bound. Clarify his home meds and continue. (7) CRYSTAL (obstructive sleep apnea): Assessment and plan: CPAP at night if tolerates. (8) Atrial fibrillation: Assessment and plan: On EKG, which has been noted in the past. Rate borderline, with acute illness I don't think he needs rate control now. He is not anticoagulated. enoxaparin for DVT prophylaxis for now History of Present Illness History of Present Illness Chief Complaint: short of breath Narrative: 79 yo M who is wheelchair-bound and at SNF with parkinsons with some cognitive impairment, chronic shortness of breath with negative pulmonology work up, BPH, and anxiety who presented to the ED sent from [facility] for shortness of breath. Started feeling more short of breath last night. Some cough and sputum starting then, not getting cough right now. He has not noted fever or URI symptoms. He feels exhausted and did not eat breakfast this morning due to lack of appetite and SOB. Per EMS he was 89% on room air on initial evaluation. Of note he was evaluated for abdominal pain in the ED on 01/18. He had a CT A/P and felt better after fluids and a dose of morphine. He was not prescribed antibiotics, but per SNF notes and patient he is being treat for UTI with bactrim. He does not have dysuria or hematuria now that he has noticed, no major change in urination. He doesn't have abdominal pain now but does say his abdomen has been more bloated recently. Of notes has bandages on toes from some bleeding after toenails cut 01/17 Review of Systems All systems reviewed & are unremarkable except as noted in HPI and below Constitutional Constitutional: Reports weight gain (slow over 2 years, doesn't walk any more) Cardiovascular Cardiovascular: Reports leg edema (chronic, no change) and Reports orthopnea Integumentary/Breasts Skin/Breast: Reports nail changes (no current pain, just worked on by podiatry) and Reports skin ulcer (sacral bed sores not new, no pain) PFSH All Active Problems (Updated 01/22/25 @ 12:08 by Christian Benavides) Pneumonia (Acute) Sepsis (Acute) Exacerbation of RAD (reactive airway disease) (Acute) Abdominal pain (Acute) Tinea pedis (Acute) Dystrophia unguium (Acute) Onychomycosis (Acute) Knee osteoarthritis (Acute) Reactive airway disease (Acute) 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) Localized edema (Acute) Other symbolic dysfunctions (Acute) Insomnia, unspecified (Acute) Polyarthritis, unspecified (Acute) Unspecified lack of coordination (Acute) Muscle weakness (generalized) (Acute) Other disorders of peripheral nervous system (Acute) Other disorders of arteries, arterioles and capillaries in diseases classified elsewhere (Acute) Nail dystrophy (Acute) Claustrophobia (Acute) Imbalance (Acute) Dizziness (Acute) Sensorineural hearing loss, bilateral (Acute) Hx of herpes zoster (Acute) Macrocytosis (Acute) Hearing loss (Acute) Arthritis of right wrist (Acute) At risk for falling (Acute) Cognitive decline (Acute) Vitamin D deficiency (Acute) Chronic anxiety (Acute) Dysequilibrium (Acute) Restless legs (Acute) Vesicocolonic fistula (Acute) Chronic shortness of breath (Acute) per pcp Complete tear of right rotator cuff (Acute ~11/2019) Right rotator cuff tendonitis (Acute) Most recent injection: 09/24/2019 Left rotator cuff tear arthropathy (Chronic) Most recent injection: 09/24/2019 BPH loc w urin obs/LUTS (Acute) Left shoulder tendinitis (Chronic) Primary osteoarthritis of both knees (Chronic) Bilateral Synvisc injections most recently: 01/01/2021; 06/30/2020 Adhesive capsulitis of shoulder (Acute 08/05/13) Medical History (Updated 01/22/25 @ 12:08 by Christian Benavides) Atrial fibrillation Personal history of other infectious and parasitic diseases Dysarthria and anarthria Dysphagia, oral phase Rheumatic aortic insufficiency Benign prostatic hyperplasia with lower urinary tract symptoms Generalized anxiety disorder Primary osteoarthritis, right wrist Type 2 diabetes mellitus without complications Parkinson's disease Degenerative joint disease Foot deformity, acquired History of degenerative joint disease Rotator cuff tear Moderate aortic regurgitation Mild memory disturbance Actinic keratosis Paroxysmal atrial fibrillation Aortic regurgitation Erectile dysfunction Hypothyroidism GERD (gastroesophageal reflux disease) CRYSTAL (obstructive sleep apnea) Allergic rhinitis Right bundle branch block Surgical History History of partial surgical removal of colon History of bladder repair surgery History of hernia repair Family History Father Lung cancer Mother Colon cancer Daughter Lymphoma Social History (Updated 01/22/25 @ 11:49 by Christian Benavides) Smoking/Tobacco Use Status: Former Tobacco Use Smoking risk assessment performed?: Yes Alcohol Intake: never Drug use: Never Substance use type: does not use Household members: spouse Pets and animals: Yes (1) Pets and animals: cat(s) Current gender identity: male Do you feel safe at home: Yes Do you feel safe in your relationship?: Yes Additional Social history: Lives at [facility], in the same room Meds Allergies and Home Medications Allergies Allergy/AdvReac Type Severity Reaction Status Date / Time chlorpheniramine (From Allergy Verified 08/07/23 09:32 Histussin HC) dexbrompheniramine (From Allergy Verified 08/07/23 09:32 Histussin HC) hydrocodone (From Histussin Allergy Verified 08/07/23 09:32 HC) phenylephrine (From Allergy Verified 08/07/23 09:32 Histussin HC) Home Medications ?Medication ?Instructions ?Recorded ?Confirmed ?Type pantoprazole 40 mg tablet,delayed 40 mg PO DAILY 04/12/13 01/22/25 History release ibuprofen 200 mg tablet (Motrin IB) 200 mg PO TID PRN PRN 12/15/19 01/18/25 History mecobalamin (vitamin B12) 1,000 1,000 mcg sublingual DAILY 03/23/20 01/18/25 History mcg disintegrating tablet,sublingual levalbuterol HCl 0.63 mg/3 mL 0.63 mg inhalation ONCE 06/30/20 01/18/25 History solution for nebulization (Xopenex) pramipexole 0.125 mg tablet 0.5 mg PO QHS 06/30/20 01/18/25 History tamsulosin 0.4 mg capsule (Flomax) 0.4 mg PO DAILY #90 caps 12/05/20 01/22/25 Rx Inhaler, Assist Devices [Pocket 1 ea miscellaneous DIRECTED ##0 02/05/22 01/18/25 Rx Chamber] finasteride 5 mg tablet 5 mg PO DAILY #0 tabs 02/05/22 01/22/25 Rx aluminum-mag hydroxide-simethicone 30 ml PO Q6H PRN PRN Abdominal 03/30/22 01/18/25 History 200 mg-200 mg-20 mg/5 mL oral susp Discomfort bisacodyl 10 mg rectal suppository 10 mg MI 1XD PRN Constipation 03/30/22 01/22/25 History (Dulcolax (bisacodyl)) magnesium hydroxide 400 mg/5 mL 30 ml PO 1XD PRN Constipation 03/30/22 01/22/25 History oral suspension acetaminophen 500 mg tablet 500 mg PO PRN PRN 05/01/22 01/22/25 History aspirin 81 mg chewable tablet 81 mg PO DAILY Prophylaxis 05/01/22 01/22/25 History carbidopa 25 mg-levodopa 100 mg 2 tab PO TID 05/01/22 01/18/25 History tablet cyanocobalamin (vitamin B-12) 500 1,000 mcg PO DAILY 05/01/22 01/18/25 History mcg tablet fluticasone propionate 50 1 spray intranasal DAILY 05/01/22 01/18/25 History mcg/actuation nasal spray,suspension menthol 5 % topical gel (Biofreeze 1 applic topical PRN PRN 05/01/22 01/18/25 History (menthol)) furosemide 20 mg tablet (Lasix) 20 mg PO DAILY PRN 08/13/22 01/22/25 History levothyroxine 50 mcg capsule 50 mcg PO DAILY 08/13/22 01/18/25 History melatonin 3 mg tablet 3 mg PO HS PRN 08/13/22 01/22/25 History trazodone 100 mg tablet 50 mg PO QHS PRN 08/13/22 01/22/25 History dextromethorphan HBr 15 mg/5 mL 15 mg PO Q4H 11/14/22 01/18/25 History oral syrup dextrose 40 % oral gel 10 g PO Q15M PRN 11/14/22 01/18/25 History glucagon 1 mg solution for 1 mg subcut Q20M PRN 11/14/22 01/22/25 History injection (Glucagon Emergency Kit) ipratropium 0.5 mg-albuterol 3 mg 3 ml inhalation Q4H PRN 11/14/22 01/18/25 History (2.5 mg base)/3 mL nebulization soln sodium phosphates 19 gram-7 118 ml MI ONCE 11/14/22 01/18/25 History gram/118 mL enema (Fleet Enema) budesonide-formoterol HFA 160 2 puff inhalation BID 11/27/22 01/22/25 History mcg-4.5 mcg/actuation aerosol inhaler (Symbicort) diclofenac sodium 1 % topical gel 2 g topical DAILY 11/27/22 01/18/25 History escitalopram oxalate 20 mg tablet 20 mg PO DAILY 03/17/23 01/22/25 History (Lexapro) lactase 3,000 unit tablet 3,000 unit PO ONCE 03/17/23 01/22/25 History diltiazem HCl 180 mg 180 mg PO HS 04/17/23 01/22/25 History capsule,extended release 24 hr (Cardizem CD) cholecalciferol (vitamin D3) 1,250 50,000 unit PO DAILY 01/14/25 01/22/25 History mcg (50,000 unit) capsule ketoconazole 2 % topical cream 1 applic topical DAILY #120 grams 01/17/25 01/22/25 Rx albuterol sulfate 90 mcg/actuation 2 inh inhalation Q6H PRN 01/22/25 01/22/25 History aerosol inhaler (Ventolin HFA) carbidopa 25 mg-levodopa 250 mg 1 tab PO TID 01/22/25 01/22/25 History tablet carbidopa ER 50 mg-levodopa 200 mg 1 tab PO HS 01/22/25 01/22/25 History tablet,extended release diclofenac sodium 1 % topical gel 4 g topical QID 01/22/25 01/22/25 History (Arthritis Pain (diclofenac)) entacapone 200 mg tablet 200 mg PO TID 01/22/25 01/22/25 History levothyroxine 75 mcg tablet 75 mcg PO DAILY 01/22/25 01/22/25 History polyethylene glycol 3350 17 17 g PO DAILY 01/22/25 01/22/25 History gram/dose oral powder (ClearLax) sulfamethoxazole 800 1 tab PO BID 01/22/25 01/22/25 History mg-trimethoprim 160 mg tablet (Bactrim DS) venlafaxine 150 mg 150 mg PO DAILY 01/22/25 01/22/25 History capsule,extended release 24 hr Exam Narrative Exam Narrative: GEN: Alert and oriented x 3, given linear but vague history. Did not recognize me at first as former PCP. Pleasant and cooperative. Appears dyspneic, belly breathing HEENT: Head atraumatic. Conjunctiva clear, no icterus. PEERL, EOMI. no rhinorrhea. MMM, OP benign. Neck is supple with no masses or lymphadenopathy, trachea midline LUNGS: Tachypneic, but no wheezes or rales, mild increase in respiratory effort, but able to speak in sentences CV: Irregularly irregular, tachycardic with no murmurs, gallops, or rubs. ABD: active bowel sounds, softly distended, nontender. No fluid wave or shifting dullness. No masses. EXT: no cyanosis, clubbing. 1+ zeus LE edema MSK: No joint redness or swelling NEURO: CN 2-12 grossly intact. Normal movement of 4 extremities. Normal speech and coordination. No tremor SKIN: Clammy. Dressed pressure sore on sacrum, not tender/red. Feet/toes without wound. No other rashes or open wounds. PSYCH: normal mood and affect Results Imaging Chest x-ray: report reviewed (Bibasilar opacities, likely atelectasis. Pneumonia considered less likely but not excluded. Follow-up if clinically warranted. ) and image reviewed EKG: report reviewed and image reviewed (afib, RBBB, no ischemic ST change) Imaging Studies: CT A/P 01/18: No acute abnormality in the abdomen or pelvis Labs 01/22/25 09:17 01/22/25 09:17 Labs: Laboratory Results - last 24 hr 01/22/25 01/22/25 01/22/25 09:17 10:19 12:17 WBC 14.48 H RBC 4.29 L Hgb 14.9 Hct 44.0 MCV 103 H D MCH 34.7 H MCHC 33.9 D RDW 12.5 Plt Count 230 MPV 10.0 Immature Gran % 0.6 Neutrophils % 85.6 Lymphocytes % 5.4 Monocytes % 7.6 Eosinophils % 0.6 Basophils % 0.2 Nucleated RBC % 0.0 Absolute Neutrophils 12.39 H Absolute Lymphocytes 0.78 L Absolute Monocytes 1.10 H Absolute Eosinophils 0.09 Absolute Basophils 0.03 Sodium 138 Potassium 3.7 Chloride 101 Carbon Dioxide 28.6 Anion Gap 8.4 BUN 14 Creatinine 0.8 Est GFR (CKD-EPI 2020) 90.58 Glucose 162 H Calcium 8.2 L Magnesium 1.9 Total Bilirubin 1.4 H AST 14 L ALT 8 L Alkaline Phosphatase 84 Troponin I 4 4 Cancelled NT-Pro-B Natriuret Pep 553 H Total Protein 6.5 Albumin 2.9 L Last Vital Signs Pulse 116 H 01/22/25 09:11 Resp 22 01/22/25 11:30 BP 111/69 01/22/25 09:11 Pulse Ox 98 01/22/25 09:11 Time Spent Time spent with Patient: >75 minutes Time was spent: preparing to see the patient(eg.review tests), obtaining and/or reviewing separately otained hiistory, ordering medications,tests, procedures, referring, communicating with other health manager wound care, indepentently interpreting results, counseling the patient and care coordination
--- NOTE | 2025-01-22 11:55 | NUR.NOTE ---
Nursing Note: abx late dose d/t provider adding on blood cultures lab kassandra both sets of cultures and abx treatment started at this time
[2025-01-22] MEDS: AZITHROMYCIN 500 MG in Normal Saline 250 ML 250 MG IVPB (12:37)
[2025-01-22 12:38] LABS: Procalcitonin < 0.10 ng/mL
[2025-01-22] MEDS: Lactated Ringers 1,000 ML 1000 ML IV (12:49)
[2025-01-22 12:50] LABS: Glucose Negative (Negative)
[2025-01-22 12:59] LABS: C & S Indicated? No; RBC 0-2 HPF (0-2); WBC 0-2 HPF (0-5)
[2025-01-22 14:03] LABS: MRSA PCR Negative (Negative)
[2025-01-22] MEDS: CEFEPIME 2 GM in Normal Saline 100 ML IVPB ×2 (14:34→19:53)
[2025-01-22] MEDS: VANCOMYCIN/WATER (PEG) 2 GM/400 ML BAG IVPB ×2 (15:14→23:44)
[2025-01-22] MEDS: methylPREDNISolone SUCC 125 MG VIAL IVP (15:15)
[2025-01-22] MEDS: Water,Injection,Bacteriostatic 30 ML VIAL IJ (15:15)
[2025-01-22] MEDS: Normal Saline Flush 10 ML SYR IVP ×3 (16:02→23:57)
[2025-01-22] MEDS: Enoxaparin 40 MG/0.4 ML SYR SC (17:58)
[2025-01-22] MEDS: Diclofenac 1% Gel 100 GM TUBE TP ×2 (17:58→19:52)
--- NOTE | 2025-01-22 18:06 | W.PC.ACHO ---
Registration Status: ADM MIKEY Primary Language: Preferred Language: Indonesian ED Information & Data Chief Complaint SOB 01/22/25 11:24 Chief Complaint SOB 01/22/25 09:25 Triage Note Sudden onset of SOB and 01/22/25 09:11 chest tightness today. Room air spO2 89%. EMS administered 125 Solumedrol, duoneb, and albuterol en route. Medical / Surgical History (Last Updated 01/22/25 @ 12:02 by Christian Benavides) Atrial fibrillation Hypothyroidism Aortic regurgitation Paroxysmal atrial fibrillation Parkinson's disease Type 2 diabetes mellitus without complications Personal history of other infectious and parasitic diseases Dysarthria and anarthria Dysphagia, oral phase Rheumatic aortic insufficiency Benign prostatic hyperplasia with lower urinary tract symptoms Generalized anxiety disorder Primary osteoarthritis, right wrist Degenerative joint disease Foot deformity, acquired History of degenerative joint disease Rotator cuff tear Moderate aortic regurgitation Mild memory disturbance Actinic keratosis Erectile dysfunction GERD (gastroesophageal reflux disease) CRYSTAL (obstructive sleep apnea) Allergic rhinitis Right bundle branch block (Last Reviewed 01/22/25 @ 11:49 by Christian Benavides) History of partial surgical removal of colon History of bladder repair surgery History of hernia repair Most Recent Vital Signs Temperature 36.9 C 01/22/25 13:15 Temperature Source Tympanic 01/22/25 13:15 Pulse 104 H 01/22/25 13:15 Pulse 102 H 01/22/25 12:45 Respiratory Rate 22 01/22/25 13:15 Respiratory Effort Labored, Accessory Muscle Use 01/22/25 13:10 Respiratory Depth Shallow 01/22/25 13:10 Respiratory Pattern Tachypnea 01/22/25 13:10 Blood Pressure 113/77 01/22/25 13:15 Blood Pressure Mean 89 01/22/25 13:15 Pulse Oximetry 95 01/22/25 13:15 Oxygen Delivery Method Room Air 01/22/25 13:15 Oxygen Flow Rate 0 01/22/25 13:15 Allergies chlorpheniramine (From Histussin HC) Allergy (Verified 08/07/23 09:32) dexbrompheniramine (From Histussin HC) Allergy (Verified 08/07/23 09:32) hydrocodone (From Histussin HC) Allergy (Verified 08/07/23 09:32) phenylephrine (From Histussin HC) Allergy (Verified 08/07/23 09:32) Precautions Isolation Standard precaution 01/22/25 11:24 Active Medications Generic Name Dose Route Start Last Admin Trade Name Freq PRN Reason Stop Dose Admin Bacteriostatic Water 0 ml 01/22/25 13:50 01/22/25 15:15 Water,Injection,Bacteriostatic 30 Ml Vial IJ 2 ml DIRECTED PRN Administration Carbidopa/Levodopa 1 tab 01/22/25 14:00 01/22/25 15:15 Carbidopa 25/Levodopa 250 Tab PO 1 tab TID JOSE Administration Diclofenac Sodium 4 gm 01/22/25 16:00 01/22/25 17:58 Diclofenac 1% Gel 100 Gm Tube TP 1 applic QID JOSE Administration Enoxaparin Sodium 40 mg 01/22/25 16:00 01/22/25 17:58 Enoxaparin 40 Mg/0.4 Ml Syr SC 40 mg Q24H JOSE Administration Entacapone 200 mg 01/22/25 14:00 01/22/25 15:15 Entacapone 200 Mg Tab PO 200 mg TID JOSE Administration Cefepime HCl 2 gm/ Sodium 100 mls @ 200 mls/hr 01/22/25 12:00 01/22/25 17:29 Chloride IVPB Infused Q8H JOSE Infusion Sodium Chloride 0 ml 01/22/25 09:17 01/22/25 16:02 Normal Saline Flush 10 Ml Syr IVP 20 ml PRN PRN Administration IV IV Catheter Type [Left Peripheral IV Antecubital] IV Catheter Gauge [Left 18 Antecubital] Diet Orders Category Date Time Status Regular/Normal [DIET] Nutrition 01/22/25 Lunch Active Diagnostics 01/22/25 01/22/25 01/22/25 Range/Units 22:00 12:30 12:17 WBC (4.4-10.8) 10^3/uL RBC (4.36-5.78) 10^6/uL Hgb (13.5-17.5) g/dL Hct (40.0-50.0) % MCV (80-95) fL MCH (27.0-33.0) pg MCHC (32.0-36.0) % RDW (11.8-14.1) % Plt Count (130-400) 10^3/uL MPV (8.0-11.0) fL Immature Gran % % Neutrophils % % Lymphocytes % % Monocytes % % Eosinophils % % Basophils % % Nucleated RBC % (0.0-0.3) % Absolute Neutrophils (1.2-6.7) 10^3/uL Absolute Lymphocytes (1.2-3.4) 10^3/uL Absolute Monocytes (0.1-0.8) 10^3/uL Absolute Eosinophils (0.0-0.7) 10^3/uL Absolute Basophils (0.0-0.2) 10^3/uL VBG Lactate (<or=2.0) mmol/L Sodium (136-145) mmol/L Potassium (3.5-5.1) mmol/L Chloride (98-107) mmol/L Carbon Dioxide (21.0-32.0) mmol/L Anion Gap (3-11) mmol/L BUN (7-18) mg/dL Creatinine (0.70-1.30) mg/dL Est GFR (CKD-EPI 2020) (mL/min/1.73m2) Glucose (74-106) mg/dL Calcium (8.5-10.1) mg/dL Magnesium (1.8-2.4) mg/dL Total Bilirubin (0.2-1.0) mg/dL AST (15-37) U/L ALT (16-63) U/L Alkaline Phosphatase (46-116) U/L Troponin I Cancelled (<or=76) ng/L NT-Pro-B Natriuret Pep (<300) pg/mL Total Protein (6.4-8.2) g/dL Albumin (3.4-5.0) g/dL Procalcitonin ng/mL Urine Color Dark Yellow (Yellow) Urine Clarity Sl Cloudy (Clear) Urine pH 6.0 (5-8) Ur Specific Hensley >= 1.030 H (1.005-1.025) Urine Protein 100 H (Neg-Trace) mg/dL Urine Ketones 40 H (Negative) mg/dL Urine Blood Negative (Negative) Urine Nitrite Negative (Negative) Urine Bilirubin Small H (Negative) Urine Urobilinogen 1.0 H (Up to 0.2) mg/dL Ur Leukocyte Esterase Negative (Negative) Urine RBC 0-2 (0-2) HPF Urine WBC 0-2 (0-5) HPF Ur Epithelial Cells Few (Negative) HPF Urine Crystals Few Amorphous (Negative) HPF Urine Bacteria Few (Negative) HPF Urine Casts 0-2 Hyaline (Negative) LPF Urine Mucus Moderate (Negative) Ur Culture Indicated? No Urine Glucose Negative (Negative) mg/dL Random Vancomycin Pending MRSA (TEM-PCR) (Negative) 01/22/25 01/22/25 01/22/25 Range/Units 11:52 11:42 10:19 WBC (4.4-10.8) 10^3/uL RBC (4.36-5.78) 10^6/uL Hgb (13.5-17.5) g/dL Hct (40.0-50.0) % MCV (80-95) fL MCH (27.0-33.0) pg MCHC (32.0-36.0) % RDW (11.8-14.1) % Plt Count (130-400) 10^3/uL MPV (8.0-11.0) fL Immature Gran % % Neutrophils % % Lymphocytes % % Monocytes % % Eosinophils % % Basophils % % Nucleated RBC % (0.0-0.3) % Absolute Neutrophils (1.2-6.7) 10^3/uL Absolute Lymphocytes (1.2-3.4) 10^3/uL Absolute Monocytes (0.1-0.8) 10^3/uL Absolute Eosinophils (0.0-0.7) 10^3/uL Absolute Basophils (0.0-0.2) 10^3/uL VBG Lactate 2.3 H* (<or=2.0) mmol/L Sodium (136-145) mmol/L Potassium (3.5-5.1) mmol/L Chloride (98-107) mmol/L Carbon Dioxide (21.0-32.0) mmol/L Anion Gap (3-11) mmol/L BUN (7-18) mg/dL Creatinine (0.70-1.30) mg/dL Est GFR (CKD-EPI 2020) (mL/min/1.73m2) Glucose (74-106) mg/dL Calcium (8.5-10.1) mg/dL Magnesium (1.8-2.4) mg/dL Total Bilirubin (0.2-1.0) mg/dL AST (15-37) U/L ALT (16-63) U/L Alkaline Phosphatase (46-116) U/L Troponin I 4 (<or=76) ng/L NT-Pro-B Natriuret Pep (<300) pg/mL Total Protein (6.4-8.2) g/dL Albumin (3.4-5.0) g/dL Procalcitonin < 0.10 ng/mL Urine Color (Yellow) Urine Clarity (Clear) Urine pH (5-8) Ur Specific Hensley (1.005-1.025) Urine Protein (Neg-Trace) mg/dL Urine Ketones (Negative) mg/dL Urine Blood (Negative) Urine Nitrite (Negative) Urine Bilirubin (Negative) Urine Urobilinogen (Up to 0.2) mg/dL Ur Leukocyte Esterase (Negative) Urine RBC (0-2) HPF Urine WBC (0-5) HPF Ur Epithelial Cells (Negative) HPF Urine Crystals (Negative) HPF Urine Bacteria (Negative) HPF Urine Casts (Negative) LPF Urine Mucus (Negative) Ur Culture Indicated? Urine Glucose (Negative) mg/dL Random Vancomycin MRSA (TEM-PCR) Negative (Negative) 01/22/25 Range/Units 09:17 WBC 14.48 H (4.4-10.8) 10^3/uL RBC 4.29 L (4.36-5.78) 10^6/uL Hgb 14.9 (13.5-17.5) g/dL Hct 44.0 (40.0-50.0) % MCV 103 H D (80-95) fL MCH 34.7 H (27.0-33.0) pg MCHC 33.9 D (32.0-36.0) % RDW 12.5 (11.8-14.1) % Plt Count 230 (130-400) 10^3/uL MPV 10.0 (8.0-11.0) fL Immature Gran % 0.6 % Neutrophils % 85.6 % Lymphocytes % 5.4 % Monocytes % 7.6 % Eosinophils % 0.6 % Basophils % 0.2 % Nucleated RBC % 0.0 (0.0-0.3) % Absolute Neutrophils 12.39 H (1.2-6.7) 10^3/uL Absolute Lymphocytes 0.78 L (1.2-3.4) 10^3/uL Absolute Monocytes 1.10 H (0.1-0.8) 10^3/uL Absolute Eosinophils 0.09 (0.0-0.7) 10^3/uL Absolute Basophils 0.03 (0.0-0.2) 10^3/uL VBG Lactate (<or=2.0) mmol/L Sodium 138 (136-145) mmol/L Potassium 3.7 (3.5-5.1) mmol/L Chloride 101 (98-107) mmol/L Carbon Dioxide 28.6 (21.0-32.0) mmol/L Anion Gap 8.4 (3-11) mmol/L BUN 14 (7-18) mg/dL Creatinine 0.8 (0.70-1.30) mg/dL Est GFR (CKD-EPI 2020) 90.58 (mL/min/1.73m2) Glucose 162 H (74-106) mg/dL Calcium 8.2 L (8.5-10.1) mg/dL Magnesium 1.9 (1.8-2.4) mg/dL Total Bilirubin 1.4 H (0.2-1.0) mg/dL AST 14 L (15-37) U/L ALT 8 L (16-63) U/L Alkaline Phosphatase 84 (46-116) U/L Troponin I 4 (<or=76) ng/L NT-Pro-B Natriuret Pep 553 H (<300) pg/mL Total Protein 6.5 (6.4-8.2) g/dL Albumin 2.9 L (3.4-5.0) g/dL Procalcitonin ng/mL Urine Color (Yellow) Urine Clarity (Clear) Urine pH (5-8) Ur Specific Hensley (1.005-1.025) Urine Protein (Neg-Trace) mg/dL Urine Ketones (Negative) mg/dL Urine Blood (Negative) Urine Nitrite (Negative) Urine Bilirubin (Negative) Urine Urobilinogen (Up to 0.2) mg/dL Ur Leukocyte Esterase (Negative) Urine RBC (0-2) HPF Urine WBC (0-5) HPF Ur Epithelial Cells (Negative) HPF Urine Crystals (Negative) HPF Urine Bacteria (Negative) HPF Urine Casts (Negative) LPF Urine Mucus (Negative) Ur Culture Indicated? Urine Glucose (Negative) mg/dL Random Vancomycin MRSA (TEM-PCR) (Negative) 01/22/25 11:40 Blood Culture - Pending Blood 01/22/25 11:40 Blood Culture - Pending Blood Intake and Output - 24 Hour Total 01/22/25 08:41 thru 01/22/25 17:29 Intake Total 1410 Output Total 150 Balance 1260 Weight 101.877 kg Intake: IV 1410 Output: Urine 150 Other: Urine Color Light Kayla Urine Appearance Clear Urine Odor None Falls Risk Assessment History of Falls Previous History 01/22/25 13:10 Contributing Factors Confusion,Impairments, 01/22/25 13:10 Incontinence Ambulatory Aids Uses ambulatory device 01/22/25 13:10 Tubes/Lines W/no contributing factors 01/22/25 13:10 Gait Evaluation W/any additional score 01/22/25 13:10 Cognition No cognitive impairment 01/22/25 11:24 Fall Total Score 69 01/22/25 13:10 Level of Risk Maximum Risk 01/22/25 13:10 Problems (Last Updated 01/22/25 @ 12:02 by Christian Benavides) Pneumonia (Acute) Sepsis (Acute) BPH loc w urin obs/LUTS (Acute) Notes 01/22/25 11:55 Nursing Notes by Kayla Mcpherson Nursing Note: abx late dose d/t provider adding on blood cultures lab kassandra both sets of cultures and abx treatment started at this time Initialized on 01/22/25 11:55 - END OF NOTE v v v v v v v v v Sending and/or Receiving Nurses: Please use comment section below to note any information pertinent to the patient hand-off not included above. Information / Comments: Report received from:[facility]
[2025-01-22] MEDS: Carbidopa 50/Levodopa 200 CR TABCR 1 TAB PO (19:52)
--- NOTE | 2025-01-22 22:08 | RESPIRATORY ---
RT spoke with patient for CRYSTAL diagnosis. Pt. stated that he used have a prescribed o2 and equipment which were taken back by DME last year due to non-compliance. Pt. unable to remember the DME name.
[2025-01-22 22:38] LABS: Vancomycin, Random 13.8 ug/mL
[2025-01-23] VITALS (16 sets, daily range): BP systolic 120–132; BP diastolic 69–97; PULSE 79–120; RESP 16–24; TEMP 36.4–37.1; O2SAT 92–96
[2025-01-23] MEDS: Albuterol/Ipratropium 3 ML UPD VIAL IH ×3 (01:18→20:50)
[2025-01-23] MEDS: Normal Saline Flush 10 ML SYR IVP ×8 (01:32→20:11)
[2025-01-23] MEDS: CEFEPIME 2 GM in Normal Saline 100 ML IVPB ×3 (04:19→21:04)
[2025-01-23] MEDS: Levothyroxine 75 MCG TAB PO (06:10)
[2025-01-23 08:35] LABS: Abs Immature Grans 0.06 10^3/uL (0.0-0.06); HCT 43.9 % (40.0-50.0); HGB 14.9 g/dL (13.5-17.5); Immature Grans % 0.5 %; MCH 34.8 pg (27.0-33.0); MCHC 33.9 % (32.0-36.0); MCV 103 fL (80-95); MPV 9.7 fL (8.0-11.0); Platelet Count 253 10^3/uL (130-400); RBC 4.28 10^6/uL (4.36-5.78); RDW 12.6 % (11.8-14.1); RDW-SD 47.8 fL; WBC 12.37 10^3/uL (4.4-10.8)
[2025-01-23 08:47] LABS: Anion Gap 10.3 mmol/L (3-11); BUN 17 mg/dL (7-18); CO2 27.7 mmol/L (21.0-32.0); Calcium 8.7 mg/dL (8.5-10.1); Chloride 102 mmol/L (98-107); Estimated GFR 90.58 (mL/min/1.73m2); Glucose 134 mg/dL (74-106); Potassium 3.9 mmol/L (3.5-5.1); Sodium 140 mmol/L (136-145)
[2025-01-23] MEDS: Budesonide/Formoterol 160/4.5 6 GM 60 PUFF INH IH ×2 (08:53→19:54)
--- NOTE | 2025-01-23 08:58 | PDOC.CMIN ---
Date of service: 01/23/25 Time of Service: 08:58 Care Management Initial Assmt Initial Assessment Reason for Hospitalization: Pneumonia Functional Status/Living Situation Patient Presentation: Jorge was sitting up in bed when CM met with him. He was awake, alert and oriented and easily engaged in conversation. Jorge was admitted with pneumonia. Initially he required 1-1.5 L/min of nasal O2 however he is saturating in the mid 90s on room air at this time. Jorge has been living at [facility] for the past 2 years or so. He shared that his is there as well and they are roommates. He indicated that she is not doing very well but was not forthcoming about the nature of her illness. Jorge and Ella have 3 children. Their daughter in [place] pays the day to day bills. They have a son in [place] who is overall responsible for finances and a daughter in [place] who takes care of their everyday needs. Jorge admitted that he could not manage without them and he is very grateful for their support. Jorge has Parkinson's Disease and is wheelchair bound. He is still able to stand and pivot into his chair, with help, although it is becoming more challenging. He has some use of his arms but needs help with most ADLs and sometimes with feeding. 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) Instrumental Activities of Daily Living (ADLs): Requires support Medications Medication Management: No Issues/Barriers identified Physical Functioning/Mobility Assistive Device: wheelchair bound Advance Directives Advance Directives: Do you have an Advance Directive: Y 03/13/21, 13:38 AD On File at [facility]: N 03/13/21, 13:38 Date Asked 01/22/25 01/22/25, 09:14 AD Date Reviewed COLST On File at [facility] COLST Date Scanned Code Status Resuscitation Status DNR/DNI Portal Pt does not currently have a portal and education provided: Yes Insurance Coverage/Financial Issues Insurance: Medicare BC/BS Care Team Visit Care Team Role Provider Type Iam Sanchez Primary Care Provider NON-[facility] STAFF PHYSICIAN Loida Ruano MD Emergency Provider [facility] STAFF PHYSICIAN Christian Benavides Admit Provider [facility] STAFF PHYSICIAN Attending Provider Discharge Potential Discharge Needs: Other (return to SNF) Anticipated Barriers to Discharge: None Identified Patient/Family Education Needs: Review discharge instructions, discuss Ask Me Three Transportation: RCT Plan: Anticipate Jorge will return to [facility] when medically cleared. He will follow up with the facility providers and plan of care and transport via RCT. CM will follow and continue to assess for discharge planning needs. Social Determinants of Health Screening Social Determinants of health last assessed in clinic: 01/23/25 Will the Patient Participate in the Screening?: Yes Do you worry about having a steady place to live?: no Problems where you live: no known problems In the past 12 months, have you had to go without electric, gas, oil or water in your home?: no 1. Within the past 12 months, we worried whether our food would run out before we got money to buy more.: Never true 2. Within the past 12 months, the food we bought just didn't last and we didn't have money to get more.: Never true Has lack of transportation kept you from medical appointments or from doing things needed for daily living?: no Has anyone in your life made you feel unsafe or unsupported?: no How hard is it for you to pay for the very basics like food, housing, medical care, and heating? Would you say it is:: Not hard at all Do you want help finding or keeping work or a job?: I do not need or want help If for any reason you need help with day-to-day activities such as bathing, preparing meals, shopping, managing finances, etc., do you get the help you need?: I get all the help I need How often do you feel lonely or isolated from those around you?: Sometimes Do you speak a language other than Irish at home?: No Does the patient want assistance with any of the above?: No Comments: son in [place] helps with finances and daughter in [place] takes care of home, youngest daughter also help Health Related Social Needs Health related social needs: feeling lonely/isolated (Z60.8) Health related social needs details: patient and life in rehabilitation/nursing facility PFSH All Active Problems (Updated 01/23/25 @ 13:34 by Christian Benavides) Hallucination (Acute) Pneumonia (Acute) Sepsis (Acute) Exacerbation of RAD (reactive airway disease) (Acute) Abdominal pain (Acute) At risk for falling (Acute) Insomnia, unspecified (Acute) Other symbolic dysfunctions (Acute) Localized edema (Acute) Tinea pedis (Acute) Dystrophia unguium (Acute) Onychomycosis (Acute) Knee osteoarthritis (Acute) Reactive airway disease (Acute) 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) Polyarthritis, unspecified (Acute) Unspecified lack of coordination (Acute) Muscle weakness (generalized) (Acute) Other disorders of peripheral nervous system (Acute) Other disorders of arteries, arterioles and capillaries in diseases classified elsewhere (Acute) Nail dystrophy (Acute) Claustrophobia (Acute) Imbalance (Acute) Dizziness (Acute) Sensorineural hearing loss, bilateral (Acute) Hx of herpes zoster (Acute) Macrocytosis (Acute) Hearing loss (Acute) Arthritis of right wrist (Acute) Cognitive decline (Acute) Vitamin D deficiency (Acute) Chronic anxiety (Acute) Dysequilibrium (Acute) Restless legs (Acute) Vesicocolonic fistula (Acute) Chronic shortness of breath (Acute) per pcp Complete tear of right rotator cuff (Acute ~11/2019) BPH loc w urin obs/LUTS (Acute) Right rotator cuff tendonitis (Acute) Most recent injection: 09/24/2019 Left rotator cuff tear arthropathy (Chronic) Most recent injection: 09/24/2019 Left shoulder tendinitis (Chronic) Primary osteoarthritis of both knees (Chronic) Bilateral Synvisc injections most recently: 01/01/2021; 06/30/2020 Adhesive capsulitis of shoulder (Acute 08/05/13) Medical History (Updated 01/23/25 @ 13:34 by Christian Benavides) Atrial fibrillation Hypothyroidism Aortic regurgitation Paroxysmal atrial fibrillation Parkinson's disease Type 2 diabetes mellitus without complications Personal history of other infectious and parasitic diseases Dysarthria and anarthria Dysphagia, oral phase Rheumatic aortic insufficiency Benign prostatic hyperplasia with lower urinary tract symptoms Generalized anxiety disorder Primary osteoarthritis, right wrist Degenerative joint disease Foot deformity, acquired History of degenerative joint disease Rotator cuff tear Moderate aortic regurgitation Mild memory disturbance Actinic keratosis Erectile dysfunction GERD (gastroesophageal reflux disease) CRYSTAL (obstructive sleep apnea) Allergic rhinitis Right bundle branch block Surgical History History of partial surgical removal of colon History of bladder repair surgery History of hernia repair Family History Father Lung cancer Mother Colon cancer Daughter Lymphoma Social History (Updated 01/22/25 @ 11:49 by Christian Benavides) Smoking/Tobacco Use Status: Former Tobacco Use Smoking risk assessment performed?: Yes Alcohol Intake: never Drug use: Never Substance use type: does not use Household members: spouse Housing: care home Pets and animals: Yes (1) Pets and animals: cat(s) Current gender identity: male Do you feel safe at home: Yes Do you feel safe in your relationship?: Yes Additional Social history: Lives at [facility], in the same room
[2025-01-23] MEDS: Polyethylene Glycol 3350 17 GM PACKET PO (10:01)
[2025-01-23] MEDS: predniSONE 20 MG TAB 40 MG PO (10:02)
[2025-01-23] MEDS: Pantoprazole 40 MG TABCR PO (10:02)
[2025-01-23] MEDS: Finasteride 5 MG TAB PO (10:02)
[2025-01-23] MEDS: Tamsulosin 0.4 MG CAPCR PO (10:02)
[2025-01-23] MEDS: Venlafaxine 150 MG CAPCR PO (10:02)
[2025-01-23] MEDS: Cyanocobalamin 500 MCG TAB 1000 MCG PO (10:02)
[2025-01-23 10:17] LABS: Hemoglobin A1C 5.8 % (<5.7)
[2025-01-23 10:23] LABS: TSH (W/Ref FT4) 1.22 uIU/mL (0.36-3.74)
[2025-01-23] MEDS: Diclofenac 1% Gel 100 GM TUBE TP ×4 (11:01→21:45)
[2025-01-23] MEDS: Ketoconazole 2% CREAM 15 GM TUBE TP (11:01)
[2025-01-23] MEDS: Aspirin 81 MG CHEW PO (11:01)
--- NOTE | 2025-01-23 11:56 | PHA.REVIEW2 ---
Pharmacy Admission Review Admission Clinical Review Admission Pharmacy Review: Pneumonia (Acute) Sepsis (Acute) BPH loc w urin obs/LUTS (Acute) chlorpheniramine (From [facility]) Allergy (Verified 08/07/23 09:32) dexbrompheniramine (From [facility]) Allergy (Verified 08/07/23 09:32) hydrocodone (From [facility]) Allergy (Verified 08/07/23 09:32) phenylephrine (From [facility]) Allergy (Verified 08/07/23 09:32) Resuscitation Status DNR/DNI Height 5 ft 2 in Weight 101.877 kg Pharmacy Admission Review Renal Dosing Renal Dosing: BUN 17 mg/dL (7-18) 01/23/25 08:27 Creatinine 0.8 mg/dL (0.70-1.30) 01/23/25 08:27 Medications needing adjustments: Reviewed (CrCl 63.3 mL/min) List of meds needing interventions: Current medications are okay Anticoagulation Anticoagulation: Hgb 14.9 g/dL (13.5-17.5) 01/23/25 08:27 Hct 43.9 % (40.0-50.0) 01/23/25 08:27 Plt Count 253 10^3/uL (130-400) 01/23/25 08:27 Creatinine 0.8 mg/dL (0.70-1.30) 01/23/25 08:27 DVT Prophylaxis: Reviewed (keep interval at q24h even though BMI > 40 per provider) Medications: Enoxaparin (40mg daily) Relevant Labs Relevant Labs: Sodium 140 mmol/L (136-145) 01/23/25 08:27 Potassium 3.9 mmol/L (3.5-5.1) 01/23/25 08:27 Chloride 102 mmol/L (98-107) 01/23/25 08:27 Magnesium 1.9 mg/dL (1.8-2.4) 01/22/25 09:17 Electrolytes, C-Reactive P, ESR: Reviewed DM Control DM Control: Glucose 134 mg/dL (74-106) H 01/23/25 08:27 Hemoglobin A1c 5.8 % (<5.7) H 01/23/25 08:27 DM Control: Reviewed Insulin Dosing, Diabetic Medication: Not currently on any medications, do not see a diagnosis of diabetes in patients chart Cardiac Review Cardiac Review: Troponin I Cancelled 01/22/25 12:17 NT-Pro-B Natriuret Pep 553 pg/mL (<300) H 01/22/25 09:17 BP, HR, EF%: Reviewed (BP WNL, HR has been 90s-120 all morning) QTc Review QTc: Reviewed (482 from 01/22/25) IV to PO Switch IV Medications: Reviewed (cefepime and vancomycin) Home Meds Home Med List reviewed: Intervened Relevent Home Meds Not ordered & why?: Vitamin D3, dextromethorphan (PRN), diltiazem (was ordered and then canceled by provider), Flonase, ibuprofen (PRN), Xopenex, Biofreeze gel (PRN), and Bactrim (on cefepime and vanomycin) Patient had both escitalopram and venlafaxine on home med list. Order for escitalopram left pending by overnight pharmacy and venlafaxine had not been ordered. Patient most recently filled for venlafaxine (filled 01/20). Spoke with provider and ended up taking escitalopram off home med list and canceling the order. Order added for venlafaxine. Pramipexole dose on home med list was 0.5mg HS and was ordered that way. Looking at fill history patient filled for the 0.125mg tablet for 7 tablets with day supply of 14. Spoke with provider as patient likely takes a 1/2 tablet at bedtime NOT 0.5mg. Order changed to 0.0625mg at bedtime. Spoke to provider regarding timing of Sinemet. Order for Sinemet IR was put in as TID, which meant patient would receive 3rd dose at the same time that they were receiving the ER Sinemet scheduled for bedtime. Provider asked that timing be changed. Current Meds Current Medication Order Review: Intervened Comments: Changed Lactase order from PRN PRN to AC PRN Changed IV ED access order Pharmacy Antibiotic Review Relevant Labs: Relevant Labs 01/22/25 11:52 Procalcitonin < 0.10 Pharmacy Antibiotic Activity: C/S review and Reviewed, no change Comments: Patient is on cefepime and vancomycin, day 1, for sepsis/pneumonia. Current vancomycin dose is 1250mg q12h with predicted AUC of 583 and trough of 19.1. Level ordered by overnight pharmacy for today at 1300. Will adjust dose as needed based on level. WBC decreased from 14.48 and blood cultures pending.
--- NOTE | 2025-01-23 13:27 | PGE_ITS ---
Date of Service Date of service: 01/23/25 Time of Service: 13:27 Assessment and Plan Assessment and plan (1) Sepsis: Status: Acute Assessment and plan: Met sepsis criteria with elevated RR, HR, WBC. Lungs are apparent source Send cultures, lactate, procal, give a liter of LR to start, and start cefepime/vanco while cultures pending. Get MRSA, stop vanco if this negative and cultures NG after 24+ hours If is is not improving consider repeat CT A/P (2) Pneumonia: Status: Acute Assessment and plan: Likely source, though CXR not totally clear. New hypoxia and symptoms are c/w respiratory source. Abx as above. (3) Hypothyroidism: Assessment and plan: Continue home 75mcg dose, recent TSH at goal (4) Type 2 diabetes mellitus without complications: Assessment and plan: Has been in remission with pre-DM levels without medication. still 5.8% on admission. No need for sliding scale for now. (5) BPH loc w urin obs/LUTS: Status: Acute Assessment and plan: continue tamsulosin. Monitor post-void (6) Parkinson's disease: Assessment and plan: With associated autonomic dysfunction and diffuse neuromuscular weakness, now wheelchair bound. Home meds reviewed by pharmacy, see below. (7) Atrial fibrillation: Assessment and plan: On EKG, which has been noted in the past. Rate borderline high, with acute illness I don't think he needs rate control now. He is not anticoagulated. enoxaparin for DVT prophylaxis for now (8) Hallucination: Status: Acute Assessment and plan: I am concern this is related to medication confusion, as has multiple dopiminergic meds and the record from the rehab was not clear as to what he was actually getting. Pharmacy worked to clear this up, will observe on regular dosing. We may consider cutting levodopa dose. Metabolic encephalopathy from infection or from steroids may be contributing. Subjective Subjective Patient reports: tolerating a regular diet and voiding w/o difficulty; denies diarrhea, vomiting or fever Interval history since last seen: Per nursing, having some hallucinations today Jorge states he feels a little better today. Less short of breath. Feels like the treatments help. He does feel weak overall. Exam Narrative Exam Narrative: Gen: Awake and alert oriented on my evaluation in no apparent distress Lungs: lungs somewhat course at bases, otherwise CTAB CV: heart with irregularly irregular Abdomen: Non-distended, soft, nontender Psych: Anxious affect, hallucinations noted by RN Objective Last Vital Signs Temp 37.1 C 01/23/25 10:56 Pulse 120 H 01/23/25 10:56 Resp 16 01/23/25 07:43 BP 132/85 01/23/25 10:56 Pulse Ox 95 01/23/25 10:56 Laboratory Results - last 24 hr 01/22/25 01/22/25 01/23/25 11:42 22:10 08:27 WBC 12.37 H RBC 4.28 L Hgb 14.9 Hct 43.9 MCV 103 H MCH 34.8 H MCHC 33.9 RDW 12.6 Plt Count 253 MPV 9.7 Immature Gran % 0.5 Neutrophils % 92.9 Lymphocytes % 3.4 Monocytes % 3.0 Eosinophils % 0.0 Basophils % 0.2 Nucleated RBC % 0.0 Absolute Neutrophils 11.49 H Absolute Lymphocytes 0.42 L Absolute Monocytes 0.37 Absolute Eosinophils 0.00 Absolute Basophils 0.02 Sodium 140 Potassium 3.9 Chloride 102 Carbon Dioxide 27.7 Anion Gap 10.3 BUN 17 Creatinine 0.8 Est GFR (CKD-EPI 2020) 90.58 Glucose 134 H Hemoglobin A1c 5.8 H Calcium 8.7 TSH 1.22 Random Vancomycin 13.8 MRSA (TEM-PCR) Negative Time Spent with Patient Time Spent with Patient: 35-49 minutes Time was spent: preparing to see the patient(eg.review tests), obtaining and/or reviewing separately otained hiistory, ordering medications,tests, procedures, referring, communicating with other health healthcare network consultant, indepentently interpreting results, counseling the patient and care coordination
[2025-01-23 13:38] LABS: Vancomycin, Random 14.8 ug/mL
[2025-01-23] MEDS: traZODone 50 MG TAB 25 MG PO (14:02)
[2025-01-23 15:32] LABS: MRSA PCR Negative (Negative)
[2025-01-23] MEDS: VANCOMYCIN/WATER (PEG) 1.5 GM/300 ML BAG IVPB (16:10)
[2025-01-23] MEDS: Azithromycin 250 MG TAB PO (16:12)
[2025-01-23] MEDS: dilTIAZem 30 MG TAB PO ×2 (16:12→21:04)
[2025-01-23] MEDS: Enoxaparin 40 MG/0.4 ML SYR SC (18:40)
[2025-01-23] MEDS: Pramipexole 0.25 MG TAB 0.0625 MG PO (20:08)
[2025-01-23] MEDS: Carbidopa 50/Levodopa 200 CR TABCR 1 TAB PO (20:09)
[2025-01-23] MEDS: Furosemide 20 MG TAB PO (21:30)
[2025-01-24] VITALS (71 sets, daily range): BP systolic 109–147; BP diastolic 60–108; PULSE 70–137; RESP 18–34; TEMP 36.3–37.8; O2SAT 88–96
--- NOTE | 2025-01-24 | DI.CT_ITS ---
Exam(s) CT NECK CHEST W EXAM: CT NECK CHEST W INDICATION: respiratory distress, upper airway wheezing. COMPARISON: CT CT CHEST PE CTA from 01/29/2022 TECHNIQUE: FINDINGS: CT NECK WITH: Study is somewhat degraded by patient motion artifact. VISUALIZED PARANASAL SINUSES: Mucosal thickening noted in the right maxillary sinus. No associated fluid level. The opposite-left maxillary sinus is clear as are the remainder of the paranasal sinuses. However, there are mastoid effusions, left more so than right. NASOPHARYNX: Unremarkable ORODENTAL: Difficult to evaluate because of motion artifact a high-grade tear, injury point here. However, there is asymmetric abnormal tissue located anteriorly in the floor of the mouth subjacent to the anterior right side of the mandible, measuring approximately 2.5 cm wide by 1.7 cm craniocaudal by 3.8 cm AP. Stands down to the level of the hyoid bone. This is separate from the submandibular gland. There is no ring enhancement. No adjacent lytic findings in the mandible. OROPHARYNX: Unremarkable. No masses evident. HYPOPHARYNX: Unremarkable. Valleculae and epiglottis and aryepiglottic folds appear normal. VOCAL CORDS: Unremarkable. No masses evident. Subglottic airway appears unremarkable. THYROID GLAND: Appears grossly unremarkable. SALIVARY GLANDS: Unremarkable. No significant findings in the parotid and submandibular glands. LYMPH NODES: There is no adenopathy evident in the neck and supraclavicular regions. OTHER: CT CHEST WITH: LUNGS: There is some atelectasis in both lung bases. Possibly minimal infiltrates. There are no significant pleural effusions. No ominous lung masses. The distal trachea and mainstem bronchi are somewhat narrow which is either due to expiration or possibly each tracheobronchomalacia. MEDIASTINUM: There is no hilar nor anterior mediastinal adenopathy. Slightly increased size lymph node noted in the subcarinal region. There is no supraclavicular adenopathy. No axillary adenopathy. CARDIAC: Heart size normal. No pericardial effusion. Thoracic aorta unremarkable. No aneurysm. No dissection. OSSEOUS: No fractures nor significant osseous lesions. Chronic degenerative changes throughout the thoracic spine. OTHER: Possible cholelithiasis, somewhat blurred by motion artifact. No significant adrenal masses. There is a cyst in the left kidney which is not require further workup. Spleen size normal. IMPRESSION: 1. There is a mass extending from the floor of the mouth inferiorly slightly right of center measuring approximately 2.5 cm wide by 1.7 cm by 3.8 cm. Might be slightly exaggerated by motion artifact and rotation but requires close follow-up to rule out neoplasm. Does not have the appearance of an obvious abscess. ENT consultation recommended. 2. There is atelectasis in both lung bases. No pleural effusions. 3. There is some narrowing of the distal trachea and mainstem bronchi. This may be related to phase of respiration but cannot exclude bronchomalacia. RADIATION DOSE DELIVERED: 831.69mGy.cm Total DLP DATA REPOSITORY: All CT scans at this facility are submitted to the National Radiology Data Registry (NRDR) Dose Index Registry (DIR) with the [employer] (ACR). RADIATION OPTIMIZATION: All CT scans at this facility use at least one of these dose optimization techniques: automated exposure control; mA and/or kV adjustment per patient size (includes targeted exams where dose is matched to clinical indication); or iterative reconstruction.
[2025-01-24] MEDS: CEFEPIME 2 GM in Normal Saline 100 ML IVPB ×3 (05:00→20:59)
[2025-01-24] MEDS: Levothyroxine 75 MCG TAB PO (05:44)
[2025-01-24] MEDS: Budesonide/Formoterol 160/4.5 6 GM 60 PUFF INH IH ×2 (08:19→20:18)
[2025-01-24] MEDS: Albuterol/Ipratropium 3 ML UPD VIAL IH ×2 (08:23→11:52)
[2025-01-24] MEDS: Pantoprazole 40 MG TABCR PO (08:57)
[2025-01-24] MEDS: Finasteride 5 MG TAB PO (08:57)
[2025-01-24] MEDS: Aspirin 81 MG CHEW PO (08:57)
[2025-01-24] MEDS: predniSONE 20 MG TAB 40 MG PO (08:57)
[2025-01-24] MEDS: Tamsulosin 0.4 MG CAPCR PO (08:58)
[2025-01-24] MEDS: Ketoconazole 2% CREAM 15 GM TUBE TP (08:58)
[2025-01-24] MEDS: dilTIAZem 30 MG TAB PO ×2 (08:58→13:35)
[2025-01-24] MEDS: Polyethylene Glycol 3350 17 GM PACKET PO (08:58)
[2025-01-24] MEDS: Venlafaxine 150 MG CAPCR PO (08:58)
[2025-01-24] MEDS: Cyanocobalamin 500 MCG TAB 1000 MCG PO (08:58)
[2025-01-24] MEDS: Normal Saline Flush 10 ML SYR IVP ×3 (08:59→21:01)
[2025-01-24] MEDS: Diclofenac 1% Gel 100 GM TUBE TP ×4 (08:59→20:58)
[2025-01-24] MEDS: Furosemide 20 MG/2 ML VIAL IVP (09:48)
[2025-01-24 09:56] LABS: Abs Immature Grans 0.07 10^3/uL (0.0-0.06); HCT 45.8 % (40.0-50.0); HGB 15.4 g/dL (13.5-17.5); Immature Grans % 0.7 %; MCH 34.7 pg (27.0-33.0); MCHC 33.6 % (32.0-36.0); MCV 103 fL (80-95); MPV 9.5 fL (8.0-11.0); Platelet Count 300 10^3/uL (130-400); RBC 4.44 10^6/uL (4.36-5.78); RDW 12.7 % (11.8-14.1); RDW-SD 48.8 fL; WBC 9.93 10^3/uL (4.4-10.8)
[2025-01-24 10:04] LABS: Anion Gap 7.4 mmol/L (3-11); BUN 25 mg/dL (7-18); CO2 28.6 mmol/L (21.0-32.0); Calcium 8.5 mg/dL (8.5-10.1); Chloride 105 mmol/L (98-107); Estimated GFR 90.58 (mL/min/1.73m2); Glucose 134 mg/dL (74-106); Potassium 4.0 mmol/L (3.5-5.1); Sodium 141 mmol/L (136-145)
--- NOTE | 2025-01-24 13:08 | PGE_ITS ---
Date of Service Date of service: 01/24/25 Time of Service: 13:08 Assessment and Plan Assessment and plan (1) Sepsis: Status: Acute Assessment and plan: Met sepsis criteria with elevated RR, HR, WBC. Lungs are apparent source Send cultures, lactate, procal, give a liter of LR to start, and start cefepime/vanco while cultures pending. MRSA negative, stopped vancomycing 01/23, continue cefepime and azithromycin procal on admission <.10, repeat with next labs help us figure out if this is infectious. (2) Pneumonia: Status: Acute Assessment and plan: Likely source, though CXR not totally clear. New hypoxia and symptoms are c/w respiratory source. Abx as above. Worse SOB with upper airway sounding wheeze. Get CT neck and chest, mass at base of tougue and possible airway narrowing. D/w ENT and consult pulm CT does not show pneumonia. I think another issue is driving tachypenia. Get VGB (3) Type 2 diabetes mellitus without complications: Assessment and plan: Has been in remission with pre-DM levels without medication. still 5.8% on admission. No need for sliding scale for now. (4) BPH loc w urin obs/LUTS: Status: Acute Assessment and plan: continue tamsulosin. Monitor post-void (5) Parkinson's disease: Assessment and plan: With associated autonomic dysfunction and diffuse neuromuscular weakness, now wheelchair bound. Home meds reviewed by pharmacy. With hallucintation I wonder if overtreated, or this may simply be metabolic encephalopathy from acute illness. see below I did review neurology records and discussed recent baseline with family. He is clearly worse. (6) Atrial fibrillation: Assessment and plan: On EKG, which has been noted in the past. Recently chronic on monitor with cardiology. Rate was high, added diltiazem, which he formerly was taking and on his list from at 180mg CD. enoxaparin for DVT prophylaxis for now (7) Hallucination: Status: Acute Assessment and plan: As above, I am concern this is related to concern for double listing of medications in medication list from [facility]. Current dosing seems appropriate, I confirmed this what he prescribed from neurology. Metabolic encephalopathy from infection or from steroids may be contributing. I don't have a documented history that this is Lewy Body dementia, but I d/w piper who said they were considering this diagnosis along with multisystem atrophy. Given worsening, will get head CT, stop prednisone for now. Subjective Subjective Patient reports: denies vomiting or fever Interval history since last seen: Hallucinations reported by nursing off/on Increase tachypnea and wheezing despite duoneb this morning. He states he feels better, but is short of breath. No chest pain. He is eating and drinking. [place] Exam Narrative Exam Narrative: Gen: Awake and alert, in mild respiratory distress, but still speaking in sentences. Oriented to self and year, not place. Neck: Supple, not tender Lungs: Audible wheeze across room, loudest centrally. The patient appears to be in moderate respiratory distress with tachypnea, diffuse wheezing, no rales. CV: irregularly irregular, tachycardic. Appears well perfused. Abdomen: Non-distended, soft, nontender Neuro: No obvious focal deficits, normal speech. Tone increased with diffuse tremor. Right arm more contracted, but able to extend Psych: I don't notice current hallucination, but reported by RN Objective Last Vital Signs Temp 37 C 01/24/25 12:05 Pulse 113 H 01/24/25 12:05 Resp 24 01/24/25 12:05 BP 132/82 01/24/25 12:05 Pulse Ox 94 01/24/25 12:05 Laboratory Results - last 24 hr 01/23/25 01/23/25 01/24/25 12:56 14:05 09:45 WBC 9.93 RBC 4.44 Hgb 15.4 Hct 45.8 MCV 103 H MCH 34.7 H MCHC 33.6 RDW 12.7 Plt Count 300 MPV 9.5 Immature Gran % 0.7 Neutrophils % 88.5 Lymphocytes % 5.1 Monocytes % 5.6 Eosinophils % 0.0 Basophils % 0.1 Nucleated RBC % 0.0 Absolute Neutrophils 8.78 H Absolute Lymphocytes 0.51 L Absolute Monocytes 0.56 Absolute Eosinophils 0.00 Absolute Basophils 0.01 Sodium 141 Potassium 4.0 Chloride 105 Carbon Dioxide 28.6 Anion Gap 7.4 BUN 25 H Creatinine 0.8 Est GFR (CKD-EPI 2020) 90.58 Glucose 134 H Calcium 8.5 Random Vancomycin 14.8 MRSA (TEM-PCR) Negative Time Spent with Patient Time Spent with Patient: >50 minutes Time was spent: preparing to see the patient(eg.review tests), obtaining and/or reviewing separately otained hiistory, ordering medications,tests, procedures, referring, communicating with other health care management specialist, indepentently interpreting results, counseling the patient and care coordination
[2025-01-24] MEDS: Omnipaque 350 MG/ML 100 ML BTL IJ (13:09)
[2025-01-24] MEDS: Normal Saline - Diluent 50 ML VIAL IJ (13:11)
--- NOTE | 2025-01-24 15:30 | PDOC.CMPRO ---
Date of service: 01/24/25 Time of Service: 15:32 Care Management Progress Note Progress Note Text Progress Note Text: Jorge was sitting up in the bed, getting ready for lunch, when CM met with him early this afternoon. He was quiet, but pleasant and polite. Nursing reports that he is pleasantly confused. He was not wearing any nc O2 when CM met with him. He asked CM for a glass of orange juice, which was provided. Jorge stated that he is looking forward to going back to [facility] and seeing his , who is also a resident. Discharge Potential Discharge Needs: Other (Return to SNF and f/u with facility provider) Anticipated Barriers to Discharge: None Identified Patient/Family Education Needs: Review discharge instructions, discuss Ask Me Three Transportation: RCT RCT Transportation: Wheel chair van Plan: Anticipate Jorge will return to [facility] when medically cleared. He will follow up with the facility providers and plan of care and transport via RCT. CM will follow and continue to assess for discharge planning needs. Social Determinants of Health Screening Social Determinants of health last assessed in clinic: 01/24/25 Will the Patient Participate in the Screening?: Yes Do you worry about having a steady place to live?: no Problems where you live: no known problems In the past 12 months, have you had to go without electric, gas, oil or water in your home?: no 1. Within the past 12 months, we worried whether our food would run out before we got money to buy more.: Don't know/refused 2. Within the past 12 months, the food we bought just didn't last and we didn't have money to get more.: Don't know/refused Has lack of transportation kept you from medical appointments or from doing things needed for daily living?: no Has anyone in your life made you feel unsafe or unsupported?: no How hard is it for you to pay for the very basics like food, housing, medical care, and heating? Would you say it is:: Not hard at all Do you want help finding or keeping work or a job?: I do not need or want help If for any reason you need help with day-to-day activities such as bathing, preparing meals, shopping, managing finances, etc., do you get the help you need?: I get all the help I need How often do you feel lonely or isolated from those around you?: Sometimes Do you speak a language other than [place] Citizen at home?: No Does the patient want assistance with any of the above?: No Comments: son in [place] helps with finances and daughter in [place] takes care of home, youngest daughter also help Health Related Social Needs Health related social needs: feeling lonely/isolated (Z60.8) Health related social needs details: patient and life in rehabilitation/nursing facility
[2025-01-24] MEDS: Levalbuterol 1.25 MG/3 ML UPD VIAL UPD (15:40)
[2025-01-24] MEDS: Enoxaparin 40 MG/0.4 ML SYR SC (16:01)
[2025-01-24] MEDS: Azithromycin 250 MG TAB PO (16:02)
[2025-01-24 18:16] LABS: BE (Venous) 5 mmol/L (-2-3); HCO3 (Venous) 29 mmol/L (23-28); O2 Sat (Venous) 96 %; TCO2 (Venous) 25 mmol/L (24-29); pCO2 (Venous) 40 mmHg (41-51); pO2 (Venous) 75 mmHg
[2025-01-24 18:18] LABS: Abs Immature Grans 0.07 10^3/uL (0.0-0.06); HCT 44.1 % (40.0-50.0); HGB 14.8 g/dL (13.5-17.5); Immature Grans % 0.7 %; MCH 34.3 pg (27.0-33.0); MCHC 33.6 % (32.0-36.0); MCV 102 fL (80-95); MPV 9.4 fL (8.0-11.0); Platelet Count 304 10^3/uL (130-400); RBC 4.31 10^6/uL (4.36-5.78); RDW 12.8 % (11.8-14.1); RDW-SD 48.6 fL; WBC 9.46 10^3/uL (4.4-10.8)
[2025-01-24 18:38] LABS: ALT 10 U/L (16-63); AST 26 U/L (15-37); Albumin 2.8 g/dL (3.4-5.0); Alkaline Phosphatase 79 U/L (46-116); Anion Gap 8.9 mmol/L (3-11); BUN 24 mg/dL (7-18); Bilirubin, Total 0.8 mg/dL (0.2-1.0); CO2 28.1 mmol/L (21.0-32.0); Calcium 8.5 mg/dL (8.5-10.1); Chloride 105 mmol/L (98-107); Estimated GFR 90.58 (mL/min/1.73m2); Glucose 135 mg/dL (74-106); Potassium 4.1 mmol/L (3.5-5.1); Sodium 142 mmol/L (136-145); Total Protein 6.4 g/dL (6.4-8.2)
[2025-01-24 18:50] LABS: Procalcitonin < 0.10 ng/mL
--- NOTE | 2025-01-24 20:27 | DI.CT_ITS ---
Exam(s) CT HEAD WO EXAM: CT HEAD WO CLINICAL HISTORY: ms changes. TECHNIQUE: Imaging Protocol: Axial computed tomography images with coronal and sagittal reformatted images were created and reviewed COMPARISON: CT CT HEAD WO from 02/16/2020 FINDINGS: There are no skull fractures. However, there is significant mucosal thickening in the right maxillary sinus now evident, not previously present and not associated with bone dehiscence. The opposite-left maxillary sinus appears clear as do the other paranasal sinuses and mastoid air cells. There is no evidence of intracranial hemorrhage, mass effect, or shift of midline structures. There are no extra-axial fluid collections. Lateral ventricles are slightly prominent but commensurate with the size of the overlying cortical sulci. There is abundant bilateral periventricular white matter hypodensity which is most prominent around the atria of both lateral ventricles and is symmetrical and most probably related to chronic ischemic changes. Also small lacunar nonhemorrhagic infarct in the anterior left occipital lobe. IMPRESSION: No acute intracranial findings on this noninfused CT scan of the brain. Chronic bilateral relatively symmetrical small vessel white matter ischemic changes. Mild relatively symmetrical cerebral atrophy. Preliminary virtual Radiology report was reviewed. RADIATION DOSE DELIVERED: 896.38mGy.cm Total DLP DATA REPOSITORY: All CT scans at this facility are submitted to the National Radiology Data Registry (NRDR) Dose Index Registry (DIR) with the [employer] (ACR). RADIATION OPTIMIZATION: All CT scans at this facility use at least one of these dose optimization techniques: automated exposure control; mA and/or kV adjustment per patient size (includes targeted exams where dose is matched to clinical indication); or iterative reconstruction.
[2025-01-24] MEDS: Acetaminophen 500 MG TAB PO (20:59)
[2025-01-24] MEDS: dilTIAZem 30 MG TAB 60 MG PO (20:59)
[2025-01-24] MEDS: Melatonin 3 MG TAB PO (20:59)
[2025-01-24] MEDS: Carbidopa 50/Levodopa 200 CR TABCR 1 TAB PO (21:00)
[2025-01-24] MEDS: Pramipexole 0.25 MG TAB 0.0625 MG PO (21:00)
--- NOTE | 2025-01-24 21:12 | DI.VRAD_ITS ---
PROCEDURE INFORMATION: Exam: CT Head Without Contrast Exam date and time: 01/24/2025 8:22 PM Age: 79 years old Clinical indication: Other: Ms changes TECHNIQUE: Imaging protocol: Computed tomography of the head without contrast. COMPARISON: CT HEAD WO 02/16/2020 7:29 PM FINDINGS: Brain: No acute intracranial abnormalities noted. Chronic periventricular small-vessel ischemic changes. Mild cerebral atrophy. Cerebral ventricles: No ventriculomegaly. Paranasal sinuses: Chronic mucosal thickening involving the right maxillary sinus. Mastoid air cells: Visualized mastoid air cells are well aerated. Bones: Unremarkable. No acute fracture. Soft tissues: Unremarkable. IMPRESSION: 1. No acute intracranial abnormalities noted. 2. Chronic periventricular small-vessel ischemic changes. 3. Mild cerebral atrophy. Dictated and Authenticated by: Kirit Stewart MD. Orderin Makayla Gonzales MD
[2025-01-24] MEDS: traZODone 100 MG TAB 50 MG PO (22:19)
[2025-01-25] VITALS (45 sets, daily range): BP systolic 108–149; BP diastolic 74–95; PULSE 72–107; RESP 15–33; TEMP 36.4–37; O2SAT 86–96
[2025-01-25] MEDS: CEFEPIME 2 GM in Normal Saline 100 ML IVPB ×3 (04:20→19:37)
[2025-01-25] MEDS: Levothyroxine 75 MCG TAB PO (06:31)
[2025-01-25 06:53] LABS: Abs Immature Grans 0.07 10^3/uL (0.0-0.06); HCT 42.4 % (40.0-50.0); HGB 13.9 g/dL (13.5-17.5); Immature Grans % 0.8 %; MCH 33.8 pg (27.0-33.0); MCHC 32.8 % (32.0-36.0); MCV 103 fL (80-95); MPV 9.8 fL (8.0-11.0); Platelet Count 279 10^3/uL (130-400); RBC 4.11 10^6/uL (4.36-5.78); RDW 12.7 % (11.8-14.1); RDW-SD 49.0 fL; WBC 8.57 10^3/uL (4.4-10.8)
[2025-01-25 07:11] LABS: ALT 11 U/L (16-63); AST 22 U/L (15-37); Albumin 2.6 g/dL (3.4-5.0); Alkaline Phosphatase 67 U/L (46-116); Anion Gap 5.9 mmol/L (3-11); BUN 23 mg/dL (7-18); Bilirubin, Total 0.8 mg/dL (0.2-1.0); CO2 32.1 mmol/L (21.0-32.0); Calcium 8.4 mg/dL (8.5-10.1); Chloride 107 mmol/L (98-107); Estimated GFR 94.31 (mL/min/1.73m2); Glucose 110 mg/dL (74-106); Potassium 3.9 mmol/L (3.5-5.1); Sodium 145 mmol/L (136-145); Total Protein 5.9 g/dL (6.4-8.2)
[2025-01-25] MEDS: Budesonide/Formoterol 160/4.5 6 GM 60 PUFF INH IH ×2 (07:44→20:09)
--- NOTE | 2025-01-25 07:51 | W.PULMCC ---
General Date of Service Date of service: 01/25/25 Time of Service: 07:30 Reason for Admission to ICU: Respiratory failure, encaphelopathy Assessment and Plan Assessment and plan (1) Chronic shortness of breath: Status: Acute Assessment and plan: Seems to be close to his baseline. Denies significant complaints this AM. I do not have any concerning for airway compromise at this time. Given intermittent confusion / delerium, he is at risk for aspiration. (2) Encephalopathy: Status: Acute (3) Neck mass: Status: Acute Assessment and plan: ENT has been consulted. No airway compromise noted (4) Acute delirium: Status: Acute Assessment and plan: Due to underlying dementia / parkinsons and acute illness Recommendations Pulmonary: I suspect his CT chest findings are related to atelectasis, more so than pneumonia. His procal was not elevated. OK to streamline antibiotics. Will defer treatment of his positive urine culture to his primary team His respiratory status has significantly improved overnight and I suspect this was mainly due to his delerium / agitation Do not see any clear indication for systemic steroids at this time, so agree with discontinuation. Avoid benzodiazapines given his delerium and underlying dementia Neck mass evaluation by ENT is pending Check B12/folate levels given macrocytosis and chronic dyspnea I will sign off but an available should his respiratory status worsen Thank you for allowing me to particiapate in his care. Please contact me with any concerns / questions Abebe Cruz MD I&O: Intake & Output 01/22/25 01/23/25 01/24/25 01/25/25 23:59 23:59 23:59 23:59 Intake Total 2019 / 2019 1240.000 / 1240.000 800 / 800 100 / 100 Output Total 515 / 515 925 / 925 2793 / 2793 150 / 150 Balance 1505 / 1505 315.000 / 315.000 -1992 / -1992 -50 / -50 Weight 101.877 kg 101 kg 99.8 kg Date of Last Bowel Movement: 01/20/25 Code Status: Resuscitation Status DNR/DNI Subjective Critical and life-threatening events over the past 24 hours: Patient is a 79 yo with a history of parkinsons disease / dementia, BPH, CRYSTAL, and Afib, who was transferred to the ICU on 01/22 due to worsening encephalopathy and airway concerns. He was admitted on 01/22/25 from rehab for dyspnea / sepsis. UA was unremarkable. Urine culture showing GNR. Initially there was concern for pneumonia and he was started on azithromycin and cefepime. CT chest imaging on 01/24/25 did not show any significant consolidation. Some basilar atelectatic changes were noted. WBC was elevated on admission, but has since normalized. No history of aspiration. Nursing denies any concerns for aspiration. Procal was > 0.1. VBG did not show any CO2 retention. He was evaluated in pulmonary clinic in the past. Methacholine challenge testing and PFT's were normal. CT neck showed a 2.5 x 1.7 x 3.8 cm mass near the right mandible. No significant airway narrowing was seen. He denies significant dyspnea this AM. No cough overnight. Had severe agitation last evening. Improved after trazodone. Alert and cooperative this AM. Exam Narrative Exam Narrative: Gen: alert, no acute distress HENT: normocephalic, no palpable cervical lymphadenopathy, no stridor CV: normal rate, regular rhythm Resp: clear to auscultation, no wheezing GI: abd soft, non-tender, normal bowel sounds Ext: +1 LE edema Neuro: alert, cooperative, mild confusion Skin: no rashes Most Recent VS/Results Last Vital Signs Temp 37.0 C 01/25/25 07:46 Pulse 96 H 01/25/25 06:00 Resp 18 01/25/25 06:01 BP 144/92 H 01/25/25 06:00 Pulse Ox 90 L 01/25/25 02:00 Laboratory Results - last 24 hr 01/24/25 01/24/25 01/25/25 09:45 18:05 05:35 WBC 9.93 9.46 8.57 RBC 4.44 4.31 L 4.11 L Hgb 15.4 14.8 13.9 Hct 45.8 44.1 42.4 MCV 103 H 102 H 103 H MCH 34.7 H 34.3 H 33.8 H MCHC 33.6 33.6 32.8 RDW 12.7 12.8 12.7 Plt Count 300 304 279 MPV 9.5 9.4 9.8 Immature Gran % 0.7 0.7 0.8 Neutrophils % 88.5 90.3 81.6 Lymphocytes % 5.1 2.6 7.2 Monocytes % 5.6 6.3 10.2 Eosinophils % 0.0 0.0 0.1 Basophils % 0.1 0.1 0.1 Nucleated RBC % 0.0 0.0 0.0 Absolute Neutrophils 8.78 H 8.53 H 6.99 H Absolute Lymphocytes 0.51 L 0.25 L 0.62 L Absolute Monocytes 0.56 0.60 0.87 H Absolute Eosinophils 0.00 0.00 0.01 Absolute Basophils 0.01 0.01 0.01 VBG pH 7.46 H VBG pCO2 40 L VBG pO2 75 VBG HCO3 29 H VBG Total CO2 25 VBG O2 Saturation 96 VBG Base Excess 5 H Sodium 141 142 145 Potassium 4.0 4.1 3.9 Chloride 105 105 107 Carbon Dioxide 28.6 28.1 32.1 H Anion Gap 7.4 8.9 5.9 BUN 25 H 24 H 23 H Creatinine 0.8 0.8 0.7 Est GFR (CKD-EPI 2020) 90.58 90.58 94.31 Glucose 134 H 135 H 110 H Calcium 8.5 8.5 8.4 L Total Bilirubin 0.8 0.8 AST 26 22 ALT 10 L 11 L Alkaline Phosphatase 79 67 Total Protein 6.4 5.9 L Albumin 2.8 L 2.6 L Procalcitonin < 0.10 Review of Systems Narrative: 10 pointo review of systems is negative except for above. Time spent with patient Time spent in Critical Care: 33 min Time spent in Critical care included: Coordination of care, Chart review, Documenting critically ill care, Time at immediate bedside and Discussing critically ill care with other medical staff
[2025-01-25] MEDS: Levalbuterol 1.25 MG/3 ML UPD VIAL UPD (07:54)
[2025-01-25] MEDS: Ketoconazole 2% CREAM 15 GM TUBE TP (08:11)
[2025-01-25] MEDS: Normal Saline Flush 10 ML SYR IVP ×3 (08:11→19:43)
[2025-01-25] MEDS: Polyethylene Glycol 3350 17 GM PACKET PO (08:12)
[2025-01-25] MEDS: Diclofenac 1% Gel 100 GM TUBE TP ×3 (08:12→19:39)
[2025-01-25] MEDS: dilTIAZem 30 MG TAB 60 MG PO ×3 (08:13→19:42)
[2025-01-25] MEDS: Pantoprazole 40 MG TABCR PO (08:13)
[2025-01-25] MEDS: Finasteride 5 MG TAB PO (08:13)
[2025-01-25] MEDS: Tamsulosin 0.4 MG CAPCR PO (08:13)
[2025-01-25] MEDS: Venlafaxine 150 MG CAPCR PO (08:13)
[2025-01-25] MEDS: Cyanocobalamin 500 MCG TAB 1000 MCG PO (08:13)
[2025-01-25] MEDS: Aspirin 81 MG CHEW PO (08:14)
[2025-01-25 08:56] LABS: Folate 5.4 ng/mL (8.6-20.0); Vitamin B12 372 pg/mL (193-986)
--- NOTE | 2025-01-25 09:04 | PCNE_ITS ---
Date of service: 01/25/25 Time of Service: 09:04 History of Present Illness Narrative: Jorge Penaloza is a 79 yo male who resides with his at [facility] who was admitted to [facility] 2 days ago with probable sepsis due to UTI and/or Respiratory process and resultant delirium. Initially treated on Med Surg, he was transferred to ICU during a spell of worsening dyspnea. [facility] Care Team has been following his . We were consulted today to help with exploring Goals of Care and ffereing additional support to him and his family. He has had many year history of Parkinson Disease for many years and is now wheelchair bound. Family and SNF staff report that he has mild cognitive issues, but no hx of hallucinations. Other medical problem include Asthma, chronic dyspnea, generalized muscle weakness (felt to perhaps be du to PD), OA of his knees, hx urinary retention with LUTS sxs. He moved to [facility] in 2021, as she had progressive dementia and was no longer able to care for him, as he had increased need for physical assistance as his PD progressed. It quickly beame apparent that she could no longer life alone without his cognitive support, and so they moved in to SNF, where they have been happily shared a room for 3+ years. Important to note that his Ella has end stage dementia. Over the last 2 months, she has had rapid decline and now can barely talk or eat and is no longer ambulatory. I met with him 2 weeks ago to discuss GOC for his . HE was pleasant, alert, oriented , cooperative, sitting dressed in street clothes in his WC. At that meeting, family decided to transition her to comfort measures only at the end of December, along with probable hospice admission. Patient tells me today: We've both gone really downhill over the last month. He thinks he has been at the hospital for about a week. HE is not sure what is wrong with him. He feels tired and wants to be left to rest at this point. However, he is glad he came to the hospital to be evaluated and treated. History from daughter Gena: family has not told patient that is going to be on hospice. She says that he is very worried about his . Gena notes that he requested that he be taken to the hospital for evaluation. Care Team: Primary Care physician: [facility] medical staff Urology: [facility] doc and PA Pulmonary: [facility], not seen since 2022. Neurology: [facility], Dr. Angel Kumar via [facility] visits only. Social HX: Lives at [facility] since 2021, where he shares a room with her . has end stage dementia and transitioned to comfort measures only at the end of December. Marital Status: to Ella Kim Occupation: Children: Daughter Gena Celis ([employer]) is HCA, Scotty Kim (son, [place]) is alternate, Anther daughter Dawn Hatfield:NQ Additional Services: Goals: -To be able to rest -When I asked if he wants to have come over to visit, he is very clear that No, I don't want her to see me like this. Impression of currents health status: Don't know What bothers you the most: That nursing and staff are giving him too much to do What worries you the most: Too much to do and can't rest. Coping mechanisms: Prayer Function: Ambulation: Had been ambulating in . Needs help with transfers ADLs: Can feed himself. Was using urinal at SNF iADLs: Dependent Hearing: Seems intact Vision: NQ Cognition: Today is oriented to MOnth and year and president and [facility]. Tells me he has been here a week (only 2-3 days). Family and SNF staff is is often mildly confused. Falls:NOne Driving:NO Palliative Performance Scale % Ambulation Activity and Evidence of Disease Self Care Intake Level of Consciousness 100 Full Normal activity, no evidence of disease Full Normal Full 90 Full Normal activity, some evidence of disease Full Normal Full 80 Full Normal activity with effort, some evidence of disease Full Normal or reduced Full 70 Reduced Unable to do normal work, some evidence of disease Full Normal or reduced Full 60 Reduced Unable to do hobby or some housework, significant disease Occasional assist necessary Normal or reduced Full or confusion 50 Mainly sit/lie Unable to do any work, extensive disease Considerable assistance required Normal or reduced Full or confusion 40 Mainly in bed Unable to do any work, extensive disease Mainly assistance Normal or reduced Full, drowsy, or confusion 30 Totally bed bound Unable to do any work, extensive disease Total care Reduced Full, drowsy, or confusion 20 Totally bed bound Unable to do any work, extensive disease Total care Minimal sips Full, drowsy, or confusion 10 Totally bed bound Unable to do any work, extensive disease Total care Mouth care only Drowsy or coma 0 - - - - Patient Score: 50-60 prior to admission Spiritual history: Voodoo, received communion every 2 weeks at SNF. Hi solis (does not use rosaries) Palliative review of systems: Pain: Dyspnea: Denies GI symptoms: Appetite: Not hungry Weight: stable over the past 20 months. Depression: Anxiety: None Emotional Distress: Spiritual/Existential Distress: Labs: Reviewed Cr: NL Liver panel:NL Albumin: 2.6 CBC: Hgb OK, MCV chronically high Advanced Care Planning: Advanced Directive: None on file Health Care Agent: Gena reports: there is a medical POA available. Daughter Gena is HCA with son Scotty as alternate. Daughter Dawn has many health issues and helps with some aspects (can physicially be present and help out with chores), but not involved in decision making. COLST: 2021 COLST on file: DNR/DNI, +transfer, +treat,+abx and IV fluids, no artificial nutrition. Prefers no further surgery if possible. Limitations: NA; Not applicable NQ: Not Queried Assessment and Plan Assessment and plan (1) Parkinson's disease: Status: Chronic Assessment and plan: Mr. Kim is a 79 yo man with advanced Parkinson's disease admitted with sepsis due to PNA and/or UTI complicated by delirium (now mostly cleared). Ella has advanced dementia and has had significant decline over the last 2 months, no longer ambulatory, losing weight, hardly eating. Last week she was transitioned to comfort measures. I suspect he is more vulnerable to illness at this time due to stress of grieving. Pt has very supportive family , with three children who are supporting each other as they support both of their parents. All seem to work toether well. Regarding goals of care, I reviewed his goals and current COLST expressed treatment desires with him (alone in room) and with dauhter/HCA Gena on the phone. Both says that 2021 COLST still accurately states treatment limitations at this time: DNR/DNI, +transfer, +treat,+abx and IV fluids, no artificial nutrition. Prefers no further surgery if possible. Patient confirms choice of health care agent. Neck CT suggests mass under tongue. ENT will be seeing pt . Once ENT meets with patient, if biopsy or surgery to be considered, we are available to help family and pt to think thorugh decision making around this. If patient quickly recovers and transfers back to SNF, we will plan to see him in about a month. Let us know if and when he hsould be seen again while still inpt at [facility]. This note was dictated using speech recognition software. Attempt was made at proofreading, but errors may be present. Please call with questions. (2) Acute delirium: Status: Acute (3) Pneumonia: Status: Acute (4) Mild cognitive impairment: Status: Acute (5) DNR (do not resuscitate): Status: Acute (6) Palliative care encounter: Status: Acute (7) Advanced care planning/counseling discussion: Status: Acute [facility] All Active Problems (Updated 01/25/25 @ 10:01 by Geraldine Morris MD) Advanced care planning/counseling discussion (Acute) Palliative care encounter (Acute) DNR (do not resuscitate) (Acute) Mild cognitive impairment (Acute) Parkinson's disease (Chronic) Acute delirium (Acute) Neck mass (Acute) Encephalopathy (Acute) Hallucination (Acute) Pneumonia (Acute) Sepsis (Acute) Exacerbation of RAD (reactive airway disease) (Acute) Abdominal pain (Acute) At risk for falling (Acute) Insomnia, unspecified (Acute) Other symbolic dysfunctions (Acute) Localized edema (Acute) Tinea pedis (Acute) Dystrophia unguium (Acute) Onychomycosis (Acute) Knee osteoarthritis (Acute) Reactive airway disease (Acute) 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) Polyarthritis, unspecified (Acute) Unspecified lack of coordination (Acute) Muscle weakness (generalized) (Acute) Other disorders of peripheral nervous system (Acute) Other disorders of arteries, arterioles and capillaries in diseases classified elsewhere (Acute) Nail dystrophy (Acute) Claustrophobia (Acute) Imbalance (Acute) Dizziness (Acute) Sensorineural hearing loss, bilateral (Acute) Hx of herpes zoster (Acute) Macrocytosis (Acute) Hearing loss (Acute) Arthritis of right wrist (Acute) Cognitive decline (Acute) Vitamin D deficiency (Acute) Chronic anxiety (Acute) Dysequilibrium (Acute) Restless legs (Acute) Vesicocolonic fistula (Acute) Chronic shortness of breath (Acute) per pcp Complete tear of right rotator cuff (Acute ~11/2019) BPH loc w urin obs/LUTS (Acute) Right rotator cuff tendonitis (Acute) Most recent injection: 09/24/2019 Left rotator cuff tear arthropathy (Chronic) Most recent injection: 09/24/2019 Left shoulder tendinitis (Chronic) Primary osteoarthritis of both knees (Chronic) Bilateral Synvisc injections most recently: 01/01/2021; 06/30/2020 Adhesive capsulitis of shoulder (Acute 08/05/13) Medical History (Updated 01/25/25 @ 10:01 by Geraldine Morris MD) Atrial fibrillation Hypothyroidism Aortic regurgitation Paroxysmal atrial fibrillation Type 2 diabetes mellitus without complications Personal history of other infectious and parasitic diseases Dysarthria and anarthria Dysphagia, oral phase Rheumatic aortic insufficiency Benign prostatic hyperplasia with lower urinary tract symptoms Generalized anxiety disorder Primary osteoarthritis, right wrist Degenerative joint disease Foot deformity, acquired History of degenerative joint disease Rotator cuff tear Moderate aortic regurgitation Mild memory disturbance Actinic keratosis Erectile dysfunction GERD (gastroesophageal reflux disease) CRYSTAL (obstructive sleep apnea) Allergic rhinitis Right bundle branch block Surgical History History of partial surgical removal of colon History of bladder repair surgery History of hernia repair Family History Father Lung cancer Mother Colon cancer Daughter Lymphoma Social History (Updated 01/22/25 @ 11:49 by Christian Benavides) Smoking/Tobacco Use Status: Former Tobacco Use Smoking risk assessment performed?: Yes Alcohol Intake: never Drug use: Never Substance use type: does not use Household members: spouse Housing: residential Pets and animals: Yes (1) Pets and animals: cat(s) Current gender identity: male Do you feel safe at home: Yes Do you feel safe in your relationship?: Yes Additional Social history: Lives at [facility], in the same room Results Last Vital Signs Temp 37.0 C 01/25/25 07:46 Pulse 103 H 01/25/25 07:54 Resp 24 01/25/25 08:02 BP 108/92 H 01/25/25 07:47 Pulse Ox 96 01/25/25 08:00 Labs 01/25/25 05:35 01/25/25 05:35 Labs: Laboratory Results - last 24 hr 01/24/25 01/24/25 01/25/25 09:45 18:05 05:35 WBC 9.93 9.46 8.57 RBC 4.44 4.31 L 4.11 L Hgb 15.4 14.8 13.9 Hct 45.8 44.1 42.4 MCV 103 H 102 H 103 H MCH 34.7 H 34.3 H 33.8 H MCHC 33.6 33.6 32.8 RDW 12.7 12.8 12.7 Plt Count 300 304 279 MPV 9.5 9.4 9.8 Immature Gran % 0.7 0.7 0.8 Neutrophils % 88.5 90.3 81.6 Lymphocytes % 5.1 2.6 7.2 Monocytes % 5.6 6.3 10.2 Eosinophils % 0.0 0.0 0.1 Basophils % 0.1 0.1 0.1 Nucleated RBC % 0.0 0.0 0.0 Absolute Neutrophils 8.78 H 8.53 H 6.99 H Absolute Lymphocytes 0.51 L 0.25 L 0.62 L Absolute Monocytes 0.56 0.60 0.87 H Absolute Eosinophils 0.00 0.00 0.01 Absolute Basophils 0.01 0.01 0.01 VBG pH 7.46 H VBG pCO2 40 L VBG pO2 75 VBG HCO3 29 H VBG Total CO2 25 VBG O2 Saturation 96 VBG Base Excess 5 H Sodium 141 142 145 Potassium 4.0 4.1 3.9 Chloride 105 105 107 Carbon Dioxide 28.6 28.1 32.1 H Anion Gap 7.4 8.9 5.9 BUN 25 H 24 H 23 H Creatinine 0.8 0.8 0.7 Est GFR (CKD-EPI 2020) 90.58 90.58 94.31 Glucose 134 H 135 H 110 H Calcium 8.5 8.5 8.4 L Total Bilirubin 0.8 0.8 AST 26 22 ALT 10 L 11 L Alkaline Phosphatase 79 67 Total Protein 6.4 5.9 L Albumin 2.8 L 2.6 L Vitamin B12 372 Folate 5.4 L Procalcitonin < 0.10 Time Spent Time Spent with Patient Time Spent(min): 75
[2025-01-25] MEDS: Furosemide 40 MG TAB 20 MG PO (10:07)
--- NOTE | 2025-01-25 10:44 | CMPROGNOTE_ITS ---
Date of service: 01/25/25 Time of Service: 10:44 Care Management Progress Note Progress Note Text Progress Note Text: Jorge was transferred to the ICU yesterday due to worsening dyspnea. Today Jorge was sitting up in the bed, wearing nc O2, when CM met with him. He stated that he was feeling a lot better than he had been, but was still tired. Jorge's daughter, Gena, drove from [place] to see her dad when she found out that he was transferred to ICU. She stated that her mom lives at [facility] and is on hospice with end stage dementia. Jorge does not know that his is on hospice. Discharge Potential Discharge Needs: Other (return to [facility]) Anticipated Barriers to Discharge: None Identified Patient/Family Education Needs: Review discharge instructions, discuss Ask Me Three Transportation: RCT RCT Transportation: Wheel chair van Plan: Anticipate Jorge will return to [facility] when medically cleared. He will follow up with the facility providers and plan of care and transport via RCT wheel chair van. CM will follow and continue to assess for discharge planning needs. Social Determinants of Health Screening Social Determinants of health last assessed in clinic: 01/25/25 Will the Patient Participate in the Screening?: Yes Do you worry about having a steady place to live?: no Problems where you live: no known problems In the past 12 months, have you had to go without electric, gas, oil or water in your home?: no 1. Within the past 12 months, we worried whether our food would run out before we got money to buy more.: Never true 2. Within the past 12 months, the food we bought just didn't last and we didn't have money to get more.: Never true Has lack of transportation kept you from medical appointments or from doing things needed for daily living?: no Has anyone in your life made you feel unsafe or unsupported?: no How hard is it for you to pay for the very basics like food, housing, medical care, and heating? Would you say it is:: Not hard at all Do you want help finding or keeping work or a job?: I do not need or want help If for any reason you need help with day-to-day activities such as bathing, preparing meals, shopping, managing finances, etc., do you get the help you need?: I get all the help I need How often do you feel lonely or isolated from those around you?: Sometimes Do you speak a language other than Indonesian at home?: No Does the patient want assistance with any of the above?: No Comments: son in [place] helps with finances and daughter in [place] takes care of home, youngest daughter also help Health Related Social Needs Health related social needs: feeling lonely/isolated (Z60.8) Health related social needs details: patient and life in rehabilitation/nursing facility
--- NOTE | 2025-01-25 15:11 | PGE_ITS ---
Date of Service Date of service: 01/25/25 Time of Service: 08:45 Assessment and Plan Assessment and plan (1) Sepsis: Status: Resolved Assessment and plan: Septic on arrival with tachycardia, tachypnea, leukocytosis, likely PNA He was given IV fluids and antibiotics in the ED and continues to be on respiratory regimen. (2) Pneumonia: Status: Acute Assessment and plan: Lactic acidosis 2.5 on arrival, septic, now resolved. Cultures NGTD, procalcitonin negative. Vancomycin given until MRSA swab negative, now discontinued. Continuing cefepime, azithromycin CT chest not consistent with PNA. Respiratory distress may be due to newly seen neck mass on CT neck. (3) Neck mass: Status: Acute Assessment and plan: CT neck showing 3.8 cm mass at floor of the mouth Requested ENT consult (4) Type 2 diabetes mellitus without complications: Assessment and plan: A1C 5.8, no intervention (5) Benign prostatic hyperplasia with lower urinary tract symptoms: Assessment and plan: Continue tamsulosin (6) Parkinson's disease: Status: Chronic Assessment and plan: Continue home regimen (7) Atrial fibrillation: Assessment and plan: Afib on EKG on arrival Tachycardic, restarted diltiazem (8) Hallucination: Status: Acute Assessment and plan: Concern for polypharmacy vs mistaken dosages of multiple meds, home meds reconciled. Family has been concerned about Lewy body dementia vs multisystem atrophy Infection or steroids may be contributing Head CT negative Discontinued steroids Exam Narrative Exam Narrative: General: This is a pleasant man in no distress HEENT: Normocephalic, atraumatic CV: RRR, +1 peripheral edema Resp: CTAB Abd: NTND +NBS MSK: voluntary motion x4 Neuro: Awake and alert, mild confusion Skin: Warm and dry Objective Last Vital Signs Temp 36.8 C 01/25/25 11:59 Pulse 93 H 01/25/25 13:50 Resp 24 01/25/25 14:07 BP 129/85 01/25/25 13:50 Pulse Ox 93 01/25/25 14:07 Laboratory Results - last 24 hr 01/24/25 01/25/25 18:05 05:35 WBC 9.46 8.57 RBC 4.31 L 4.11 L Hgb 14.8 13.9 Hct 44.1 42.4 MCV 102 H 103 H MCH 34.3 H 33.8 H MCHC 33.6 32.8 RDW 12.8 12.7 Plt Count 304 279 MPV 9.4 9.8 Immature Gran % 0.7 0.8 Neutrophils % 90.3 81.6 Lymphocytes % 2.6 7.2 Monocytes % 6.3 10.2 Eosinophils % 0.0 0.1 Basophils % 0.1 0.1 Nucleated RBC % 0.0 0.0 Absolute Neutrophils 8.53 H 6.99 H Absolute Lymphocytes 0.25 L 0.62 L Absolute Monocytes 0.60 0.87 H Absolute Eosinophils 0.00 0.01 Absolute Basophils 0.01 0.01 VBG pH 7.46 H VBG pCO2 40 L VBG pO2 75 VBG HCO3 29 H VBG Total CO2 25 VBG O2 Saturation 96 VBG Base Excess 5 H Sodium 142 145 Potassium 4.1 3.9 Chloride 105 107 Carbon Dioxide 28.1 32.1 H Anion Gap 8.9 5.9 BUN 24 H 23 H Creatinine 0.8 0.7 Est GFR (CKD-EPI 2020) 90.58 94.31 Glucose 135 H 110 H Calcium 8.5 8.4 L Total Bilirubin 0.8 0.8 AST 26 22 ALT 10 L 11 L Alkaline Phosphatase 79 67 Total Protein 6.4 5.9 L Albumin 2.8 L 2.6 L Vitamin B12 372 Folate 5.4 L Procalcitonin < 0.10 Time Spent with Patient Time Spent with Patient: 35-49 minutes Time was spent: preparing to see the patient(eg.review tests), obtaining and/or reviewing separately otained hiistory, ordering medications,tests, procedures, referring, communicating with other health acute care certified nursing assistant, indepentently interpreting results, counseling the patient and care coordination
[2025-01-25] MEDS: Lactated Ringers 500 ML IV (15:55)
[2025-01-25] MEDS: Enoxaparin 40 MG/0.4 ML SYR SC (16:22)
[2025-01-25] MEDS: Azithromycin 250 MG TAB PO (16:22)
[2025-01-25] MEDS: Melatonin 3 MG TAB PO (19:42)
[2025-01-25] MEDS: Carbidopa 50/Levodopa 200 CR TABCR 1 TAB PO (19:42)
[2025-01-25] MEDS: Acetaminophen 500 MG TAB PO (19:42)
[2025-01-25] MEDS: traZODone 100 MG TAB 50 MG PO (19:43)
[2025-01-25] MEDS: Pramipexole 0.25 MG TAB 0.0625 MG PO (19:43)
[2025-01-25] MEDS: Miconazole 2% Topical Powder 85 GM BTL (23:15)
[2025-01-26] VITALS (23 sets, daily range): BP systolic 106–128; BP diastolic 65–93; PULSE 75–126; RESP 18–31; TEMP 36.6–37; O2SAT 91–94
[2025-01-26] MEDS: CEFEPIME 2 GM in Normal Saline 100 ML IVPB ×3 (05:29→20:40)
[2025-01-26] MEDS: Levothyroxine 75 MCG TAB PO (05:30)
[2025-01-26] MEDS: Venlafaxine 150 MG CAPCR PO (07:48)
[2025-01-26] MEDS: dilTIAZem 30 MG TAB 60 MG PO ×3 (07:48→20:41)
[2025-01-26] MEDS: Diclofenac 1% Gel 100 GM TUBE TP ×3 (07:49→20:46)
[2025-01-26] MEDS: Pantoprazole 40 MG TABCR PO (07:49)
[2025-01-26] MEDS: Aspirin 81 MG CHEW PO (07:49)
[2025-01-26] MEDS: Tamsulosin 0.4 MG CAPCR PO (07:49)
[2025-01-26] MEDS: Finasteride 5 MG TAB PO (07:49)
[2025-01-26] MEDS: Ketoconazole 2% CREAM 15 GM TUBE TP (07:49)
[2025-01-26] MEDS: Cyanocobalamin 500 MCG TAB 1000 MCG PO (07:49)
[2025-01-26] MEDS: Polyethylene Glycol 3350 17 GM PACKET PO (07:50)
[2025-01-26] MEDS: Normal Saline Flush 10 ML SYR IVP ×2 (07:50→20:41)
[2025-01-26] MEDS: Budesonide/Formoterol 160/4.5 6 GM 60 PUFF INH IH ×2 (08:20→20:57)
--- NOTE | 2025-01-26 09:00 | CMPROGNOTE_ITS ---
Date of service: 01/26/25 Time of Service: 09:00 Care Management Progress Note Progress Note Text Progress Note Text: Jorge was sleeping when CM first approached him today, but he quickly woke when CM entered the room. He was very pleasant and full of smiles today. His daughter, Gena, was visiting. Jorge stated that he is feeling alot better. He ate a good lunch today. Jorge is hoping to go home soon, he would like to see his . Jorge had a huge smile when CM told him that she had met his grandson yesterday. Jorge stated that he is very proud of him. Discharge Potential Discharge Needs: Other (return to [facility]) Anticipated Barriers to Discharge: None Identified Patient/Family Education Needs: Review discharge instructions, discuss Ask Me Three Transportation: RCT RCT Transportation: Wheel chair van Plan: Anticipate Jorge will return to [facility] when medically cleared. He will follow up with the facility providers and plan of care and transport via RCT wheel chair van. CM will follow and continue to assess for discharge planning needs. Social Determinants of Health Screening Social Determinants of health last assessed in clinic: 01/26/25 Will the Patient Participate in the Screening?: Yes Do you worry about having a steady place to live?: no Problems where you live: no known problems In the past 12 months, have you had to go without electric, gas, oil or water in your home?: no 1. Within the past 12 months, we worried whether our food would run out before we got money to buy more.: Never true 2. Within the past 12 months, the food we bought just didn't last and we didn't have money to get more.: Never true Has lack of transportation kept you from medical appointments or from doing things needed for daily living?: no Has anyone in your life made you feel unsafe or unsupported?: no How hard is it for you to pay for the very basics like food, housing, medical care, and heating? Would you say it is:: Not hard at all Do you want help finding or keeping work or a job?: I do not need or want help If for any reason you need help with day-to-day activities such as bathing, preparing meals, shopping, managing finances, etc., do you get the help you need?: I get all the help I need How often do you feel lonely or isolated from those around you?: Sometimes Do you speak a language other than Haitian at home?: No Does the patient want assistance with any of the above?: No Comments: son in [place] helps with finances and daughter in [place] takes care of home, youngest daughter also help Health Related Social Needs Health related social needs: feeling lonely/isolated (Z60.8) Health related social needs details: patient and life in rehabilitation/nursing facility
--- NOTE | 2025-01-26 14:41 | W.PM.PROGNOT ---
Date of Service Date of service: 01/26/25 Time of Service: 13:00 Assessment and Plan Assessment and plan (1) Sepsis: Status: Resolved Assessment and plan: Septic on arrival with tachycardia, tachypnea, leukocytosis, likely PNA He was given IV fluids and antibiotics in the ED and continues to be on respiratory regimen. Urine culture weakly suggestive of UTI, no intervention at this time. (2) Pneumonia: Status: Acute Assessment and plan: Lactic acidosis 2.5 on arrival, septic, now resolved. Cultures NGTD, procalcitonin negative. Vancomycin given until MRSA swab negative, now discontinued. Continuing cefepime, azithromycin CT chest not consistent with PNA. Respiratory distress may be due to newly seen neck mass on CT neck. (3) Neck mass: Status: Acute Assessment and plan: CT neck showing 3.8 cm mass at floor of the mouth ENT recommends outpatient followup (4) Type 2 diabetes mellitus without complications: Assessment and plan: A1C 5.8, no intervention (5) Benign prostatic hyperplasia with lower urinary tract symptoms: Assessment and plan: Retaining urine, maravilla placed Requesting urology consult to determine if maravilla should stay at discharge Continue tamsulosin (6) Parkinson's disease: Status: Chronic Assessment and plan: Continue home regimen (7) Atrial fibrillation: Assessment and plan: Afib on EKG on arrival Tachycardic, restarted diltiazem Continue enoxaparin while hospitalized (8) Hallucination: Status: Acute Assessment and plan: Concern for polypharmacy vs mistaken dosages of multiple meds, home meds reconciled. Family has been concerned about Lewy body dementia vs multisystem atrophy Infection or steroids may be contributing Head CT negative Discontinued steroids Subjective Subjective Interval history since last seen: Mr Kim is awake and alert, comfortable in bed. He is breathing well on room air. A maravilla has been placed for urine retention. Exam Narrative Exam Narrative: General: This is a pleasant man in no distress HEENT: Normocephalic, atraumatic CV: RRR, +1 peripheral edema Resp: CTAB Abd: NTND +NBS MSK: voluntary motion x4 Neuro: Awake and alert, mild confusion Skin: Warm and dry Objective Last Vital Signs Temp 36.9 C 01/26/25 08:01 Pulse 92 H 01/26/25 12:01 Resp 22 01/26/25 12:01 BP 128/87 01/26/25 12:01 Pulse Ox 91 L 01/26/25 12:01 Time Spent with Patient Time Spent with Patient: 25-34 minutes Time was spent: preparing to see the patient(eg.review tests), obtaining and/or reviewing separately otained hiistory, ordering medications,tests, procedures, referring, communicating with other health child care center assistant director, indepentently interpreting results, counseling the patient and care coordination
[2025-01-26] MEDS: Enoxaparin 40 MG/0.4 ML SYR SC (15:01)
[2025-01-26] MEDS: Azithromycin 250 MG TAB PO (15:01)
[2025-01-26] MEDS: traZODone 100 MG TAB 50 MG PO (20:41)
[2025-01-26] MEDS: Carbidopa 50/Levodopa 200 CR TABCR 1 TAB PO (20:41)
[2025-01-26] MEDS: Melatonin 3 MG TAB PO (20:41)
[2025-01-26] MEDS: Acetaminophen 500 MG TAB PO (20:42)
[2025-01-26] MEDS: Pramipexole 0.25 MG TAB 0.0625 MG PO (20:44)
[2025-01-27] VITALS (15 sets, daily range): BP systolic 107–131; BP diastolic 70–94; PULSE 72–146; RESP 20–27; TEMP 36–36.7; O2SAT 91–95
[2025-01-27] MEDS: CEFEPIME 2 GM in Normal Saline 100 ML IVPB ×3 (03:57→21:40)
[2025-01-27] MEDS: Levothyroxine 75 MCG TAB PO (06:05)
[2025-01-27] MEDS: Budesonide/Formoterol 160/4.5 6 GM 60 PUFF INH IH ×2 (07:50→21:41)
--- NOTE | 2025-01-27 08:18 | CMPROGNOTE_ITS ---
Date of service: 01/27/25 Time of Service: 16:14 Care Management Progress Note Progress Note Text Progress Note Text: Jorge was lying in bed, utilizing the bed almendarez when CM arrived. Per provider, anticipate he will be discharged back to SNF tomorrow. CM will continue to follow. Discharge Potential Discharge Needs: Other (return to [facility]) Anticipated Barriers to Discharge: None Identified Patient/Family Education Needs: Review discharge instructions, discuss Ask Me Three Transportation: RCT RCT Transportation: Wheel chair van Plan: Anticipate Jorge will return to [facility] when medically cleared. He will follow up with the facility providers and plan of care and transport via RCT wheel chair van. CM will follow and continue to assess for discharge planning needs. Social Determinants of Health Screening Social Determinants of health last assessed in clinic: 01/27/25 Will the Patient Participate in the Screening?: Yes Do you worry about having a steady place to live?: no Problems where you live: no known problems In the past 12 months, have you had to go without electric, gas, oil or water in your home?: no 1. Within the past 12 months, we worried whether our food would run out before we got money to buy more.: Never true 2. Within the past 12 months, the food we bought just didn't last and we didn't have money to get more.: Never true Has lack of transportation kept you from medical appointments or from doing things needed for daily living?: no Has anyone in your life made you feel unsafe or unsupported?: no How hard is it for you to pay for the very basics like food, housing, medical care, and heating? Would you say it is:: Not hard at all Do you want help finding or keeping work or a job?: I do not need or want help If for any reason you need help with day-to-day activities such as bathing, preparing meals, shopping, managing finances, etc., do you get the help you need?: I get all the help I need How often do you feel lonely or isolated from those around you?: Sometimes Do you speak a language other than Romansh at home?: No Does the patient want assistance with any of the above?: No Comments: son in [place] helps with finances and daughter in [place] takes care of home, youngest daughter also help Health Related Social Needs Health related social needs: feeling lonely/isolated (Z60.8) Health related social needs details: patient and life in rehabilitation/nursing facility
[2025-01-27] MEDS: Pantoprazole 40 MG TABCR PO (08:39)
[2025-01-27] MEDS: Tamsulosin 0.4 MG CAPCR PO (08:39)
[2025-01-27] MEDS: Finasteride 5 MG TAB PO (08:40)
[2025-01-27] MEDS: Cyanocobalamin 500 MCG TAB 1000 MCG PO (08:40)
[2025-01-27] MEDS: Venlafaxine 150 MG CAPCR PO (08:41)
[2025-01-27] MEDS: dilTIAZem 30 MG TAB 60 MG PO ×3 (08:41→21:40)
[2025-01-27] MEDS: Aspirin 81 MG CHEW PO (08:42)
[2025-01-27] MEDS: Polyethylene Glycol 3350 17 GM PACKET PO (08:43)
[2025-01-27] MEDS: Normal Saline Flush 10 ML SYR IVP ×2 (08:43→21:42)
[2025-01-27] MEDS: Diclofenac 1% Gel 100 GM TUBE TP ×4 (09:39→21:42)
[2025-01-27] MEDS: Ketoconazole 2% CREAM 15 GM TUBE TP (09:39)
--- NOTE | 2025-01-27 16:17 | W.UROLOGYCON ---
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 I propose that we leave his catheter in place for @ 1 week. We will coordinate with the staff at the health and rehab center to have his catheter removed some morning and see us in the office that afternoon. He should remain on his tamsulosin and finasteride. History of Present Illness History of Present Illness Chief Complaint: Urinary retention Narrative: This is a 79-year-old gentleman who is well-known to our practice. He has a history of chronic lower urinary tract symptoms. He has developed urinary retention at times especially when he is hospitalized for acute illnesses. He is currently hospitalized with pneumonia, new onset atrial fibrillation and mental status changes. Throughout the hospitalization, he has had episodes of incomplete bladder emptying requiring clean intermittent catheterization. The catheterization has been somewhat traumatic at times and difficult to complete, so he now has an indwelling urethral catheter. In the past, we have been able to allow him to remain catheter free with a combination of finasteride and tamsulosin. He is already on maximal medical therapy. He has had constipation issues in the past, but none currently. Review of Systems Constitutional Constitutional: Denies chills and Denies fever(s) Cardiovascular Cardiovascular: Denies chest pain Gastrointestinal Gastrointestinal: Denies nausea and Denies vomiting PFSH All Active Problems (Updated 01/29/25 @ 00:01 by KEVIN SALINAS) DNR (do not resuscitate) (Acute) Mild cognitive impairment (Acute) Parkinson's disease (Chronic) Neck mass (Acute) Exacerbation of RAD (reactive airway disease) (Acute) Abdominal pain (Acute) At risk for falling (Acute) Insomnia, unspecified (Acute) Other symbolic dysfunctions (Acute) Localized edema (Acute) Tinea pedis (Acute) Dystrophia unguium (Acute) Onychomycosis (Acute) Knee osteoarthritis (Acute) Reactive airway disease (Acute) 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) Polyarthritis, unspecified (Acute) Unspecified lack of coordination (Acute) Muscle weakness (generalized) (Acute) Other disorders of peripheral nervous system (Acute) Other disorders of arteries, arterioles and capillaries in diseases classified elsewhere (Acute) Nail dystrophy (Acute) Claustrophobia (Acute) Imbalance (Acute) Dizziness (Acute) Sensorineural hearing loss, bilateral (Acute) Hx of herpes zoster (Acute) Macrocytosis (Acute) Hearing loss (Acute) Arthritis of right wrist (Acute) Cognitive decline (Acute) Vitamin D deficiency (Acute) Chronic anxiety (Acute) Dysequilibrium (Acute) Restless legs (Acute) Vesicocolonic fistula (Acute) Chronic shortness of breath (Acute) per pcp Complete tear of right rotator cuff (Acute ~11/2019) BPH loc w urin obs/LUTS (Acute) Right rotator cuff tendonitis (Acute) Most recent injection: 09/24/2019 Left rotator cuff tear arthropathy (Chronic) Most recent injection: 09/24/2019 Left shoulder tendinitis (Chronic) Primary osteoarthritis of both knees (Chronic) Bilateral Synvisc injections most recently: 01/01/2021; 06/30/2020 Adhesive capsulitis of shoulder (Acute 08/05/13) Medical History (Updated 01/29/25 @ 00:01 by KEVIN SALINAS) Advanced care planning/counseling discussion Palliative care encounter Atrial fibrillation Hypothyroidism Aortic regurgitation Paroxysmal atrial fibrillation Type 2 diabetes mellitus without complications Personal history of other infectious and parasitic diseases Dysarthria and anarthria Dysphagia, oral phase Rheumatic aortic insufficiency Benign prostatic hyperplasia with lower urinary tract symptoms Generalized anxiety disorder Primary osteoarthritis, right wrist Degenerative joint disease Foot deformity, acquired History of degenerative joint disease Rotator cuff tear Moderate aortic regurgitation Mild memory disturbance Actinic keratosis Erectile dysfunction GERD (gastroesophageal reflux disease) CRYSTAL (obstructive sleep apnea) Allergic rhinitis Right bundle branch block Surgical History History of partial surgical removal of colon History of bladder repair surgery History of hernia repair Family History Father Lung cancer Mother Colon cancer Daughter Lymphoma Social History (Updated 01/22/25 @ 11:49 by Christian Benavides) Smoking/Tobacco Use Status: Former Tobacco Use Smoking risk assessment performed?: Yes Alcohol Intake: never Drug use: Never Substance use type: does not use Household members: spouse Housing: [facility] Pets and animals: Yes (1) Pets and animals: cat(s) Current gender identity: male Do you feel safe at home: Yes Do you feel safe in your relationship?: Yes Additional Social history: Lives at [facility], in the same room Exam Narrative Exam Narrative: He is a very pleasant gentleman in no obvious distress His vital signs are documented elsewhere A Mariee catheter is currently in place and is draining clear urine He is awake and alert Results Last Vital Signs Temp 36.6 C 01/27/25 12:55 Pulse 94 H 01/27/25 08:38 Resp 22 01/27/25 10:00 BP 109/78 01/27/25 12:55 Pulse Ox 93 01/27/25 12:55 Labs 01/25/25 05:35 01/25/25 05:35
--- NOTE | 2025-01-27 16:39 | PGE_ITS ---
Date of Service Date of service: 01/27/25 Time of Service: 09:00 Assessment and Plan Assessment and plan (1) Benign prostatic hyperplasia with lower urinary tract symptoms: Assessment and plan: Retaining urine, maravilla placed Appreciate urology recommendations Will DC with maravilla in place, request SNF to make afternoon urology appointment, remove maravilla morning of Continue tamsulosin (2) Sepsis: Status: Resolved Assessment and plan: Septic on arrival with tachycardia, tachypnea, leukocytosis, likely PNA He was given IV fluids and antibiotics in the ED and continues to be on respiratory regimen. Urine culture weakly suggestive of UTI, no intervention at this time. (3) Pneumonia: Status: Resolved Assessment and plan: Lactic acidosis 2.5 on arrival, septic, now resolved. Cultures NGTD, procalcitonin negative. Vancomycin given until MRSA swab negative, now discontinued. Continuing cefepime, azithromycin CT chest not consistent with PNA. Respiratory distress may be due to newly seen neck mass on CT neck. (4) Neck mass: Status: Acute Assessment and plan: CT neck showing 3.8 cm mass at floor of the mouth ENT recommends outpatient followup (5) Type 2 diabetes mellitus without complications: Assessment and plan: A1C 5.8, no intervention (6) Parkinson's disease: Status: Chronic Assessment and plan: Continue home regimen (7) Atrial fibrillation: Assessment and plan: Afib on EKG on arrival Tachycardic, restarted diltiazem Continue enoxaparin while hospitalized (8) Hallucination: Status: Resolved Assessment and plan: Concern for polypharmacy vs mistaken dosages of multiple meds, home meds reconciled. Family has been concerned about Lewy body dementia vs multisystem atrophy Infection or steroids may be contributing Head CT negative Discontinued steroids Subjective Subjective Interval history since last seen: Mr Kim is comfortable in bed. Maravilla remains in place and he will be discharged on it January 28 Exam Narrative Exam Narrative: General: This is a pleasant man in no distress HEENT: Normocephalic, atraumatic CV: RRR, +1 peripheral edema Resp: CTAB Abd: NTND +NBS : maravilla in place MSK: voluntary motion x4 Neuro: Awake and alert, mild confusion Skin: Warm and dry Objective Last Vital Signs Temp 36.6 C 01/27/25 12:55 Pulse 94 H 01/27/25 08:38 Resp 22 01/27/25 10:00 BP 109/78 01/27/25 12:55 Pulse Ox 93 01/27/25 12:55 Time Spent with Patient Time Spent with Patient: 25-34 minutes Time was spent: preparing to see the patient(eg.review tests), obtaining and/or reviewing separately otained hiistory, ordering medications,tests, procedures, referring, communicating with other health healthcare risk control consultant, indepentently interpreting results, counseling the patient and care coordination
[2025-01-27] MEDS: Azithromycin 250 MG TAB PO (17:08)
[2025-01-27] MEDS: Enoxaparin 40 MG/0.4 ML SYR SC (17:08)
[2025-01-27] MEDS: Pramipexole 0.25 MG TAB 0.0625 MG PO (21:40)
[2025-01-27] MEDS: Carbidopa 50/Levodopa 200 CR TABCR 1 TAB PO (21:40)
[2025-01-28] MEDS: CEFEPIME 2 GM in Normal Saline 100 ML IVPB (04:29)
[2025-01-28] MEDS: Normal Saline Flush 10 ML SYR IVP ×2 (05:26→10:57)
[2025-01-28] MEDS: Levothyroxine 75 MCG TAB PO (05:26)
[2025-01-28] MEDS: Budesonide/Formoterol 160/4.5 6 GM 60 PUFF INH IH (07:39)
[2025-01-28 07:52] VITALS: BP 123/87; PULSE 98
[2025-01-28 07:53] VITALS: BP 123/87; PULSE 85; RESP 16; TEMP 37; O2SAT 95
[2025-01-28 08:44] VITALS: BP 119/66; PULSE 95; RESP 17; TEMP 36.6; O2SAT 95
--- NOTE | 2025-01-28 08:46 | PDOC.CMDIS ---
Date of service: 01/28/25 Time of Service: 08:46 LACE Index Scoring Tool Questions: Length of Stay (in days): 4 - 6 Was the patient admitted via the E.D.?: Yes Comorbidities: Diabetes w/o Complication E.D. Visits: 2 Answers: Total Score: 10 Risk of Readmission: High Risk Care Management Discharge Plan Reason for Hospitalization: pneumonia Discharge Plan: Jorge will be discharged back to the [facility] today. He will f/u with the facility provider and continue per his plan of care. Jorge will transport via RCT wheelchair van as coordinated by CM. Patient/Family Education Needs: Review of discharge instructions, activity, limitations, and discuss Ask me 3. SDOH Health Related Social Needs: Health related social needs lonely/isolated Health related social needs details patient and life in rehabilitation/nursing facility Health related social needs details: patient and life in rehabilitation/nursing facility
[2025-01-28] MEDS: dilTIAZem 30 MG TAB 60 MG PO ×2 (08:53→13:30)
[2025-01-28] MEDS: Venlafaxine 150 MG CAPCR PO (08:53)
[2025-01-28] MEDS: Tamsulosin 0.4 MG CAPCR PO (08:53)
[2025-01-28] MEDS: Cyanocobalamin 500 MCG TAB 1000 MCG PO (08:53)
[2025-01-28] MEDS: Pantoprazole 40 MG TABCR PO (08:53)
[2025-01-28] MEDS: Finasteride 5 MG TAB PO (08:53)
[2025-01-28] MEDS: Aspirin 81 MG CHEW PO (08:54)
[2025-01-28] MEDS: Polyethylene Glycol 3350 17 GM PACKET PO (08:54)
[2025-01-28] MEDS: Diclofenac 1% Gel 100 GM TUBE TP ×2 (08:58→12:20)
[2025-01-28] MEDS: Ketoconazole 2% CREAM 15 GM TUBE TP (09:03)
--- NOTE | 2025-01-28 11:06 | W.PM.DS.N ---
Date of service: 01/28/25 Time of Service: 08:00 DS: Diagnosis Discharge Diagnosis (1) Benign prostatic hyperplasia with lower urinary tract symptoms: Asessment and Plan: Retaining urine, maravilla placed Appreciate urology recommendations Will DC with maravilla in place, request SNF to make afternoon urology appointment, remove maravilla morning of Continue home regimen tamsulosin (2) Sepsis: Status: Resolved Asessment and Plan: Septic on arrival with tachycardia, tachypnea, leukocytosis, likely PNA He was given IV fluids and antibiotics in the ED and continued on antibiotics, steroids and bronchodilators. Steroids discontinued for hallucinations. Antibiotic course completed. Urine culture weakly suggestive of UTI, no intervention at this time. (3) Pneumonia: Status: Resolved Asessment and Plan: Lactic acidosis 2.5 on arrival, septic, now resolved. Cultures NGTD, procalcitonin negative. Vancomycin given until MRSA swab negative, then discontinued. Completed course of cefepime, azithromycin (4) Neck mass: Status: Acute Asessment and Plan: CT neck showing 3.8 cm mass at floor of the mouth ENT recommends outpatient followup (5) Type 2 diabetes mellitus without complications: Asessment and Plan: A1C 5.8, no intervention (6) Parkinson's disease: Status: Chronic Asessment and Plan: Continue home regimen (7) Atrial fibrillation: Asessment and Plan: Afib on EKG on arrival, no additional episodes while hospitalized Diltiazem continued during hospitalization Enoxaparin while hospitalized No indication for continuing anticoagulation (8) Hallucination: Status: Resolved Asessment and Plan: Concern for polypharmacy vs mistaken dosages of multiple meds, home meds reconciled. Family has been concerned about Lewy body dementia vs multisystem atrophy Infection or steroids may be contributing Head CT negative Discontinued steroids Discharge Plan Disposition Patient Disposition: Assisted Facility(SNF) Condition: Fair Discharge Details Reason For Visit: Pneumonia, Respiratory Distress Admit Date/Time: 01/22/25 10:42 Admit Provider: Abhilash Nicholson Attending Provider: Abhilash Nicholson Primary Care Provider: Iam Sanchez Hospital Course Hospital Course: Jorge Kim is a 79 year old man presenting January 22 in respiratory distress, found to be septic likely secondary to pneumonia. He was also found to have new atrial fibrillation, and he was hallucinating. He was admitted on antibiotics and steroids. His respiratory distress persisted and he had imaging of the chest and neck, which revealed a mass in the base of the mouth. ENT evaluation determined that this mass was not affecting respiration and outpatient followup would be appropriate. He improved to baseline, with the exception of urinary retention. He has completed his course of antibiotics and is comfortable on room air. He has a maravilla catheter in place, which will stay until he is evaluated by urology in clinic. Home Meds and New Rx's Prescriptions: Continued melatonin 3 mg tablet 3 mg PO HS PRN budesonide-formoterol [Symbicort] 160-4.5 mcg/actuation HFA aerosol inhaler 2 puff inhalation BID lactase 3,000 unit tablet 3,000 unit PO ONCE Rx Instructions: administer with meals and/or snacks diltiazem HCl [Cardizem CD] 180 mg capsule,extended release 24hr 180 mg PO HS cholecalciferol (vitamin D3) 1,250 mcg (50,000 unit) capsule 50,000 unit PO DAILY ketoconazole 2 % cream 1 applic topical DAILY Qty: 120 6RF Rx Instructions: Apply to 1g to skin and toenails once daily pramipexole 0.125 mg tablet 0.5 mg PO QHS ibuprofen [Motrin IB] 200 mg tablet 200 mg PO TID PRN PRN Rx Instructions: PT TAKES PRN levalbuterol HCl [Xopenex] 0.63 mg/3 mL solution for nebulization 0.63 mg inhalation ONCE tamsulosin [Flomax] 0.4 mg capsule 0.4 mg PO DAILY Qty: 90 3RF acetaminophen 500 mg Tablet 500 mg PO PRN PRN cyanocobalamin (vitamin B-12) 500 mcg Tablet 1,000 mcg PO DAILY aspirin 81 mg Tablet,Chewable 81 mg PO DAILY fluticasone propionate 50 mcg/actuation [place],Suspension 1 spray INTRANASAL DAILY Rx Instructions: administer into each nostril Biofreeze (menthol) 5 % Gel 1 applic TOPICAL PRN PRN Fleet Enema 19-7 gram/118 mL enema 118 ml MN ONCE Rx Instructions: Insert 1 application rectally every 24 hours as needed for constipation. After MOM and Suppository have been administered without results Glucagon Emergency Kit (human) 1 mg recon soln 1 mg subcut Q20M PRN Rx Instructions: until target blood sugar attained dextrose 40 % gel 10 g PO Q15M PRN Rx Instructions: until symptoms of low blood sugar are controlled ipratropium-albuterol 0.5 mg-3 mg(2.5 mg base)/3 mL solution for nebulization 3 ml inhalation Q4H PRN pantoprazole 40 MG tablet,delayed release (DR/EC) 40 mg PO DAILY bisacodyl [Dulcolax (bisacodyl)] 10 mg Suppository 10 mg MN 1XD PRN (Reason: Constipation) magnesium hydroxide 400 mg/5 mL Suspension 30 ml PO 1XD PRN (Reason: Constipation) alum-mag hydroxide-simeth 200-200-20 mg/5 mL Suspension 30 ml PO Q6H PRN PRN (Reason: Abdominal Discomfort) furosemide [Lasix] 20 mg tablet 20 mg PO DAILY PRN finasteride 5 mg Tablet 5 mg PO DAILY Qty: 0 0RF Inhaler, Assist Devices [Pocket Chamber] 1 ea miscellaneous DIRECTED Qty: 0 0RF carbidopa-levodopa 50-200 mg tablet extended release 1 tab PO HS entacapone 200 mg tablet 200 mg PO TID Rx Instructions: administer at the same time as l-dopa/carbidopa dose carbidopa-levodopa 25-250 mg tablet 1 tab PO TID levothyroxine 75 mcg tablet 75 mcg PO DAILY diclofenac sodium [Arthritis Pain (diclofenac)] 1 % gel 4 g topical QID Rx Instructions: apply to single knee, ankle, foot; for foot includes sole/toes/top of foot polyethylene glycol 3350 [ClearLax] 17 gram/dose powder 17 g PO DAILY venlafaxine 150 mg capsule,extended release 24hr 150 mg PO DAILY albuterol sulfate [Ventolin HFA] 90 mcg/actuation HFA aerosol inhaler 2 inh inhalation Q6H PRN trazodone 50 mg tablet 50 mg PO HS PRN Discontinued dextromethorphan HBr 15 mg/5 mL syrup 15 mg PO Q4H Rx Instructions: give 15mL by mouth every 4 hours as needed for cough sulfamethoxazole-trimethoprim [Bactrim DS] 800-160 mg tablet 1 tab PO BID Patient Comments: UTI; 1 tablet BID for 14 days. Last dose 02/02/2025 Discharge Instructions Additional Instructions: Patient needs to have followup with the ENT clinic within 4-6 weeks. Patient needs to have followup with Dr Haley in the urology clinic in 7-10 days. Please make an afternoon appointment. On the morning of the appointment, please remove his maravilla catheter. Referrals: Hayden Haley MD [ [facility] STAFF PHYSICIAN, Urology] Sajan Mendes MD [ [facility] STAFF PHYSICIAN, ENT Surgical] Activity:: Activity as Tolerated Equipment/Supplies:: No Equipment Needed Diet:: Normal Diet Discharge Orders Discharge Orders: Discharge Order (Routine); Ordered 01/28/25 Ordered By: Abhilash Nicholson DS: Summary Time Spent with Patient providing and/or coordinating discharge services: Less than 30 minutes Status at Discharge Functional status at discharge: wheelchair bound Overall status at discharge: patient is back to baseline Mental Status: mental status grossly normal Speech and Movement: speech and movement normal Mood: congruent mood Affect: normal affect Quality:SDOH Health Related Social Needs: Health related social needs lonely/isolated Health related social needs details patient and life in rehabilitation/nursing facility Health related social needs details: patient and life in rehabilitation/nursing facility Exam Narrative Exam Narrative: General: This is a pleasant man in no distress HEENT: Normocephalic, atraumatic CV: RRR, +1 peripheral edema Resp: CTAB Abd: NTND +NBS : maravilla in place MSK: voluntary motion x4 Neuro: Awake and alert, mild confusion Skin: Warm and dry Psych Mental Status: mental status grossly normal Speech and Movement: speech and movement normal Mood: congruent mood Affect: normal affect DS: Data Vitals/I&O Vitals and I&O: Vital Signs Temperature 36.6 C 01/28/25 08:44 Temperature Source Temporal Artery Scan 01/28/25 08:44 Pulse 95 H 01/28/25 08:44 Pulse 88 01/27/25 10:00 Respiratory Rate 17 01/28/25 08:44 Respiratory Effort Normal 01/24/25 17:50 Respiratory Depth Shallow 01/24/25 17:50 Respiratory Pattern Tachypnea 01/24/25 17:50 Blood Pressure 119/66 01/28/25 08:44 Blood Pressure Mean 83 01/28/25 08:44 Blood Pressure Position Supine 01/24/25 17:50 Pulse Oximetry 95 01/28/25 08:44 Oxygen Delivery Method Room Air 01/28/25 08:44 Oxygen Flow Rate 0 01/28/25 08:44 Pain Level 0 01/27/25 19:37 Comment rn notified 01/24/25 15:26 Intake & Output 01/27/25 01/27/25 01/28/25 11:59 23:59 11:59 Intake Total 100 / 1250 1150 / 1250 650 / 650 Output Total 950 / 1550 600 / 1550 850 / 850 Balance -850 / -300 550 / -300 -200 / -200 Weight 51.6 kg Intake: IV 100 / 400 300 / 400 100 / 100 Oral 850 / 850 550 / 550 Output: Urine 950 / 1550 600 / 1550 850 / 850 Other: Urine Color Green [place] Urine Appearance Clear Sediment Clear Stool Size Small Stool Characteristics Soft Data Completed and Pending Completed studies during hospitalization [Text1]: * * * * * EXAM: XR CHEST 2V PA LATERAL IMPRESSION: Bibasilar platelike atelectasis and possible mild infiltrate in the lung bases. No pleural effusions. No pulmonary edema Dictated By: Manuel Ohara M.D. 01/22/25 1344 * * * * * EXAM: CT NECK CHEST W IMPRESSION: 1. There is a mass extending from the floor of the mouth inferiorly slightly right of center measuring approximately 2.5 cm wide by 1.7 cm by 3.8 cm. Might be slightly exaggerated by motion artifact and rotation but requires close follow-up to rule out neoplasm. Does not have the appearance of an obvious abscess. ENT consultation recommended. 2. There is atelectasis in both lung bases. No pleural effusions. 3. There is some narrowing of the distal trachea and mainstem bronchi. This may be related to phase of respiration but cannot exclude bronchomalacia. Dictated By: Manuel Ohara M.D. 01/24/25 1411 * * * * * EXAM: CT HEAD WO IMPRESSION: No acute intracranial findings on this noninfused CT scan of the brain. Chronic bilateral relatively symmetrical small vessel white matter ischemic changes. Mild relatively symmetrical cerebral atrophy. Dictated By: Manuel Ohara M.D. 01/24/25 3126 * * * * * PFSH All Active Problems (Updated 01/28/25 @ 11:04 by Abhilash Nicholson MD) Advanced care planning/counseling discussion (Acute) Palliative care encounter (Acute) DNR (do not resuscitate) (Acute) Mild cognitive impairment (Acute) Parkinson's disease (Chronic) Acute delirium (Acute) Neck mass (Acute) Encephalopathy (Acute) Exacerbation of RAD (reactive airway disease) (Acute) Abdominal pain (Acute) At risk for falling (Acute) Insomnia, unspecified (Acute) Other symbolic dysfunctions (Acute) Localized edema (Acute) Tinea pedis (Acute) Dystrophia unguium (Acute) Onychomycosis (Acute) Knee osteoarthritis (Acute) Reactive airway disease (Acute) 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) Polyarthritis, unspecified (Acute) Unspecified lack of coordination (Acute) Muscle weakness (generalized) (Acute) Other disorders of peripheral nervous system (Acute) Other disorders of arteries, arterioles and capillaries in diseases classified elsewhere (Acute) Nail dystrophy (Acute) Claustrophobia (Acute) Imbalance (Acute) Dizziness (Acute) Sensorineural hearing loss, bilateral (Acute) Hx of herpes zoster (Acute) Macrocytosis (Acute) Hearing loss (Acute) Arthritis of right wrist (Acute) Cognitive decline (Acute) Vitamin D deficiency (Acute) Chronic anxiety (Acute) Dysequilibrium (Acute) Restless legs (Acute) Vesicocolonic fistula (Acute) Chronic shortness of breath (Acute) per pcp Complete tear of right rotator cuff (Acute ~11/2019) BPH loc w urin obs/LUTS (Acute) Right rotator cuff tendonitis (Acute) Most recent injection: 09/24/2019 Left rotator cuff tear arthropathy (Chronic) Most recent injection: 09/24/2019 Left shoulder tendinitis (Chronic) Primary osteoarthritis of both knees (Chronic) Bilateral Synvisc injections most recently: 01/01/2021; 06/30/2020 Adhesive capsulitis of shoulder (Acute 08/05/13) Medical History (Updated 01/28/25 @ 11:04 by Abhilash Nicholson MD) Atrial fibrillation Hypothyroidism Aortic regurgitation Paroxysmal atrial fibrillation Type 2 diabetes mellitus without complications Personal history of other infectious and parasitic diseases Dysarthria and anarthria Dysphagia, oral phase Rheumatic aortic insufficiency Benign prostatic hyperplasia with lower urinary tract symptoms Generalized anxiety disorder Primary osteoarthritis, right wrist Degenerative joint disease Foot deformity, acquired History of degenerative joint disease Rotator cuff tear Moderate aortic regurgitation Mild memory disturbance Actinic keratosis Erectile dysfunction GERD (gastroesophageal reflux disease) CRYSTAL (obstructive sleep apnea) Allergic rhinitis Right bundle branch block Surgical History History of partial surgical removal of colon History of bladder repair surgery History of hernia repair Family History Father Lung cancer Mother Colon cancer Daughter Lymphoma Social History (Updated 01/22/25 @ 11:49 by Christian Benavides) Smoking/Tobacco Use Status: Former Tobacco Use Smoking risk assessment performed?: Yes Alcohol Intake: never Drug use: Never Substance use type: does not use Household members: spouse Housing: [facility] Pets and animals: Yes (1) Pets and animals: cat(s) Current gender identity: male Do you feel safe at home: Yes Do you feel safe in your relationship?: Yes Additional Social history: Lives at [facility], in the same room Time Spent with Patient Time Spent with Patient: <45 minutes Time was spent: preparing to see the patient(eg.review tests), obtaining and/or reviewing separately otained hiistory, ordering medications,tests, procedures, referring, communicating with other health progressive care nurse, indepentently interpreting results, counseling the patient and care coordination
[2025-01-28 11:27] VITALS: BP 115/91; PULSE 111; O2SAT 94
[2025-01-28 11:28] VITALS: O2SAT 94
[2025-01-28 11:29] VITALS: BP 115/91; PULSE 84; RESP 17; TEMP 36.9; O2SAT 94
== END 2025-01-28 14:00 | disposition skilled nursing facility (03) | DRG 871 ==
LOC: ER 11:39 → MS 13:12 → ICU 01-25 09:50 → MS 01-26 09:04
PROVIDERS: Family Medicine; Admitting Provider Family Medicine; Emergency Provider Emergency Medicine; PCP Family Medicine; Responsible Provider Family Medicine; Visit Provider Family Medicine
DX: A41.9 Sepsis, unspecified organism (principal); J18.9 Pneumonia, unspecified organism; E03.9 Hypothyroidism, unspecified; E11.9 Type 2 diabetes mellitus without complications; N40.1 Benign prostatic hyperplasia with lower urinary tract symptoms; G47.33 Obstructive sleep apnea (adult) (pediatric); Z66 Do not resuscitate; G93.41 Metabolic encephalopathy; N13.8 Other obstructive and reflux uropathy; J45.901 Unspecified asthma with (acute) exacerbation; N39.0 Urinary tract infection, site not specified; R44.3 Hallucinations, unspecified; E87.21 Acute metabolic acidosis; J98.11 Atelectasis; R22.1 Localized swelling, mass and lump, neck; M62.81 Muscle weakness (generalized); B35.1 Tinea unguium; G47.00 Insomnia, unspecified; H90.3 Sensorineural hearing loss, bilateral; E55.9 Vitamin D deficiency, unspecified; I48.0 Paroxysmal atrial fibrillation; I35.1 Nonrheumatic aortic (valve) insufficiency; F41.1 Generalized anxiety disorder; K21.9 Gastro-esophageal reflux disease without esophagitis; I45.10 Unspecified right bundle-branch block; Z99.3 Dependence on wheelchair; G20.C Parkinsonism, unspecified; M15.9 Polyosteoarthritis, unspecified; G25.81 Restless legs syndrome; D75.89 Other specified diseases of blood and blood-forming organs; L89.159 Pressure ulcer of sacral region, unspecified stage; R09.02 Hypoxemia
CPT/HCPCS: 36410; 00123; 36415; 70491; 80048; 80053; 82805; 84145; 87040; 87641; 93005; 94640; 96365; 96366; 96367; 96368; 96372; 96375; 99222; 99285; 99291; J1650; 70450; 71046; 71260; 80202; 81003; 81015; 82607; 82746; 83036; 83605; 83735; 83880; 84443; 84484; 85025; 93010; 94664; 94760; 99223; 99232; 99233; 99238; J0456; J0692; J0696; J1938; J2919; J3373; J3475; J3490; J7512; J7614; J7620

== ENCOUNTER → 2025-01-27 11:08 | Outpatient (BNVA) | payer MEDICARE, BC, SELFPAY | PROVIDERS: PCP Family Medicine; Referring Provider Family Medicine; Visit Provider Urology ==

== ENCOUNTER → 2025-02-04 07:39 | Outpatient (BNVA) | payer MEDICARE, BC, SELFPAY | PROVIDERS: PCP Family Medicine; Referring Provider Family Medicine; Visit Provider Urology | DX: N40.1 Benign prostatic hyperplasia with lower urinary tract symptoms (principal); R33.8 Other retention of urine; R39.9 Unspecified symptoms and signs involving the genitourinary system | CPT/HCPCS: 99213; 51798 ==

== ENCOUNTER 2025-02-06 13:46 | Inpatient (IN) | payer MEDICARE, BC, SELFPAY ==
[2025-02-06] VITALS (44 sets, daily range): BP systolic 99–132; BP diastolic 52–84; PULSE 72–99; RESP 16–29; TEMP 35.5–36.4; O2SAT 92–97
--- NOTE | 2025-02-06 13:45 | DI.CT_ITS ---
Exam(s) CT HEAD CERVICAL SPINE WO EXAM: CT HEAD CERVICAL SPINE WO CLINICAL HISTORY: AMS after fall. TECHNIQUE: Imaging Protocol: Axial computed tomography images with coronal and sagittal reformatted images were created and reviewed COMPARISON: CT CT HEAD WO from 02/16/[address] HEAD WO from 01/24/2025 FINDINGS: CT Head: Ventricles and Extra axial spaces: Normal in size and morphology for the patient's age. Hemorrhage: None. Cerebral parenchyma: There are areas of decreased attenuation in the white matter consistent with chronic microvascular ischemic disease. No evidence of an acute territorial infarct or mass effect is identified. Midline shift: None. Brainstem/Cerebellum: Normal. Calvarium: Normal. Visualized Paranasal sinuses/Mastoids: There is mucosal thickening in the maxillary sinuses bilaterally. The visualized paranasal sinuses are otherwise clear. Soft Tissues: Unremarkable. CT Cervical Spine: Bones: No acute fracture or subluxation. Age-appropriate degenerative changes are seen in the cervical spine. Soft Tissues: Unremarkable. Lung Apices: Clear. IMPRESSION: 1. No acute intracranial process. 2. No acute fracture or subluxation in the cervical spine. RADIATION DOSE DELIVERED: 1,363.44mGy.cm Total DLP DATA REPOSITORY: All CT scans at this facility are submitted to the National Radiology Data Registry (NRDR) Dose Index Registry (DIR) with the [employer] (ACR). RADIATION OPTIMIZATION: All CT scans at this facility use at least one of these dose optimization techniques: automated exposure control; mA and/or kV adjustment per patient size (includes targeted exams where dose is matched to clinical indication); or iterative reconstruction.
--- NOTE | 2025-02-06 13:50 | DI.CT_ITS ---
Exam(s) CT CHEST/ABD/PEL W CT THORACIC LUMBAR SPINE REC EXAM: CT CHEST/ABD/PEL W CT thoracic and lumbar spine recons CLINICAL HISTORY: Fall, altered mental status, abd bruising TECHNIQUE: Imaging Protocol: Axial computed tomography images with coronal and sagittal reformatted images were created and reviewed. Lung Computer Aided Detection (CAD) was utilized. CONTRAST MATERIAL: Intravenous: Omnipaque 350 contrast volume:75 mL Oral: No COMPARISON: CT CT ABDOMEN PELVIS W from 01/18/[address] NECK CHEST W from 01/24/2025 FINDINGS: CHEST: Tracheobronchial tree: Patent where visualized. No evidence of bronchiectasis. Pulmonary parenchyma: There are bilateral lower lobe infiltrates. No architectural distortion. Visualized thyroid gland: Unremarkable. Mediastinum and Nely: No dominant adenopathy or fluid collection. The esophagus is unremarkable. Pleura: No effusion or pneumothorax. Heart: The heart is not dilated. Coronary artery calcifications are present. No pericardial effusion. Pulmonary arteries: Due to the timing of the bolus, pulmonary artery opacification is insufficient for evaluation of pulmonary emboli. Aorta: Thoracic aorta non-dilated. Atherosclerotic calcification is present. Lymph nodes: Within normal limits. Soft tissues: Unremarkable. Bones:Within normal limits for the patient's age. There are no displaced rib fractures. CT thoracic spine recons: Age-appropriate degenerative changes are present. No acute fractures or subluxations are seen in the thoracic spine. CT lumbar spine recons: Age-appropriate degenerative changes are seen in the lumbar spine. ABDOMEN: Liver: Normal density. No measurable mass. Portal, Superior Mesenteric, and Splenic Veins: Unremarkable. Gallbladder and Biliary Tract: There appears to be some layering hyperdensity in the gallbladder which may represent small stones. There is no biliary ductal dilatation. Pancreas: Normal density, no abnormal calcifications or inflammatory process. Spleen: Normal. Adrenals: No masses seen. Kidneys: Normal size, contour and axis. No radiodense stones or obstructive uropathy. There is a left renal cyst. No follow-up is recommended. Abdominal Aorta: Abdominal portion non-dilated. Atherosclerotic calcification is present. Bowel: No obstruction or bowel wall thickening. There is an anastomosis seen in the mid sigmoid colon. There is a normal appendix. Peritoneal Cavity: No ascites, collection or mesenteric inflammatory response. No free air. Lymph Nodes: Within normal limits. Bones: Within normal limits for the patient's age. Soft Tissues: There is old enlarged mildly heterogeneous left abdominus rectus muscle. This was not present on the examination from 01/18/2025. Given the history, an intramuscular hematoma should be considered. Please correlate with physical exam. There is a fat containing left inguinal hernia. PELVIS: Bladder: Symmetric distention, no gross wall thickening. Reproductive Organs: The prostate gland is enlarged. Lymph Nodes: Within normal limits. Bones: Within normal limits. IMPRESSION: 1. Bilateral lower lobe pulmonary infiltrates. Differential considerations include aspiration, atelectasis or pneumonia. 2. No evidence of an acute thoracic or lumbar spine fracture or subluxation. 3. Asymmetric enlargement and heterogeneity of the left rectus abdominus muscle. This is new since 01/18/2025. Findings are suspicious for hematoma. Please correlate with physical exam. 4. No evidence of an intra-abdominal or pelvic organ injury. RADIATION DOSE DELIVERED: 1,298.8mGy.cm Total DLP DATA REPOSITORY: All CT scans at this facility are submitted to the National Radiology Data Registry (NRDR) Dose Index Registry (DIR) with the [employer] (ACR). RADIATION OPTIMIZATION: All CT scans at this facility use at least one of these dose optimization techniques: automated exposure control; mA and/or kV adjustment per patient size (includes targeted exams where dose is matched to clinical indication); or iterative reconstruction.
--- NOTE | 2025-02-06 13:56 | W.ED.GENAD ---
Discharge Plan Disposition Patient Disposition: Admit to [facility] Condition: Stable Discharge Details Clinical Impression: Acute alteration in mental status, Aspiration pneumonia, Fall, Facial laceration, Abdominal wall hematoma Primary Care Provider: Iam Sanchez ED Provider: Loida Ruano Home Meds and New Rx's Prescriptions: No Action melatonin 3 mg tablet 3 mg PO HS PRN budesonide-formoterol [Symbicort] 160-4.5 mcg/actuation HFA aerosol inhaler 2 puff inhalation BID lactase 3,000 unit tablet 3,000 unit PO ONCE Rx Instructions: administer with meals and/or snacks diltiazem HCl [Cardizem CD] 180 mg capsule,extended release 24hr 180 mg PO HS cholecalciferol (vitamin D3) 1,250 mcg (50,000 unit) capsule 50,000 unit PO DAILY ketoconazole 2 % cream 1 applic topical DAILY Qty: 120 6RF Rx Instructions: Apply to 1g to skin and toenails once daily pramipexole 0.125 mg tablet 0.5 mg PO QHS ibuprofen [Motrin IB] 200 mg tablet 200 mg PO TID PRN PRN Rx Instructions: PT TAKES PRN levalbuterol HCl [Xopenex] 0.63 mg/3 mL solution for nebulization 0.63 mg inhalation ONCE tamsulosin [Flomax] 0.4 mg capsule 0.4 mg PO DAILY Qty: 90 3RF acetaminophen 500 mg Tablet 500 mg PO PRN PRN cyanocobalamin (vitamin B-12) 500 mcg Tablet 1,000 mcg PO DAILY aspirin 81 mg Tablet,Chewable 81 mg PO DAILY fluticasone propionate 50 mcg/actuation [place],Suspension 1 spray INTRANASAL DAILY Rx Instructions: administer into each nostril Biofreeze (menthol) 5 % Gel 1 applic TOPICAL PRN PRN Fleet Enema 19-7 gram/118 mL enema 118 ml MS ONCE Rx Instructions: Insert 1 application rectally every 24 hours as needed for constipation. After MOM and Suppository have been administered without results Glucagon Emergency Kit (human) 1 mg recon soln 1 mg subcut Q20M PRN Rx Instructions: until target blood sugar attained dextrose 40 % gel 10 g PO Q15M PRN Rx Instructions: until symptoms of low blood sugar are controlled ipratropium-albuterol 0.5 mg-3 mg(2.5 mg base)/3 mL solution for nebulization 3 ml inhalation Q4H PRN pantoprazole 40 MG tablet,delayed release (DR/EC) 40 mg PO DAILY bisacodyl [Dulcolax (bisacodyl)] 10 mg Suppository 10 mg MS 1XD PRN (Reason: Constipation) magnesium hydroxide 400 mg/5 mL Suspension 30 ml PO 1XD PRN (Reason: Constipation) alum-mag hydroxide-simeth 200-200-20 mg/5 mL Suspension 30 ml PO Q6H PRN PRN (Reason: Abdominal Discomfort) oxybutynin chloride 5 mg tablet extended release 24hr 5 mg PO DAILY lorazepam 2 mg/mL concentrate 2 mg PO Q6H PRN pramipexole 0.5 mg tablet 0.5 mg PO DAILY morphine concentrate 100 mg/5 mL (20 mg/mL) solution 5 mg PO Q4H PRN albuterol sulfate [Ventolin HFA] 90 mcg/actuation HFA aerosol inhaler 2 inh inhalation Q6H PRN sennosides [Laxative (sennosides)] 8.6 mg tablet 17.2 mg PO DAILY PRN furosemide [Lasix] 20 mg tablet 20 mg PO DAILY finasteride 5 mg Tablet 5 mg PO DAILY Qty: 0 0RF Inhaler, Assist Devices [Pocket Chamber] 1 ea miscellaneous DIRECTED Qty: 0 0RF carbidopa-levodopa 50-200 mg tablet extended release 1 tab PO HS entacapone 200 mg tablet 200 mg PO TID Rx Instructions: administer at the same time as l-dopa/carbidopa dose carbidopa-levodopa 25-250 mg tablet 1 tab PO TID levothyroxine 75 mcg tablet 75 mcg PO DAILY diclofenac sodium [Arthritis Pain (diclofenac)] 1 % gel 4 g topical QID Rx Instructions: apply to single knee, ankle, foot; for foot includes sole/toes/top of foot polyethylene glycol 3350 [ClearLax] 17 gram/dose powder 17 g PO DAILY venlafaxine 150 mg capsule,extended release 24hr 150 mg PO DAILY albuterol sulfate [Ventolin HFA] 90 mcg/actuation HFA aerosol inhaler 2 inh inhalation Q6H PRN trazodone 50 mg tablet 50 mg PO HS PRN HPI General Mode of arrival: EMS. Date/Time Provider Initiated Documentation: 02/06/25 13:49. Limitations to Documentation: altered mental status. Information obtained by: patient, EMS and old records reviewed. HPI Narrative: This is a 79-year-old male patient with a history of Parkinson's, reactive airway disease, cognitive decline, and autonomic failure with imbalance and dizziness who is presenting for evaluation of altered mental status after a fall. Per EMS report the patient fell sometime last night at his assisted, he was acting normally immediately after the fall and they did not seek care or evaluation. This morning the patient woke up and was acting slightly abnormally, was a little more agitated than typical. They gave him 2 mg of Ativan, and noticed him to have altered mental status after that event. He was brought in by EMS after they were summoned for this change. The patient does not take any blood thinning medications, is noted to have a laceration to his forehead. He follows simple commands and appears to do so symmetrically. He does not complain of pain but also is mostly nodding or shaking his head to questions. He has a large area of bruising to the left side of his lower abdomen. Related Data Home Medications ?Medication ?Instructions ?Recorded ?Confirmed pantoprazole 40 mg tablet,delayed 40 mg PO DAILY 04/12/13 02/06/25 release ibuprofen 200 mg tablet (Motrin IB) 200 mg PO TID PRN PRN 12/15/19 02/06/25 levalbuterol HCl 0.63 mg/3 mL 0.63 mg inhalation ONCE 06/30/20 02/06/25 solution for nebulization (Xopenex) pramipexole 0.125 mg tablet 0.5 mg PO QHS 06/30/20 02/06/25 tamsulosin 0.4 mg capsule (Flomax) 0.4 mg PO DAILY #90 caps 12/05/20 02/06/25 Inhaler, Assist Devices [Pocket 1 ea miscellaneous DIRECTED ##0 02/05/22 02/06/25 Chamber] finasteride 5 mg tablet 5 mg PO DAILY #0 tabs 02/05/22 02/06/25 aluminum-mag hydroxide-simethicone 30 ml PO Q6H PRN PRN Abdominal 03/30/22 02/06/25 200 mg-200 mg-20 mg/5 mL oral susp Discomfort bisacodyl 10 mg rectal suppository 10 mg MS 1XD PRN Constipation 03/30/22 02/06/25 (Dulcolax (bisacodyl)) magnesium hydroxide 400 mg/5 mL 30 ml PO 1XD PRN Constipation 03/30/22 02/06/25 oral suspension acetaminophen 500 mg tablet 500 mg PO PRN PRN 05/01/22 02/06/25 aspirin 81 mg chewable tablet 81 mg PO DAILY Prophylaxis 05/01/22 02/06/25 cyanocobalamin (vitamin B-12) 500 1,000 mcg PO DAILY 05/01/22 02/06/25 mcg tablet fluticasone propionate 50 1 spray intranasal DAILY 05/01/22 02/06/25 mcg/actuation nasal spray,suspension menthol 5 % topical gel (Biofreeze 1 applic topical PRN PRN 05/01/22 02/06/25 (menthol)) furosemide 20 mg tablet (Lasix) 20 mg PO DAILY 08/13/22 02/06/25 melatonin 3 mg tablet 3 mg PO HS PRN 08/13/22 02/06/25 dextrose 40 % oral gel 10 g PO Q15M PRN 11/14/22 02/06/25 glucagon 1 mg solution for 1 mg subcut Q20M PRN 11/14/22 02/06/25 injection (Glucagon Emergency Kit) ipratropium 0.5 mg-albuterol 3 mg 3 ml inhalation Q4H PRN 11/14/22 02/06/25 (2.5 mg base)/3 mL nebulization soln sodium phosphates 19 gram-7 118 ml MS ONCE 11/14/22 02/06/25 gram/118 mL enema (Fleet Enema) budesonide-formoterol HFA 160 2 puff inhalation BID 11/27/22 02/06/25 mcg-4.5 mcg/actuation aerosol inhaler (Symbicort) lactase 3,000 unit tablet 3,000 unit PO ONCE 03/17/23 02/06/25 diltiazem HCl 180 mg 180 mg PO HS 04/17/23 02/06/25 capsule,extended release 24 hr (Cardizem CD) cholecalciferol (vitamin D3) 1,250 50,000 unit PO DAILY 01/14/25 02/06/25 mcg (50,000 unit) capsule ketoconazole 2 % topical cream 1 applic topical DAILY #120 grams 01/17/25 02/06/25 albuterol sulfate 90 mcg/actuation 2 inh inhalation Q6H PRN 01/22/25 02/06/25 aerosol inhaler (Ventolin HFA) carbidopa 25 mg-levodopa 250 mg 1 tab PO TID 01/22/25 02/06/25 tablet carbidopa ER 50 mg-levodopa 200 mg 1 tab PO HS 01/22/25 02/06/25 tablet,extended release diclofenac sodium 1 % topical gel 4 g topical QID 01/22/25 02/06/25 (Arthritis Pain (diclofenac)) entacapone 200 mg tablet 200 mg PO TID 01/22/25 02/06/25 levothyroxine 75 mcg tablet 75 mcg PO DAILY 01/22/25 02/06/25 polyethylene glycol 3350 17 17 g PO DAILY 01/22/25 02/06/25 gram/dose oral powder (ClearLax) venlafaxine 150 mg 150 mg PO DAILY 01/22/25 02/06/25 capsule,extended release 24 hr trazodone 50 mg tablet 50 mg PO HS PRN 01/23/25 02/06/25 albuterol sulfate 90 mcg/actuation 2 inh inhalation Q6H PRN 02/06/25 02/06/25 aerosol inhaler (Ventolin HFA) lorazepam 2 mg/mL oral concentrate 2 mg PO Q6H PRN 02/06/25 02/06/25 morphine concentrate 100 mg/5 mL 5 mg PO Q4H PRN 02/06/25 02/06/25 (20 mg/mL) oral solution oxybutynin chloride 5 mg 5 mg PO DAILY 02/06/25 02/06/25 tablet,extended release 24 hr pramipexole 0.5 mg tablet 0.5 mg PO DAILY 02/06/25 02/06/25 sennosides 8.6 mg tablet (Laxative 17.2 mg PO DAILY PRN 02/06/25 02/06/25 (sennosides)) Previous Rx's ?Medication ?Instructions ?Recorded tamsulosin 0.4 mg capsule (Flomax) 0.4 mg PO DAILY #90 caps 12/05/20 Inhaler, Assist Devices [Pocket 1 ea miscellaneous DIRECTED ##0 02/05/22 Chamber] finasteride 5 mg tablet 5 mg PO DAILY #0 tabs 02/05/22 ketoconazole 2 % topical cream 1 applic topical DAILY #120 grams 01/17/25 Allergies Allergy/AdvReac Type Severity Reaction Status Date / Time chlorpheniramine (From Allergy Verified 08/07/23 09:32 Histussin HC) dexbrompheniramine (From Allergy Verified 08/07/23 09:32 Histussin HC) hydrocodone (From Histussin Allergy Verified 08/07/23 09:32 HC) phenylephrine (From Allergy Verified 08/07/23 09:32 Histussin HC) General Stated Complaint: Fall/Non TraumaCriteria FLORA: 2 Exam Narrative Exam Narrative: Gen: Drowsy but opens his eyes and follows commands to loud verbal voice. HEENT: PERRL at 2 mm, tracks appropriately. External ears and nose normal, mucous membranes moist. Scalp atraumatic, forehead has a 2 cm laceration that is well-approximated and hemostatic. Neck: Supple, full range of motion, no cervical spine tenderness or step-offs Lungs: No increased work of breathing, lung sounds clear and equal bilaterally without wheezes, rhonchi, or rales. CV: Heart with regular rate and rhythm, no murmurs auscultated. Strong and symmetrical radial pulses. Abdomen: Soft, nondistended, no pain response to palpation. No rigidity, rebound tenderness, or guarding. Bruising appreciated to the left lower abdominal wall MSK: No joint swelling, no redness. Full ROM without limitation, no external traumatic findings other than small skin tears, abrasions, and bruising of various ages. Clavicle and chest wall without deformity or tenderness, pelvis stable to AP compression, no step-offs to palpation of the T or L-spine. Skin: No rashes or lesions to visualized skin. Normal color, warm, and dry. Neuro: Cranial nerves II-XII intact and symmetrical bilaterally. 4/5 strength in all muscle groups x4 extremities, symmetrical. No sensory deficits Psych: Appropriate for situation. Course Vital Signs Vital signs: Vital Signs Temperature 36.4 C 02/06/25 13:45 Pulse 79 02/06/25 13:45 Respiratory Rate 16 02/06/25 13:45 Blood Pressure 101/73 02/06/25 13:45 Pulse Oximetry 96 02/06/25 13:45 Temperature 36.4 C 02/06/25 13:45 Temperature Source Tympanic 02/06/25 13:45 Pulse 79 02/06/25 13:45 Respiratory Rate 16 02/06/25 13:45 Blood Pressure 101/73 02/06/25 13:45 Pulse Oximetry 96 02/06/25 13:45 Medical Decision Making This is a 79-year-old male patient presenting for evaluation of altered mental status after a fall. My differential includes but is not limited to intracranial hemorrhage, certainly considered spinal injury, intra-abdominal pathology especially given the finding of bruising, including solid organ injury, hollow viscus injury. Considered pulmonary contusion, pneumothorax, and other intrathoracic injury. Considered medication effect given the recent dose of benzodiazepines. Considered metabolic or electrolyte derangements, anemia, kidney or liver injury. Reassuringly, the patient is maintaining his own airway, and is saturating well on his baseline oxygen, and is without hypotension. We will obtain a trauma almendarez scan given the bruising and inability to obtain a full history. We will obtain laboratory studies to include CBC, CMP, magnesium, troponin, and urinalysis. The laceration was dressed with Steri-Strips, tetanus up-to-date - I independently interpreted the laboratory studies, which show no significant leukocytosis, anemia, or thrombocytopenia. The chemistry panel is without evidence of electrolyte abnormality, kidney dysfunction, or liver injury. Troponin was negative and without interval increase on delta recheck. Urinalysis with some ketones, no evidence for urinary tract infection. I reviewed the patient's imaging studies, which show no intracranial hemorrhage, skull fracture or spinal fracture. He does have a bibasilar consolidations which may represent infection, atelectasis, or aspiration. He has a left abdominal wall hematoma, consistent with the exterior bruising. I did discuss the patient's case with his daughters at bedside, who states that the abdominal wall contusion occurred several days ago, after another fall. The patient has unfortunately not returned to baseline, is still able to follow commands physically but does not speak and is arousable to loud voice only. I am concerned that his mental status may be secondary to medications, but may also represent an infection, and in the setting of the bibasilar consolidations provided him with ceftriaxone and azithromycin. Reassuringly, he does not meet sepsis criteria, I did send a viral swab. He is saturating well on his 3 L of oxygen by nasal cannula. Discussed the case with Dr. Bo with the hospitalist service, who is graciously accepted this patient for admission. Remained hemodynamically appropriate while under my care. Loida Ruano MD Quality:SDOH Health Related Social Needs: Health related social needs lonely/isolated Health related social needs details patient and life in rehabilitation/nursing facility PFSH All Active Problems (Updated 02/06/25 @ 17:00 by Loida Ruano MD) Abdominal wall hematoma (Acute) Facial laceration (Acute) Fall (Acute) Aspiration pneumonia (Acute) Acute alteration in mental status (Acute) DNR (do not resuscitate) (Acute) Mild cognitive impairment (Acute) Parkinson's disease (Chronic) Neck mass (Acute) Exacerbation of RAD (reactive airway disease) (Acute) Abdominal pain (Acute) At risk for falling (Acute) Insomnia, unspecified (Acute) Other symbolic dysfunctions (Acute) Localized edema (Acute) Tinea pedis (Acute) Dystrophia unguium (Acute) Onychomycosis (Acute) Knee osteoarthritis (Acute) Reactive airway disease (Acute) 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) Polyarthritis, unspecified (Acute) Unspecified lack of coordination (Acute) Muscle weakness (generalized) (Acute) Other disorders of peripheral nervous system (Acute) Other disorders of arteries, arterioles and capillaries in diseases classified elsewhere (Acute) Nail dystrophy (Acute) Claustrophobia (Acute) Imbalance (Acute) Dizziness (Acute) Sensorineural hearing loss, bilateral (Acute) Hx of herpes zoster (Acute) Macrocytosis (Acute) Hearing loss (Acute) Arthritis of right wrist (Acute) Cognitive decline (Acute) Vitamin D deficiency (Acute) Chronic anxiety (Acute) Dysequilibrium (Acute) Restless legs (Acute) Vesicocolonic fistula (Acute) Chronic shortness of breath (Acute) per pcp Complete tear of right rotator cuff (Acute ~11/2019) BPH loc w urin obs/LUTS (Acute) Right rotator cuff tendonitis (Acute) Most recent injection: 09/24/2019 Left rotator cuff tear arthropathy (Chronic) Most recent injection: 09/24/2019 Left shoulder tendinitis (Chronic) Primary osteoarthritis of both knees (Chronic) Bilateral Synvisc injections most recently: 01/01/2021; 06/30/2020 Adhesive capsulitis of shoulder (Acute 08/05/13) Medical History (Updated 02/06/25 @ 17:00 by Loida Ruano MD) Advanced care planning/counseling discussion Palliative care encounter Atrial fibrillation Hypothyroidism Aortic regurgitation Paroxysmal atrial fibrillation Type 2 diabetes mellitus without complications Personal history of other infectious and parasitic diseases Dysarthria and anarthria Dysphagia, oral phase Rheumatic aortic insufficiency Benign prostatic hyperplasia with lower urinary tract symptoms Generalized anxiety disorder Primary osteoarthritis, right wrist Degenerative joint disease Foot deformity, acquired History of degenerative joint disease Rotator cuff tear Moderate aortic regurgitation Mild memory disturbance Actinic keratosis Erectile dysfunction GERD (gastroesophageal reflux disease) CRYSTAL (obstructive sleep apnea) Allergic rhinitis Right bundle branch block Surgical History History of partial surgical removal of colon History of bladder repair surgery History of hernia repair Family History Father Lung cancer Mother Colon cancer Daughter Lymphoma Social History (Updated 01/22/25 @ 11:49 by Christian Benavides) Smoking/Tobacco Use Status: Former Tobacco Use Smoking risk assessment performed?: Yes Alcohol Intake: never Drug use: Never Substance use type: does not use Household members: spouse Housing: assisted Pets and animals: Yes (1) Pets and animals: cat(s) Current gender identity: male Do you feel safe at home: Yes Do you feel safe in your relationship?: Yes Additional Social history: Lives at [facility], in the same room
[2025-02-06 14:30] LABS: Abs Immature Grans 0.04 10^3/uL (0.0-0.06); HCT 46.5 % (40.0-50.0); HGB 15.3 g/dL (13.5-17.5); Immature Grans % 0.6 %; MCH 33.8 pg (27.0-33.0); MCHC 32.9 % (32.0-36.0); MCV 103 fL (80-95); MPV 9.7 fL (8.0-11.0); Platelet Count 291 10^3/uL (130-400); RBC 4.53 10^6/uL (4.36-5.78); RDW 12.2 % (11.8-14.1); RDW-SD 45.9 fL; WBC 6.81 10^3/uL (4.4-10.8)
[2025-02-06 14:48] LABS: ALT 17 U/L (16-63); AST 20 U/L (15-37); Albumin 3.2 g/dL (3.4-5.0); Alkaline Phosphatase 95 U/L (46-116); Anion Gap 5.7 mmol/L (3-11); BUN 10 mg/dL (7-18); Bilirubin, Total 1.5 mg/dL (0.2-1.0); CO2 32.3 mmol/L (21.0-32.0); Calcium 8.4 mg/dL (8.5-10.1); Chloride 102 mmol/L (98-107); Estimated GFR 94.31 (mL/min/1.73m2); Glucose 92 mg/dL (74-106); Magnesium 2.0 mg/dL (1.8-2.4); Potassium 3.8 mmol/L (3.5-5.1); Sodium 140 mmol/L (136-145); Total Protein 6.3 g/dL (6.4-8.2); Troponin I 6 ng/L (<or=76)
[2025-02-06] MEDS: Normal Saline - Diluent 50 ML VIAL IJ (15:02)
[2025-02-06] MEDS: Omnipaque 350 MG/ML 100 ML BTL IJ (15:03)
[2025-02-06 15:53] LABS: Troponin I 4 ng/L (<or=76)
[2025-02-06 16:28] LABS: Glucose Negative (Negative)
--- NOTE | 2025-02-06 17:25 | W.PM.HP.N ---
Date of service: 02/06/25 Time of Service: 17:25 Assessment and Plan Assessment and plan (1) Aspiration pneumonia: Status: Acute Assessment and plan: Patient being admitted for aspiration pneumonia. Recent hospital stay with antibiotic exposures noted. According to up-to-date needs to be on Merrem and vancomycin. There is some idea that these findings on the CT could just be residual from his last admission but we will treat due to his mental status change at least at this point. MRSA swab is pending as well as cultures. (2) DNR (do not resuscitate): Status: Acute Assessment and plan: Patient is DNR status has been reconfirmed with the family. Patient has clearly stated he does not want any workup measures taken. (3) BPH loc w urin obs/LUTS: Status: Acute Assessment and plan: There is some concern that this is causing his mental status change in terms of urinary retention. Will do a bladder scan. (4) Parkinson's disease: Status: Chronic Assessment and plan: Continue with medical management will need outpatient optimization by neurology (5) Type 2 diabetes mellitus without complications: Assessment and plan: Continue with medical management. DVT prophylaxis of Lovenox. History of Present Illness History of Present Illness Chief Complaint: mental status change/pneumonia Narrative: This is a 79-year-old gentleman who currently lives at a local intermediate. Patient was recently in the hospital and was sent home on the after a stay in the ICU for sepsis as well as urinary retention. Since that he has been seen in urology clinic and had his Mariee removed. Patient was admitted on the and discharged on the . Yesterday at the intermediate did sustain a fall but had no significant trauma. This morning he was noted to be agitated and he was given 2 mg of Ativan. After this he developed worsening confusion and was brought into the ED for evaluation and treatment. While in the ED head scan was performed which showed bilateral lower lobe infiltrates. Concern for aspiration versus atelectasis versus pneumonia. Also noted asymmetric enlargement of the left rectus abdominal sheath concerning for hematoma. His laboratory data was essentially benign except for MCV of 103 as well as some respiratory alkalosis. I reviewed data from his last admission and his blood cultures at the time were negative. Patient did receive antibiotics on that visit though. Patient does respond to verbal stimuli but only opens eyes briefly. Cannot give a linear history. This history is augmented by his daughters who are at bedside as well as discussion with the ED physician. Review of Systems All systems reviewed & are unremarkable except as noted in HPI and below PFSH All Active Problems (Updated 02/06/25 @ 17:00 by Lioda Ruano MD) Abdominal wall hematoma (Acute) Facial laceration (Acute) Fall (Acute) Aspiration pneumonia (Acute) Acute alteration in mental status (Acute) DNR (do not resuscitate) (Acute) Mild cognitive impairment (Acute) Parkinson's disease (Chronic) Neck mass (Acute) Exacerbation of RAD (reactive airway disease) (Acute) Abdominal pain (Acute) At risk for falling (Acute) Insomnia, unspecified (Acute) Other symbolic dysfunctions (Acute) Localized edema (Acute) Tinea pedis (Acute) Dystrophia unguium (Acute) Onychomycosis (Acute) Knee osteoarthritis (Acute) Reactive airway disease (Acute) 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) Polyarthritis, unspecified (Acute) Unspecified lack of coordination (Acute) Muscle weakness (generalized) (Acute) Other disorders of peripheral nervous system (Acute) Other disorders of arteries, arterioles and capillaries in diseases classified elsewhere (Acute) Nail dystrophy (Acute) Claustrophobia (Acute) Imbalance (Acute) Dizziness (Acute) Sensorineural hearing loss, bilateral (Acute) Hx of herpes zoster (Acute) Macrocytosis (Acute) Hearing loss (Acute) Arthritis of right wrist (Acute) Cognitive decline (Acute) Vitamin D deficiency (Acute) Chronic anxiety (Acute) Dysequilibrium (Acute) Restless legs (Acute) Vesicocolonic fistula (Acute) Chronic shortness of breath (Acute) per pcp Complete tear of right rotator cuff (Acute ~11/2019) BPH loc w urin obs/LUTS (Acute) Right rotator cuff tendonitis (Acute) Most recent injection: 09/24/2019 Left rotator cuff tear arthropathy (Chronic) Most recent injection: 09/24/2019 Left shoulder tendinitis (Chronic) Primary osteoarthritis of both knees (Chronic) Bilateral Synvisc injections most recently: 01/01/2021; 06/30/2020 Adhesive capsulitis of shoulder (Acute 08/05/13) Medical History (Updated 02/06/25 @ 17:00 by Loida Ruano MD) Advanced care planning/counseling discussion Palliative care encounter Atrial fibrillation Hypothyroidism Aortic regurgitation Paroxysmal atrial fibrillation Type 2 diabetes mellitus without complications Personal history of other infectious and parasitic diseases Dysarthria and anarthria Dysphagia, oral phase Rheumatic aortic insufficiency Benign prostatic hyperplasia with lower urinary tract symptoms Generalized anxiety disorder Primary osteoarthritis, right wrist Degenerative joint disease Foot deformity, acquired History of degenerative joint disease Rotator cuff tear Moderate aortic regurgitation Mild memory disturbance Actinic keratosis Erectile dysfunction GERD (gastroesophageal reflux disease) CRYSTAL (obstructive sleep apnea) Allergic rhinitis Right bundle branch block Surgical History History of partial surgical removal of colon History of bladder repair surgery History of hernia repair Family History Father Lung cancer Mother Colon cancer Daughter Lymphoma Social History (Updated 01/22/25 @ 11:49 by Christian Benavides) Smoking/Tobacco Use Status: Former Tobacco Use Smoking risk assessment performed?: Yes Alcohol Intake: never Drug use: Never Substance use type: does not use Household members: spouse Housing: intermediate Pets and animals: Yes (1) Pets and animals: cat(s) Current gender identity: male Do you feel safe at home: Yes Do you feel safe in your relationship?: Yes Additional Social history: Lives at [facility], in the same room Meds Allergies and Home Medications Allergies Allergy/AdvReac Type Severity Reaction Status Date / Time chlorpheniramine (From Allergy Verified 08/07/23 09:32 Histussin HC) dexbrompheniramine (From Allergy Verified 08/07/23 09:32 Histussin HC) hydrocodone (From Histussin Allergy Verified 08/07/23 09:32 HC) phenylephrine (From Allergy Verified 08/07/23 09:32 Histussin HC) Home Medications ?Medication ?Instructions ?Recorded ?Confirmed ?Type pantoprazole 40 mg tablet,delayed 40 mg PO DAILY 04/12/13 02/06/25 History release ibuprofen 200 mg tablet (Motrin IB) 200 mg PO TID PRN PRN 12/15/19 02/06/25 History levalbuterol HCl 0.63 mg/3 mL 0.63 mg inhalation ONCE 06/30/20 02/06/25 History solution for nebulization (Xopenex) pramipexole 0.125 mg tablet 0.5 mg PO QHS 06/30/20 02/06/25 History tamsulosin 0.4 mg capsule (Flomax) 0.4 mg PO DAILY #90 caps 12/05/20 02/06/25 Rx Inhaler, Assist Devices [Pocket 1 ea miscellaneous DIRECTED ##0 02/05/22 02/06/25 Rx Chamber] finasteride 5 mg tablet 5 mg PO DAILY #0 tabs 02/05/22 02/06/25 Rx aluminum-mag hydroxide-simethicone 30 ml PO Q6H PRN PRN Abdominal 03/30/22 02/06/25 History 200 mg-200 mg-20 mg/5 mL oral susp Discomfort bisacodyl 10 mg rectal suppository 10 mg ME 1XD PRN Constipation 03/30/22 02/06/25 History (Dulcolax (bisacodyl)) magnesium hydroxide 400 mg/5 mL 30 ml PO 1XD PRN Constipation 03/30/22 02/06/25 History oral suspension acetaminophen 500 mg tablet 500 mg PO PRN PRN 05/01/22 02/06/25 History aspirin 81 mg chewable tablet 81 mg PO DAILY Prophylaxis 05/01/22 02/06/25 History cyanocobalamin (vitamin B-12) 500 1,000 mcg PO DAILY 05/01/22 02/06/25 History mcg tablet fluticasone propionate 50 1 spray intranasal DAILY 05/01/22 02/06/25 History mcg/actuation nasal spray,suspension menthol 5 % topical gel (Biofreeze 1 applic topical PRN PRN 05/01/22 02/06/25 History (menthol)) furosemide 20 mg tablet (Lasix) 20 mg PO DAILY 08/13/22 02/06/25 History melatonin 3 mg tablet 3 mg PO HS PRN 08/13/22 02/06/25 History dextrose 40 % oral gel 10 g PO Q15M PRN 11/14/22 02/06/25 History glucagon 1 mg solution for 1 mg subcut Q20M PRN 11/14/22 02/06/25 History injection (Glucagon Emergency Kit) ipratropium 0.5 mg-albuterol 3 mg 3 ml inhalation Q4H PRN 11/14/22 02/06/25 History (2.5 mg base)/3 mL nebulization soln sodium phosphates 19 gram-7 118 ml ME ONCE 04/27/23 07/20/25 History gram/118 mL enema (Fleet Enema) budesonide-formoterol HFA 160 2 puff inhalation BID 11/27/22 02/06/25 History mcg-4.5 mcg/actuation aerosol inhaler (Symbicort) lactase 3,000 unit tablet 3,000 unit PO ONCE 03/17/23 02/06/25 History diltiazem HCl 180 mg 180 mg PO HS 04/17/23 02/06/25 History capsule,extended release 24 hr (Cardizem CD) cholecalciferol (vitamin D3) 1,250 50,000 unit PO DAILY 01/14/25 02/06/25 History mcg (50,000 unit) capsule ketoconazole 2 % topical cream 1 applic topical DAILY #120 grams 01/17/25 02/06/25 Rx albuterol sulfate 90 mcg/actuation 2 inh inhalation Q6H PRN 01/22/25 02/06/25 History aerosol inhaler (Ventolin HFA) carbidopa 25 mg-levodopa 250 mg 1 tab PO TID 01/22/25 02/06/25 History tablet carbidopa ER 50 mg-levodopa 200 mg 1 tab PO HS 01/22/25 02/06/25 History tablet,extended release diclofenac sodium 1 % topical gel 4 g topical QID 01/22/25 02/06/25 History (Arthritis Pain (diclofenac)) entacapone 200 mg tablet 200 mg PO TID 01/22/25 02/06/25 History levothyroxine 75 mcg tablet 75 mcg PO DAILY 01/22/25 02/06/25 History polyethylene glycol 3350 17 17 g PO DAILY 01/22/25 02/06/25 History gram/dose oral powder (ClearLax) venlafaxine 150 mg 150 mg PO DAILY 01/22/25 02/06/25 History capsule,extended release 24 hr trazodone 50 mg tablet 50 mg PO HS PRN 01/23/25 02/06/25 History albuterol sulfate 90 mcg/actuation 2 inh inhalation Q6H PRN 02/06/25 02/06/25 History aerosol inhaler (Ventolin HFA) lorazepam 2 mg/mL oral concentrate 2 mg PO Q6H PRN 02/06/25 02/06/25 History morphine concentrate 100 mg/5 mL 5 mg PO Q4H PRN 02/06/25 02/06/25 History (20 mg/mL) oral solution oxybutynin chloride 5 mg 5 mg PO DAILY 02/06/25 02/06/25 History tablet,extended release 24 hr pramipexole 0.5 mg tablet 0.5 mg PO DAILY 02/06/25 02/06/25 History sennosides 8.6 mg tablet (Laxative 17.2 mg PO DAILY PRN 02/06/25 02/06/25 History (sennosides)) Exam Narrative Exam Narrative: HEENT normal cephalic with the exception of the butterfly stitches on his right scalp. Pupils are equal and reactive to light Neck no lymphadenopathy no JVD no thyromegaly Cardiovascular regular rate and rhythm no murmur rubs or gallops Lungs-clear to auscultation bilaterally mild accessory muscle use is noted Abdomen-does have an ecchymotic region on the left side of his abdomen. Extremities no cyanosis clubbing or edema Neurologic cannot be assessed Psych cannot be assessed Results Labs 02/06/25 14:20 02/06/25 14:20 Labs: Laboratory Results - last 24 hr 02/06/25 02/06/25 02/06/25 14:20 15:25 16:15 WBC 6.81 RBC 4.53 Hgb 15.3 Hct 46.5 MCV 103 H MCH 33.8 H MCHC 32.9 RDW 12.2 Plt Count 291 MPV 9.7 Immature Gran % 0.6 Neutrophils % 70.9 Lymphocytes % 13.8 Monocytes % 9.5 Eosinophils % 4.3 Basophils % 0.9 Nucleated RBC % 0.0 Absolute Neutrophils 4.83 Absolute Lymphocytes 0.94 L Absolute Monocytes 0.65 Absolute Eosinophils 0.29 Absolute Basophils 0.06 Sodium 140 Potassium 3.8 Chloride 102 Carbon Dioxide 32.3 H Anion Gap 5.7 BUN 10 Creatinine 0.7 Est GFR (CKD-EPI 2020) 94.31 Glucose 92 Calcium 8.4 L Magnesium 2.0 Total Bilirubin 1.5 H AST 20 ALT 17 Alkaline Phosphatase 95 Troponin I 6 4 Total Protein 6.3 L Albumin 3.2 L Urine Color Yellow Urine Clarity Clear Urine pH 6.0 Ur Specific [place] 1.015 Urine Protein Trace Urine Ketones 40 H Urine Blood Negative Urine Nitrite Negative Urine Bilirubin Small H Urine Urobilinogen 1.0 H Ur Leukocyte Esterase Negative Urine Glucose Negative 02/06/25 16:51 WBC RBC Hgb Hct MCV MCH MCHC RDW Plt Count MPV Immature Gran % Neutrophils % Lymphocytes % Monocytes % Eosinophils % Basophils % Nucleated RBC % Absolute Neutrophils Absolute Lymphocytes Absolute Monocytes Absolute Eosinophils Absolute Basophils Sodium Potassium Chloride Carbon Dioxide Anion Gap BUN Creatinine Est GFR (CKD-EPI 2020) Glucose Calcium Magnesium Total Bilirubin AST ALT Alkaline Phosphatase Troponin I Cancelled Total Protein Albumin Urine Color Urine Clarity Urine pH Ur Specific [place] Urine Protein Urine Ketones Urine Blood Urine Nitrite Urine Bilirubin Urine Urobilinogen Ur Leukocyte Esterase Urine Glucose Last Vital Signs Temp 36.4 C 02/06/25 13:45 Pulse 80 02/06/25 15:01 Resp 24 02/06/25 15:01 BP 125/83 02/06/25 15:01 Pulse Ox 95 02/06/25 15:34 Time Spent Time spent with Patient: 40-54 minutes Time was spent: preparing to see the patient(eg.review tests), obtaining and/or reviewing separately otained hiistory, ordering medications,tests, procedures, referring, communicating with other health home care scheduler, indepentently interpreting results, counseling the patient and care coordination
[2025-02-06] MEDS: cefTRIAXone 1 GM/50 ML BAG IVPB (17:28)
[2025-02-06 18:04] LABS: COVID-19 PCR Negative (Negative); RSV PCR Negative (Negative)
[2025-02-06] MEDS: AZITHROMYCIN 500 MG in Normal Saline 250 ML 250 MG IVPB (18:25)
--- NOTE | 2025-02-06 18:35 | W.PC.ACHO ---
Registration Status: REG ER Primary Language: Preferred Language: Yi ED Information & Data Chief Complaint Fall/Non TraumaCriteria 02/06/25 15:03 Chief Complaint Fall/Non TraumaCriteria 02/06/25 13:56 Other Complaint AMS/LOC 02/06/25 13:45 Triage Note pt fell last night, last 02/06/25 13:45 known normal last night. did strike head. this am feeling anxious and confused nurse ave him Ativan. now pt AMS, lethargic. BGL 108. bruising L abd, lac to L forehead. Medical / Surgical History (Updated 02/06/25 @ 17:00 by Loida Ruano MD) Advanced care planning/counseling discussion Palliative care encounter Atrial fibrillation Hypothyroidism Aortic regurgitation Paroxysmal atrial fibrillation Type 2 diabetes mellitus without complications Personal history of other infectious and parasitic diseases Dysarthria and anarthria Dysphagia, oral phase Rheumatic aortic insufficiency Benign prostatic hyperplasia with lower urinary tract symptoms Generalized anxiety disorder Primary osteoarthritis, right wrist Degenerative joint disease Foot deformity, acquired History of degenerative joint disease Rotator cuff tear Moderate aortic regurgitation Mild memory disturbance Actinic keratosis Erectile dysfunction GERD (gastroesophageal reflux disease) CRYSTAL (obstructive sleep apnea) Allergic rhinitis Right bundle branch block (Updated 04/30/21 @ 09:11 by Suma SORIANO) History of partial surgical removal of colon History of bladder repair surgery History of hernia repair Most Recent Vital Signs Temperature 36.4 C 02/06/25 13:45 Temperature Source Tympanic 02/06/25 13:45 Pulse 90 02/06/25 17:40 Pulse 82 02/06/25 17:40 Respiratory Rate 25 H 02/06/25 17:40 Blood Pressure 112/52 L 02/06/25 17:31 Blood Pressure Mean 73 02/06/25 17:31 Pulse Oximetry 95 02/06/25 17:40 Oxygen Delivery Method Nasal Cannula 02/06/25 15:34 Oxygen Flow Rate 2 02/06/25 15:34 Allergies chlorpheniramine (From Histussin HC) Allergy (Unknown, Verified 02/06/25 17:37) Unknown dexbrompheniramine (From Histussin HC) Allergy (Unknown, Verified 02/06/25 17:37) Unknown hydrocodone (From Histussin HC) Allergy (Unknown, Verified 02/06/25 17:37) Unknown phenylephrine (From Histussin HC) Allergy (Verified 02/06/25 17:37) Unknown Active Medications Generic Name Dose Route Start Last Admin Trade Name Kassandra PRN Reason Stop Dose Admin Iohexol 100 ml 02/06/25 15:15 02/06/25 15:03 Omnipaque 350 Mg/Ml 100 Ml Btl IJ 03/08/25 23:59 100 ml DIRECTED JOSE Administration Sodium Chloride 50 ml 02/06/25 15:15 02/06/25 15:02 Normal Saline - Diluent 50 Ml Vial IJ 50 ml .FOR DI USE JOSE Administration IV IV Catheter Type [Left Saline Lock Antecubital] IV Catheter Gauge [Left 18 Antecubital] Diet Orders Category Date Time Status Regular/Normal [DIET] Nutrition 02/07/25 Breakfast Ordered Diagnostics 02/06/25 02/06/25 02/06/25 Range/Units 17:40 17:20 16:51 WBC (4.4-10.8) 10^3/uL RBC (4.36-5.78) 10^6/uL Hgb (13.5-17.5) g/dL Hct (40.0-50.0) % MCV (80-95) fL MCH (27.0-33.0) pg MCHC (32.0-36.0) % RDW (11.8-14.1) % Plt Count (130-400) 10^3/uL MPV (8.0-11.0) fL Immature Gran % % Neutrophils % % Lymphocytes % % Monocytes % % Eosinophils % % Basophils % % Nucleated RBC % (0.0-0.3) % Absolute Neutrophils (1.2-6.7) 10^3/uL Absolute Lymphocytes (1.2-3.4) 10^3/uL Absolute Monocytes (0.1-0.8) 10^3/uL Absolute Eosinophils (0.0-0.7) 10^3/uL Absolute Basophils (0.0-0.2) 10^3/uL Sodium (136-145) mmol/L Potassium (3.5-5.1) mmol/L Chloride (98-107) mmol/L Carbon Dioxide (21.0-32.0) mmol/L Anion Gap (3-11) mmol/L BUN (7-18) mg/dL Creatinine (0.70-1.30) mg/dL Est GFR (CKD-EPI 2020) (mL/min/1.73m2) Glucose (74-106) mg/dL Calcium (8.5-10.1) mg/dL Magnesium (1.8-2.4) mg/dL Total Bilirubin (0.2-1.0) mg/dL AST (15-37) U/L ALT (16-63) U/L Alkaline Phosphatase (46-116) U/L Troponin I Cancelled (<or=76) ng/L Total Protein (6.4-8.2) g/dL Albumin (3.4-5.0) g/dL Urine Color (Yellow) Urine Clarity (Clear) Urine pH (5-8) Ur Specific [place] (1.005-1.025) Urine Protein (Neg-Trace) mg/dL Urine Ketones (Negative) mg/dL Urine Blood (Negative) Urine Nitrite (Negative) Urine Bilirubin (Negative) Urine Urobilinogen (Up to 0.2) mg/dL Ur Leukocyte Esterase (Negative) Urine Glucose (Negative) mg/dL COVID-19 Source Nasopharynx SARS-CoV-2 (PCR) Negative (Negative) Influenza Type A (PCR) Negative (Negative) Influenza Type B (PCR) Negative (Negative) RSV (PCR) Negative (Negative) MRSA (TEM-PCR) Pending 02/06/25 02/06/25 02/06/25 Range/Units 16:15 15:25 14:20 WBC 6.81 (4.4-10.8) 10^3/uL RBC 4.53 (4.36-5.78) 10^6/uL Hgb 15.3 (13.5-17.5) g/dL Hct 46.5 (40.0-50.0) % MCV 103 H (80-95) fL MCH 33.8 H (27.0-33.0) pg MCHC 32.9 (32.0-36.0) % RDW 12.2 (11.8-14.1) % Plt Count 291 (130-400) 10^3/uL MPV 9.7 (8.0-11.0) fL Immature Gran % 0.6 % Neutrophils % 70.9 % Lymphocytes % 13.8 % Monocytes % 9.5 % Eosinophils % 4.3 % Basophils % 0.9 % Nucleated RBC % 0.0 (0.0-0.3) % Absolute Neutrophils 4.83 (1.2-6.7) 10^3/uL Absolute Lymphocytes 0.94 L (1.2-3.4) 10^3/uL Absolute Monocytes 0.65 (0.1-0.8) 10^3/uL Absolute Eosinophils 0.29 (0.0-0.7) 10^3/uL Absolute Basophils 0.06 (0.0-0.2) 10^3/uL Sodium 140 (136-145) mmol/L Potassium 3.8 (3.5-5.1) mmol/L Chloride 102 (98-107) mmol/L Carbon Dioxide 32.3 H (21.0-32.0) mmol/L Anion Gap 5.7 (3-11) mmol/L BUN 10 (7-18) mg/dL Creatinine 0.7 (0.70-1.30) mg/dL Est GFR (CKD-EPI 2020) 94.31 (mL/min/1.73m2) Glucose 92 (74-106) mg/dL Calcium 8.4 L (8.5-10.1) mg/dL Magnesium 2.0 (1.8-2.4) mg/dL Total Bilirubin 1.5 H (0.2-1.0) mg/dL AST 20 (15-37) U/L ALT 17 (16-63) U/L Alkaline Phosphatase 95 (46-116) U/L Troponin I 4 6 (<or=76) ng/L Total Protein 6.3 L (6.4-8.2) g/dL Albumin 3.2 L (3.4-5.0) g/dL Urine Color Yellow (Yellow) Urine Clarity Clear (Clear) Urine pH 6.0 (5-8) Ur Specific [place] 1.015 (1.005-1.025) Urine Protein Trace (Neg-Trace) mg/dL Urine Ketones 40 H (Negative) mg/dL Urine Blood Negative (Negative) Urine Nitrite Negative (Negative) Urine Bilirubin Small H (Negative) Urine Urobilinogen 1.0 H (Up to 0.2) mg/dL Ur Leukocyte Esterase Negative (Negative) Urine Glucose Negative (Negative) mg/dL COVID-19 Source SARS-CoV-2 (PCR) (Negative) Influenza Type A (PCR) (Negative) Influenza Type B (PCR) (Negative) RSV (PCR) (Negative) MRSA (TEM-PCR) [id number] Documentation Fingerstick Glucose Start: 02/06/25 13:53 Freq: Status: Active Protocol: Activity Type Activity Date Activity User E-sign Co-sign Detail Recorded Client Recorded Date Recorded By Document 02/06/25 13:52 BKG DAEMON(3) [id number] 02/06/25 13:53 BKG DAEMON(4) Intake and Output - 24 Hour Total 02/06/25 13:44 thru 02/06/25 18:00 Intake Total 60 Balance 60 Weight 95 kg Intake: IV 60 Falls Risk Assessment History of Falls Admit Due to Fall 02/06/25 15:12 Tubes/Lines None 02/06/25 15:12 Cognition Cognitive impairment 02/06/25 15:12 Fall Total Score 40 02/06/25 15:12 Level of Risk Moderate Risk 02/06/25 15:12 Problems (Updated 02/06/25 @ 17:00 by Loida Ruano MD) Aspiration pneumonia (Acute) DNR (do not resuscitate) (Acute) Parkinson's disease (Chronic) BPH loc w urin obs/LUTS (Acute) v v v v v v v v v Sending and/or Receiving Nurses: Please use comment section below to note any information pertinent to the patient hand-off not included above. Information / Comments: PT arrives to rm [id number] from ED via stretcher. Report received from: MARIAH Dixon
[2025-02-06 19:00] LABS: MRSA PCR Negative (Negative)
[2025-02-06] MEDS: Lactated Ringers 1,000 ML 125 ML IV (20:15)
[2025-02-06] MEDS: dilTIAZem CD 180 MG CAPCR PO (21:07)
[2025-02-06] MEDS: Enoxaparin 40 MG/0.4 ML SYR SC (21:07)
[2025-02-06] MEDS: Pramipexole 0.25 MG TAB 0.5 MG PO (21:07)
[2025-02-06] MEDS: Carbidopa 50/Levodopa 200 CR TABCR 1 TAB PO (21:07)
[2025-02-07 02:36] VITALS: BP 110/76; PULSE 76; RESP 16; TEMP 36.1; O2SAT 96
[2025-02-07] MEDS: Lactated Ringers 1,000 ML 125 ML IV (05:00)
[2025-02-07] MEDS: Levothyroxine 75 MCG TAB PO (06:31)
[2025-02-07 07:42] VITALS: BP 171/146; PULSE 80; RESP 22; TEMP 35.7; O2SAT 97
[2025-02-07 07:48] VITALS: BP 98/80
[2025-02-07] MEDS: Finasteride 5 MG TAB PO (08:27)
[2025-02-07] MEDS: Tamsulosin 0.4 MG CAPCR PO (08:27)
[2025-02-07] MEDS: Aspirin 81 MG CHEW PO (08:27)
[2025-02-07] MEDS: Polyethylene Glycol 3350 17 GM PACKET PO (08:27)
[2025-02-07] MEDS: Furosemide 20 MG TAB PO (08:27)
[2025-02-07] MEDS: Pantoprazole 40 MG TABCR PO (08:27)
[2025-02-07] MEDS: Venlafaxine 150 MG CAPCR PO (08:27)
--- NOTE | 2025-02-07 08:36 | W.PM.PROGNOT ---
Date of Service Date of service: 02/07/25 Time of Service: 08:36 Assessment and Plan Assessment and plan (1) Aspiration pneumonia: Status: Acute Assessment and plan: -Patient being admitted for aspiration pneumonia, though patient had no oxygen requirement, elevated white blood cell count, tachycardia, tachypnea or fever -Recent hospital stay with antibiotic exposures noted and previous physician started patient on Merrem and vancomycin. - CT read even notes possibility of atelectasis, and given lack of oxygen requirement, signs of sepsis, unconvincing imaging, is also possible that patient's mental status (which is what brought him into the emergency room), was precipitated by the Ativan that he was given in long-term prior to arrival - Therefore, will change patient to p.o. Augmentin (2) BPH loc w urin obs/LUTS: Status: Acute Assessment and plan: -There is some concern that this is causing his mental status change in terms of urinary retention, though patient is now urinating fine (3) Parkinson's disease: Status: Chronic Assessment and plan: -Continue with medical management will need outpatient optimization by neurology (4) Type 2 diabetes mellitus without complications: Assessment and plan: -Continue with medical management Objective Last Vital Signs Temp 96.3 F L 02/07/25 07:42 Pulse 80 02/07/25 07:42 Resp 22 02/07/25 07:42 BP 98/80 L 02/07/25 07:48 Pulse Ox 97 02/07/25 07:42 Laboratory Results - last 24 hr 02/06/25 02/06/25 02/06/25 14:20 15:25 16:15 WBC 6.81 RBC 4.53 Hgb 15.3 Hct 46.5 MCV 103 H MCH 33.8 H MCHC 32.9 RDW 12.2 Plt Count 291 MPV 9.7 Immature Gran % 0.6 Neutrophils % 70.9 Lymphocytes % 13.8 Monocytes % 9.5 Eosinophils % 4.3 Basophils % 0.9 Nucleated RBC % 0.0 Absolute Neutrophils 4.83 Absolute Lymphocytes 0.94 L Absolute Monocytes 0.65 Absolute Eosinophils 0.29 Absolute Basophils 0.06 Sodium 140 Potassium 3.8 Chloride 102 Carbon Dioxide 32.3 H Anion Gap 5.7 BUN 10 Creatinine 0.7 Est GFR (CKD-EPI 2020) 94.31 Glucose 92 Calcium 8.4 L Magnesium 2.0 Total Bilirubin 1.5 H AST 20 ALT 17 Alkaline Phosphatase 95 Troponin I 6 4 Total Protein 6.3 L Albumin 3.2 L Urine Color Yellow Urine Clarity Clear Urine pH 6.0 Ur Specific [place] 1.015 Urine Protein Trace Urine Ketones 40 H Urine Blood Negative Urine Nitrite Negative Urine Bilirubin Small H Urine Urobilinogen 1.0 H Ur Leukocyte Esterase Negative Urine Glucose Negative COVID-19 Source SARS-CoV-2 (PCR) Influenza Type A (PCR) Influenza Type B (PCR) RSV (PCR) MRSA (TEM-PCR) 02/06/25 02/06/25 02/06/25 16:51 17:20 17:40 WBC RBC Hgb Hct MCV MCH MCHC RDW Plt Count MPV Immature Gran % Neutrophils % Lymphocytes % Monocytes % Eosinophils % Basophils % Nucleated RBC % Absolute Neutrophils Absolute Lymphocytes Absolute Monocytes Absolute Eosinophils Absolute Basophils Sodium Potassium Chloride Carbon Dioxide Anion Gap BUN Creatinine Est GFR (CKD-EPI 2020) Glucose Calcium Magnesium Total Bilirubin AST ALT Alkaline Phosphatase Troponin I Cancelled Total Protein Albumin Urine Color Urine Clarity Urine pH Ur Specific [place] Urine Protein Urine Ketones Urine Blood Urine Nitrite Urine Bilirubin Urine Urobilinogen Ur Leukocyte Esterase Urine Glucose COVID-19 Source Nasopharynx SARS-CoV-2 (PCR) Negative Influenza Type A (PCR) Negative Influenza Type B (PCR) Negative RSV (PCR) Negative MRSA (TEM-PCR) Negative
[2025-02-07] MEDS: Budesonide/Formoterol 160/4.5 6 GM 60 PUFF INH IH (08:39)
[2025-02-07 08:40] VITALS: O2SAT 94; O2SAT 97
[2025-02-07] MEDS: Cyanocobalamin 500 MCG TAB 1000 MCG PO (08:43)
--- NOTE | 2025-02-07 10:35 | CMDISCH_ITS ---
Date of service: 02/07/25 Time of Service: 10:54 LACE Index Scoring Tool Questions: Length of Stay (in days): 1 Was the patient admitted via the E.D.?: Yes E.D. Visits: 3 Answers: Total Score: 7 Risk of Readmission: Low Risk Care Management Discharge Plan Reason for Hospitalization: Mental status change Discharge Plan: Jorge will be discharged to [facility] today. He previous was a resident at [facility] but the family wishes to change his LTC residence to do personal preference. He will be transported via [facility]. CM notified family he is transferring, and coordinated d/c with [facility]. At the time of discharge, he had not worked with PT, but a palliative consult had been placed. It is recommended he follow up with facility providers and continue with his plan of care. Patient/Family Education Needs: Review of discharge instructions, activity, limitation, and plan of care. Discuss ask me three. SDOH Health Related Social Needs: Health related social needs lonely/isolated Health related social needs details patient and sierra chen in rehabilitation/nursing facility
--- NOTE | 2025-02-07 11:08 | DSE_ITS ---
Date of service: 02/07/25 Time of Service: 11:08 DS: Diagnosis Discharge Diagnosis (1) Aspiration pneumonia: Status: Acute (2) BPH loc w urin obs/LUTS: Status: Acute (3) Parkinson's disease: Status: Chronic (4) Type 2 diabetes mellitus without complications: Discharge Plan Disposition Patient Disposition: Custodial Facility(SNF) Condition: Good Discharge Details Reason For Visit: Mental Status Change Admit Date/Time: 02/06/25 17:20 Admit Provider: Deon Bo Attending Provider: Deon Bo Primary Care Provider: Iam Sanchez Hospital Course Hospital Course: Patient initially presented with altered mental status after experiencing a fall at rehab center and being given Ativan. Upon arrival to the emergency department he had normal vital signs, normal CBC and CMP but had chest imaging that showed bilateral infiltrates somewhat similar to what was previously seen for aspiration pneumonia, thus patient was admitted for aspiration pneumonia. However, it is unlikely that this was patient's presenting symptoms as again he has Parkinson's was given Ativan after a fall and that was likely the cause of his altered mental status. However, given recent hospitalization and diagnosis with aspiration pneumonia he will be discharged with an additional 5 days of p.o. Augmentin. Home Meds and New Rx's Prescriptions: New oxybutynin chloride 5 mg Tablet Extended Release 24hr 5 mg PO DAILY Qty: 60 0RF amoxicillin-pot clavulanate 875-125 mg Tablet 1 tab PO BID Qty: 10 0RF Continued melatonin 3 mg tablet 3 mg PO HS PRN budesonide-formoterol [Symbicort] 160-4.5 mcg/actuation HFA aerosol inhaler 2 puff inhalation BID lactase 3,000 unit tablet 3,000 unit PO ONCE Rx Instructions: administer with meals and/or snacks diltiazem HCl [Cardizem CD] 180 mg capsule,extended release 24hr 180 mg PO HS cholecalciferol (vitamin D3) 1,250 mcg (50,000 unit) capsule 50,000 unit PO DAILY ketoconazole 2 % cream 1 applic topical DAILY Qty: 120 6RF Rx Instructions: Apply to 1g to skin and toenails once daily pramipexole 0.125 mg tablet 0.5 mg PO QHS ibuprofen [Motrin IB] 200 mg tablet 200 mg PO TID PRN PRN Rx Instructions: PT TAKES PRN levalbuterol HCl [Xopenex] 0.63 mg/3 mL solution for nebulization 0.63 mg inhalation ONCE tamsulosin [Flomax] 0.4 mg capsule 0.4 mg PO DAILY Qty: 90 3RF acetaminophen 500 mg Tablet 500 mg PO PRN PRN cyanocobalamin (vitamin B-12) 500 mcg Tablet 1,000 mcg PO DAILY aspirin 81 mg Tablet,Chewable 81 mg PO DAILY fluticasone propionate 50 mcg/actuation [place],Suspension 1 spray INTRANASAL DAILY Rx Instructions: administer into each nostril Biofreeze (menthol) 5 % Gel 1 applic TOPICAL PRN PRN Fleet Enema 19-7 gram/118 mL enema 118 ml RI ONCE Rx Instructions: Insert 1 application rectally every 24 hours as needed for constipation. After MOM and Suppository have been administered without results Glucagon Emergency Kit (human) 1 mg recon soln 1 mg subcut Q20M PRN Rx Instructions: until target blood sugar attained dextrose 40 % gel 10 g PO Q15M PRN Rx Instructions: until symptoms of low blood sugar are controlled ipratropium-albuterol 0.5 mg-3 mg(2.5 mg base)/3 mL solution for nebulization 3 ml inhalation Q4H PRN pantoprazole 40 MG tablet,delayed release (DR/EC) 40 mg PO DAILY bisacodyl [Dulcolax (bisacodyl)] 10 mg Suppository 10 mg RI 1XD PRN (Reason: Constipation) magnesium hydroxide 400 mg/5 mL Suspension 30 ml PO 1XD PRN (Reason: Constipation) alum-mag hydroxide-simeth 200-200-20 mg/5 mL Suspension 30 ml PO Q6H PRN PRN (Reason: Abdominal Discomfort) lorazepam 2 mg/mL concentrate 2 mg PO Q6H PRN pramipexole 0.5 mg tablet 0.5 mg PO HS morphine concentrate 100 mg/5 mL (20 mg/mL) solution 5 mg PO Q4H PRN albuterol sulfate [Ventolin HFA] 90 mcg/actuation HFA aerosol inhaler 2 inh inhalation Q6H PRN sennosides [Laxative (sennosides)] 8.6 mg tablet 17.2 mg PO DAILY PRN furosemide [Lasix] 20 mg tablet 20 mg PO DAILY finasteride 5 mg Tablet 5 mg PO DAILY Qty: 0 0RF Inhaler, Assist Devices [Pocket Chamber] 1 ea miscellaneous DIRECTED Qty: 0 0RF carbidopa-levodopa 50-200 mg tablet extended release 1 tab PO HS entacapone 200 mg tablet 200 mg PO TID Rx Instructions: administer at the same time as l-dopa/carbidopa dose carbidopa-levodopa 25-250 mg tablet 1 tab PO TID levothyroxine 75 mcg tablet 75 mcg PO DAILY diclofenac sodium [Arthritis Pain (diclofenac)] 1 % gel 4 g topical QID Rx Instructions: apply to single knee, ankle, foot; for foot includes sole/toes/top of foot polyethylene glycol 3350 [ClearLax] 17 gram/dose powder 17 g PO DAILY venlafaxine 150 mg capsule,extended release 24hr 150 mg PO DAILY albuterol sulfate [Ventolin HFA] 90 mcg/actuation HFA aerosol inhaler 2 inh inhalation Q6H PRN trazodone 50 mg tablet 50 mg PO HS PRN Discharge Instructions Activity:: Activity as Tolerated Equipment/Supplies:: No Equipment Needed Diet:: As Tolerated Discharge Orders Discharge Orders: Discharge Order (Routine); Ordered 02/07/25 Ordered By: Azam Evans DS: Summary Time Spent with Patient providing and/or coordinating discharge services: Greater than 30 minutes Status at Discharge Functional status at discharge: independent ambulation Overall status at discharge: patient is back to baseline Mental Status: mental status grossly normal Speech and Movement: speech and movement normal Mood: congruent mood Affect: normal affect Quality:SDOH Health Related Social Needs: Health related social needs lonely/isolated Health related social needs details patient and sierra chen in rehabilitation/nursing facility Exam Narrative Exam Narrative: Fatigued appearing older gentleman lying in bed in no acute distress, awake, alert, oriented to person only, heart regular rhythm, lungs clear to auscultation bilaterally, abdomen soft, nontender, nondistended Psych Mental Status: mental status grossly normal Speech and Movement: speech and movement normal Mood: congruent mood Affect: normal affect DS: Data Vitals/I&O Vitals and I&O: Vital Signs Temperature 96.3 F L 02/07/25 07:42 Temperature Source Tympanic 02/07/25 07:42 Pulse 80 02/07/25 07:42 Pulse Rhythm Irregular 02/06/25 19:35 Pulse 82 02/06/25 18:32 Respiratory Rate 22 02/07/25 07:42 Respiratory Effort Labored, Accessory Muscle Use 02/06/25 19:35 Respiratory Depth Normal 02/06/25 19:35 Respiratory Pattern Normal 02/06/25 19:35 Blood Pressure 98/80 L 02/07/25 07:48 Blood Pressure Mean 86 02/07/25 07:48 Pulse Oximetry 94 02/07/25 08:40 Oxygen Delivery Method Room Air 02/07/25 08:40 Oxygen Flow Rate 0 02/07/25 08:40 Pain Level 0 02/07/25 07:42 Intake & Output 02/06/25 02/07/25 02/07/25 17:59 05:59 17:59 Intake Total 1399 Balance 1399 Weight 209 lb 7.026 oz Intake: IV 1399 Other: Urine Color Yellow Urine Appearance Clear Urine Odor Strong Data Completed and Pending Labs on day of discharge: Labs from last 24 hours 02/06/25 02/06/25 02/06/25 17:40 17:20 16:51 WBC RBC Hgb Hct MCV MCH MCHC RDW Plt Count MPV Immature Gran % Neutrophils % Lymphocytes % Monocytes % Eosinophils % Basophils % Nucleated RBC % Absolute Neutrophils Absolute Lymphocytes Absolute Monocytes Absolute Eosinophils Absolute Basophils Sodium Potassium Chloride Carbon Dioxide Anion Gap BUN Creatinine Est GFR (CKD-EPI 2020) Glucose Calcium Magnesium Total Bilirubin AST ALT Alkaline Phosphatase Troponin I Cancelled Total Protein Albumin Urine Color Urine Clarity Urine pH Ur Specific [place] Urine Protein Urine Ketones Urine Blood Urine Nitrite Urine Bilirubin Urine Urobilinogen Ur Leukocyte Esterase Urine Glucose COVID-19 Source Nasopharynx SARS-CoV-2 (PCR) Negative Influenza Type A (PCR) Negative Influenza Type B (PCR) Negative RSV (PCR) Negative MRSA (TEM-PCR) Negative 02/06/25 02/06/25 02/06/25 16:15 15:25 14:20 WBC 6.81 RBC 4.53 Hgb 15.3 Hct 46.5 MCV 103 H MCH 33.8 H MCHC 32.9 RDW 12.2 Plt Count 291 MPV 9.7 Immature Gran % 0.6 Neutrophils % 70.9 Lymphocytes % 13.8 Monocytes % 9.5 Eosinophils % 4.3 Basophils % 0.9 Nucleated RBC % 0.0 Absolute Neutrophils 4.83 Absolute Lymphocytes 0.94 L Absolute Monocytes 0.65 Absolute Eosinophils 0.29 Absolute Basophils 0.06 Sodium 140 Potassium 3.8 Chloride 102 Carbon Dioxide 32.3 H Anion Gap 5.7 BUN 10 Creatinine 0.7 Est GFR (CKD-EPI 2020) 94.31 Glucose 92 Calcium 8.4 L Magnesium 2.0 Total Bilirubin 1.5 H AST 20 ALT 17 Alkaline Phosphatase 95 Troponin I 4 6 Total Protein 6.3 L Albumin 3.2 L Urine Color Yellow Urine Clarity Clear Urine pH 6.0 Ur Specific [place] 1.015 Urine Protein Trace Urine Ketones 40 H Urine Blood Negative Urine Nitrite Negative Urine Bilirubin Small H Urine Urobilinogen 1.0 H Ur Leukocyte Esterase Negative Urine Glucose Negative COVID-19 Source SARS-CoV-2 (PCR) Influenza Type A (PCR) Influenza Type B (PCR) RSV (PCR) MRSA (TEM-PCR) PFSH All Active Problems (Updated 02/06/25 @ 17:00 by Loida Ruano MD) Abdominal wall hematoma (Acute) Facial laceration (Acute) Fall (Acute) Aspiration pneumonia (Acute) Acute alteration in mental status (Acute) DNR (do not resuscitate) (Acute) Mild cognitive impairment (Acute) Parkinson's disease (Chronic) Neck mass (Acute) Exacerbation of RAD (reactive airway disease) (Acute) Abdominal pain (Acute) At risk for falling (Acute) Insomnia, unspecified (Acute) Other symbolic dysfunctions (Acute) Localized edema (Acute) Tinea pedis (Acute) Dystrophia unguium (Acute) Onychomycosis (Acute) Knee osteoarthritis (Acute) Reactive airway disease (Acute) 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) Polyarthritis, unspecified (Acute) Unspecified lack of coordination (Acute) Muscle weakness (generalized) (Acute) Other disorders of peripheral nervous system (Acute) Other disorders of arteries, arterioles and capillaries in diseases classified elsewhere (Acute) Nail dystrophy (Acute) Claustrophobia (Acute) Imbalance (Acute) Dizziness (Acute) Sensorineural hearing loss, bilateral (Acute) Hx of herpes zoster (Acute) Macrocytosis (Acute) Hearing loss (Acute) Arthritis of right wrist (Acute) Cognitive decline (Acute) Vitamin D deficiency (Acute) Chronic anxiety (Acute) Dysequilibrium (Acute) Restless legs (Acute) Vesicocolonic fistula (Acute) Chronic shortness of breath (Acute) per pcp Complete tear of right rotator cuff (Acute ~11/2019) BPH loc w urin obs/LUTS (Acute) Right rotator cuff tendonitis (Acute) Most recent injection: 09/24/2019 Left rotator cuff tear arthropathy (Chronic) Most recent injection: 09/24/2019 Left shoulder tendinitis (Chronic) Primary osteoarthritis of both knees (Chronic) Bilateral Synvisc injections most recently: 01/01/2021; 06/30/2020 Adhesive capsulitis of shoulder (Acute 08/05/13) Medical History (Updated 02/06/25 @ 17:00 by Loida Ruano MD) Advanced care planning/counseling discussion Palliative care encounter Atrial fibrillation Hypothyroidism Aortic regurgitation Paroxysmal atrial fibrillation Type 2 diabetes mellitus without complications Personal history of other infectious and parasitic diseases Dysarthria and anarthria Dysphagia, oral phase Rheumatic aortic insufficiency Benign prostatic hyperplasia with lower urinary tract symptoms Generalized anxiety disorder Primary osteoarthritis, right wrist Degenerative joint disease Foot deformity, acquired History of degenerative joint disease Rotator cuff tear Moderate aortic regurgitation Mild memory disturbance Actinic keratosis Erectile dysfunction GERD (gastroesophageal reflux disease) CRYSTAL (obstructive sleep apnea) Allergic rhinitis Right bundle branch block Surgical History History of partial surgical removal of colon History of bladder repair surgery History of hernia repair Family History Father Lung cancer Mother Colon cancer Daughter Lymphoma Social History (Updated 01/22/25 @ 11:49 by Christian Benavides) Smoking/Tobacco Use Status: Former Tobacco Use Smoking risk assessment performed?: Yes Alcohol Intake: never Drug use: Never Substance use type: does not use Household members: spouse Housing: longterm Pets and animals: Yes (1) Pets and animals: cat(s) Current gender identity: male Do you feel safe at home: Yes Do you feel safe in your relationship?: Yes Additional Social history: Lives at [facility], in the same room Time Spent with Patient Time Spent with Patient: <45 minutes Time was spent: preparing to see the patient(eg.review tests), obtaining and/or reviewing separately otained hiistory, ordering medications,tests, procedures, referring, communicating with other health rn medicare, indepentently interpreting results, counseling the patient and care coordination
--- NOTE | 2025-02-07 14:26 | NUR.NOTE ---
Nursing Note: RN attempted to call report to [facility] at 11:30 and 12:30. RN left messages on two different machines after being sent there by staff.
== END 2025-02-07 11:23 | disposition skilled nursing facility (03) | DRG 178 ==
LOC: ER 17:00 → MS 18:43
PROVIDERS: Family Medicine; Admitting Provider Hospitalist; Emergency Provider Emergency Medicine; PCP Family Medicine; Responsible Provider Family Medicine; Visit Provider Hospitalist
DX: J69.0 Pneumonitis due to inhalation of food and vomit (principal); Z66 Do not resuscitate; N40.1 Benign prostatic hyperplasia with lower urinary tract symptoms; E11.9 Type 2 diabetes mellitus without complications; N13.8 Other obstructive and reflux uropathy; G20.C Parkinsonism, unspecified; Z79.899 Other long term (current) drug therapy; J45.909 Unspecified asthma, uncomplicated; W19.XXXA Unspecified fall, initial encounter; S30.1XXA Contusion of abdominal wall, initial encounter; S01.81XA Laceration without foreign body of other part of head, initial encounter; R45.89 Other symptoms and signs involving emotional state; F06.70 Mild neurocognitive disorder due to known physiological condition without behavioral disturbance; Z91.81 History of falling; R60.0 Localized edema; H90.3 Sensorineural hearing loss, bilateral; E55.9 Vitamin D deficiency, unspecified; F41.9 Anxiety disorder, unspecified; G25.81 Restless legs syndrome; L60.3 Nail dystrophy; E03.9 Hypothyroidism, unspecified; I48.0 Paroxysmal atrial fibrillation; I06.1 Rheumatic aortic insufficiency; K21.9 Gastro-esophageal reflux disease without esophagitis; I45.10 Unspecified right bundle-branch block; G47.33 Obstructive sleep apnea (adult) (pediatric); Z90.49 Acquired absence of other specified parts of digestive tract
CPT/HCPCS: 00123; 36415; 36416; 74177; 80053; 82962; 87637; 87641; 94640; 94761; 96365; 96367; 99285; J1650; 70450; 71260; 72125; 81003; 83735; 84439; 84484; 85025; 94664; 99222; 99239; J0456; J0696; J2185; J3490

== ENCOUNTER 2025-02-09 15:23 | Outpatient (REF) | payer MEDICARE, BC, SELFPAY ==
[2025-02-09 17:30] LABS: Abs Immature Grans 0.03 10^3/uL (0.0-0.06); HCT 50.4 % (40.0-50.0); HGB 16.8 g/dL (13.5-17.5); Immature Grans % 0.5 %; MCH 34.8 pg (27.0-33.0); MCHC 33.3 % (32.0-36.0); MCV 104 fL (80-95); MPV 11.0 fL (8.0-11.0); Platelet Count 295 10^3/uL (130-400); RBC 4.83 10^6/uL (4.36-5.78); RDW 12.6 % (11.8-14.1); RDW-SD 48.8 fL; WBC 5.85 10^3/uL (4.4-10.8)
[2025-02-09 17:43] LABS: Hemoglobin A1C 5.8 % (<5.7)
[2025-02-09 17:49] LABS: ALT 18 U/L (16-63); AST 23 U/L (15-37); Albumin 3.4 g/dL (3.4-5.0); Alkaline Phosphatase 107 U/L (46-116); Anion Gap 9.9 mmol/L (3-11); BUN 9 mg/dL (7-18); Bilirubin, Total 1.0 mg/dL (0.2-1.0); CO2 31.1 mmol/L (21.0-32.0); Calcium 8.9 mg/dL (8.5-10.1); Chloride 103 mmol/L (98-107); Estimated GFR 94.31 (mL/min/1.73m2); Glucose 100 mg/dL (74-106); Potassium 4.0 mmol/L (3.5-5.1); Sodium 144 mmol/L (136-145); TSH 5.04 uIU/mL (0.36-3.74); Total Protein 6.3 g/dL (6.4-8.2)
== END 2025-02-09 15:24 | disposition home or self-care (01) ==
LOC: NCHCN 15:23
PROVIDERS: PCP Family Medicine; Visit Provider Family Medicine
DX: E11.9 Type 2 diabetes mellitus without complications (principal); E03.9 Hypothyroidism, unspecified; E78.5 Hyperlipidemia, unspecified
CPT/HCPCS: 80053; 83036; 84443; 85025

== ENCOUNTER 2025-03-31 20:42 | Outpatient (REF) | payer MEDICARE, BC, SELFPAY ==
[2025-03-31 21:20] LABS: Abs Immature Grans 0.03 10^3/uL (0.0-0.06); HCT 47.4 % (40.0-50.0); HGB 15.6 g/dL (13.5-17.5); Immature Grans % 0.4 %; MCH 34.1 pg (27.0-33.0); MCHC 32.9 % (32.0-36.0); MCV 104 fL (80-95); MPV 10.7 fL (8.0-11.0); Platelet Count 273 10^3/uL (130-400); RBC 4.58 10^6/uL (4.36-5.78); RDW 12.8 % (11.8-14.1); RDW-SD 49.3 fL; WBC 7.41 10^3/uL (4.4-10.8)
[2025-03-31 21:35] LABS: ALT 16 U/L (16-63); AST 15 U/L (15-37); Albumin 3.2 g/dL (3.4-5.0); Alkaline Phosphatase 96 U/L (46-116); Anion Gap 5.7 mmol/L (3-11); BUN 15 mg/dL (7-18); Bilirubin, Total 0.6 mg/dL (0.2-1.0); CO2 31.3 mmol/L (21.0-32.0); Calcium 8.7 mg/dL (8.5-10.1); Chloride 108 mmol/L (98-107); Estimated GFR 87.42 (mL/min/1.73m2); Glucose 140 mg/dL (74-106); Potassium 4.1 mmol/L (3.5-5.1); Sodium 145 mmol/L (136-145); Total Protein 5.6 g/dL (6.4-8.2)
== END 2025-03-31 20:43 | disposition home or self-care (01) ==
LOC: NCHCN 20:42
PROVIDERS: PCP Family Medicine; Visit Provider Family Medicine
DX: G20.A1 Parkinson's disease without dyskinesia, without mention of fluctuations (principal)
CPT/HCPCS: 80053; 85025